=== PATIENT | female | born 1935 | race African-American/Black ===

== ENCOUNTER 2017-01-23 08:57 | Inpatient (IN) | payer MEDICARE, OTHER ==
[~2017-01-23] VITALS: Ht 157.5 cm; Wt 84.0 kg
[2017-01-23] VITALS (15 sets, daily range): BP systolic 131–228; BP diastolic 65–123; PULSE 74–105; RESP 15–24; TEMP 98.1–105.5; O2SAT 94–100
[~2017-01-23 08:57] MED LIST: ALPR0.5T99 PO; CITA20 PO; ENAL20TA PO; METO25 PO; OMEP20CA5 PO; PROP50TA2 PO; TYLETAB36 PO
[2017-01-23] MEDS ORDERED: SODIUM CHLOR 0.9% 1000 ML INJ 1,000 ML IV ONE (09:02)
--- NOTE | 2017-01-23 09:33 | RADRPT ---
EXAM DATE/TIME: 01/23/2017 09:03 [facility] COMPARISON: No previous studies available for comparison. INDICATIONS : Stroke alert. Altered mental status. RADIATION DOSE: 56.35 CTDIvol (mGy) This report was partially discussed with neurology at 0921 MEDICAL HISTORY : Non-responsive. SURGICAL HISTORY : Non-responsive. ENCOUNTER: Initial ACUITY: 1 day PAIN SCALE: Non-responsive LOCATION: cranial TECHNIQUE: Multiple contiguous axial images were obtained of the head. Using automated exposure control and adj ustment of the mA and/or kV according to patient size, radiation dose was kept as low as reasonably a chievable to obtain optimal diagnostic quality images. DICOM format image data is available electro nically for review and comparison. FINDINGS: CEREBRUM: Moderate diffuse cerebral volume loss. Subtle bilateral basal ganglia lacunar infarcts. There is appa rent dense left MCA. Small focal region of apparent jiang-white matter differentiation loss in the lef t posterior parietal-occipital mid convexities. This is potentially an artifact as it is only visuali zed on a single slice. The ventricles are normal for age. No evidence of midline shift, mass lesion, hemorrhage or acute infarction. No extra-axial fluid collections are seen. POSTERIOR FOSSA: The cerebellum and brainstem are intact. The 4th ventricle is midline. The cerebellopontine angle i s unremarkable. EXTRACRANIAL: The visualized portion of the orbits is intact. SKULL: The calvaria is intact. No evidence of skull fracture. Opacification of the left frontal sinuses. Re maining paranasal sinuses are CONCLUSION: 1. Questionable left dense MCA in this patient with acute CVA symptoms. 2. Focal jiang-white matter differentiation loss in the left posterior parietooccipital mid convexity seen on a single image only. Although this is likely artifactual, a developing watershed territory in farct should be considered. Carlos Ritchie MD on January 23, 2017 at 9:19 Board Certified Radiologist. This report was verified electronically.
[2017-01-23] MEDS ORDERED: SODIUM CHLOR 0.9% 1000 ML INJ 1,000 ML IV SCH (09:37)
[2017-01-23 09:38] LABS: I-STAT POTASSIUM 5.8 MMOL/L (3.5-4.9)
[2017-01-23] MEDS ORDERED: ASPIRIN 300 MG SUPP RECTAL SCH (09:45)
--- NOTE | 2017-01-23 10:05 | MB ---
cc: DEANDRA VERMA M.D. DATE OF CONSULTATION 01/23/2017 HISTORY OF PRESENT ILLNESS A 81-year-old right-handed woman with a history of hypertension, non-insulin diabetes, possible OR in the past, a stroke 20 years ago which may have affected her left arm. She lives with her nephew. She does not take any strong blood thinners, according to the nephew. He saw her at about 3:00 a.m.; she was sitting up watching the [employer], seemed to be fine. He talked her, said she should probably go to bed. He walked by her room at 06:00 a.m. this morning and she was asleep and he did not disturb her. Then he walked at about 08:45 this morning and noticed that she was laying sideways in bed and went in and she was unable to talk and came in and brought her to the hospital. A Stroke Alert was called. REVIEW OF SYSTEMS As far as he knows, no hypercholesterolemia. She does not take insulin. No A-fib. He does not know her full medical history but he did deny that she had any history of renal, hepatic, pulmonary disease, thyroid disease, lupus, ulcer, cancer. SOCIAL HISTORY Not a smoker or drinker. Lives with her nephew. FAMILY HISTORY Positive in her brother for cancer. Negative seizure or stroke. MEDICATIONS From a box of meds, she takes - 1. Vitamin 6. 2. She is on potassium. 3. She takes omeprazole. 4. Oxybutynin. 5. Citalopram 20 mg a day. 6. Temazepam 30 mg at night. 7. Xanax 0.5 t.i.d. 8. Lasix 20 mg twice a day. 9. Enalapril 10 mg daily pox her. 10. Tylenol with Codeine p.r.n. 11. Prednisone 5 mg a day for arthritis. 12. Propylthiouracil b.i.d. 13. Baclofen 10 mg twice a day for back pain. 14. Vitamin C. Metoprolol ER 25 mg q. day. I do not see any aspirin in the box or other blood thinners. PAST MEDICAL HISTORY 1. Some thyroid problems in the past as above. 2. History of depression, anxiety. 3. History of right arm pain. PHYSICAL EXAMINATION VITAL SIGNS: Blood pressure was 225/120; I did give her atenolol and labetalol at that time. NEUROLOGICAL EXAMINATION: Pupils are equal. 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 She did mumble something, but it was unintelligible to me and otherwise would not follow commands. She seems to move the left upper extremity and the left lower extremity better than the right side, although she hold the right arm up by the elbow, does not hold the right lower extremity up well. The toe was upgoing on the right, downgoing on the left. DTRs are absent throughout. She is nonverbal. She reacts to threat on the left, not very well on the right. LABS Pending, although she had anemia with hematocrit of 24.5 in 2012. Sed rate was 54 back in 2008. BORA was 180 at that time only. UA was negative back in 2008 with normal coags. Basic metabolic profile in 2013 was essentially normal. Her LDL was 141. Thyroid was normal as were LFTs at that time. IMAGING STUDIES CAT scan of brain here may show a hyperdense left MCA sign; it is hard to say. She had a negative CAT scan back in 2011. IMPRESSION Probably a left MCA infarct. However, it has been over 6 hours since she was last seen normal. I have suggested she is not a candidate for IV t-PA. Her NIH Stroke Scale is she has a 13. PLAN We will go ahead and do an MRI, MRA, see if there is anything more that we can do here, although she seems to be out of the window at this time. Seizure would be another possibility. MD JULIANNE Azul/NEFTALI /9:35 AM /9:54 AM
--- NOTE | 2017-01-23 10:28 | PD ---
HPI Chief Complaint: Neuro Symptoms/ Deficits Time Seen by Provider: 09:30 Travel History International Travel<30 days: No Contact w/Intl Traveler<30days: No Traveled to known affect area: No History of Present Illness HPI 81yo F with PMH of anxiety, HTN was brought in as stroke alert. As per EVAC, pt went to bed at 6am and was seen last normal then. She was then found to be completely aphasic with right gaze about 15 min prior to arrival. However, when the nephew arrived, we were able to clarify the story and pt had actually been last seen normal at 3am and that was the last time he interacted with her. She was sleeping at 6am and he did not talk to her then. Dr. Alfredo was informed and evaluated the patient in CT scan. PFSH Past Medical History Arthritis: Yes (KATHIE KNEES) Asthma: Yes Anxiety: Yes High Cholesterol: Yes Cerebrovascular Accident: Yes (1997) Diabetes: Yes (DOESN'T TAKE MEDS AT THIS TIME) Gastrointestinal Disorders: Yes (HX OF NAUSEA....) Genitourinary: No Hypertension: Yes Immune Disorder: No Musculoskeletal: Yes Neurologic: Yes Respiratory: Yes Tetanus Vaccination: Unknown ?: Not Menopausal: Yes Past Surgical History Cardiac Surgery: No Endocrine Surgery: No Eye Surgery: Yes (LT CATARACT REMOVED) Pacemaker: No Other Surgery: Yes Social History Tobacco Use: No Substance Use: No Allergies-Medications (Allergen,Severity, Reaction): Coded Allergies: No Known Allergies (Verified , 01/23/17) Reported Meds & Prescriptions Reported Meds & Active Scripts Active Review of Systems ROS Limitations: Clinical Condition Physical Exam Narrative GENERAL: 81yo F in moderate distress. SKIN: Focused skin assessment warm/dry. HEAD: Atraumatic. Normocephalic. EYES: Pupils equal and round at 4mm bilaterally. Right sided gaze. ENT: No nasal bleeding or discharge. Mucous membranes pink and moist. NECK: Trachea midline. No JVD. CARDIOVASCULAR: Regular rate and rhythm. No murmur appreciated. RESPIRATORY: No accessory muscle use. Clear to auscultation. Breath sounds equal bilaterally. GASTROINTESTINAL: Abdomen soft, non-tender, nondistended. MUSCULOSKELETAL: No obvious deformities. No clubbing. No cyanosis. No edema. NEUROLOGICAL: Awake with eyes open. 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 NIH 21. Data Data Last Documented VS Vital Signs Date Time Temp Pulse Resp B/P Pulse Ox O2 Delivery O2 Flow Rate FiO2 01/23/17 11:30 97 Nasal Cannula 2.00 01/23/17 11:00 88 18 190/75 01/23/17 10:15 100.5 Orders Diet Npo (01/23/17 Breakfast) Activity Bed Rest (01/23/17 ) Electrocardiogram (01/23/17 ) I-Stat Creatinine (01/23/17 09:02) I-Stat Profile (01/23/17 09:02) Prothrombin Time / Inr (Pt) (01/23/17 09:02) Act Partial Throm Time (Ptt) (01/23/17 09:02) Complete Blood Count With Diff (01/23/17 09:02) Fibrinogen (01/23/17 09:02) Drug Screen, Random Urine (01/23/17 09:02) Type And Screen (01/23/17 09:02) Ct Brain W/O Iv Contrast(Rout) (01/23/17 ) Chest, Single Ap (01/23/17 ) Consult Neurology (01/23/17 ) Blood Glucose (01/23/17 09:02) Ecg Monitoring (01/23/17 09:02) Neuro Checks Q2HX12,Q4H (01/23/17 09:02) Nursing Bedside Swallow Assess .ONCE (01/23/17 09:02) Iv Access Insert/Monitor (01/23/17 09:02) NPO (01/23/17 09:02) Oximetry (01/23/17 09:02) Oxygen Administration (01/23/17 09:02) Sodium Chlor 0.9% 1000 Ml Inj (Ns 1000 M (01/23/17 09:02) Resp Oxygen Rogelio C Titrat 1-4 L (01/23/17 09:02) Cath For Specimen (01/23/17 09:02) Creatine Kinase (Cpk) (01/23/17 09:28) Troponin I (01/23/17 09:28) (Hub Use Only)Inp Phy Cons/Ref (01/23/17 09:29) Mri Brain W/O Contrast (01/23/17 09:36) Mra Brain W/O Contrast (Cow) (01/23/17 09:36) Mra Carotids W Contrast (01/23/17 09:36) Westergren Sedimentation Rate (01/23/17 09:37) Thyroid Stimulating Hormone (01/23/17 09:37) Free Thyroxine (T4) (01/23/17 09:37) Vitamin B1 (Thiamine) (01/23/17 09:37) Vitamin B12 (01/23/17 09:37) Ast (Sgot) (01/23/17 09:37) Alt (Sgpt) (01/23/17 09:37) Eeg Study (01/23/17 09:37) Holter Monitor Recording (01/23/17 09:37) [place] / Telemetry YRN.Q8H (01/23/17 09:37) ^ Seizure Precautions (01/23/17 09:37) [place] (01/23/17 09:37) ^ Other Nursing Orders (01/23/17 09:37) Sodium Chlor 0.9% 1000 Ml Inj (Ns 1000 M (01/23/17 09:37) Lipid Profile (01/23/17 09:37) Folate, Serum (01/23/17 09:37) Consult Pt Eval & Treat (01/23/17 09:37) Scd&Teds Bilateral/Knee High YRN.QSHIFT (01/23/17 09:37) Aspirin Supp (Aspirin Supp) (01/23/17 09:45) Arterial Blood Gas (Abg) (01/23/17 09:40) Labetalol Inj (Trandate Inj) (01/23/17 10:30) Nicardipine Inj (Cardene Inj) (01/23/17 11:00) Gadodiamide Pf Inj (Omniscan Pf Inj) (01/23/17 11:01) Vascular Access Team Consult/P PRN (01/23/17 11:13) Vascular Poc Ultrasound (01/23/17 ) Ceftriaxone Inj (Rocephin Inj) (01/23/17 11:30) Acyclovir Inj (Zovirax Inj) (01/23/17 11:30) Acyclovir Inj (Zovirax Inj) (01/23/17 11:30) Admit Order (Ed Use Only) (01/23/17 11:33) Echo 2d Comp With Doppler (01/24/17 09:37) Labs Laboratory Tests Test 01/23/17 01/23/17 01/23/17 01/23/17 09:19 09:20 10:45 11:20 Bedside Hemoglobin 17.0 G/DL Bedside Hematocrit 50.0 % Bedside Sodium 133 MMOL/L Bedside Potassium 5.8 MMOL/L Bedside Chloride 97 MMOL/L Bedside Blood Urea Nitrogen 21 MG/DL Bedside Creatinine 1.2 MG/DL Bedside Glucose 190 MG/DL Sodium Level 127 MEQ/L Potassium Level 4.8 MEQ/L Chloride Level 94 MEQ/L Carbon Dioxide Level 24.7 MEQ/L Anion Gap 8 MEQ/L Blood Urea Nitrogen 21 MG/DL Creatinine 1.99 MG/DL Estimat Glomerular Filtration 29 ML/MIN Rate Random Glucose 234 MG/DL Calcium Level 7.4 MG/DL Protein Corrected Calcium MG/DL Phosphorus Level 2.6 MG/DL Magnesium Level 1.7 MG/DL Total Bilirubin 0.7 MG/DL Aspartate Amino Transf 64 U/L 68 U/L (AST/SGOT) Alanine Aminotransferase 37 U/L 36 U/L (ALT/SGPT) Alkaline Phosphatase 93 U/L Total Protein 8.4 GM/DL Albumin 2.8 GM/DL Blood Gas Puncture Site LT RADIAL Blood Gas Patient Temperature 98.6 Blood Gas HCO3 23 mmol/L Blood Gas Base Excess 0.1 mmol/L Blood Gas Oxygen Saturation 91 % Arterial Blood pH 7.48 Arterial Blood Partial 32 mmHg Pressure CO2 Arterial Blood Partial 61 mmHG Pressure O2 Arterial Blood Oxygen Content 19.7 Vol % Arterial Blood 1.0 % Carboxyhemoglobin Arterial Blood Methemoglobin 0.8 % Blood Gas Hemoglobin 15.5 G/DL Oxygen Delivery Device ROOM AIR Blood Gas Inspired Oxygen 21 % Erythrocyte Sedimentation Rate 6 mm/hr Total Creatine Kinase 116 U/L Troponin I 0.24 NG/ML Triglycerides Level 76 MG/DL Cholesterol Level 222 MG/DL LDL Cholesterol 129 MG/DL HDL Cholesterol 77.8 MG/DL Cholesterol/HDL Ratio 2.85 RATIO Vitamin B12 Level 565 PG/ML Folate GREATER THAN 20.0 NG/ML Free Thyroxine 0.76 NG/DL Thyroid Stimulating Hormone 0.885 uIU/ML 3rd Gen [facility] Medical Decision Making Medical Screen Exam Complete: Yes Emergency Medical Condition: Yes Interpretation(s) EKG: NSR 99bpm LAD. PVC. Q waves in II, III, aVF. Differential Diagnosis CVA vs. ICH vs. metabolic disturbance vs. meningitis Narrative Course 81yo F here as stroke alert. However, upon further questioning, pt was actually pass the window for TPA. CT brain showed questionable left dense MCA in this patient with acute CVA symptoms. Unable to obtain IV for CTA in CT scan so pt had MRI instead. MRI brain showed no restricted diffusion to indicate any recent ischemia. MRA brain showed no occlusion or high grade stenosis is identified. CXR negative. Dr. Alfredo gave the nurse verbal orders for 1gm IV solumedrol stat, 2gm ceftriaxone IV stat and 10mg per kg IV acyclovir stat and then Q 8 Hr. I entered these orders for her. Pt has one IV and is getting another one by vascular access. POC K is elevated at 5.8, will wait for BMP. Labs pending. BP was still 237/110 after labetalol 10mg IV x2. Will start nicardipine drip. Discussed with Dr. Lane and accepted to his service. Labs reviewed, leukocytosis at 17.2. Lactic acid elevated at 2.8. Troponin 0.24. EKG does show Q waves in inferior lead. Will trend troponin. UA showed negative leukocyte and occasional bacteria. Nurse just informed me that pt's temperature is 100.5F. Ordered blood cultures , acetaminophen rectal and lactic acid. Pt already covered with antibiotics for meningitis. Consent for lumbar puncture was obtained from nephew Mr. Eduar Phipps who is the next of kin. He also wanted to leave his number . LP was performed in the ED and CSF is clear. Sent to lab. Critical Care Narrative Aggregate critical care time was 90 minutes. Time to perform other separately billable procedures was not included in the critical care time. My time did not include minutes spent treating any other patients simultaneously or on activities that did not directly contribute to the patient's treatment. The services I provided to this patient were to treat and/or prevent clinically significant deterioration that could result in: cardiovascular collapse and . I provided critical care services requiring my management, as noted below: Chart data review, documentation time, medication orders and management, vital sign assessments/reviewing monitor data, ordering and reviewing lab tests, ordering and interpreting/reviewing x-rays and diagnostic studies, care of the patient and discussion of the patient with the admitting physicians. Procedures Procedure Narrative LUMBAR PUNCTURE: The patient was placed in the left lateral decubitus position. The lumbar area of the back was prepped with Betadine and sterilely draped. The L3 -- L4 interspace was infiltrated with 1% lidocaine plain. Number 20 gauge LP needle was placed in the interspace. Opening pressure deferred. Number 4 milliliters of clear CSF were obtained. Patient tolerated procedure well. Pt was also given 2mg of versed IV. Diagnosis Primary Impression: Altered mental status Qualified Code: R41.82 - Altered mental status, unspecified altered mental status type Additional Impression: Sepsis Qualified Code: A41.9 - Sepsis, due to unspecified organism Admitting Information Admitting Physician Requests: Sri Wooten DO Jan 23, 2017 10:28
[2017-01-23] MEDS ORDERED: LABETALOL HCL 100 MG/20 ML VIAL IV PUSH ONE (10:30)
--- NOTE | 2017-01-23 10:34 | RADRPT ---
EXAM DATE/TIME: 01/23/2017 09:41 [facility] COMPARISON: No previous studies available for comparison. INDICATIONS : Stroke alert. Right sided weakness. MEDICAL HISTORY : Hypertension. Diabetes mellitus type 2. SURGICAL HISTORY : shoulder surgery ENCOUNTER: Initial ACUITY: 1 day PAIN SCORE: 0/10 LOCATION: cranial Please note a normal MRA of the brain does not entirely exclude the possibility of a small aneurysm, nor the possibility of distal intracranial vessel disease. TECHNIQUE: 3D time of flight MRA was performed. Source images, multiplanar STS MIP, and 3D volume MIP reconstru ctions were reviewed. FINDINGS: Anterior circulation: The internal carotid arteries demonstrate luminal irregularity characteristic of atherosclerotic zarate ge. No high-grade stenosis is identified. Left internal carotid artery is narrowed slightly greater t kil[place]ore the right but still likely less than 50%. A1 segments and more distal anterior cerebral arteries are symmetric and within normal limits. The middle cerebral artery branches demonstrate symmetric fl ow related enhancement with areas of mild luminal irregularity and mild narrowing suggesting atherosc lerotic change. No aneurysm or high-grade stenosis is identified. Posterior circulation: There are patent posterior cerebral arteries bilaterally. Vertebral arteries are codominant. There is mild luminal irregularity of the vertebrobasilar system likely related to atherosclerotic change. Pa tent posterior cerebral arteries are present bilaterally with persistent circulation on the rig ht. No aneurysm is visualized. CONCLUSION: There are areas of luminal irregularity and mild to moderate narrowing within the internal carotid ar teries and middle cerebral arteries bilaterally as well as the vertebrobasilar system. The appearance is characteristic of atherosclerotic disease. No occlusion or high-grade stenosis is identified. Findings were telephoned to Dr. Alfredo. Fredis Gray MD on January 23, 2017 at 10:28 Board Certified Radiologist. This report was verified electronically.
--- NOTE | 2017-01-23 10:48 | RADRPT ---
EXAM DATE/TIME: 01/23/2017 10:16 [facility] COMPARISON: No previous studies available for comparison. INDICATIONS : Stroke alert. MEDICAL HISTORY : Hypertension. Diabetes mellitus type II. SURGICAL HISTORY : Shoulder repair. ENCOUNTER: Initial ACUITY: 1 day PAIN SCORE: Non-responsive. LOCATION: Bilateral chest FINDINGS: A single view of the chest demonstrates the lungs to be symmetrically aerated without evidence of mas s, infiltrate or effusion. The heart size is mildly prominent.. Osseous structures are intact. Ther e is evidence of previous internal fixation of the right humerus. CONCLUSION: No acute disease. Mild cardiomegaly. Andrea Palencia MD on January 23, 2017 at 10:45 Board Certified Radiologist. This report was verified electronically.
[2017-01-23 10:55] LABS: BLOOD GAS BASE EXCESS 0.1 mmol/L (-2-2); BLOOD GAS HCO3 23 mmol/L (22-26); BLOOD GAS METHEMOGLOBIN 0.8 % (0-2); BLOOD GAS O2 HGB SATURATION 91 % (90-100); BLOOD GAS OXYGEN CONTENT 19.7 Vol % (12.0-20.0); BLOOD GAS PCO2 32 mmHg (38-42); BLOOD GAS PO2 61 mmHG (61-120); BLOOD GAS TOTAL HGB 15.5 G/DL (12.0-16.0); CRITICAL VALUE NO; DRAW SITE LT RADIAL; FIO2 21 %; NUMBER OF ARTERIAL PUNCTURES 1; OXYGEN DEVICE ROOM AIR; STAT YES; TEMP CORR TO 98.6
--- NOTE | 2017-01-23 10:55 | RADRPT ---
EXAM DATE/TIME: 01/23/2017 09:41 [facility] COMPARISON: MRA BRAIN W/O CONTRAST, January 23, 2017, 9:41. CT BRAIN W/O CONTRAST, January 23, 2017, 9:03. INDICATIONS : CVA. Stroke alert and non responsive. MEDICAL HISTORY : Hypertension. Diabetes mellitus type 2. SURGICAL HISTORY : Shoulder replacement. ENCOUNTER: Initial ACUITY: 1 day PAIN SCORE: 0/10 LOCATION: head. TECHNIQUE: Multiplanar, multisequence MRI of the brain was performed without contrast. FINDINGS: CEREBRUM: There is mild cerebral atrophy. Ventricles are normal in size. There is moderate increased flair/T2 signal within the thalami bilaterally and extending into the midbrain and stephanie. No midline shift, mas s lesion, hemorrhage or acute infarction. No extraaxial fluid collections are seen. The pituitary g land and suprasellar cistern are normal in configuration. WHITE MATTER: There is mild periventricular white matter signal change. POSTERIOR FOSSA: The cerebellum demonstrates no acute finding. There is increased flair/T2 signal within the stephanie and midbrain. The 4th ventricle is midline. The cerebellopontine angle is unremarkable. The cerebellar tonsils are normal in position. DIFFUSION IMAGING: No focal areas of restricted diffusion are seen. No evidence of acute infarction. EXTRACRANIAL: The visualized portions of the orbits and paranasal sinuses are unremarkable. CONCLUSION: 1. There is no restricted diffusion to indicate any recent ischemia. 2. There is conspicuous increased flair/T2 signal without diffusion restriction in the thalami bilate rally and in the midbrain and stephanie. The appearance is nonspecific. This may be related to small vesse l disease. However, should correlate with the clinical history and laboratory data to determine if th ere are any findings to suggest a metabolic or infectious etiology. Findings were discussed with Dr. Alfredo the telephone. Fredis Gray MD on January 23, 2017 at 10:32 Board Certified Radiologist. This report was verified electronically.
[2017-01-23] MEDS ORDERED: niCARdipine INJ 25 MG in SODIUM CHLOR 0.9% 250 ML INJ 250 ML IV ONE (11:00)
[2017-01-23] MEDS ORDERED: GADODIAMIDE PF 287 MG/ML 20 ML VIAL (for RAD MRI) IV ONE (11:01)
[2017-01-23] MEDS ORDERED: cefTRIAXone INJ 2,000 MG in SODIUM CHLORIDE 0.9% INJ 100 ML IV ONE (11:30)
[2017-01-23] MEDS: SODIUM CHLORIDE 0.9% IV ONE ×2 (11:30→15:15)
[2017-01-23] MEDS ORDERED: methylPREDNISolone SOD SUCC 125 MG/2 ML VIAL IVP ONE (11:30)
[2017-01-23] MEDS ORDERED: SODIUM CHLORIDE 0.9% IV SCH (11:30)
[2017-01-23] MEDS: ACYCLOVIR IV ONE ×2 (11:30→15:15)
[2017-01-23] MEDS ORDERED: ACYCLOVIR IV SCH (11:30)
[2017-01-23] MEDS ORDERED: ACETAMINOPHEN 650 MG SUPP RECTAL ONE (11:45)
[2017-01-23] MEDS ORDERED: MAGNESIUM HYDROXIDE SUSP 30 ML CUP PO PRN (12:00)
[2017-01-23] MEDS: PANTOPRAZOLE SODIUM 40 MG VIAL IV SCH (12:00)
[2017-01-23] MEDS ORDERED: BISACODYL 10 MG SUPP RECTAL PRN (12:00)
[2017-01-23] MEDS ORDERED: LACTULOSE SYRUP 20 GM/30 ML CUP PO PRN (12:00)
[2017-01-23] MEDS ORDERED: SENNOSIDES 8.6 MG TAB PO PRN (12:00)
[2017-01-23] MEDS ORDERED: CHLORHEXIDINE GLUCONATE 2 % 1 PACK (2 CLOTHS) TOP PRN (12:00)
[2017-01-23] MEDS: INSULIN NovoLIN REGULAR SUPPLEMENTAL SCALE SQ SCH ×2 (12:00→18:00)
[2017-01-23] MEDS ORDERED: MISCELLANEOUS NURSING INFORMATION XX SCH (12:00)
[2017-01-23] MEDS ORDERED: DEXTROSE 50% IN WATER 50 ML VIAL(D50) IV PRN (12:00)
[2017-01-23] MEDS ORDERED: RESP: ALBUTEROL 2.5 MG/IPRATROPIUM 0.5 MG NEB (PRN) INH (12:00)
[2017-01-23] MEDS ORDERED: GLUCAGON 1 MG/ML VIAL OTHER PRN (12:00)
[2017-01-23 12:07] LABS: AUTOMATED NEUTROPHIL # 16.3 TH/MM3 (1.8-7.7); BASOPHIL # 0.1 TH/MM3 (0-0.2); BASOPHIL % 0.5 % (0.0-2.0); HEMATOCRIT 45.5 % (35.0-46.0); HEMO FLAGS DIFF FINAL; LYMPH % 3.2 % (9.0-44.0); LYMPHOCYTE # 0.6 TH/MM3 (1.0-4.8); MEAN CELL VOLUME 95.8 FL (80.0-100.0); MEAN CORPUSCULAR HEMOGLOBIN 31.7 PG (27.0-34.0); MEAN CORPUSCULAR HGB CONC 33.1 % (32.0-36.0); MONO % 2.3 % (0.0-8.0); PLATELET COUNT 189 TH/MM3 (150-450); RED BLOOD COUNT 4.76 MIL/MM3 (4.00-5.30); RED CELL DISTRIBUTION WIDTH 13.8 % (11.6-17.2); WHITE BLOOD COUNT 17.3 TH/MM3 (4.0-11.0)
[2017-01-23 12:30] LABS: BICARBONATE 24.7 MEQ/L (21.0-32.0); MAGNESIUM 1.7 MG/DL (1.5-2.5); POTASSIUM 4.8 MEQ/L (3.5-5.1)
[2017-01-23] MEDS ORDERED: MIDAZOLAM HCL 2 MG/2 ML VIAL IV PUSH ONE (12:30)
[2017-01-23 12:32] LABS: AST (GOT) 68 U/L (15-37)
[2017-01-23 12:33] LABS: TOTAL BILIRUBIN ADULT 0.7 MG/DL (0.2-1.0)
[2017-01-23] MEDS ORDERED: LIDOCAINE HCL 1% 50 ML VIAL ONE (12:35)
[2017-01-23 12:43] LABS: BACTERIA, URINE OCC /hpf; BLOOD, URINE SMALL (NEG); GLUCOSE,URINE NEG (NEG); KETONE, URINE NEG (NEG); MUCUS URINE FEW /lpf (OCC); NITRITE,URINE NEG (NEG); PH, URINE 6.5 (5.0-8.5); URINE COLOR YELLOW (YELLW/STRAW)
[2017-01-23 12:44] LABS: AMPHETAMINE, URINE NEG (NEG); BARBITURATES, URINE NEG (NEG); COCAINE, URINE NEG (NEG)
[2017-01-23] MEDS ORDERED: methylPREDNISolone SO SUCC INJ 1,000 MG in DEXTROSE 5% IN WATER 100ML INJ 100 ML IV ONE ×2 (12:45)
[2017-01-23] MEDS ORDERED: Vancomycin Consult Pharmacy 1 EA OTHER SCH (12:45)
[2017-01-23] MEDS ORDERED: LIDOCAINE HCL 1% 50 ML VIAL INFIL ONE (12:45)
[2017-01-23] MEDS ORDERED: VANCOMYCIN INJ 1,000 MG in SODIUM CHLOR 0.9% 250 ML INJ 250 ML IV ONE ×2 (12:45→17:00)
[2017-01-23 12:46] LABS: COMMENT (UR) CATH-CULTURE IND; CULTURE IF INDICATED CATH CULTURE IND
[2017-01-23 12:57] LABS: ALT (GPT) 36 U/L (10-53); CREATINE KINASE 116 U/L (26-192); FREE T4 0.76 NG/DL (0.76-1.46); HDL CHOLESTEROL 77.8 MG/DL (40.0-60.0); LDL CHOLESTEROL 129 MG/DL (0-99)
--- NOTE | 2017-01-23 13:21 | MH ---
cc: OMAR DUMONT DATE OF ADMISSION: 01/23/2017 1937 HISTORY OF PRESENT ILLNESS The patient is a 81-year-old female with past medical history of hypertension, ylr-rljfxtg-stkkltjup diabetes mellitus, hyperlipidemia, hyperthyroidism and remote history of stroke. She presented to [facility] ED as a stroke alert. The patient lives with her nephew and she was last seen normal at approximately 03:00 a.m. where she was watching the gospel channel. When he went back to check on her at 06:00 a.m. the patient was asleep. And then when he checked on her at 08:45 this morning he noticed the patient was lying sideways in bed and was unable to talk. On arrival to the ER she was hypertensive with blood pressure of 188/87, tachycardic with heart rate of 105. In the ER she was given labetalol 20 mg total and placed on a Cardene drip at currently 40 mg an hour, with a blood pressure of 172/74. CT scan of the brain showed questionable left dense MCA. She subsequently underwent MRI of the brain which showed no restricted diffusion to indicate any recent ischemia. However, there is an increased FLAIR in T2 signal without diffusion restriction in the thalami bilaterally. MRA of the head showed findings compatible with atherosclerotic disease. No occlusion or high-grade stenosis is identified. In the ER she was given 1 liter bolus of normal saline. In addition the patient was scheduled to receive 1 gram of Solu-Medrol, 2 grams of Rocephin and acyclovir. In addition, she is in the process of getting LP by the ED physician. The patient is on room air oxygen with saturation of 97%. Initially she was afebrile, however, she was found to have a temperature of 100.4 axillary and 105 rectally. Most of the history was obtained from reviewing the medical records as the patient is a poor historian. PAST MEDICAL HISTORY Significant for: 1. Dyslipidemia. 2. Diabetes mellitus. 3. Hypertension. 4. Remote history of stroke. 5. Hyperthyroidism. SOCIAL HISTORY Nonsmoker, nondrinker. Lives with her nephew. FAMILY HISTORY Cancer runs in the family. MEDICATIONS Reported medications include: 1. Vitamin B6. 2. Oxybutynin. 3. Celexa. 4. Xanax. 5. Lasix. 6. Enalapril. 7. Prednisone for arthritis. 8. PTU. 9. Vitamin C. 10. Metoprolol. PAST SURGICAL HISTORY Previous left cataract removal. REVIEW OF SYSTEMS As per HPI. The rest of the review of systems limited as the patient is a poor historian. PHYSICAL EXAMINATION GENERAL: A 81-year-old female lying in bed, in no acute respiratory distress. VITAL SIGNS: Temperature 105 rectally, pulse of 85, blood pressure 172/74, saturation of 97% on room air. HEENT: Atraumatic, normocephalic. Pupils equal, round, reactive to light and accommodation. Extraocular muscles are intact. Conjunctivae pink. Nonicteric sclerae. NECK: Supple. No JVD, adenopathy or thyromegaly. Trachea in the midline. CARDIOVASCULAR: Regular rate and rhythm. Normal S1-S2. No murmurs, rubs or gallops noted. PULMONARY: Bilateral equal air entry. No rales or wheezing. ABDOMEN: Soft, obese, nontender, nondistended. Positive bowel sounds. EXTREMITIES: No cyanosis, clubbing or edema. NEURO: The patient is able to move her left upper and left lower extremity, better than the right-side. Nonverbal and tardive dyskinesia type movements of the mouth with constant chewing. LABORATORY DATA WBC 17.3, hemoglobin 15.1, hematocrit 45, platelet count 189. Point of care sodium 133, potassium 5.8, chloride 97, BUN 21, creatinine 1.2, glucose 190. ABG showed a pH of 7.48, CO2 32, pAO2 61, bicarb 23, sats of 91% on room air. RADIOGRAPHIC STUDIES CT brain showed questionable left dense MCA. MRI of the brain showed no restricted diffusion to indicate any recent ischemia. However, increased FLAIR T2 signal in the thalami bilaterally. MRI of the head showed atherosclerotic disease without any occlusion or high-grade stenosis. Chest x-ray showed no acute disease. IMPRESSION 1. Respiratory insufficiency. 2. Possible left MCA infarct. 3. Altered mental status. 4. Hypertensive emergency. 5. Leukocytosis. 6. Diabetes mellitus. 7. Dyslipidemia. 8. Hyperthyroidism. 9. Remote history of CVA. RECOMMENDATIONS 1. Monitor neuro status closely and avoid any sedatives. A CT brain MRI, MRA of the brain reviewed. The patient is about to undergo LP. She is scheduled to receive 1 gram of Solu-Medrol, acyclovir and Rocephin. 2. In addition EEG has been ordered by neurology. 3. Continue with oxygen to maintain sats above 92%. 4. Bronchodilators on a p.r.n. basis. Aspiration precautions. 5. Monitor heart rate and blood pressure closely and maintain MAP greater than 65 mmHg. Wean off Cardene drip. Will obtain 2-D echo to evaluate LV function. 6. Monitor renal function, I&O's and electrolyte replacement as needed. Hanna was inserted in the ED. Place on IV fluids, NS at 84 mL an hour. 7. Keep n.p.o. for now and place on Protonix 40 mg IV daily. Of note, the patient is on Prilosec 20 mg daily at home. Will consult speech therapy service. 8. Will place on broad spectrum abx in form of Rocephin and vancomycin and continue with acyclovir. Follow up on blood cultures and check urinalysis with culture if indicated. In addition we will consult ID service. 9. Monitor CBC and for signs of infections which include fever and WBC. 10. Place on sliding scale insulin with Accu-Chek q. 6-hour for glycemic control. 11. GI prophylaxis with Protonix 40 mg daily and DVT prophylaxis with SCDs. Will hold off on DVT prophylaxis for now as the patient will undergo an LP. 12. Case discussed with the ED staff. 13. Further recommendations will be based on the hospital course. MD WHIT Justice/MATEO /12:28 PM /12:52 PM DANY
[2017-01-23 14:01] LABS: LACTIC ACID GHOST NOT REPORTABLE
--- NOTE | 2017-01-23 14:05 | RADRPT ---
EXAM DATE/TIME: 01/23/2017 09:41 [place] COMPARISON: No previous studies available for comparison. INDICATIONS : Stroke alert. CONTRAST: 20 cc Omniscan (gadodiamide) IV MEDICAL HISTORY : Diabetes mellitus type 2. Hypertension. SURGICAL HISTORY : Rotator cuff, right. ENCOUNTER: Initial ACUITY: 1 day PAIN SCORE: 0/10 LOCATION: cranial Percent stenosis is calculated using the diameter of the stenotic region over the diameter of the nor mal distal internal carotid artery. TECHNIQUE: Bolus infused MRA of the extracranial circulation was performed using a neurovascular coil. Post pro cessing was performed including rotating subvolume maximum intensity projections of each carotid gloria ry, rotating full volume maximum intensity projections of both carotid arteries, sagittal and coronal sliding thin slab reformations of each carotid artery, and left oblique sliding thin slab reformatio n through the aortic arch to include the origin of the arch branch vessels. FINDINGS: AORTIC ARCH: There is a three vessel origin of the great vessels from the aorta. No evidence of ostial narrowing. RIGHT CAROTID: The common carotid artery demonstrates no abnormality. The carotid bulb has a normal configuration w ithout ulceration or narrowing. The internal carotid artery lumen is smooth without stenosis. The e xternal carotid artery demonstrates no significant stenosis. LEFT CAROTID: The common carotid artery demonstrates no abnormality. The carotid bulb has a normal configuration w ithout ulceration or narrowing. The internal carotid artery lumen is smooth without stenosis. The e xternal carotid artery demonstrates no significant stenosis. VERTEBRALS: The vertebral arteries have a symmetric diameter. No stenotic lesions are seen. CONCLUSION: No acute neck arterial vascular abnormality is identified. No significant stenosis is present. Fredis Gray MD on January 23, 2017 at 13:58 Board Certified Radiologist. This report was verified electronically.
[2017-01-23 14:45] LABS: GROSS BLOOD TUBE #1 0 (0); SUPERNATE COLOR TUBE #1 CLEAR (CLEAR); SUPERNATE COLOR TUBE #2 CLEAR (CLEAR)
[2017-01-23] MEDS ORDERED: CALCIUM GLUCONATE INJ 1 GM in DEXTROSE 5% IN WATER 100ML INJ 100 ML IV ONE ×2 (14:45)
[2017-01-23 14:46] LABS: CSF LYMPHOCYTES 0 %; CSF NEUTROPHILS 0 %; GROSS BLOOD TUBE #2 0 (0); GROSS BLOOD TUBE #3 0 (0); GROSS BLOOD TUBE #4 0 (0); SUPERNATE COLOR TUBE #3 CLEAR (CLEAR); SUPERNATE COLOR TUBE #4 CLEAR (CLEAR); WBC TUBE #4 0 /MM3 (0-10)
[2017-01-23] MEDS: SODIUM CHLOR 0.9% 1000 ML INJ 1,000 ML IV SCH (16:14)
--- NOTE | 2017-01-23 16:59 | MG ---
cc: CLAIRE KAPLAN M.D. Lab No: [id number] Date: 01/23/17 Age: 81 Sex: F Race: REFERRING PHYSICIAN Dr. Calderon DATE OF 1935 Room C33 with photic stimulation. There is no history given. The overall background slowing is seen predominately of 4 to 4.5 Hz. A lot of chewing artifact, muscle artifact throughout the recording, noted at one point to start singing at EPOCH 16, ongoing muscle artifact, movement artifact. There is no epileptiform discharges noted but ongoing myogenic artifact throughout the recording. Poor study. Photic stimulation, possible driving response. IMPRESSION There was some overall background slowing but very poor study due to the patient's noncompliance. May have some encephalopathic process. Epilepsy is still considered. A repeat study when possible from light sedation. Claire Kaplan MD DF/EO /3:01 PM /4:54 PM
--- NOTE | 2017-01-23 17:45 | PD.ID.CON ---
History of Present Illness Service ID Consult Requested By Dr Hill Reason for Consult Evaluation and Mment of Possible meningoencephalitis. Primary Care Physician Unknown Diagnoses: History of Present Illness Ms. Mireles is a 81 y/o CF with past medical history of hypertension, non- insulin-dependent diabetes mellitus, hyperlipidemia, hyperthyroidism and remote history of stroke. She presented to [facility] ED as a stroke alert. The patient lives with her nephew and she was last seen normal at approximately 03:00 a.m. where she was watching the gospel channel. When he went back to check on her at 06:00 a.m. the patient was asleep. And then when he checked on her at 08:45 this morning he noticed the patient was lying sideways in bed and was unable to talk. On arrival to the ER she was hypertensive with blood pressure of 188/87, tachycardic with heart rate of 105. In the ER she was given labetalol 20 mg total and placed on a Cardene drip at currently 40 mg an hour, with a blood pressure of 172/74. CT scan of the brain showed questionable left dense MCA infarct. She subsequently underwent MRI of the brain which showed no restricted diffusion to indicate any recent ischemia. However, there is an increased FLAIR in T2 signal without diffusion restriction in the thalami bilaterally. MRA of the head showed findings compatible with atherosclerotic disease. No occlusion or high-grade stenosis is identified. In the ER she was given 1 liter bolus of normal saline. In addition the patient was scheduled to receive 1 gram of Solu-Medrol, 2 grams of Rocephin and acyclovir. Patient underwent an LP which shows no WBC normal glucose and some elevation in total protein. Initially she was afebrile, however , she was found to have a temperature of 100.4 axillary and 105 rectally. Most of the history was obtained from reviewing the medical records as the patient is acutely encephalopathic. ID was consulted for evaluation and mment of possible meningoencephalitis of infectious etiology. Review of Systems ROS Limitations: Altered Mental Status Past Family Social History Allergies: Coded Allergies: No Known Allergies (Verified , 01/23/17) Past Medical History 1. Dyslipidemia. 2. Diabetes mellitus. 3. Hypertension. 4. Remote history of stroke. 5. Hyperthyroidism. Past Surgical History Previous left cataract removal. Reported Medications Could not be obtained. Active Ordered Medications Current Medications Medications (Trade) Dose Ordered Sig/Nilson Route Start Time Stop Time Status Last Admin (Aspirin Supp) 300 mg DAILY RECTAL 01/23/17 09:45 01/23/17 11:47 (Protonix Inj) 40 mg DAILY IV 01/23/17 12:00 Miscellaneous Information 1 [id number] XX 01/23/17 12:00 (Chlorhexidine 2% Cloth) 3 pack Taper DAILY@04 TOP 01/24/17 04:00 01/20/18 03:59 (Chlorhexidine 2% Cloth) 3 pack UNSCH PRN TOP 01/23/17 12:00 (Sara-Colace) 1 tab BID PO 01/23/17 21:00 (Milk Of Magnesia Liq) 30 ml Q12H PRN PO 01/23/17 12:00 (Senokot) 17.2 mg Q12H PRN PO 01/23/17 12:00 (Dulcolax Supp) 10 mg DAILY PRN RECTAL 01/23/17 12:00 Lactulose 30 ml 30 ml DAILY PRN PO 01/23/17 12:00 (NS 1000 ml Inj) 1,000 ml @ 84 mls/hr [id number] IV 01/23/17 12:00 01/23/17 16:14 (D50w (Vial) Inj) 50 ml UNSCH PRN IV 01/23/17 12:00 (Glucagon Inj) 1 mg UNSCH PRN OTHER 01/23/17 12:00 (NovoLIN R SUPPLEMENTAL SCALE) 1 Q6H SQ 01/23/17 12:00 Hydralazine HCl 10 mg 10 mg Q6H PRN IV PUSH 01/23/17 12:15 Acyclovir Sodium 798 mg/Sodium Chloride 150 ml @ 150 mls/hr Q8H IV 01/23/17 18:30 Ceftriaxone Sodium 2000 mg/ Sodium Chloride 100 ml @ 200 mls/hr Q24H IV 01/24/17 12:00 Pharmacy Profile Note 0 ml @ 0 mls/hr UNSCH OTHER 01/23/17 12:45 (Vancomycin Inj/ NS 250 ml Inj) 250 ml @ 250 mls/hr ONCE ONCE IV 01/23/17 17:00 01/23/17 17:59 01/23/17 17:13 Family History Cancer runs in the family. Social History Nonsmoker, nondrinker. Lives with her nephew. Physical Exam Vital Signs Vital Signs Date Time Temp Pulse Resp B/P Pulse Ox O2 Delivery O2 Flow Rate FiO2 01/23/17 16:00 101.2 79 16 156/70 97 01/23/17 16:00 99 Room Air 21 01/23/17 14:15 99.8 82 18 147/65 95 Nasal Cannula 2 01/23/17 14:15 82 147/65 01/23/17 13:45 86 136/76 01/23/17 12:00 105.5 01/23/17 11:30 97 Nasal Cannula 2.00 01/23/17 11:00 88 18 190/75 01/23/17 10:15 100.5 228/115 01/23/17 09:55 105 18 188/87 94 01/23/17 09:48 94 Nasal Cannula 2 01/23/17 09:35 90 169/98 94 01/23/17 09:30 98.8 225/123 01/23/17 09:00 105 18 95 Nasal Cannula 2 01/23/17 09:00 105 18 188/87 95 Nasal Cannula 2 01/23/17 09:00 105 15 188/87 94 Room Air Physical Exam GENERAL: This is a well-nourished, well-developed patient, in no apparent distress. SKIN: No rashes, ecchymoses or lesions. Cool and dry. HEAD: Atraumatic. Normocephalic. No temporal or scalp tenderness. EYES: Pupils equal round and reactive. Extraocular motions intact. No scleral icterus. No injection or drainage. ENT: Nose without bleeding, purulent drainage or septal hematoma. Throat without erythema, tonsillar hypertrophy or exudate. Uvula midline. Airway patent. NECK: Trachea midline.Supple, nontender, no meningeal signs. CARDIOVASCULAR: Regular rate and rhythm RESPIRATORY: Clear to auscultation. Breath sounds equal bilaterally. No wheezes , rales, or rhonchi. GASTROINTESTINAL: Abdomen soft, non-tender, nondistended. Obese. MUSCULOSKELETAL: Extremities without clubbing, cyanosis, or edema. No joint tenderness, effusion, or edema noted. No calf tenderness. Negative Homans sign bilaterally. NEUROLOGICAL: Awake and alert. Psych: non cooperative, repeats to all health care workers "leave me alone, go away" IV line sites with no e.o infection. Laboratory Laboratory Tests Test 01/23/17 01/23/17 01/23/17 01/23/17 09:19 09:20 10:45 11:20 Bedside Hemoglobin 17.0 Bedside Hematocrit 50.0 Bedside Sodium 133 Bedside Potassium 5.8 Bedside Chloride 97 Bedside Blood Urea Nitrogen 21 Bedside Creatinine 1.2 Bedside Glucose 190 Sodium Level 127 Potassium Level 4.8 Chloride Level 94 Carbon Dioxide Level 24.7 Anion Gap 8 Blood Urea Nitrogen 21 Creatinine 1.99 Estimat Glomerular Filtration 29 Rate Random Glucose 234 Calcium Level 7.4 Protein Corrected Calcium Phosphorus Level 2.6 Magnesium Level 1.7 Total Bilirubin 0.7 Aspartate Amino Transf 64 68 (AST/SGOT) Alanine Aminotransferase 37 36 (ALT/SGPT) Alkaline Phosphatase 93 Total Protein 8.4 Albumin 2.8 Blood Gas Puncture Site LT RADIAL Blood Gas Patient Temperature 98.6 Blood Gas HCO3 23 Blood Gas Base Excess 0.1 Blood Gas Oxygen Saturation 91 Arterial Blood pH 7.48 Arterial Blood Partial 32 Pressure CO2 Arterial Blood Partial 61 Pressure O2 Arterial Blood Oxygen Content 19.7 Arterial Blood 1.0 Carboxyhemoglobin Arterial Blood Methemoglobin 0.8 Blood Gas Hemoglobin 15.5 Oxygen Delivery Device ROOM AIR Blood Gas Inspired Oxygen 21 Erythrocyte Sedimentation Rate 6 Total Creatine Kinase 116 Troponin I 0.24 Triglycerides Level 76 Cholesterol Level 222 LDL Cholesterol 129 HDL Cholesterol 77.8 Cholesterol/HDL Ratio 2.85 Vitamin B12 Level 565 Folate GREATER THAN 20.0 Free Thyroxine 0.76 Thyroid Stimulating Hormone 0.885 3rd Gen Test 01/23/17 01/23/17 01/23/17 01/23/17 11:44 11:50 12:00 13:00 Lactic Acid Level 2.8 White Blood Count 17.3 Red Blood Count 4.76 Hemoglobin 15.1 Hematocrit 45.5 Mean Corpuscular Volume 95.8 Mean Corpuscular Hemoglobin 31.7 Mean Corpuscular Hemoglobin 33.1 Concent Red Cell Distribution Width 13.8 Platelet Count 189 Mean Platelet Volume 8.8 Neutrophils (%) (Auto) 94.0 Lymphocytes (%) (Auto) 3.2 Monocytes (%) (Auto) 2.3 Eosinophils (%) (Auto) 0.0 Basophils (%) (Auto) 0.5 Neutrophils # (Auto) 16.3 Lymphocytes # (Auto) 0.6 Monocytes # (Auto) 0.4 Eosinophils # (Auto) 0.0 Basophils # (Auto) 0.1 CBC Comment DIFF FINAL Differential Comment Urine Color YELLOW Urine Turbidity CLEAR Urine pH 6.5 Urine Specific [place] 1.010 Urine Protein 100 Urine Glucose (UA) NEG Urine Ketones NEG Urine Occult Blood SMALL Urine Nitrite NEG Urine Bilirubin NEG Urine Urobilinogen LESS THAN 2.0 Urine Leukocyte Esterase NEG Urine RBC 10 Urine WBC 1 Urine Bacteria OCC Urine Mucus FEW Microscopic Urinalysis Comment CATH-CULTURE IND Urine Opiates Screen POS Urine Barbiturates Screen NEG Urine Amphetamines Screen NEG Urine Benzodiazepines Screen POS Urine Cocaine Screen NEG Urine Cannabinoids Screen NEG CSF Volume (Tube 1) 1.0 CSF Supernatant Color (tube 1) CLEAR CSF Gross Blood (Tube 1) 0 CSF Volume (Tube 2) 1.0 CSF Supernatant Color (tube 2) CLEAR CSF Gross Blood (Tube 2) 0 CSF Volume (Tube 3) 1.0 CSF Supernatant Color (tube 3) CLEAR CSF Gross Blood (Tube 3) 0 CSF Volume (Tube 4) 1.0 CSF Supernatant Color (tube 4) CLEAR CSF Gross Blood (Tube 4) 0 CSF WBC (Tube 4) 0 CSF RBC (Tube 4) 2 CSF Neutrophils 0 CSF Lymphocytes 0 CSF Glucose 100 CSF Total Protein 45.0 Date/Time Procedure Status Source Growth 01/23/17 13:00 Gram Stain - Final Resulted Cerebral Spinal Fluid Lumbar Puncture 01/23/17 13:00 CSF Culture Resulted Cerebral Spinal Fluid Lumbar Puncture Pending 01/23/17 13:00 Fungal Smear - Final Resulted Cerebral Spinal Fluid Lumbar Puncture NO FUNGAL ELEMENTS SEEN. 01/23/17 13:00 Fungal Culture Resulted Cerebral Spinal Fluid Lumbar Puncture Pending 01/23/17 12:00 Urine Culture Received Urine Catheterized Urine Pending 01/23/17 11:44 Aerobic Blood Culture Received Blood Peripheral Pending 01/23/17 11:44 Anaerobic Blood Culture Received Blood Peripheral Pending Result Diagram: 01/23/17 1150 01/23/17 0920 Imaging Last Impressions Neck Magnetic Resonance Angiography 01/23/17935 Signed Impressions: Service Date/Time: January 09:41 - CONCLUSION: No acute neck arterial vascular abnormality is identified. No significant stenosis is present. Fredis Gray MD Head Magnetic Resonance Angiography 01/23/17935 Signed Impressions: Service Date/Time: January 09:41 - CONCLUSION: There are areas of luminal irregularity and mild to moderate narrowing within the internal carotid arteries and middle cerebral arteries bilaterally as well as the vertebrobasilar system. The appearance is characteristic of atherosclerotic disease. No occlusion or high-grade stenosis is identified. Findings were telephoned to Dr. Alfredo. Fredis Gray MD Brain MRI 01/23/17 0936 Signed Impressions: Service Date/Time: , January 23, 2017 09:41 - CONCLUSION: 1. There is no restricted diffusion to indicate any recent ischemia. 2. There is conspicuous increased flair/T2 signal without diffusion restriction in the thalami bilaterally and in the midbrain and stephanie. The appearance is nonspecific. This may be related to small vessel disease. However, should correlate with the clinical history and laboratory data to determine if there are any findings to suggest a metabolic or infectious etiology. Findings were discussed with Dr. Alfredo the telephone. Fredis Gray MD Head CT 01/23/17 0000 Signed Impressions: Service Date/Time: , January 23, 2017 09:03 - CONCLUSION: 1. Questionable left dense MCA in this patient with acute CVA symptoms. 2. Focal jiang-white matter differentiation loss in the left posterior parietooccipital mid convexity seen on a single image only. Although this is likely artifactual, a developing watershed territory infarct should be considered. Carlos Ritchie MD Chest X-Ray 01/23/17 0000 Signed Impressions: Service Date/Time: , January 23, 2017 10:16 - CONCLUSION: No acute disease. Mild cardiomegaly. 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 SIRS (fever, WBC count elevation) rule out Sepsis (source likely encephalitis) High grade fever could also be due to Thalamic involvement or seizures. Acute metabolic encephalopathy: Meningoencephalitis, sepsis. Recs Continue Ceftriaxone IV Continue Vanco IV Continue Acyclovir Follow cultures Follow HSV PCR in CSF added by me. Dw and RN for patient. Sharmila Joaquin MD Jan 23, 2017 17:45
--- NOTE | 2017-01-23 18:08 | EKG ---
Date Performed: 01/23/2017 Time Performed: 10:20:09 PTAGE: 81 years EKG: Sinus rhythm WITH OCCASIONAL VENTRICULAR PREMATURE COMPLEXES INFERIOR MYOCARDIAL INFARCTION Compared to previous tracing, the inferior wall infarct is new, and there may be some minimal reciprocal change, so the in farct may in fact be acute. Clinical correlation will be extremely important ABNORMAL ECG PREVIOUS TRACING : 11/05/2011 13.57 DOCTOR: Jane Slaughter Interpretating Date/Time 01/23/2017 18:07:23
[2017-01-23] MEDS: hydrALAZINE HCL 20 MG/ML VIAL IV PUSH PRN (18:42)
[2017-01-23] MEDS: ACYCLOVIR IV SCH (19:34)
[2017-01-23] MEDS: SODIUM CHLORIDE 0.9% IV SCH (19:34)
[2017-01-23] MEDS: RESP: ALBUTEROL 2.5 MG/IPRATROPIUM 0.5 MG NEB (SCH) INH (19:56)
[2017-01-23] MEDS: DOCUSATE SODIUM 50 MG/SENNA 8.6 MG TAB PO SCH (21:00)
[2017-01-23] MEDS ORDERED: niCARdipine INJ 25 MG in SODIUM CHLOR 0.9% 250 ML INJ 250 ML IV SCH (21:45)
[2017-01-24] VITALS (14 sets, daily range): BP systolic 138–163; BP diastolic 62–70; PULSE 68–78; RESP 16–24; TEMP 97.9–98.6; O2SAT 98–100
[2017-01-24] MEDS: INSULIN NovoLIN REGULAR SUPPLEMENTAL SCALE SQ SCH ×4 (00:29→17:33)
[2017-01-24] MEDS: hydrALAZINE HCL 20 MG/ML VIAL IV PUSH PRN (00:30)
[2017-01-24] MEDS: SODIUM CHLOR 0.9% 1000 ML INJ 1,000 ML IV SCH ×3 (00:31→21:19)
[2017-01-24] MEDS: SODIUM CHLORIDE 0.9% IV SCH (03:52)
[2017-01-24] MEDS: ACYCLOVIR IV SCH (03:52)
[2017-01-24] MEDS: RESP: ALBUTEROL 2.5 MG/IPRATROPIUM 0.5 MG NEB (SCH) INH ×4 (03:54→21:28)
[2017-01-24] MEDS: CHLORHEXIDINE GLUCONATE 2 % 1 PACK (2 CLOTHS) TOP SCH (04:00)
[2017-01-24 07:05] LABS: BICARBONATE 22.5 MEQ/L (21.0-32.0); MAGNESIUM 1.5 MG/DL (1.5-2.5)
[2017-01-24 07:18] LABS: POTASSIUM 3.4 MEQ/L (3.5-5.1)
--- NOTE | 2017-01-24 08:42 | HHI.PR ---
Subjective Remarks sr Objective Vital Signs Date Time Temp Pulse Resp B/P Pulse Ox O2 Delivery O2 Flow Rate FiO2 01/24/17 08:10 98 21 01/24/17 06:00 75 01/24/17 04:00 74 01/24/17 04:00 98.3 74 21 163/70 100 01/24/17 02:00 72 01/24/17 00:00 98.0 68 24 154/70 98 01/23/17 22:00 74 01/23/17 20:00 82 01/23/17 20:00 98.1 82 24 131/78 100 01/23/17 19:58 100 21 01/23/17 19:00 97 Room Air 21 01/23/17 18:00 75 01/23/17 16:00 101.2 79 16 156/70 97 01/23/17 16:00 79 01/23/17 16:00 99 Room Air 21 01/23/17 14:15 99.8 82 18 147/65 95 Nasal Cannula 2 01/23/17 14:15 82 147/65 01/23/17 13:45 86 136/76 01/23/17 12:00 105.5 01/23/17 11:30 97 Nasal Cannula 2.00 01/23/17 11:00 88 18 190/75 01/23/17 10:15 100.5 228/115 01/23/17 09:55 105 18 188/87 94 01/23/17 09:48 94 Nasal Cannula 2 01/23/17 09:35 90 169/98 94 01/23/17 09:30 98.8 225/123 01/23/17 09:00 105 18 95 Nasal Cannula 2 01/23/17 09:00 105 18 188/87 95 Nasal Cannula 2 01/23/17 09:00 105 15 188/87 94 Room Air I/O 01/23/17 01/23/17 01/23/17 01/24/17 01/24/17 01/24/17 07:00 15:00 23:00 07:00 15:00 23:00 Intake Total 1070 ml 764 ml Output Total 1400 ml 850 ml Balance -330 ml -86 ml Intake IV Total 1070 ml 764 ml Output Urine Total 1400 ml 850 ml # Bowel Movements 0 1 Result Diagram: 01/23/17 1150 01/24/17 0540 Objective Remarks awake not yr or place knows nephew name follows all commands some weak rue from old fx vff Assessment and Plan Assessment and Plan imp na was low 127 now 133 mri probably ok will recheck mri with contrast LP neg so dc acyclovir and i defer to med team if want to dc abt ldl 129 needs statin asa with bilat mca stenosis eeg recheck fu echo holter esr nl i think she has some ad likely by talking with her and nephew she may have had sz unwitnessed with low na may have been on water pill at home tia probably not but rx statin and asa oob eat ok to rx bp to 140/70 much better Abdiaziz Alfredo MD Jan 24, 2017 08:42
[2017-01-24] MEDS: PANTOPRAZOLE SODIUM 40 MG VIAL IV SCH (09:00)
[2017-01-24] MEDS: DOCUSATE SODIUM 50 MG/SENNA 8.6 MG TAB PO SCH ×2 (09:00→20:55)
[2017-01-24 09:13] LABS: AUTOMATED NEUTROPHIL # 3.6 TH/MM3 (1.8-7.7); BASOPHIL % 0.5 % (0.0-2.0); HEMATOCRIT 41.1 % (35.0-46.0); HEMO FLAGS DIFF FINAL; LYMPH % 13.1 % (9.0-44.0); LYMPHOCYTE # 0.6 TH/MM3 (1.0-4.8); MEAN CELL VOLUME 96.2 FL (80.0-100.0); MEAN CORPUSCULAR HEMOGLOBIN 31.6 PG (27.0-34.0); MEAN CORPUSCULAR HGB CONC 32.8 % (32.0-36.0); MONO % 4.7 % (0.0-8.0); NEUT % 81.7 % (16.0-70.0); PLATELET COUNT 114 TH/MM3 (150-450); RED BLOOD COUNT 4.28 MIL/MM3 (4.00-5.30); RED CELL DISTRIBUTION WIDTH 13.9 % (11.6-17.2); WHITE BLOOD COUNT 4.4 TH/MM3 (4.0-11.0)
[2017-01-24 09:22] LABS: APTT (PATIENT) 28.5 SEC (24.3-30.1); INTERNATIONAL NORMALIZED RATIO 1.1 RATIO; PROTHROMBIN TIME - PATIENT 12.5 SEC (9.8-11.6)
[2017-01-24] MEDS ORDERED: GADODIAMIDE PF 287 MG/ML 20 ML VIAL (for RAD MRI) IV ONE ×2 (10:44→10:47)
[2017-01-24] MEDS ORDERED: ONDANSETRON HCL 4 MG/2 ML VIAL ONE (11:05)
--- NOTE | 2017-01-24 11:20 | RADRPT ---
EXAM DATE/TIME: 01/24/2017 10:21 [place] COMPARISON: MRI BRAIN W/O CONTRAST, January 23, 2017, 9:41. CT BRAIN W/O CONTRAST, January 23, 2017, 9:03. INDICATIONS : Abnormal prior MRI. Stroke alert yesterday. CONTRAST: 16 cc Omniscan (gadodiamide) IV MEDICAL HISTORY : Hypertension. Diabetes mellitus type 2. SURGICAL HISTORY : Shoulder surgery ENCOUNTER: Subsequent ACUITY: 2 day PAIN SCORE: 0/10 LOCATION: cranial TECHNIQUE: Multiplanar, multisequence MRI of the brain was performed both prior to and following the administrat ion of paramagnetic contrast. FINDINGS: CEREBRUM: The ventricles are normal for age. No evidence of midline shift, mass lesion, hemorrhage or acute in farction. No extraaxial fluid collections are seen. The pituitary gland and suprasellar cistern are normal in configuration. No new or significant change is WHITE MATTER: Stable chronic appearing white matter changes are again demonstrated especially adjacent to both vent ricles. There continues to be some increased signal in the thalamus areas bilaterally on the flair we ighted images. No new or significant changes POSTERIOR FOSSA: The cerebellum and brainstem are intact. There continues to be some increased signal in the midbrain on the flair weighted images. This is stable compared to the prior study. The 4th ventricle is midli ne. The cerebellopontine angle is unremarkable. The cerebellar tonsils are normal in position. DIFFUSION IMAGING: No focal areas of restricted diffusion are seen. No evidence of acute infarction. EXTRACRANIAL: The visualized portions of the orbits and paranasal sinuses are unremarkable. POST-CONTRAST: No abnormal areas of parenchymal or dural enhancement. No evidence of blood-brain barrier breakdown. No enhancing mass occupying lesions. CONCLUSION: Stable MRI of the brain compared to the prior examination of 01/23/2017. Andrea Palencia MD on January 24, 2017 at 11:12 Board Certified Radiologist. This report was verified electronically.
[2017-01-24] MEDS ORDERED: cefTRIAXone INJ 2,000 MG in SODIUM CHLORIDE 0.9% INJ 100 ML IV SCH (12:00)
--- NOTE | 2017-01-24 15:49 | HHI.IDPN ---
Subjective Subjective Remarks Ms. Mireles is a 81 y/o CF with past medical history of hypertension, non- insulin-dependent diabetes mellitus, hyperlipidemia, hyperthyroidism and remote history of stroke. She presented to [facility] ED as a stroke alert. The patient lives with her nephew and she was last seen normal at approximately 03:00 a.m. where she was watching the gospel channel. When he went back to check on her at 06:00 a.m. the patient was asleep. And then when he checked on her at 08:45 this morning he noticed the patient was lying sideways in bed and was unable to talk. On arrival to the ER she was hypertensive with blood pressure of 188/87, tachycardic with heart rate of 105. In the ER she was given labetalol 20 mg total and placed on a Cardene drip at currently 40 mg an hour, with a blood pressure of 172/74. CT scan of the brain showed questionable left dense MCA infarct. She subsequently underwent MRI of the brain which showed no restricted diffusion to indicate any recent ischemia. However, there is an increased FLAIR in T2 signal without diffusion restriction in the thalami bilaterally. MRA of the head showed findings compatible with atherosclerotic disease. No occlusion or high-grade stenosis is identified. In the ER she was given 1 liter bolus of normal saline. In addition the patient was scheduled to receive 1 gram of Solu-Medrol, 2 grams of Rocephin and acyclovir. Patient underwent an LP which shows no WBC normal glucose and some elevation in total protein. Initially she was afebrile, however , she was found to have a temperature of 100.4 axillary and 105 rectally. Most of the history was obtained from reviewing the medical records as the patient is acutely encephalopathic. ID was consulted for evaluation and mment of possible meningoencephalitis of infectious etiology. Overnight events reviewed. No fever No rash No diarrhea Antibiotics Ceftriaxone IV Vanco IV Lines Line sites with no e.o infection Past Medical History reviewed Allergies: Coded Allergies: No Known Allergies (Verified , 01/23/17) Objective . Vital Signs Date Time Temp Pulse Resp B/P Pulse Ox O2 Delivery O2 Flow Rate FiO2 01/24/17 12:00 77 01/24/17 12:00 98.0 74 16 138/62 100 01/24/17 10:00 76 01/24/17 08:10 98 21 01/24/17 08:00 98.2 75 20 157/69 100 01/24/17 08:00 75 01/24/17 07:00 97 Room Air 21 01/24/17 06:00 75 01/24/17 04:00 74 01/24/17 04:00 98.3 74 21 163/70 100 01/24/17 02:00 72 01/24/17 00:00 98.0 68 24 154/70 98 01/23/17 22:00 74 01/23/17 20:00 82 01/23/17 20:00 98.1 82 24 131/78 100 01/23/17 19:58 100 21 01/23/17 19:00 97 Room Air 21 01/23/17 18:00 75 01/23/17 16:00 101.2 79 16 156/70 97 01/23/17 16:00 79 01/23/17 16:00 99 Room Air 01/23/17 01/23/17 01/24/17 15:00 23:00 07:00 Intake Total 1070 ml 764 ml Output Total 1400 ml 850 ml Balance -330 ml -86 ml Intake IV Total 1070 ml 764 ml Output Urine Total 1400 ml 850 ml # Bowel Movements 0 1 . Laboratory Tests Test 01/23/17 01/23/17 01/23/17 01/24/17 09:19 11:20 11:50 05:40 Bedside Hemoglobin 17.0 G/DL Bedside Hematocrit 50.0 % Erythrocyte Sedimentation Rate 6 mm/hr White Blood Count 17.3 TH/MM3 4.4 TH/MM3 Red Blood Count 4.76 MIL/MM3 4.28 MIL/MM3 Hemoglobin 15.1 GM/DL 13.5 GM/DL Hematocrit 45.5 % 41.1 % Mean Corpuscular Volume 95.8 FL 96.2 FL Mean Corpuscular Hemoglobin 31.7 PG 31.6 PG Mean Corpuscular Hemoglobin 33.1 % 32.8 % Concent Red Cell Distribution Width 13.8 % 13.9 % Platelet Count 189 TH/MM3 114 TH/MM3 Mean Platelet Volume 8.8 FL 8.4 FL Neutrophils (%) (Auto) 94.0 % 81.7 % Lymphocytes (%) (Auto) 3.2 % 13.1 % Monocytes (%) (Auto) 2.3 % 4.7 % Eosinophils (%) (Auto) 0.0 % 0.0 % Basophils (%) (Auto) 0.5 % 0.5 % Neutrophils # (Auto) 16.3 TH/MM3 3.6 TH/MM3 Lymphocytes # (Auto) 0.6 TH/MM3 0.6 TH/MM3 Monocytes # (Auto) 0.4 TH/MM3 0.2 TH/MM3 Eosinophils # (Auto) 0.0 TH/MM3 0.0 TH/MM3 Basophils # (Auto) 0.1 TH/MM3 0.0 TH/MM3 CBC Comment DIFF FINAL DIFF FINAL Differential Comment Laboratory Tests Test 01/23/17 01/23/17 01/23/17 01/23/17 09:19 09:20 11:20 11:44 Bedside Sodium 133 MMOL/L Bedside Potassium 5.8 MMOL/L Bedside Chloride 97 MMOL/L Bedside Blood Urea Nitrogen 21 MG/DL Bedside Creatinine 1.2 MG/DL Bedside Glucose 190 MG/DL Sodium Level 127 MEQ/L Potassium Level 4.8 MEQ/L Chloride Level 94 MEQ/L Carbon Dioxide Level 24.7 MEQ/L Anion Gap 8 MEQ/L Blood Urea Nitrogen 21 MG/DL Creatinine 1.99 MG/DL Estimat Glomerular Filtration 29 ML/MIN Rate Random Glucose 234 MG/DL Calcium Level 7.4 MG/DL Protein Corrected Calcium MG/DL Phosphorus Level 2.6 MG/DL Magnesium Level 1.7 MG/DL Total Bilirubin 0.7 MG/DL Aspartate Amino Transf 64 U/L 68 U/L (AST/SGOT) Alanine Aminotransferase 37 U/L 36 U/L (ALT/SGPT) Alkaline Phosphatase 93 U/L Total Protein 8.4 GM/DL Albumin 2.8 GM/DL Total Creatine Kinase 116 U/L Troponin I 0.24 NG/ML Triglycerides Level 76 MG/DL Cholesterol Level 222 MG/DL LDL Cholesterol 129 MG/DL HDL Cholesterol 77.8 MG/DL Cholesterol/HDL Ratio 2.85 RATIO Vitamin B12 Level 565 PG/ML Folate GREATER THAN 20.0 NG/ML Free Thyroxine 0.76 NG/DL Thyroid Stimulating Hormone 0.885 uIU/ML 3rd Gen Lactic Acid Level 2.8 mmol/L Test 01/23/17 01/24/17 17:01 05:40 Lactic Acid Level 3.1 mmol/L Sodium Level 133 MEQ/L Potassium Level 3.4 MEQ/L Chloride Level 101 MEQ/L Carbon Dioxide Level 22.5 MEQ/L Anion Gap 10 MEQ/L Blood Urea Nitrogen 17 MG/DL Creatinine 1.37 MG/DL Estimat Glomerular Filtration 45 ML/MIN Rate Random Glucose 240 MG/DL Calcium Level 7.9 MG/DL Phosphorus Level 2.2 MG/DL Magnesium Level 1.5 MG/DL Microbiology Date/Time Procedure Status Source Growth 01/23/17 11:34 Aerobic Blood Culture - Preliminary Resulted Blood Peripheral NO GROWTH IN 1 DAY 01/23/17 11:34 Anaerobic Blood Culture - Preliminary Resulted Blood Peripheral NO GROWTH IN 1 DAY 01/23/17 11:44 Aerobic Blood Culture - Preliminary Resulted Blood Peripheral NO GROWTH IN 1 DAY 01/23/17 11:44 Anaerobic Blood Culture - Preliminary Resulted Blood Peripheral NO GROWTH IN 1 DAY 01/23/17 12:00 Urine Culture - Preliminary Resulted Urine Catheterized Urine NO GROWTH IN 24 HOURS. 01/23/17 13:00 Gram Stain - Final Resulted Cerebral Spinal Fluid Lumbar Puncture 01/23/17 13:00 CSF Culture - Preliminary Resulted Cerebral Spinal Fluid Lumbar Puncture NO GROWTH IN 24 HOURS. 01/23/17 13:00 Fungal Smear - Final Resulted Cerebral Spinal Fluid Lumbar Puncture NO FUNGAL ELEMENTS SEEN. 01/23/17 13:00 Fungal Culture Resulted Cerebral Spinal Fluid Lumbar Puncture Pending Imaging Last Impressions Brain MRI 01/24/17 0000 Signed Impressions: Service Date/Time: Tuesday, January 24, 2017 10:21 - CONCLUSION: Stable MRI of the brain compared to the prior examination of 01/23/2017. Andrea Palencia MD Neck Magnetic Resonance Angiography 01/23/1736 Signed Impressions: Service Date/Time: January 09:41 - CONCLUSION: No acute neck arterial vascular abnormality is identified. No significant stenosis is present. Fredis Gray MD Head Magnetic Resonance Angiography 01/23/1736 Signed Impressions: Service Date/Time: January 09:41 - CONCLUSION: There are areas of luminal irregularity and mild to moderate narrowing within the internal carotid arteries and middle cerebral arteries bilaterally as well as the vertebrobasilar system. The appearance is characteristic of atherosclerotic disease. No occlusion or high-grade stenosis is identified. Findings were telephoned to Dr. Alfredo. Fredis Gray MD Head CT 01/23/17 0000 Signed Impressions: Service Date/Time: January 09:03 - CONCLUSION: 1. Questionable left dense MCA in this patient with acute CVA symptoms. 2. Focal jiang-white matter differentiation loss in the left posterior parietooccipital mid convexity seen on a single image only. Although this is likely artifactual, a developing watershed territory infarct should be considered. Carlos Ritchie MD Chest X-Ray 01/23/17 0000 Signed Impressions: Service Date/Time: January 10:16 - CONCLUSION: No acute disease. Mild cardiomegaly. Andrea Palencia MD Physical Exam GENERAL: This is a well-nourished, well-developed patient, in no apparent distress. SKIN: No rashes, ecchymoses or lesions. Cool and dry. HEAD: Atraumatic. Normocephalic. No temporal or scalp tenderness. EYES: Pupils equal round and reactive. Extraocular motions intact. No scleral icterus. No injection or drainage. ENT: Nose without bleeding, purulent drainage or septal hematoma. Throat without erythema, tonsillar hypertrophy or exudate. Uvula midline. Airway patent. NECK: Trachea midline.Supple, nontender, no meningeal signs. CARDIOVASCULAR: Regular rate and rhythm RESPIRATORY: Clear to auscultation. Breath sounds equal bilaterally. No wheezes , rales, or rhonchi. GASTROINTESTINAL: Abdomen soft, non-tender, nondistended. Obese. MUSCULOSKELETAL: Extremities without clubbing, cyanosis, or edema. No joint tenderness, effusion, or edema noted. No calf tenderness. Negative Homans sign bilaterally. NEUROLOGICAL: Awake and alert. Psych: cooperative. IV line sites with no e.o infection. Assessment & Plan Remarks Sepsis ruled out so far. Fever and Leucocytosis with elevated lactic acid ? seizure related. Acute metabolic encephalopathy: remarkably improved overnight Recs DC Ceftriaxone IV DC Vanco IV Observe off antibiotics. [facility] to call ID instructional technology facilitator if any change in clinical condition. Will sign off please call back if any change in clinical condition or questions. Sharmila Joaquin MD Jan 24, 2017 15:49
[2017-01-24 16:02] LABS: HEMOGLOBIN A1a 0.9 %; HEMOGLOBIN A1b 2.1 %; HEMOGLOBIN Ao 82.9 %; HEMOGLOBIN LA1C 3.2 %
--- NOTE | 2017-01-24 16:03 | HHI.CCPN ---
Subjective Remarks/Hospital Course 01/23: The patient is a 81-year-old female with past medical history of hypertension, [id number] diabetes mellitus, hyperlipidemia, hyperthyroidism and remote history of stroke. She presented to [facility] ED as a stroke alert. The patient lives with her nephew and she was last seen normal at approximately 03:00 a.m. where she was watching the gospel channel. When he went back to check on her at 06:00 a.m. the patient was asleep. And then when he checked on her at 08:45 this morning he noticed the patient was lying sideways in bed and was unable to talk. On arrival to the ER she was hypertensive with blood pressure of 188/87, tachycardic with heart rate of 105. In the ER she was given labetalol 20 mg total and placed on a Cardene drip at currently 40 mg an hour, with a blood pressure of 172/74. CT scan of the brain showed questionable left dense MCA. She subsequently underwent MRI of the brain which showed no restricted diffusion to indicate any recent ischemia. However, there is an increased FLAIR in T2 signal without diffusion restriction in the thalami bilaterally. MRA of the head showed findings compatible with atherosclerotic disease. No occlusion or high-grade stenosis is identified. In the ER she was given 1 liter bolus of normal saline. In addition the patient was scheduled to receive 1 gram of Solu-Medrol, 2 grams of Rocephin and acyclovir. In addition, she is in the process of getting LP by the ED physician. The patient is on room air oxygen with saturation of 97%. Initially she was afebrile, however, she was found to have a temperature of 100.4 axillary and 105 rectally. Most of the history was obtained from reviewing the medical records as the patient is a poor historian. 01/24: Patient is drowsy though easily arousable, speech is slow. Knows she is in the hospital however could not name the place. Objective Vital Signs Date Time Temp Pulse Resp B/P Pulse Ox O2 Delivery O2 Flow Rate FiO2 01/24/17 12:00 77 01/24/17 12:00 98.0 16 138/62 100 01/24/17 08:10 21 01/24/17 07:00 Room Air 01/23/17 14:15 2 Intake and Output 701/23/17 01/24/17 08:00 16:00 00:00 Intake Total 1070 ml Output Total 1400 ml Balance -330 ml Result Diagram: 01/24/17 0540 01/24/17 0540 Other Results Laboratory Tests Test 01/23/17 01/24/17 01/24/17 01/24/17 17:01 05:40 05:49 08:53 Lactic Acid Level 3.1 mmol/L White Blood Count 4.4 TH/MM3 Red Blood Count 4.28 MIL/MM3 Hemoglobin 13.5 GM/DL Hematocrit 41.1 % Mean Corpuscular Volume 96.2 FL Mean Corpuscular Hemoglobin 31.6 PG Mean Corpuscular Hemoglobin 32.8 % Concent Red Cell Distribution Width 13.9 % Platelet Count 114 TH/MM3 Mean Platelet Volume 8.4 FL Neutrophils (%) (Auto) 81.7 % Lymphocytes (%) (Auto) 13.1 % Monocytes (%) (Auto) 4.7 % Eosinophils (%) (Auto) 0.0 % Basophils (%) (Auto) 0.5 % Neutrophils # (Auto) 3.6 TH/MM3 Lymphocytes # (Auto) 0.6 TH/MM3 Monocytes # (Auto) 0.2 TH/MM3 Eosinophils # (Auto) 0.0 TH/MM3 Basophils # (Auto) 0.0 TH/MM3 CBC Comment DIFF FINAL Differential Comment Sodium Level 133 MEQ/L Potassium Level 3.4 MEQ/L Chloride Level 101 MEQ/L Carbon Dioxide Level 22.5 MEQ/L Anion Gap 10 MEQ/L Blood Urea Nitrogen 17 MG/DL Creatinine 1.37 MG/DL Estimat Glomerular Filtration 45 ML/MIN Rate Random Glucose 240 MG/DL Calcium Level 7.9 MG/DL Phosphorus Level 2.2 MG/DL Magnesium Level 1.5 MG/DL Random Vancomycin Level 9.4 COMMENT Blood Type O POSITIVE Antibody Screen NEGATIVE Prothrombin Time 12.5 SEC Prothromb Time International 1.1 RATIO Ratio Activated Partial 28.5 SEC Thromboplast Time Fibrinogen 328 mg/dL Imaging Last Impressions Brain MRI 01/24/17 0000 Signed Impressions: Service Date/Time: Tuesday, January 24, 2017 10:21 - CONCLUSION: Stable MRI of the brain compared to the prior examination of 01/23/2017. Andrea Palencia MD Neck Magnetic Resonance Angiography 01/23/17 0936 Signed Impressions: Service Date/Time: January 09:41 - CONCLUSION: No acute neck arterial vascular abnormality is identified. No significant stenosis is present. Fredis Gray MD Head Magnetic Resonance Angiography 01/23/17 0936 Signed Impressions: Service Date/Time: , January 23, 2017 09:41 - CONCLUSION: There are areas of luminal irregularity and mild to moderate narrowing within the internal carotid arteries and middle cerebral arteries bilaterally as well as the vertebrobasilar system. The appearance is characteristic of atherosclerotic disease. No occlusion or high-grade stenosis is identified. Findings were telephoned to Dr. Alfredo. Fredis Gray MD Head CT 01/23/17 0000 Signed Impressions: Service Date/Time: January 09:03 - CONCLUSION: 1. Questionable left dense MCA in this patient with acute CVA symptoms. 2. Focal jiang-white matter differentiation loss in the left posterior parietooccipital mid convexity seen on a single image only. Although this is likely artifactual, a developing watershed territory infarct should be considered. Carlos Ritchie MD Chest X-Ray 01/23/17 0000 Signed Impressions: Service Date/Time: January 10:16 - CONCLUSION: No acute disease. Mild cardiomegaly. Andrea Palencia MD Objective Remarks HEENT: Atraumatic, normocephalic. Pupils equal, round, reactive to light and accommodation. Extraocular muscles are intact. Conjunctivae pink. Nonicteric sclerae. NECK: Supple. No JVD, adenopathy or thyromegaly. Trachea in the midline. CARDIOVASCULAR: Regular rate and rhythm. Normal S1-S2. No murmurs, rubs or gallops noted. PULMONARY: Bilateral equal air entry. No rales or wheezing. ABDOMEN: Soft, obese, nontender, nondistended. Positive bowel sounds. EXTREMITIES: No cyanosis, clubbing or edema. NEURO: The patient is able to move her left upper and left lower extremity, better than the right-side. Speech is slowed. Opens eyes on command and spontaneously. Can give me her name and knows she is at the hospital. She knows she lives in [place] however could not give her address. 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 A/P Assessment and Plan IMPRESSION 1. Respiratory insufficiency. 2. Encephalopathy. ? dementia 3. Suspected seizure 4. Hypertensive emergency. 5. Leukocytosis. 6. Diabetes mellitus. 7. Dyslipidemia. 8. Hyperthyroidism. 9. Remote history of CVA. RECOMMENDATIONS 1. Monitor neuro status closely and avoid any sedatives. MRI brain did not reveal any evidence of ischemia or other structural pathology. Dr. Alfredo from neurology suspects patient may have had a seizure. He is stopping acyclovir. ID is stopping all other antibiotics based on CSF results with 0 WBCs. HSV PCR pending 2. Follow-up EEG 3. Continue with oxygen to maintain sats above 92%. 4. Bronchodilators on a p.r.n. basis. Aspiration precautions. 5. Monitor heart rate and blood pressure closely and maintain MAP greater than 65 mmHg. Wean off Cardene drip. Follow-up 2-D echo to evaluate LV function. 6. Monitor renal function, I&O's and electrolyte replacement as needed. Hanna was inserted in the ED. Continue IV fluids, NS at 84 mL an hour. 7. Protonix 40 mg IV daily. Of note, the patient is on Prilosec 20 mg daily at home. Consult speech therapy to decide by mouth diet 8. ID consulted and following. 9. Monitor CBC and for signs of infections which include fever and WBC. 10. Sliding scale insulin with Accu-Chek q. 6-hour for glycemic control. 11. GI prophylaxis with Protonix 40 mg daily and DVT prophylaxis with SCDs. Start subcutaneous Lovenox tomorrow 48 hours after LP. Will consult and transfer to hospitalist service tomorrow for further medical management. Critical care will be signing off, please reconsult if needed. Jhonatan Joaquin MD Jan 24, 2017 16:03
--- NOTE | 2017-01-24 16:17 | MG ---
cc: CLAIRE KAPLAN M.D. Lab No: [id number] Date: 01/24/17 Age: 81 Sex: F Race: DATE OF 1935 REFERRING PHYSICIAN [place] ROOM 1330 With photic stimulation. Awake, drowsy study. EEG yesterday showed some slowing but the study was somewhat substandard. MRI stable. The patient came in as a stroke alert, aphasic, quite dazed. DESCRIPTION OF RECORD Overall, the patient has a background rhythm between 5-6 Hz, 20-60 microvolts. There is some questionable transverse phase reversibility at ___, C4, T4 starting from initial EPOC 9, not continuous with higher amplitude waves may be sharp, vertex sharps. Noted the patient is asleep in this portion. Some eye movement artifact but does not hinder but there are some what looks like some sharp waves centrally. Otherwise, there is just some mild slowing. Hyperventilation could not be done. Photic stimulation with mild driving response seen. Ongoing eye movement artifact, however, the EEG is better quality than yesterday's. The patient was asked her name she answered. Location she stated [place]. Knew the President. IMPRESSION Some mild background slowing with some occasional sharps at the centrally vertex possible without any ongoing epileptiform features with mild slowing ___ encephalopathy, sharp waves questionable of any significance, all depending on the patient's presentation examination, etc. Clinical correlation. Claire Kaplan MD DF/LAURYN /3:10 PM /4:10 PM
[2017-01-24] MEDS ORDERED: VANCOMYCIN 1,000 MG/NS 250 ML IV ONE ×2 (17:00)
[2017-01-24] MEDS: ASPIRIN EC 325 MG TABEC PO SCH (17:30)
--- NOTE | 2017-01-24 18:41 | ECHRPT ---
Indication: CVA/TIA CONCLUSIONS The left ventricular systolic function is normal with an estimated ejection fraction in the range of 55-60%. Mild mitral valve regurgitation. Mitral annular calcification is present. There is trace tricuspid valve regurgitation. BP: 188 / 87 HR: 105 Rhythm: Sinus MEASUREMENTS (Male / Female) Normal Values Technical Quality:Fair 2D ECHO LV Diastolic Diameter PLAX 4.0 cm 4.2 - 5.9 / 3.9 - 5.3 cm LV Systolic Diameter PLAX 3.0 cm IVS Diastolic Thickness 0.9 cm 0.6 - 1.0 / 0.6 - 0.9 cm LVPW Diastolic Thickness 0.7 cm 0.6 - 1.0 / 0.6 - 0.9 cm LV Relative Wall Thickness 0.4 RV Internal Dim ED PLAX 2.0 cm LA Systolic Diameter LX 3.1 cm 3.0 - 4.0 / 2.7 - 3.8 cm M-MODE Aortic Root Diameter MM 2.9 cm AV Cusp Separation MM 1.9 cm DOPPLER AV Peak Velocity 231.0 cm/s AV Peak Gradient 21.3 mmHg MV Peak Velocity 153.0 cm/s MV Peak Gradient 9.4 mmHg MV Mean Velocity 76.4 cm/s MV Mean Gradient 3.0 mmHg MV Area PHT 3.4 cm Mitral E Point Velocity 91.2 cm/s Mitral A Point Velocity 136.0 cm/s Mitral E to A Ratio 0.7 TR Peak Velocity 200.0 cm/s TR Peak Gradient 16.0 mmHg FINDINGS LEFT VENTRICLE Normal left ventricular size. Wall thickness is normal. The left ventricular systolic function is normal with an estimated ejection fraction in the range of 55-60%. RIGHT VENTRICLE Normal right ventricular size and systolic function. LEFT ATRIUM The left atrial size is normal. RIGHT ATRIUM The right atrial size is normal. ATRIAL SEPTUM The interatrial septum not well visualized. AORTA The aortic root and proximal ascending aorta are normal in size on limited imaging. MITRAL VALVE Structurally normal mitral valve. Mild mitral valve regurgitation. Mitral annular calcification is present. Mitral valve mean gradient is 3 mmHg. AORTIC VALVE Trileaflet aortic valve. No aortic valve stenosis or regurgitation. TRICUSPID VALVE The estimated pulmonary arterial pressure is 21 mmHg. Structurally normal tricuspid valve. There is trace tricuspid valve regurgitation. PULMONARY VALVE The pulmonary valve is not well visualized. VESSELS The inferior vena cava is normal in size. PERICARDIUM No pericardial effusion. Samuel Hercules DO (Electronically Signed) Final Date:24 January 2017 18:40
[2017-01-25] VITALS (13 sets, daily range): BP systolic 135–179; BP diastolic 62–73; PULSE 71–94; RESP 18–20; TEMP 97.3–99.3; O2SAT 95–100
[2017-01-25] MEDS: hydrALAZINE HCL 20 MG/ML VIAL IV PUSH PRN (01:50)
[2017-01-25] MEDS: CHLORHEXIDINE GLUCONATE 2 % 1 PACK (2 CLOTHS) TOP SCH (03:21)
[2017-01-25] MEDS: RESP: ALBUTEROL 2.5 MG/IPRATROPIUM 0.5 MG NEB (SCH) INH ×2 (03:23→10:21)
[2017-01-25] MEDS: INSULIN NovoLIN REGULAR SUPPLEMENTAL SCALE SQ SCH ×4 (05:15→17:11)
[2017-01-25] MEDS: SODIUM CHLOR 0.9% 1000 ML INJ 1,000 ML IV SCH ×2 (05:16→23:35)
[2017-01-25] MEDS: LISINOPRIL 10 MG TAB PO SCH ×2 (07:59→08:41)
[2017-01-25] MEDS: DOCUSATE SODIUM 50 MG/SENNA 8.6 MG TAB PO SCH ×2 (08:01→21:39)
[2017-01-25] MEDS: PANTOPRAZOLE SODIUM 40 MG VIAL IV SCH (08:01)
[2017-01-25 10:31] LABS: HSV 1,PCR Negative (Negative)
[2017-01-25 10:45] LABS: ALKALINE PHOSPHATASE 50 U/L (45-117); ALT (GPT) 33 U/L (10-53); ANION GAP 9 MEQ/L (5-15); AST (GOT) 64 U/L (15-37); BICARBONATE 22.9 MEQ/L (21.0-32.0); CHLORIDE 96 MEQ/L (98-107); GLOMERULAR FILTRATION RATE 64 ML/MIN (>89); POTASSIUM 4.6 MEQ/L (3.5-5.1); SODIUM (NA) 128 MEQ/L (136-145); TOTAL BILIRUBIN ADULT 0.5 MG/DL (0.2-1.0)
[2017-01-25 10:46] LABS: BLOOD UREA NITROGEN 13 MG/DL (7-18)
--- NOTE | 2017-01-25 11:35 | HHI.PR ---
Subjective Remarks Follow-up for suspected seizure activity, possible dementia, hyponatremia. Patient is hard of hearing but doing well. Sitting in her chair. No acute concerns. Objective Vitals Vital Signs Date Time Temp Pulse Resp B/P Pulse Ox O2 Delivery O2 Flow Rate FiO2 01/25/17 10:21 95 01/25/17 10:00 71 01/25/17 08:00 76 01/25/17 08:00 97.9 74 19 166/67 100 01/25/17 07:00 100 Nasal Cannula 2.00 01/25/17 06:00 74 01/25/17 04:00 82 01/25/17 04:00 98.7 82 20 152/64 100 01/25/17 02:00 94 01/25/17 00:00 76 01/25/17 00:00 99.3 76 20 154/70 100 01/24/17 22:00 74 01/24/17 21:32 100 Nasal Cannula 2.00 01/24/17 20:00 74 01/24/17 20:00 97.9 74 19 146/65 100 01/24/17 19:00 100 Nasal Cannula 2.00 01/24/17 18:00 72 01/24/17 16:00 98.6 72 20 143/64 100 01/24/17 16:00 72 01/24/17 14:00 78 01/24/17 12:00 77 01/24/17 12:00 98.0 74 16 138/62 100 I/O 01/24/17 01/24/17 01/24/17 01/25/17 01/25/17 01/25/17 07:00 15:00 23:00 07:00 15:00 23:00 Intake Total 764 ml 1119 ml 880 ml 1170 ml Output Total 850 ml 700 ml 450 ml 525 ml Balance -86 ml 419 ml 430 ml 645 ml Intake Oral 600 ml 300 ml 500 ml IV Total 764 ml 519 ml 580 ml 670 ml Output Urine Total 850 ml 700 ml 450 ml 525 ml # Bowel Movements 1 1 0 1 Result Diagram: 01/24/17 0540 01/25/17 0956 Imaging Last Impressions Brain MRI 01/24/17 0000 Signed Impressions: Service Date/Time: Tuesday, January 24, 2017 10:21 - CONCLUSION: Stable MRI of the brain compared to the prior examination of 01/23/2017. Andrea Palencia MD Neck Magnetic Resonance Angiography 01/23/1736 Signed Impressions: Service Date/Time: January 09:41 - CONCLUSION: No acute neck arterial vascular abnormality is identified. No significant stenosis is present. Fredis Gray MD Head Magnetic Resonance Angiography 01/23/17 0936 Signed Impressions: Service Date/Time: , January 23, 2017 09:41 - CONCLUSION: There are areas of luminal irregularity and mild to moderate narrowing within the internal carotid arteries and middle cerebral arteries bilaterally as well as the vertebrobasilar system. The appearance is characteristic of atherosclerotic disease. No occlusion or high-grade stenosis is identified. Findings were telephoned to Dr. Alfredo. Fredis Gray MD Head CT 01/23/17 0000 Signed Impressions: Service Date/Time: , January 23, 2017 09:03 - CONCLUSION: 1. Questionable left dense MCA in this patient with acute CVA symptoms. 2. Focal jiang-white matter differentiation loss in the left posterior parietooccipital mid convexity seen on a single image only. Although this is likely artifactual, a developing watershed territory infarct should be considered. Carlos Ritchie MD Chest X-Ray 01/23/17 0000 Signed Impressions: Service Date/Time: , January 23, 2017 10:16 - CONCLUSION: No acute disease. Mild cardiomegaly. Andrea Palencia MD Objective Remarks GENERAL: Alert, NAD. SKIN: Warm and dry. HEAD: Normocephalic. EYES: No scleral icterus. No injection or drainage. NECK: Supple, trachea midline. No JVD or lymphadenopathy. CARDIOVASCULAR: Regular rate and rhythm without murmurs, gallops, or rubs. RESPIRATORY: Breath sounds equal bilaterally. No accessory muscle use. GASTROINTESTINAL: Abdomen soft, non-tender, nondistended. MUSCULOSKELETAL: No cyanosis, or edema. BACK: Nontender without obvious deformity. No CVA tenderness. Procedures Echo 01/24/2017 The left ventricular systolic function is normal with an estimated ejection fraction in the range of 55-60%. Mild mitral valve regurgitation. Mitral annular calcification is present. There is trace tricuspid valve regurgitation. A/P Assessment and Plan Ms. Mireles is a 81-year-old female with a history of hypertension, diabetes mellitus, hyperlipidemia who presented to the emergency department on 01/23/2007 as a stroke alert. Patient's nephew reported that patient was seen normal at 3 AM when she was watching [employer]. At around 8:45 AM on 01/23/2017 patient was seen lying sideways in her bed and unable to talk. Subsequently patient was brought to the emergency department. CT scan showed questionable left dense MCA. However MRI studies did not show any evidence of stroke. 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 Infectious disease was consulted. Patient was given ceftriaxone, vancomycin, acyclovir. However after lumbar puncture was done, without evidence of any infection infectious disease discontinued all antibiotics. Acyclovir was also discontinued. Neurology recommended aspirin and statin. - Suspected seizure disorder - Probable dementia - No evidence of infectious encephalopathy. All anti-microbials discontinued. - Neurology following. - Continue Aspirin 325mg Qday. We can probably decrease aspirin to 81 mg daily. - Hyperlipidemia - we'll start Lipitor 20 mg daily at bedtime. - Hypertension - continue lisinopril 10 mg daily. - Transfer patient to the floor. We'll consult occupational therapy. Consult case management to refer patient to [facility]. Full code. Ambulation, SCDs. LP was done on 01/23/2017. Will start Lovenox 40mg Qday at 4PM today. Renetta Amezcua DO Jan 25, 2017 11:35 am
[2017-01-25 11:38] LABS: HEMATOCRIT 37.8 % (35.0-46.0); MEAN CELL VOLUME 95.9 FL (80.0-100.0); MEAN CORPUSCULAR HEMOGLOBIN 31.6 PG (27.0-34.0); MEAN CORPUSCULAR HGB CONC 32.9 % (32.0-36.0); PLATELET COUNT 109 TH/MM3 (150-450); RED BLOOD COUNT 3.94 MIL/MM3 (4.00-5.30); RED CELL DISTRIBUTION WIDTH 14.2 % (11.6-17.2); REVIEW FLAG FINAL; WHITE BLOOD COUNT 11.8 TH/MM3 (4.0-11.0)
[2017-01-25] MEDS: ENOXAPARIN SODIUM 40 MG/0.4 ML SYRINGE SQ SCH (17:07)
--- NOTE | 2017-01-25 17:09 | HHI.PR ---
Review/Management Diagnosis hyponatremia/ metabolic encephalopathy. 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 Diagnosis/Plan: Subjective Subjective Comments No acute events reported more alert today Active Medications Current Medications Medications (Trade) Dose Ordered Sig/Nilson Route Start Time Stop Time Status Last Admin (Protonix Inj) 40 mg DAILY IV 01/23/17 12:00 01/25/17 08:01 Miscellaneous Information 1 Q361D XX 01/23/17 12:00 (Chlorhexidine 2% Cloth) 3 pack Taper DAILY@04 TOP 01/24/17 04:00 01/20/18 03:59 01/25/17 03:21 (Chlorhexidine 2% Cloth) 3 pack UNSCH PRN TOP 01/23/17 12:00 (Sara-Colace) 1 tab BID PO 01/23/17 21:00 01/24/17 20:55 (Milk Of Magnesia Liq) 30 ml Q12H PRN PO 01/23/17 12:00 (Senokot) 17.2 mg Q12H PRN PO 01/23/17 12:00 (Dulcolax Supp) 10 mg DAILY PRN RECTAL 01/23/17 12:00 Lactulose 30 ml 30 ml DAILY PRN PO 01/23/17 12:00 (NS 1000 ml Inj) 1,000 ml @ 84 mls/hr [id number] IV 01/23/17 12:00 01/25/17 05:16 (D50w (Vial) Inj) 50 ml UNSCH PRN IV 01/23/17 12:00 (Glucagon Inj) 1 mg UNSCH PRN OTHER 01/23/17 12:00 (NovoLIN R SUPPLEMENTAL SCALE) 1 Q6H SQ 01/23/17 12:00 01/25/17 12:06 Hydralazine HCl 10 mg 10 mg Q6H PRN IV PUSH 01/23/17 12:15 01/25/17 01:50 (Cardene Inj/NS 250 ml Inj) 260 ml @ 0 mls/hr TITRATE IV 01/23/17 21:45 01/24/17 05:50 (Ecotrin Ec) 325 mg Q24H PO 01/24/17 18:30 01/24/17 17:30 (Prinivil) 10 mg DAILY PO 01/25/17 07:30 01/25/17 07:59 (Lipitor) 20 mg HS PO 01/25/17 21:00 (Lovenox Inj) 40 mg Q24H SQ 01/25/17 16:00 Allergies Allergies Coded Allergies No Known Allergies (Verified01/23/17) Exam I&O / VS 01/24/17 01/24/17 01/25/17 15:00 23:00 07:00 Intake Total 1119 ml 880 ml 1170 ml Output Total 700 ml 450 ml 525 ml Balance 419 ml 430 ml 645 ml Intake Oral 600 ml 300 ml 500 ml IV Total 519 ml 580 ml 670 ml Output Urine Total 700 ml 450 ml 525 ml # Bowel Movements 1 0 1 Vital Signs Date Time Temp Pulse Resp B/P Pulse Ox O2 Delivery O2 Flow Rate FiO2 01/25/17 14:15 98.0 76 18 152/65 98 01/25/17 12:00 85 01/25/17 12:00 98.6 80 20 135/62 95 01/25/17 10:21 95 01/25/17 10:00 71 01/25/17 08:00 76 01/25/17 08:00 97.9 74 19 166/67 100 01/25/17 07:00 100 Nasal Cannula 2.00 01/25/17 06:00 74 01/25/17 04:00 82 01/25/17 04:00 98.7 82 20 152/64 100 01/25/17 02:00 94 01/25/17 00:00 76 01/25/17 00:00 99.3 76 20 154/70 100 01/24/17 22:00 74 01/24/17 21:32 100 Nasal Cannula 2.00 01/24/17 20:00 74 01/24/17 20:00 97.9 74 19 146/65 100 01/24/17 19:00 100 Nasal Cannula 2.00 01/24/17 18:00 72 Exam Comments alert, disoriented to date, follows simple commands CN intact MOTOR--moves BUE equally with no focal deficits. Objective Radiology Results MRI brain--stable increase signal on T2 and FLAIR in thalami and stephanie. No change from prior MRI Micro and Labs Laboratory Tests Test 01/24/17 01/25/17 17:39 09:56 Lab Scanned Report Lab Reports - Other White Blood Count 11.8 Red Blood Count 3.94 Hemoglobin 12.4 Hematocrit 37.8 Mean Corpuscular Volume 95.9 Mean Corpuscular Hemoglobin 31.6 Mean Corpuscular Hemoglobin 32.9 Concent Red Cell Distribution Width 14.2 Platelet Count 109 Mean Platelet Volume 8.7 Sodium Level 128 Potassium Level 4.6 Chloride Level 96 Carbon Dioxide Level 22.9 Anion Gap 9 Blood Urea Nitrogen 13 Creatinine 1.01 Estimat Glomerular Filtration 64 Rate Random Glucose 139 Calcium Level 8.0 Total Bilirubin 0.5 Aspartate Amino Transf 64 (AST/SGOT) Alanine Aminotransferase 33 (ALT/SGPT) Alkaline Phosphatase 50 Total Protein 6.7 Albumin 2.5 Date/Time Procedure Status Source Growth 01/23/17 13:00 Gram Stain - Final Resulted Cerebral Spinal Fluid Lumbar Puncture 01/23/17 13:00 CSF Culture - Preliminary Resulted Cerebral Spinal Fluid Lumbar Puncture NO GROWTH IN 48 HOURS. 01/23/17 13:00 Fungal Smear - Final Resulted Cerebral Spinal Fluid Lumbar Puncture NO FUNGAL ELEMENTS SEEN. 01/23/17 13:00 Fungal Culture Resulted Cerebral Spinal Fluid Lumbar Puncture Pending 01/23/17 12:00 Urine Culture - Final Complete Urine Catheterized Urine NO GROWTH IN 48 HOURS. 01/23/17 11:44 Aerobic Blood Culture - Preliminary Resulted Blood Peripheral NO GROWTH IN 2 DAYS 01/23/17 11:44 Anaerobic Blood Culture - Preliminary Resulted Blood Peripheral NO GROWTH IN 2 DAYS Diagnostic Tests EEG---slowing, nonspecific sharps Ag Arguello PhD Jan 25, 2017 17:09
--- NOTE | 2017-01-25 17:19 | HM ---
Date Performed: 01/23/2017 Time Performed: 15:52:00 HOOKUP DATE: 01/23/17 03:52:00 PM Amanda ANALYSIS START TIME: 01/23/2017 3:57:00 PM ANALYSIS END TIME: 01/24/2017 10:28:51 AM PATIENT AGE: 81 PATIENT HEIGHT PATIENT WEIGHT DRUG LIST PATIENT DIAGNOSIS: Stroke/Afib TEST NARRATIVE: The patient's average heart rate was 76 BPM. No episodes of tachycardia wer e noted. No episodes of bradycardia were noted. No pauses exceeding 2.0 seconds were noted. 7 ventricular ectopics, which represented < 1% of the total beat count, were noted. The highest vent ricular ectopic frequency occurred from 05:00 AM to 06:00 AM Fri. During this time 2 VE(s) occurred. Ventricular ectopics were observed as 7 isolated beat(s) only. No couplets or runs were noted. 20 supraventricular ectopics, which represented < 1% of the total beat count, were noted. The highe st supraventricular ectopic frequency occurred from 05:00 PM to 06:00 PM Amanda. During this time 7 SVE (s) occurred. No episodes of ST depression (defined as -1.0 mm or more) were noted in channel 1. No episodes of ST depression (defined as -1.0 mm or more) were noted in channel 2. No episodes of S T depression (defined as -1.0 mm or more) were noted in channel 3. No diary events were reported by the patient. TEST INTERPRETATION: 1. Baseline Sinus rhythm 2. No episodes of bradycardia/tachycardia 3. No pauses noted 4. Rare PAC/PVC 5. No episodes of S T depression noted 6. No symptoms reported Signed by : Samuel Hercules
[2017-01-25] MEDS: ASPIRIN EC 325 MG TABEC PO SCH (17:35)
[2017-01-25] MEDS: ATORVASTATIN 20 MG TAB PO SCH (21:39)
[2017-01-26] VITALS (9 sets, daily range): BP systolic 142–191; BP diastolic 63–79; PULSE 62–75; RESP 18–19; TEMP 95.5–98.6; O2SAT 94–100
[2017-01-26] MEDS: RESP: ALBUTEROL 2.5 MG/IPRATROPIUM 0.5 MG NEB (SCH) INH ×4 (03:04→20:07)
[2017-01-26] MEDS: CHLORHEXIDINE GLUCONATE 2 % 1 PACK (2 CLOTHS) TOP SCH (04:00)
[2017-01-26] MEDS: cloNIDine HCL 0.1 MG TAB PO PRN (05:02)
[2017-01-26] MEDS: INSULIN NovoLIN REGULAR SUPPLEMENTAL SCALE SQ SCH ×4 (06:00→17:28)
[2017-01-26 07:37] LABS: BICARBONATE 27.1 MEQ/L (21.0-32.0)
[2017-01-26] MEDS: LISINOPRIL 10 MG TAB PO SCH (09:00)
[2017-01-26] MEDS: DOCUSATE SODIUM 50 MG/SENNA 8.6 MG TAB PO SCH ×2 (09:20→22:25)
[2017-01-26] MEDS: SODIUM CHLOR 0.9% 1000 ML INJ 1,000 ML IV SCH ×2 (11:30→23:25)
--- NOTE | 2017-01-26 13:03 | HHI.PR ---
Review/Management Diagnosis hyponatremia/ metabolic encephalopathy. 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 Diagnosis/Plan: Subjective Subjective Comments No acute events reported Active Medications Current Medications Medications (Trade) Dose Ordered Sig/Nilson Route Start Time Stop Time Status Last Admin (Protonix Inj) 40 mg DAILY IV 01/23/17 12:00 01/25/17 08:01 Miscellaneous Information 1 Q361D XX 01/23/17 12:00 (Chlorhexidine 2% Cloth) 3 pack Taper DAILY@04 TOP 01/24/17 04:00 01/20/18 03:59 01/25/17 03:21 (Chlorhexidine 2% Cloth) 3 pack UNSCH PRN TOP 01/23/17 12:00 (Sara-Colace) 1 tab BID PO 01/23/17 21:00 01/26/17 09:20 (Milk Of Magnesia Liq) 30 ml Q12H PRN PO 01/23/17 12:00 (Senokot) 17.2 mg Q12H PRN PO 01/23/17 12:00 (Dulcolax Supp) 10 mg DAILY PRN RECTAL 01/23/17 12:00 Lactulose 30 ml 30 ml DAILY PRN PO 01/23/17 12:00 (NS 1000 ml Inj) 1,000 ml @ 84 mls/hr [id number] IV 01/23/17 12:00 01/25/17 05:16 (D50w (Vial) Inj) 50 ml UNSCH PRN IV 01/23/17 12:00 (Glucagon Inj) 1 mg UNSCH PRN OTHER 01/23/17 12:00 (NovoLIN R SUPPLEMENTAL SCALE) 1 Q6H SQ 01/23/17 12:00 01/25/17 17:11 (Ecotrin Ec) 325 mg Q24H PO 01/24/17 18:30 01/25/17 17:35 (Prinivil) 10 mg DAILY PO 01/25/17 07:30 01/25/17 07:59 (Lipitor) 20 mg HS PO 01/25/17 21:00 01/25/17 21:39 (Lovenox Inj) 40 mg Q24H SQ 01/25/17 16:00 01/25/17 17:07 (Catapres) 0.1 mg Q6H PRN PO 01/25/17 21:15 01/26/17 05:02 Allergies Allergies Coded Allergies No Known Allergies (Verified01/23/17) Exam I&O / VS 01/25/17 01/25/17 01/26/17 15:00 23:00 07:00 Intake Total 1212 ml 120 ml Output Total 800 ml 600 ml 1000 ml Balance 412 ml -600 ml -880 ml Intake Oral 770 ml 120 ml IV Total 442 ml Output Urine Total 800 ml 600 ml 1000 ml # Voids 0 # Bowel Movements 0 Vital Signs Date Time Temp Pulse Resp B/P Pulse Ox O2 Delivery O2 Flow Rate FiO2 01/26/17 12:25 95.5 66 18 191/74 95 01/26/17 09:56 98 21 01/26/17 08:28 98.6 65 18 169/70 98 01/26/17 07:17 Room Air 01/26/17 04:00 97.5 75 18 188/79 94 01/26/17 03:04 96 01/26/17 00:00 97.6 71 18 184/73 95 01/25/17 23:50 Room Air 01/25/17 21:35 72 146/67 01/25/17 20:00 97.7 74 18 179/73 97 01/25/17 16:00 97.3 83 18 156/68 96 01/25/17 14:15 98.0 76 18 152/65 98 01/25/17 14:00 86 Exam Comments alert, disoriented to date, follows simple commands CN intact MOTOR--moves BUE equally with no focal deficits. Objective Micro and Labs Laboratory Tests Test 01/25/17 01/26/17 21:55 05:13 Urine Osmolality 322 Urine Random Sodium 85 Sodium Level 129 Potassium Level 3.0 Chloride Level 94 Carbon Dioxide Level 27.1 Anion Gap 8 Blood Urea Nitrogen 14 Creatinine 0.89 Estimat Glomerular Filtration 74 Rate Random Glucose 125 Serum Osmolality 273 Calcium Level 8.3 Date/Time Procedure Status Source Growth 01/23/17 13:00 Gram Stain - Final Complete Cerebral Spinal Fluid Lumbar Puncture 01/23/17 13:00 CSF Culture - Final Complete Cerebral Spinal Fluid Lumbar Puncture NO GROWTH IN 72 HOURS 01/23/17 13:00 Fungal Smear - Final Resulted Cerebral Spinal Fluid Lumbar Puncture NO FUNGAL ELEMENTS SEEN. 01/23/17 13:00 Fungal Culture Resulted Cerebral Spinal Fluid Lumbar Puncture Pending 01/23/17 12:00 Urine Culture - Final Complete Urine Catheterized Urine NO GROWTH IN 48 HOURS. 01/23/17 11:44 Aerobic Blood Culture - Preliminary Resulted Blood Peripheral NO GROWTH IN 3 DAYS 01/23/17 11:44 Anaerobic Blood Culture - Preliminary Resulted Blood Peripheral NO GROWTH IN 3 DAYS Ag Arguello PhD Jan 26, 2017 13:03
[2017-01-26 13:13] LABS: CSF CRYPTOCOCCUS AG CONF ND (NOT DETECTD)
[2017-01-26] MEDS: PANTOPRAZOLE SODIUM 40 MG VIAL IV SCH (17:26)
[2017-01-26] MEDS: ENOXAPARIN SODIUM 40 MG/0.4 ML SYRINGE SQ SCH (17:27)
[2017-01-26] MEDS: ASPIRIN EC 325 MG TABEC PO SCH (17:27)
[2017-01-26] MEDS: ATORVASTATIN 20 MG TAB PO SCH (22:25)
[2017-01-26] MEDS ORDERED: ACETAMINOPHEN 325 MG TAB PO PRN (22:45)
[2017-01-27] VITALS (7 sets, daily range): BP systolic 153–201; BP diastolic 69–85; PULSE 65–74; RESP 19–20; TEMP 95.5–97.9; O2SAT 96–99
[2017-01-27] MEDS: CHLORHEXIDINE GLUCONATE 2 % 1 PACK (2 CLOTHS) TOP SCH (04:00)
[2017-01-27] MEDS: RESP: ALBUTEROL 2.5 MG/IPRATROPIUM 0.5 MG NEB (SCH) INH ×2 (04:02→09:24)
[2017-01-27] MEDS: INSULIN NovoLIN REGULAR SUPPLEMENTAL SCALE SQ SCH ×4 (06:00→17:49)
[2017-01-27] MEDS: cloNIDine HCL 0.1 MG TAB PO PRN ×2 (06:44→15:14)
--- NOTE | 2017-01-27 07:47 | HHI.PR ---
Subjective Remarks sr Objective Vital Signs Date Time Temp Pulse Resp B/P Pulse Ox O2 Delivery O2 Flow Rate FiO2 01/27/17 05:51 97.4 74 20 181/77 98 01/27/17 04:04 98 21 01/27/17 01:46 Room Air 01/27/17 00:00 96.1 70 20 160/69 99 01/26/17 20:08 97 21 01/26/17 20:00 95.8 62 19 142/63 98 01/26/17 16:16 97.8 65 18 186/79 100 01/26/17 12:25 95.5 66 18 191/74 95 01/26/17 09:56 98 21 01/26/17 08:28 98.6 65 18 169/70 98 I/O 01/26/17 01/26/17 01/26/17 01/27/17 01/27/17 01/27/17 07:00 15:00 23:00 07:00 15:00 23:00 Intake Total 120 ml 240 ml 604 ml Output Total 1000 ml 650 ml 1000 ml Balance -880 ml -410 ml -396 ml Intake Oral 120 ml 240 ml IV Total 604 ml Output Urine Total 1000 ml 650 ml 1000 ml Result Diagram: 01/25/17 0956 01/26/17 0513 Objective Remarks awake alert [facility] [place] 2017 vff moves well Assessment and Plan Assessment and Plan imp na was low 127 now 133 mri probably ok will recheck mri with contrast LP neg so dc acyclovir and i defer to med team if want to dc abt ldl 129 needs statin asa with bilat mca stenosis eeg recheck fu echo holter esr nl i think she has some ad likely by talking with her and nephew she may have had sz unwitnessed with low na may have been on water pill at home tia probably not but rx statin and asa oob eat ok to rx bp to 140/70 much better 01/27/17 01/27/17 much better na low echo and holter neg eeg equivocal may have had a sz unclear at this point oob and ok to dc neurowise with office fu for ? dementia when na better labs neg i will sign off no aed for now as unclear if actually had sz i will review eeg and get back if i think warrants any aed Abdiaziz Alfredo MD Jan 27, 2017 07:47
[2017-01-27] MEDS: PANTOPRAZOLE SODIUM 40 MG VIAL IV SCH (09:36)
[2017-01-27] MEDS: LISINOPRIL 10 MG TAB PO SCH (09:36)
[2017-01-27] MEDS: DOCUSATE SODIUM 50 MG/SENNA 8.6 MG TAB PO SCH (09:36)
[2017-01-27] MEDS: SODIUM CHLOR 0.9% 1000 ML INJ 1,000 ML IV SCH (09:37)
[2017-01-27 10:01] LABS: RAPID PLASMA REAGIN SCREEN NON-REACTIVE (NON-REACTVE)
[2017-01-27] MEDS ORDERED: FURO20TA PO (10:27)
[2017-01-27] MEDS ORDERED: OMEP20TA PO (10:27)
[2017-01-27] MEDS ORDERED: CITA20TA4 PO (10:27)
[2017-01-27] MEDS ORDERED: OXYB5TAB10 PO (10:27)
[2017-01-27] MEDS ORDERED: ALPR0.5T3 PO (10:27)
[2017-01-27] MEDS ORDERED: ENAL10TA PO (10:27)
[2017-01-27] MEDS ORDERED: TEMA30CA PO (10:27)
[2017-01-27] MEDS ORDERED: PRED5TAB PO (10:27)
[2017-01-27] MEDS ORDERED: POTA10LI10 PO (10:27)
[2017-01-27] MEDS ORDERED: METO25TA3 PO (10:27)
[2017-01-27] MEDS ORDERED: BACL10TA PO (10:27)
[2017-01-27] MEDS ORDERED: PROP50TA2 PO (10:27)
[2017-01-27 11:44] LABS: ANA SCREEN POS (NEG)
[2017-01-27] MEDS ORDERED: AMLO5 PO (15:07)
[2017-01-27] MEDS ORDERED: ATOR20TA15 PO (15:07)
[2017-01-27] MEDS ORDERED: ASPI81TA11 PO (15:12)
[2017-01-27] MEDS: ENOXAPARIN SODIUM 40 MG/0.4 ML SYRINGE SQ SCH (15:14)
--- NOTE | 2017-01-27 15:14 | HHI.DS ---
Discharge Summary Admission Date Jan 23, 2017 at 11:35 Discharge Date: Jan 27, 2017 Admitting Diagnosis CVA, AMS Procedures Echo 01/24/2017 The left ventricular systolic function is normal with an estimated ejection fraction in the range of 55-60%. Mild mitral valve regurgitation. Mitral annular calcification is present. There is trace tricuspid valve regurgitation. CBC/BMP: 01/25/17 0956 01/26/17 0513 Significant Findings Laboratory Tests Test 01/25/17 01/26/17 09:56 05:13 White Blood Count 11.8 TH/MM3 (4.0-11.0) Red Blood Count 3.94 MIL/MM3 (4.00-5.30) Platelet Count 109 TH/MM3 (150-450) Sodium Level 128 MEQ/L 129 MEQ/L (136-145) (136-145) Chloride Level 96 MEQ/L 94 MEQ/L (98-107) (98-107) Creatinine 1.01 MG/DL (0.50-1.00) Estimat Glomerular Filtration 64 ML/MIN (>89) 74 ML/MIN (>89) Rate Random Glucose 139 MG/DL 125 MG/DL (74-106) (74-106) Calcium Level 8.0 MG/DL 8.3 MG/DL (8.5-10.1) (8.5-10.1) Aspartate Amino Transf 64 U/L (15-37) (AST/SGOT) Albumin 2.5 GM/DL (3.4-5.0) Potassium Level 3.0 MEQ/L (3.5-5.1) Serum Osmolality 273 MOSM/KG (275-295) Imaging Last Impressions Brain MRI 01/24/17 0000 Signed Impressions: Service Date/Time: Tuesday, January 24, 2017 10:21 - CONCLUSION: Stable MRI of the brain compared to the prior examination of 01/23/2017. Andrea Palencia MD Neck Magnetic Resonance Angiography 01/23/17 0936 Signed Impressions: Service Date/Time: January 09:41 - CONCLUSION: No acute neck arterial vascular abnormality is identified. No significant stenosis is present. Fredis Gray MD Head Magnetic Resonance Angiography 01/23/17 0936 Signed Impressions: Service Date/Time: January 09:41 - CONCLUSION: There are areas of luminal irregularity and mild to moderate narrowing within the internal carotid arteries and middle cerebral arteries bilaterally as well as the vertebrobasilar system. The appearance is characteristic of atherosclerotic disease. No occlusion or high-grade stenosis is identified. Findings were telephoned to Dr. Alfredo. Fredis Gray MD Head CT 01/23/17 0000 Signed Impressions: Service Date/Time: January 09:03 - CONCLUSION: 1. Questionable left dense MCA in this patient with acute CVA symptoms. 2. Focal jiang-white matter differentiation loss in the left posterior parietooccipital mid convexity seen on a single image only. Although this is likely artifactual, a developing watershed territory infarct should be considered. Carlos Ritchie MD Chest X-Ray 01/23/17 0000 Signed Impressions: Service Date/Time: January 10:16 - CONCLUSION: No acute disease. Mild cardiomegaly. Andrea Palencia MD PE at Discharge GENERAL: Alert, NAD. SKIN: Warm and dry. HEAD: Normocephalic. EYES: No scleral icterus. No injection or drainage. NECK: Supple, trachea midline. No JVD or lymphadenopathy. CARDIOVASCULAR: Regular rate and rhythm without murmurs, gallops, or rubs. RESPIRATORY: Breath sounds equal bilaterally. No accessory muscle use. GASTROINTESTINAL: Abdomen soft, non-tender, nondistended. MUSCULOSKELETAL: No cyanosis, or edema. BACK: Nontender without obvious deformity. No CVA tenderness. Pt update on day of discharge Patient is doing well. Complains of constipation. No fever, chills. Hospital Course Ms. Mireles is a 81-year-old female with a history of hypertension, diabetes mellitus, hyperlipidemia who presented to the emergency department on 01/23/2007 as a stroke alert. Patient's nephew reported that patient was seen normal at 3 AM when she was watching [employer]. At around 8:45 AM on 01/23/2017 patient was seen lying sideways in her bed and unable to talk. Subsequently patient was brought to the emergency department. CT scan showed questionable left dense MCA. However MRI studies did not show any evidence of stroke. 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 Infectious disease was consulted. Patient was given ceftriaxone, vancomycin, acyclovir. However after lumbar puncture was done, without evidence of any infection infectious disease discontinued all antibiotics. Acyclovir was also discontinued. Neurology recommended aspirin and statin. - Suspected seizure disorder - Probable dementia - No evidence of infectious encephalopathy. All anti-microbials discontinued. - Neurology following -- > Patient's symptoms are likely due to seizure. However, no evidence and thus anti-epileptic meds were not started by Neurology. - We switched Aspirin from 325mg Qday to 81mg Qday. - Follow up with Neurology (Dr. Alfredo). - Hyperlipidemia - Lipitor 20 mg daily at bedtime. - Hypertension - continue lisinopril 10 mg daily. Will add Amlodipine 5mg Qday. - May need to increase both CARLOS ALBERTO inhibitor and CCB. - Will try to lower blood pressure gradually. Full code. Lovenox 40mg Q24hrs. Pt Condition on Discharge: Good Discharge Disposition: Rehab Inpatient Discharge Time: > 30 minutes Discharge Instructions DIET: Follow Instructions for: Diabetic Diet Activities you can perform: Regular-No Restrictions New Medications: Aspirin DR (Aspirin EC) 81 Mg Tabdr 81 MG PO DAILY Blood Clot Prevention #30 Ref 0 TAB Amlodipine (Norvasc) 5 Mg Tab 5 MG PO DAILY Blood Pressure Management #30 TAB Atorvastatin (Atorvastatin) 20 Mg Tab 20 MG PO HS Cholesterol Management #30 TAB Continued Medications: Alprazolam (Alprazolam) 0.5 Mg Tab 0.5 MG PO Q8H PRN ANXIETY Ref 0 TAB Baclofen (Baclofen) 10 Mg Tab 10 MG PO TID PRN MUSCLE SPASM Ref 0 TAB Citalopram (Citalopram) 20 Mg Tab 20 MG PO DAILY Control Depression #30 Ref 0 TAB Enalapril (Enalapril) 10 Mg Tab 10 MG PO DAILY #30 Ref 0 TAB Furosemide (Furosemide) 20 Mg Tab 20 MG PO DAILY #30 Ref 0 TAB Omeprazole (Omeprazole) 20 Mg Tab 20 MG PO DAILY #30 Ref 0 TAB Oxybutynin (Ditropan) 5 Mg Tab 5 MG PO Q12HR Urinary Symptom Managemen #60 Ref 0 TAB Propylthiouracil (Propylthiouracil) 50 Mg Tab 50 MG PO DAILY Thyroid #30 Ref 0 TAB Temazepam (Temazepam) 30 Mg Cap 30 MG PO HS PRN INSOMNIA #30 Ref 0 CAP Discontinued Medications: Metoprolol Tartrate (Metoprolol Tartrate) 25 Mg Tab 25 MG PO DAILY #30 Ref 0 TAB Potassium Chloride Liq (Potassium Chloride Liq) 40 Meq/15 Ml Soln 100 MEQ PO DAILY Electrolyte Replacement Ref 0 ML Prednisone (Prednisone) 5 Mg Tab 5 MG PO DAILY Ref 0 TAB Renetta Amezcua DO Jan 27, 2017 15:14
[2017-01-27] MEDS ORDERED: amLODIPine BESYLATE 5 MG TAB PO ONE (15:15)
--- NOTE | 2017-01-27 15:31 | HHI.PR ---
Subjective Remarks Late entry for 01/26/2017 Follow-up for suspected seizure activity. Patient is doing well. No acute concerns. Objective Vitals Vital Signs Date Time Temp Pulse Resp B/P Pulse Ox O2 Delivery O2 Flow Rate FiO2 01/27/17 12:46 95.5 70 20 170/79 97 01/27/17 09:26 96 21 01/27/17 08:00 Room Air 01/27/17 08:00 97.9 73 19 186/73 96 01/27/17 05:51 97.4 74 20 181/77 98 01/27/17 04:04 98 21 01/27/17 01:46 Room Air 01/27/17 00:00 96.1 70 20 160/69 99 01/26/17 20:08 97 21 01/26/17 20:00 95.8 62 19 142/63 98 01/26/17 16:16 97.8 65 18 186/79 100 I/O 01/26/17 01/26/17 01/26/17 01/27/17 01/27/17 01/27/17 07:00 15:00 23:00 07:00 15:00 23:00 Intake Total 120 ml 240 ml 604 ml Output Total 1000 ml 650 ml 1000 ml Balance -880 ml -410 ml -396 ml Intake Oral 120 ml 240 ml IV Total 604 ml Output Urine Total 1000 ml 650 ml 1000 ml Result Diagram: 01/25/17 0956 01/26/17 0513 Objective Remarks GENERAL: Alert, NAD. SKIN: Warm and dry. HEAD: Normocephalic. EYES: No scleral icterus. No injection or drainage. NECK: Supple, trachea midline. No JVD or lymphadenopathy. CARDIOVASCULAR: Regular rate and rhythm without murmurs, gallops, or rubs. RESPIRATORY: Breath sounds equal bilaterally. No accessory muscle use. GASTROINTESTINAL: Abdomen soft, non-tender, nondistended. MUSCULOSKELETAL: No cyanosis, or edema. BACK: Nontender without obvious deformity. No CVA tenderness. Procedures Echo 01/24/2017 The left ventricular systolic function is normal with an estimated ejection fraction in the range of 55-60%. Mild mitral valve regurgitation. Mitral annular calcification is present. There is trace tricuspid valve regurgitation. A/P Assessment and Plan Ms. Mireles is a 81-year-old female with a history of hypertension, diabetes mellitus, hyperlipidemia who presented to the emergency department on 01/23/2007 as a stroke alert. Patient's nephew reported that patient was seen normal at 3 AM when she was watching [employer]. At around 8:45 AM on 01/23/2017 patient was seen lying sideways in her bed and unable to talk. Subsequently patient was brought to the emergency department. CT scan showed questionable left dense MCA. However MRI studies did not show any evidence of stroke. 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 Infectious disease was consulted. Patient was given ceftriaxone, vancomycin, acyclovir. However after lumbar puncture was done, without evidence of any infection infectious disease discontinued all antibiotics. Acyclovir was also discontinued. Neurology recommended aspirin and statin. - Suspected seizure disorder - Probable dementia - No evidence of infectious encephalopathy. All anti-microbials discontinued. - Neurology following. - Continue Aspirin 325mg Qday. We can probably decrease aspirin to 81 mg daily. - Hyperlipidemia - we'll start Lipitor 20 mg daily at bedtime. - Hypertension - continue lisinopril 10 mg daily. Full code. Lovenox 40mg Q24hrs. Renetta Amezcua DO Jan 27, 2017 15:31
[2017-01-27 16:06] LABS: BICARBONATE 26.3 MEQ/L (21.0-32.0); POTASSIUM 3.7 MEQ/L (3.5-5.1)
[2017-01-27] MEDS ORDERED: ASPIRIN EC 81 MG TABEC PO SCH (18:00)
[2017-01-28] MEDS ORDERED: amLODIPine BESYLATE 5 MG TAB PO SCH (09:00)
[2017-01-28] MEDS ORDERED: FUROSEMIDE 20 MG TAB PO SCH (09:00)
== END 2017-01-27 18:26 | DRG 100 ==
LOC: NEPC 08:57 → NEDA 11:35 → N03B 14:24 → N05A 01-25 13:48
PROVIDERS: ADMIT Hospitalist; ATTEND Hospitalist
PROC: 009U3ZX Drainage of Spinal Canal, Percutaneous Approach, Diagnostic (ICD-10-PCS; principal; 2017-01-23)
PROC: 0T9B70Z Drainage of Bladder with Drainage Device, Via Natural or Artificial Opening (ICD-10-PCS; 2017-01-23)
DX: R56.9 Unspecified convulsions (principal); G93.41 Metabolic encephalopathy; R06.89 Other abnormalities of breathing; E87.1 Hypo-osmolality and hyponatremia; R47.01 Aphasia; I16.1 Hypertensive emergency; E05.90 Thyrotoxicosis, unspecified without thyrotoxic crisis or storm; E11.9 Type 2 diabetes mellitus without complications; I67.2 Cerebral atherosclerosis; I10 Essential (primary) hypertension; F32.9 Major depressive disorder, single episode, unspecified; F41.9 Anxiety disorder, unspecified; M19.90 Unspecified osteoarthritis, unspecified site; Z86.73 Personal history of transient ischemic attack (TIA), and cerebral infarction without residual deficits; J45.909 Unspecified asthma, uncomplicated; E78.00 Pure hypercholesterolemia, unspecified; E78.5 Hyperlipidemia, unspecified; Z80.9 Family history of malignant neoplasm, unspecified; I25.2 Old myocardial infarction; H91.90 Unspecified hearing loss, unspecified ear; F03.90 Unspecified dementia, unspecified severity, without behavioral disturbance, psychotic disturbance, mood disturbance, and anxiety; I08.1 Rheumatic disorders of both mitral and tricuspid valves
CPT/HCPCS: 36600; 51702; 62270; 70450; 70544; 70548; 70551; 70553; 71010; 76937; 80048; 80053; 80061; 80202; 80307; 81001; 82435; 82550; 82565; 82607; 82746; 82805; 82945; 82947; 82948; 83036; 83605; 83735; 83930; 83935; 84100; 84132; 84157; 84295; 84300; 84425; 84439; 84443; 84450; 84460; 84484; 84520; 85025; 85027; 85384; 85610; 85652; 85730; 86038; 86039; 86403; 86592; 86850; 86900; 86901; 87040; 87070; 87086; 87102; 87205; 87206; 87529; 87641; 89051; 93005; 93225; 93226; 93306; 94640; 94664; 95819; A9579; C9113; J0133; J0360; J0610; J0696; J1650; J2405; J2930; J3370; J7030; J7050

== ENCOUNTER → 2017-02-10 | Outpatient (CLI) | payer MEDICARE, OTHER ==
[~2017-02-10] MED LIST changes: +ALPR0.5T3 PO; -ALPR0.5T99 PO; +AMLO10 PO; +AMLO5 PO; +ASPI81TA11 PO; +ATOR20TA15 PO; +BACL10TA PO; +BETH25 PO; -CITA20 PO; +CITA20TA4 PO; +ENAL10TA PO; -ENAL20TA PO; +FURO20TA PO; +GETGO ROLLING W1 MI1; +HOSP BED1; +HYDR-3799 PO; +LISI-515 PO; -METO25 PO; +METO25TA3 PO; -OMEP20CA5 PO; +OMEP20TA PO; +OXYB5TAB10 PO; +PANT40TA3 PO; +PROPOFOL 200 MG/20 ML AMP IV ONE; +REST15CA PO; +TEMA30CA PO; -TYLETAB36 PO; +glucometer
--- NOTE | 2017-02-10 15:08 | PD.PROCEDR ---
GI Procedure PROCEDURE PERFORMED EGD with biopsy and esophageal dilation INDICATION FOR PROCEDURE Epigastric pain and dysphagia PROCEDURE: The procedure, risks and benefits were discussed with Ms. Mireles and informed consent was obtained. Anesthesia sedated her with Diprivan. She was placed in the left lateral decubitus position. EGD: The Pentax videoscope was introduced through the oropharynx and advanced to the second portion of the duodenum under direct visualization. Retroflexion was performed in the stomach. FINDINGS: The esophagus this appeared to be unremarkable except for a mild distal esophageal denying stricture this was dilated with a savory dilator over a guidewire savory dilator was 15 mm postdilatation view was satisfactory with no rent The stomach there was some patchy erythema in the antrum but no ulcerations or erosions the rest of the gastric mucosa was unremarkable the antrum was biopsied The duodenum this was unremarkable and within normal limits ESTIMATED BLOOD LOSS: None SPECIMENS REMOVED: Gastric antrum COMPLICATIONS: None IMPRESSION: Esophageal stricture benign status post dilation Antral gastritis PLAN: Await biopsy Recommend PPI Recommend to chew food well Follow-up with GI post discharge Arun Zaragoza MD Feb 10, 2017 15:08
[2017-02-10 15:12] VITALS: TEMP 98.2
[2017-02-10 15:32] VITALS: BP 153/64; PULSE 56; RESP 17; O2SAT 100
== END ==
LOC: HEND 15:42
PROVIDERS: ATTEND Internal Medicine Gastroenterology
DX: R10.13 Epigastric pain (principal); R13.10 Dysphagia, unspecified; K22.2 Esophageal obstruction; K29.60 Other gastritis without bleeding
CPT/HCPCS: 88305; 88312; C1769

== ENCOUNTER 2018-02-17 12:18 | Observation (INO) ==
[2018-02-17 12:56] LABS: Baso % (Auto) 0.9 % (0.0-2.0); Eos % (Auto) 0.9 % (0.0-4.0); Hematocrit 41.2 % (35.0-46.0); Hemoglobin 13.6 gm/dL (11.6-15.3); Lymph # (Auto) 0.7 th/mm3 (1.0-4.8); Lymph % (Auto) 16.3 % (9.0-44.0); Mean Corpuscular HGB Conc 33.1 % (32.0-36.0); Mean Corpuscular Hemoglobin 31.7 pg (27.0-34.0); Mean Corpuscular Volume 95.9 fL (80.0-100.0); Mean Platelet Volume 7.7 fL (7.0-11.0); Mono # (Auto) 0.5 th/mm3 (0.0-0.9); Mono % (Auto) 11.8 % (0.0-8.0); Neut # (Auto) 2.9 th/mm3 (1.8-7.7); Neut % (Auto) 70.1 % (16.0-70.0); Platelet Count 167 th/mm3 (150-450); Red Cell Distribution Width 13.7 % (11.6-17.2); White Blood Count 4.1 th/mm3 (4.0-11.0)
[2018-02-17 13:12] LABS: Activated Partial Thrombo Time 25.2 sec (24.3-30.1); Prothrombin Time 10.5 sec (9.8-11.6)
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
[2018-02-17 13:16] LABS: Alanine Aminotransferase 18 U/L (10-53); Albumin 3.3 g/dL (3.4-5.0); Anion Gap 8 meq/L (5-15); Aspartate Aminotransferase 20 U/L (15-37); Blood Urea Nitrogen 8 mg/dL (7-18); Calcium 8.8 mg/dL (8.5-10.1); Carbon Dioxide 24.6 meq/L (21.0-32.0); Chloride 99 meq/L (98-107); Glomerular Filtration Rate 44 mL/min (>89); Glucose,Random 124 mg/dL (74-106); Magnesium 2.1 mg/dL (1.5-2.5); Potassium 3.9 meq/L (3.5-5.1); Sodium 132 meq/L (136-145)
[2018-02-17 13:17] LABS: Lipase 60 U/L (73-393)
[2018-02-17 13:19] LABS: Alkaline Phosphatase 83 U/L (45-117); Creatine Kinase 107 U/L (26-192); Total Protein 7.8 g/dL (6.4-8.2)
--- NOTE | 2018-02-17 13:21 | XR ---
EXAM DATE: 02/17/2018 1:11 PM EDT AGE/SEX: 82 years / Female INDICATIONS: Shortness of breath. CLINICAL DATA: This is the patient's initial encounter. Patient reports that signs and symptoms have been present for 1 day and indicates a pain score of 0/10. MEDICAL/SURGICAL HISTORY: . Cardiovascular disease, hypertension, seizures None. COMPARISON: [facility] – [place], CHEST SINGLE AP, 02/08/2017. . FINDINGS: Shallow lung volumes. Cardiomegaly. Minimal linear atelectasis at the right base. Aortic calcificatio n. Osseous structures are intact. CONCLUSION: Diminished lung volumes with right basilar atelectasis. Electronically signed by: Guzman Blake MD 02/17/2018 1:20 PM EDT
[2018-02-17 13:34] LABS: Creatine Kinase MB 0.9 ng/mL (0.5-3.6)
--- NOTE | 2018-02-17 14:00 | CT ---
EXAM DATE: 02/17/2018 1:51 PM EDT AGE/SEX: 82 years / Female INDICATIONS: Fell backwards in rolling walker and hit head. CLINICAL DATA: This is the patient's initial encounter. Patient reports that signs and symptoms have been present for 1 day and indicates a pain score of 4/10. MEDICAL/SURGICAL HISTORY: Chronic obstructive pulmonary disease. Hypertension. Congestive heart f ailure. Appendectomy. rotator cuff RADIATION DOSE: 56.35 CTDI (mGy) [place] [facility] [place]24/[place]. . TECHNIQUE: CT of the head without contrast. Using automated exposure control and adjustment of the mA and/or kV according to patient size, radiation dose was kept as low as reasonably achievable to ob tain optimal diagnostic quality images. DICOM format image data is available electronically for revi ew and comparison. FINDINGS: There is mild diffuse prominence of the CSF spaces ventricles and cisterns. No signs of acute intracr anial hemorrhage, mass or infarct. There are no fractures. CONCLUSION: 1. Atrophy. . Electronically signed by: Guzman Blake MD 02/17/2018 1:59 PM EDT
--- NOTE | 2018-02-17 14:49 | CT ---
EXAM DATE: 02/17/2018 2:10 PM EDT AGE/SEX: 82 years / Female INDICATIONS: Fell backwards and hit head. Head and abdominal pain. CLINICAL DATA: This is the patient's initial encounter. Patient reports that signs and symptoms have been present for 1 day and indicates a pain score of 5/10. MEDICAL/SURGICAL HISTORY: Chronic obstructive pulmonary disease. Hypertension. Congestive hea rt failure. Appendectomy. rotator cuff RADIATION DOSE: 9.96 CTDI (mGy) COMPAR[place]: [facility] [place] PELVIS W/O CONTRAST, 02/08/2017. . TECHNIQUE: Multiple contiguous axial images were obtained through the abdomen. Images were obtained using multiple row detector helical technique. Using automated exposure control and adjustment of the mA and/or kV according to patient size, radiation dose was kept as low as reasonably achievable to o btain optimal diagnostic quality images. DICOM format image data is available electronically for rev iew and comparison. FINDINGS: The limited portion of lung base visualized is clear. The appearance of the liver, spleen, pancreas, adrenal glands and kidneys is within normal limits. The abdominal aorta is normal in caliber. There is diffuse atherosclerotic plaquing of the abdominal aorta. There is no retroperitoneal adenopathy. No free air free fluid is seen within the abdomen. There is no free fluid within the pelvis. No iliac or inguinal adenopathy is seen. The reproductive o rgans are intact. There is a calcified, degenerated fibroid within the uterus. Bone windowed imaging is provided. There are old, healed fractures involving the anterior aspect of t he right iliac wing and the pubic symphysis. There are degenerative changes within the lumbar spine. CONCLUSION: 1. No findings to indicate acute intra-abdominal trauma identified. 2. Note is made of old, healed pelvic fractures. 3. Degenerative changes within the lumbar spine. Electronically signed by: Willie Pressley MD 02/17/2018 2:47 PM EDT
[2018-02-17] MEDS ORDERED: Acetaminophen 325 MG Tablet PO ONE (14:57)
[2018-02-17] MEDS ORDERED: Iohexol 350 MG/ML 100 ML Vial (for Cath Lab) IVCONTRAST ONE (16:37)
[2018-02-17] MEDS ORDERED: hydrALAZINE HCl Inj 20 MG/ML Vial IV.PUSH ONE (17:17)
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
[2018-02-17] MEDS ORDERED: Bisacodyl 10 MG Supp RECTAL PRN (18:02)
[2018-02-17] MEDS ORDERED: Acetaminophen 325 MG Tablet PO PRN (18:02)
[2018-02-17] MEDS ORDERED: Naloxone Inj 0.4 MG/ML Vial IV.PUSH PRN (18:07)
[2018-02-17] MEDS: Heparin - SQ 10,000 UNITS/ML Vial SQ SCH (19:55)
[2018-02-17] MEDS: ALPRAZolam 0.5 MG Tablet PO SCH (19:56)
[2018-02-17] MEDS: Senna/Docusate Sodium 8.6/50 MG Tablet PO SCH ×2 (19:56→20:59)
[2018-02-17] MEDS: oxyCODONE/Acetaminophen 10/325 Tablet PO PRN (19:57)
--- NOTE | 2018-02-17 20:30 | CT ---
EXAM DATE: 02/17/2018 8:08 PM EDT AGE/SEX: 82 years / Female INDICATIONS: Neck pain post fall. CLINICAL DATA: This is the patient's initial encounter. Patient reports that signs and symptoms have been present for 1 day and indicates a pain score of 7/10. MEDICAL/SURGICAL HISTORY: Chronic obstructive pulmonary disease. Hypertension. CHF. . Right s houlder replacement. RADIATION DOSE: 19.85 CTDI (mGy) COMPARISON: No prior exams available for comparison. TECHNIQUE: Contiguous axial images were obtained using helical multirow detector technique. The vol umetric data was post-processed with multiplanar reconstruction in oblique axial, sagittal, and coron al planes. Using automated exposure control and adjustment of the mA and/or kV according to patient s ize, radiation dose was kept as low as reasonably achievable to obtain optimal diagnostic quality liz ges. DICOM format image data is available electronically for review and comparison. FINDINGS: There is moderate to severe degenerative disc disease in the cervical spine with slight reversal of t he normal there is mild AP canal stenosis between C3 and C7 also with mild lateral recess encroachmen t. There is a large multinodular goiter noted incidentally. No acute fracture or spondylolisthesis. No prevertebral soft tissue swelling. CONCLUSION: 1. No acute bony abnormalities. 2. Severe degenerative disc disease with mild canal stenosis from C3 through C7. 3. Large goiter. Electronically signed by: Dallas Bowens MD 02/17/2018 8:29 PM EDT
[2018-02-17 20:40] LABS: Thyroid Stimulating Hormone 1.14 uIU/mL (0.358-3.740); Triiodothyronine (T3) Free 2.77 pg/mL (2.18-3.98)
[2018-02-17] MEDS ORDERED: Temazepam 15 MG Capsule PO PRN (21:00)
[2018-02-18] MEDS: oxyCODONE/Acetaminophen 10/325 Tablet PO PRN (05:58)
[2018-02-18] MEDS: Heparin - SQ 10,000 UNITS/ML Vial SQ SCH ×2 (05:59→18:41)
[2018-02-18] MEDS ORDERED: ACETAMINOPHEN PO SCH (09:00)
[2018-02-18] MEDS ORDERED: CODEINE PO SCH (09:00)
[2018-02-18] MEDS: traZODone 50 MG Tablet PO SCH (09:00)
--- NOTE | 2018-02-18 10:22 | ECG ---
Date Performed: 02/17/2018 Time Performed: 12:28:23 PTAGE: 82 years EKG: Sinus rhythm WITH FIRST DEGREE AV BLOCK POSSIBLE ANTERIOR MYOCARDIAL INFARCTION INFERIOR MYOCARDIAL INFARCTION AB NORMAL ECG Since the PREVIOUS TRACING , no significant change noted PREVIOUS TRACIN01/23/2017 10.20 DOCTOR: Elodia Lai Interpretating Date/Time 02/18/2018 10:19:49
--- NOTE | 2018-02-18 13:26 | P.PN ---
Subjective Interval history: Follow-up visit chest pain, status post fall. Patient complains of midepigastric pain radiating towards the right upper quadrant area. States she feels bloated and gaseous. States she has not had a bowel movement in about several days, last bowel movement was Friday. States that she had to get an enema to have a bowel movement last Friday. Otherwise,denies SOB/ dyspnea. Denies palpitations, headaches, dizziness. Denies fevers, chills, n/v/d. Denies dysuria. Physical Exam Vital signs: Vital Signs 02/17/18 16:23 02/17/18 19:21 02/17/18 20:00 Temperature 98.3 F Pulse Rate 66 81 63 Respiratory Rate 18 16 17 Blood Pressure 218/91 H 248/143 H 143/79 H Pulse Oximetry 97 96 100 02/17/18 20:23 02/17/18 21:00 02/18/18 00:00 Temperature 98.2 F Pulse Rate 59 L 61 Respiratory Rate 18 17 Blood Pressure 151/66 H 175/72 H Pulse Oximetry 99 99 99 02/18/18 04:00 02/18/18 08:00 02/18/18 12:00 Temperature 97.4 F L 98.4 F Pulse Rate 55 L 52 L 53 L Respiratory Rate 17 14 16 Blood Pressure 150/66 H 136/60 186/76 H Pulse Oximetry 99 98 99 Intake & Output 02/17/18 02/18/18 02/18/18 18:59 06:59 18:59 Weight 90.718 kg Narrative: GENERAL: This is an obese patient, in no apparent distress. SKIN: Warm and dry. Dry skin. HEENT: Normocephalic. Pupils equal round and reactive. Nose without bleeding. Airway patent. NECK: Trachea midline. No JVD. Supple. CARDIOVASCULAR: Regular rate and rhythm without murmurs, gallops, or rubs. RESPIRATORY: Clear to auscultation. Breath sounds equal bilaterally. No wheezes , rales, or rhonchi. GASTROINTESTINAL: Abdomen soft, nondistended. Hypoactive bowels. Midepigastric region tenderness towards the right upper quadrant to palpation. MUSCULOSKELETAL: Extremities without clubbing, cyanosis, or edema. NEUROLOGICAL: Awake and alert. Oriented to place, person. Moves all extremities. Slow-normal speech. Results - Labs CBC & Chem 7: 02/17/18 12:46 02/18/18 12:17 Laboratory Results - last 24 hr 02/17/18 02/17/18 02/17/18 12:46 12:46 12:46 CK-MB (CK-2) 0.9 Troponin I TSH 1.140 Free T4 0.96 Free T3 2.77 02/18/18 00:21 CK-MB (CK-2) Troponin I Less than 0.02 L TSH Free T4 Free T3 - Imaging Impressions Cervical Spine CT 02/17/18 00:00 CONCLUSION: 1. No acute bony abnormalities. 2. Severe degenerative disc disease with mild canal stenosis from C3 through C7. 3. Large goiter. Head CT 02/17/18 12:31 CONCLUSION: 1. Atrophy. . Abdomen/Pelvis CT 02/17/18 13:24 CONCLUSION: 1. No findings to indicate acute intra-abdominal trauma identified. 2. Note is made of old, healed pelvic fractures. 3. Degenerative changes within the lumbar spine. Assessment and Plan - Assessment (1) Chest pain Code(s): R07.9 - Chest pain, unspecified Status: Acute (2) Fall Code(s): W19.XXXA - Unspecified fall, initial encounter Status: Acute - Plan This is an 82-year-old female with history of CVA, CHF, COPD, goiter, hypertension presenting with a fall and chest pain Fall-mechanical -consult physical therapy -CT scan of the cervical spine no acute bony abnormalities. Severe degenerative disc disease with mild canal stenosis from C3 through C7, large goiter. -Pain control with bowel regimen Chest pain-rule out indigestion, -Patient had positive stress test about 1-2 weeks ago. -Consult Dr. Hercules, patient's POA agreed to cardiac catheterization -EKG no ischemic changes, sinus rhythm with first-degree AV block. -Troponin negative 3. Serial EKG. -Plan for cardiac cath Chronic kidney disease, stage IIIa -baseline creatinine around 1.2-1.4 -Continue Lasix -Avoid nephrotoxins. Monitor renal indicis intermittently Hypertension, uncontrolled History of congestive heart failure,not in exacerbation -chest x-ray is unremarkable other than atelectasis -resume Lasix. -Continue home medication Enalapril, hydralazine as needed, Vasotec as needed. -Monitor BP trend Goiter -TSH, free T3, free T4 all within normal -follow-up with an cardiopulmonary supervisor as outpatient. -Speech to evaluate swallowing. Previously had severe goiter that affects swallowing but no dysphasia was found on modified barium swallow done in 2017. All other chronic medical issues are stable, continue medications per home dose as indicated. DVT prophylaxis Heparin Code Status: Full code Discussed Condition With: Patient, nurse Discharge Planning: Plan to DC home when clinically improved (1) Chest pain Qualifiers: Chest pain type: unspecified Qualified Code(s): R07.9 - Chest pain, unspecified (2) Fall Qualifiers: Encounter type: initial encounter Qualified Code(s): W19.XXXA - Unspecified fall, initial encounter
[2018-02-18 13:27] LABS: Alanine Aminotransferase 16 U/L (10-53)
[2018-02-18] MEDS ORDERED: Aluminum/Magnesium/Simethacone Susp 30 ML UDC PO ONE (13:27)
[2018-02-18 13:29] LABS: Albumin 2.9 g/dL (3.4-5.0); Anion Gap 9 meq/L (5-15); Aspartate Aminotransferase 21 U/L (15-37); Blood Urea Nitrogen 8 mg/dL (7-18); Calcium 8.7 mg/dL (8.5-10.1); Carbon Dioxide 27.2 meq/L (21.0-32.0); Chloride 98 meq/L (98-107); Glomerular Filtration Rate 51 mL/min (>89); Glucose,Random 81 mg/dL (74-106); Potassium 3.6 meq/L (3.5-5.1); Sodium 134 meq/L (136-145)
[2018-02-18 13:31] LABS: Alkaline Phosphatase 76 U/L (45-117); Total Protein 7.1 g/dL (6.4-8.2)
[2018-02-18] MEDS: ALPRAZolam 0.5 MG Tablet PO SCH ×4 (13:52→18:40)
[2018-02-18] MEDS: Furosemide 20 MG Tablet PO SCH (14:33)
[2018-02-18] MEDS: Senna/Docusate Sodium 8.6/50 MG Tablet PO SCH ×2 (14:34→21:19)
[2018-02-18] MEDS: Pregabalin 25 MG Capsule PO SCH (14:34)
[2018-02-18] MEDS: predniSONE 5 MG Tablet PO SCH (14:34)
[2018-02-18] MEDS: Citalopram 20 MG Tablet PO SCH (14:34)
[2018-02-18] MEDS: Potassium Chloride 10 MEQ ER Capsule PO SCH (14:55)
[2018-02-18] MEDS ORDERED: Heparin/NS PF Inj 1,000 ML ONE (16:49)
[2018-02-18] MEDS ORDERED: Heparin 10,000 UNITS/10 ML Vial (for IV use) ONE (16:49)
[2018-02-18] MEDS ORDERED: fentaNYL Citrate Inj 100 MCG/2 ML Ampul ONE (17:07)
[2018-02-18] MEDS ORDERED: Aspirin 325 MG Tablet ONE (17:59)
[2018-02-18] MEDS ORDERED: CODEINE SULFATE PO SCH (18:00)
[2018-02-18] MEDS ORDERED: Acetaminophen 325 MG Tablet PO PRN (18:06)
[2018-02-18] MEDS ORDERED: Misc Info for Pharmacy OTHER STA (18:06)
--- NOTE | 2018-02-18 18:08 | CATHPROC ---
[facility] HIS Report Study Information Study Number Admission Scheduled Start Study Start [id number] Feb 17 2018 4:36PM 02/18/2018 Feb 18 2018 4:35PM [place] [facility] Cardiac Catheterization Admit Source Facility Department Emergency department [facility] Poker Room Manager Physician and Clinical Staff Initial Samuel Welch Clinical Business Analyst Moni Solis,VI Clinical Business Analyst Aubrey Luna RN Recorder Rupa Cast,RT(R) Scrub Christiano Cardozo,RT(R) Procedures Performed Procedure Location (Site) Vessel Name Coronary Angiograms LCA Left Coronary Coronary Angiograms RCA Right Coronary Drug Eluting Inflatio RCA Dist Right Coronary L Heart Cath PTCA RCA Dist Right Coronary Wire insertion Radial (right) Radial Art. Equipment Time Bundle Collector Description Size Mfg Part Number Used/Scraped WIRE, BALANCE MIDDLEWEIGHT [id number] 17:26 [employer] 190CM Used 190CM *[id number] TRANSDUCER, TRUWAVE [id number] 17:00 KHOURY SCHMIDT * Used W/STOCKCOCK *[id number] 17:47 [employer] BALLOON, 2.0 8MM EMERGE MR 2.0 8MM Used *[id number] *[id number] 17:00 Gini BLANKET,WARM AIR CCL * Used *[id number] 17:00 [employer]ini PACK, CCL CUSTOM * Used *[id number] 17:00 Gini SUPPORT, ARTERIAL ADULT [id number] *[id number] Used [id number] 17:31 [employer] BALLOON, 2.0 X 10MM EUPHORA 10MM Used *[id number] 17:22 [employer] JL 3.5 DXTERITY CATHETER FR 5 Used *[id number] 17:16 [employer] JR 4.0 DXTERITY CATHETER FR 5 Used *[id number] 17:38 [employer] STENT, 2.0 12MM JAMEL 2.0 X 12MM Used *[id number] 17:37 [employer] 30 GUME INDEFLATOR Used *[id number] BAND, RADIAL COMPRESSION TR [id number] 17:53 [employer] MEDICAL 24CM Used SHORT 24 *[id number] 17:00 [employer] WIRE, EXCHANGE 260CM 3MMJ 260CM Used *[id number] 17:00 [facility] MANIFOLD, 4 PORT * Used *[id number] 17:00 [employer] OMNIPAQUE, 350 MG, 150ML 150ML [id number] Used 17:32 [employer] OMNIPAQUE, 350 MG, 150ML 150ML [id number] Used SHEATH, FR6 TRANSRADIAL [id number] 17:00 [employer] MEDICAL FR 6 Used SLENDER 10CM *[id number] Equipment Model, Serial, Lot Number and Expiration Data Description Model Number Serial Number Lot Number Expiration Date BALLOON, 2.0 8MM EMERGE MR [id number] 01-04-2020 STENT, 2.0 12MM JAMEL [id number] 07-29-2019 History: Current Medications Medication Dosage/Unit Route Frequency Last Date/Time Taken VASOTEC History: Allergies Allergy Reaction No Known Allergies History: Risk Factors Family History of Hypertension Dyslipidemia Previous VT Previous Heart Failure Premature CAD Yes No No No Yes Prior Valve Prior PCI Prior CABG Surgery No No No Cerebrovascular Peripheral Artery Chronic Lung On Dialysis Diabetes Disease Disease Disease No Yes No Yes No History: Symptoms/Diagnosis Selection Items Chest pain History: Stress Tests Stress or Imaging Studies Performed Yes Stress Test SPECT Stress Test SPECT Result Stress Test SPECT Ischemia Risk/Extent Yes Positive Intermediate History: Other Disease Selection Items CHF COPD Depression HTN Labs Hgb (g/dl) Hct (%) WBC (l/cumm) Platelets (thousands) 11.60-17.00 35.00-51.00 4.00-11.00 150.00-450.00 13.6 41.2 4.1 167 Glucose (mg/dl) BUN (mg/dl) Creatinine (mg/dl) BUN:Creatinine (1:x) 74.00-106.00 7.00-18.00 0.50-1.30 10.00-20.00 81 8 1.2 6.7 Na (meq/l) K (meq/l) 136.00-145.00 3.50-5.10 134 3.6 INR (PTT:PT) 0.90-1.10 1 Troponin I (ng/ml) CPK (u/l) CPK-MB (ng/ML) 0.02-0.05 26.00-308.00 0.50-3.60 0.02 107 0.9 Medication Medication Total Dose (Bolus/Oral) Medication Total Dosage/Unit 1% XYLOCAINE 5 mL ASPIRIN 325 mg FENTANYL 25 mcg HEPARIN 8100 units NTG (IC) 400 mcg OXYGEN 2 l/min PLAVIX 600 mg RADIAL COCKTAIL 5 mL (Bolus) VERSED 0.5 mg Medications (Bolus/Oral) Medication Time Given Dosage/Unit Administered By Reason OXYGEN 02/18/2018 5:11:24 PM 2 l/min Moni Solis 2 l/min OXYGEN given in lab by Moni Solis RN via Nasal. 1% XYLOCAINE 02/18/2018 5:13:38 PM 5 mL Samuel Hercules 5 mL 1% XYLOCAINE given in lab by Samuel Hercules in Right Radial via Subcutaneous. FENTANYL 02/18/2018 5:13:53 PM 25 mcg Moni Solis 25 mcg FENTANYL given in lab by Moni Solis RN in Left Hand via Peripheral IV. Ordered by Samuel Skaggs VERSED 02/18/2018 5:14:19 PM 0.5 mg Moni Solis 0.5 mg VERSED given in lab by Moni Solis RN in Left Hand via Peripheral IV. Ordered by Samuel Hercules RADIAL COCKTAIL 02/18/2018 5:16:17 PM 5 mL (Bolus) Samuel Hercules 5 mL (Bolus) RADIAL COCKTAIL given in lab by Moni Solis RN in Right Radial via Radial. Using [S olution Name]. Reason: Ntg 200mcg Verapamil 2.5mg HEPARIN 02/18/2018 5:19:19 PM 3600 units Moni Solis 3600 units HEPARIN given in lab by Moni Solis RN in Left Hand via Peripheral IV. Ordered by Samuel Alatorre HEPARIN 02/18/2018 5:29:13 PM 4500 units Moni Solis 4500 units HEPARIN given in lab by Moni Solis RN in Left Hand via Peripheral IV. Ordered by Samuel Alatorre NTG (IC) 02/18/2018 5:44:26 PM 200 mcg Samuel Hercules 200 mcg NTG (IC) given in lab by Samuel Hercules in Right Radial via Intra-coronary. NTG (IC) 02/18/2018 5:50:18 PM 200 mcg Samuel Hercules 200 mcg NTG (IC) given in lab by Samuel Hercules in Right Radial via Intra-coronary. ASPIRIN 02/18/2018 6:00:02 PM 325 mg Moni Solis 325 mg ASPIRIN given in lab by Moni Solis RN via Oral. Ordered by Samuel Hercules PLAVIX 02/18/2018 6:00:22 PM 600 mg Moni Solis 600 mg PLAVIX given in lab by Moni Solis RN via Oral. Ordered by Samuel Hercules Medication (Drip) Medication Time Given Dosage/Unit Concentration/Unit Diluent (ml) Solution IV Solutions 02/18/2018 4:55:37 PM 50 mL (IV) NaCl .9 IV Solutions given in lab by Aubrey Luna RN in Left Hand via Peripheral IV. Pump/Drip Flow using Na Cl .9. Initial Case Assessment Circulatory - Right Pulses Dorsalis Pedis Femoral Radial 2 2 2 Scale (0,1,2,3,4,d) Circulatory - Left Pulses Dorsalis Pedis Femoral Radial 2 2 Scale (0,1,2,3,4,d) Neurological State Oriented to time-place- Alert Moves all extremities person Chronological Log Time Study Chronological Log 16:48:50 Patient arrived via Bed. 16:54:07 Patient Name, D.O.B, / Armband Verified By R.N. 16:54:13 Consent signed by the physician and the patient and verified by the Poker Room Manager staff. 16:54:15 Pre-op and post- op instructions given; patient acknowledges understanding of instruction s. 16:54:17 Verbal Stimulation=2 Physical Stimulation=2 Airway=2 Respiration=2 TOTAL=8. (0=absent, 1= limited, 2=present) 16:54:29 Presedation assessment performed by Poker Room Manager RN. 16:55:29 Allens test performed on the right radial and ulnar artery. 16:55:32 Patient has been NPO for Less than 6Hrs. 16:55:33 Skin Breakdown- none per pt 16:55:34 Patient Warmer Placed on the Table. 16:55:35 Tootie Prominences Protected 16:55:36 A # 20 IV was noted in the Hand (left). Grade = 0 16:55:37 IV Solutions given in lab by Aubrey Luna RN in Left Hand via Peripheral IV. Pump/Drip F low using NaCl .9. 16:55:38 History and physical on the chart or being dictated. Assessment: Initial Case Right Pulses: Tashi Ped=2, Femoral=2, Radial=2 16:55:42 Left Pulses: Tashi Ped=2, Femoral=2 Neurological: State=Alert, Ox3, CORTES Vitals capture started with the following parameters, Patient=Adult, Interval=5 min, Initial Zbnfofml=683 mmHg, 16:58:03 Deflation Rate=5 mmHg, Cuff placed on Left Arm 16:58:47 Right Radial and groin(s) prepped with 2% chlorhexidine, and draped after a 3 min. waitin g time. 16:59:29 HR=58 bpm, SDDY=816/87 mmhg, SpO2=95.0 %, Resp=18 B/min 16:59:54 Reference ECG taken 17:03:25 MD paged 17:04:43 HR=59 bpm, TYYQ=780/66 mmhg, SpO2=96.0 %, Resp=17 B/min 17:05:30 MD arrived. 17:06:59 Pressure channel 1 zeroed. 17:08:55 HR=57 bpm, LINQ=328/54 mmhg, SpO2=93.0 %, Resp=16 B/min 17:11:24 2 l/min OXYGEN given in lab by Moni Solis, RN via Nasal. Time Out. Correct patient, correct procedure, correct physician, labs, allergies, and equipment verified with labor arbitrator hearing office 17:12:26 team present. Fire risk assesment completed (see hard stop sheet for coding). Time Out Conc urred by MD and individual staff in procedure. 17:13:34 Case Start 17:13:38 5 mL 1% XYLOCAINE given in lab by Samuel Hercules in Right Radial via Subcutaneous. 17:13:53 25 mcg FENTANYL given in lab by Moni Solis, RN in Left Hand via Peripheral IV. Ordered by Samuel Hercules. 17:14:19 0.5 mg VERSED given in lab by Moni Solis, RN in Left Hand via Peripheral IV. Ordered b Samuel Hernandez. 17:14:33 HR=57 bpm, MZHE=417/66 mmhg, WiT9=659.0 %, Resp=20 B/min 17:15:59 Access site was Right Radial Artery . A SHEATH, FR6 TRANSRADIAL SLENDER 10CM FR 6 was advanced into the Radial (right) using the Perc utaneous 17:16:07 technique. 5 mL (Bolus) RADIAL COCKTAIL given in lab by Moni Solis RN in Right Radial via Radial. Us ing [Solution Name]. 17:16:17 Reason: Ntg 200mcg Verapamil 2.5mg A JR 4.0 DXTERITY CATHETER FR 5 was advanced over a wire. OMNIPAQUE, 350 MG, 150ML 150ML was us ed for 17:17:44 injections. 17:18:49 HR=71 bpm, EAYW=103/58 mmhg, KeK7=064.0 %, Resp=14 B/min Recorded Pressure: LV, HR=49, Condition=Condition 1 17:19:17 (Left Ventricle) LV 159/-1/10 17:19:19 3600 units HEPARIN given in lab by Moni Solis RN in Left Hand via Peripheral IV. Orde red by Samuel Hercules Recorded Pressure: LV, Ao, HR=71, Condition=Condition 1 17:19:36 (Left Ventricle) LV 153/-5/2, (Aorta) Ao 173/61/106 Recorded Pressure: Ao, HR=58, Condition=Condition 1 17:20:03 (Aorta) Ao 172/72/111 17:20:27 The RCA was injected and visualized at various angles. OMNIPAQUE, 350 MG, 150ML 150ML used . After removing the current catheter a JL 3.5 DXTERITY CATHETER FR 5 was advanced over a WIRE, E XCHANGE 260CM 17:22:15 3MMJ 260CM. 17:23:48 HR=57 bpm, KRJA=771/68 mmhg, BbM4=613.0 %, Resp=14 B/min 17:24:19 The LCA was injected and visualized at various angles. OMNIPAQUE, 350 MG, 150ML 150ML used . After removing the current catheter a JR 4.0 GUIDE CATHETER FR 6 was advanced over a WIRE, EXCH JOSE 260CM 17:27:25 3MMJ 260CM. 17:28:53 HR=63 bpm, TAJG=096/67 mmhg, ZuJ9=534.0 %, Resp=15 B/min 17:29:13 4500 units HEPARIN given in lab by Moni Solis RN in Left Hand via Peripheral IV. Orde red by Samuel Hercules. 17:31:10 A WIRE, BALANCE MIDDLEWEIGHT 190CM 190CM was inserted via Radial (right). 17:33:52 Interventional wire has crossed the lesion in the distal RCA 17:33:54 HR=60 bpm, KKAX=916/71 mmhg, XaH5=064.0 %, Resp=10 B/min 17:35:11 Activated Clotting Time Drawn A BALLOON, 2.0 X 10MM EUPHORA 10MM was inserted over WIRE, BALANCE MIDDLEWEIGHT 190CM 190CM via the 17:35:46 Radial (right). A BALLOON, 2.0 X 10MM EUPHORA 10MM over a WIRE, BALANCE MIDDLEWEIGHT 190CM 190CM in the RCA Dis t was 17:36:36 inflated using a 30 GUME INDEFLATOR at 8 gume for 15 sec. 17:38:55 HR=66 bpm, KQMG=404/65 mmhg, MiB2=858.0 %, Resp=15 B/min 17:38:59 Balloon Removed. 17:40:59 ACT (Normal Range 90-180) = 322 A STENT, 2.0 12MM JAMEL 2.0 X 12MM was advanced through a JR 4.0 GUIDE CATHETER FR 6 over a WIRE , BALANCE 17:41:16 MIDDLEWEIGHT 190CM 190CM. A STENT, 2.0 12MM JAMEL 2.0 X 12MM was deployed using a 30 GUME INDEFLATOR at 12 atmospheres for 30 seconds 17:42:11 in the RCA Dist. 17:43:56 HR=64 bpm, NGBX=095/65 mmhg, MhB9=862.0 %, Resp=15 B/min 17:44:00 Delivery device removed 17:44:26 200 mcg NTG (IC) given in lab by Samuel Hercules in Right Radial via Intra-coronary. A BALLOON, 2.0 8MM EMERGE MR 2.0 8MM was inserted over WIRE, BALANCE MIDDLEWEIGHT 190CM 190CM v ia the 17:46:43 Radial (right). A BALLOON, 2.0 8MM EMERGE MR 2.0 8MM over a WIRE, BALANCE MIDDLEWEIGHT 190CM 190CM in the RCA D ist was 17:47:59 inflated using a 30 GUME INDEFLATOR at 12 gume for 18 sec. A BALLOON, 2.0 8MM EMERGE MR 2.0 8MM over a WIRE, BALANCE MIDDLEWEIGHT 190CM 190CM in the RCA D ist was 17:48:48 inflated using a 30 GUME INDEFLATOR at 18 gume for 10 sec. 17:48:57 HR=63 bpm, GLXC=108/72 mmhg, KzR3=224.0 %, Resp=13 B/min A BALLOON, 2.0 8MM EMERGE MR 2.0 8MM over a WIRE, BALANCE MIDDLEWEIGHT 190CM 190CM in the RCA D ist was 17:49:09 inflated using a 30 GUME INDEFLATOR at 18 gume for 10 sec. 17:49:58 Balloon Removed. 17:50:18 200 mcg NTG (IC) given in lab by Samuel Hercules in Right Radial via Intra-coronary. 17:52:00 Wire removed 17:53:27 Catheter was removed 17:53:32 Case End (Physician broke scrub) 17:53:56 HR=63 bpm, HJDZ=225/66 mmhg, YfQ9=735.0 %, Resp=27 B/min Radial Compression Device Used. 15 mLs of air placed in BAND, RADIAL COMPRESSION TR SHORT 24 24 CM. Affected 17:54:37 hand 100 % O2 saturation. 17:54:44 No case complications noted. 17:54:45 Cine recording checked. 17:54:46 Bedside Report will be given. 17:54:47 Implantable Device card placed in patient's chart. 17:54:51 A Left Heart Cath was performed. 17:58:53 HR=62 bpm, RYOY=713/76 mmhg, PxX4=411.0 %, Resp=16 B/min 18:00:02 325 mg ASPIRIN given in lab by Moni Solis, VI via Oral. Ordered by Samuel Hercules 18:00:22 600 mg PLAVIX given in lab by Moni Solis, VI via Oral. Ordered by Samuel Hercules 18:03:00 [facility] 18[facility]15 Vitals capture stopped. End Study - Contrast Media Used In Study Contrast Total Opened (mL) Total Used (mL) Total Wasted (mL) Omnipaque 300 185 115 End Study - Maximum Contrast Load Max Contrast Load (mL) 411.2 End Study - Radiation Exposure Fluoro Time (minutes) 7.9 End Study - Patient Disposition Complications Transferred To Interventional Outcome No Telemetry Bed successful
[2018-02-18] MEDS ORDERED: diphenhydrAMINE HCl 12.5 MG/5 ML Elixir UDC PO PRN (18:09)
[2018-02-18] MEDS: Metoprolol Tartrate 25 MG Tablet PO SCH (21:18)
--- NOTE | 2018-02-19 00:22 | MA ---
cc: Samuel Hercules DO DATE: 02/18/2018 DATE OF PROCEDURE: 02/18/2018. PROCEDURE: Left heart catheterization, coronary angiogram, moderate sedation 40 minutes, Alex drug-eluting stent (2 x 12) to posterolateral branch. PREPROCEDURE DIAGNOSIS: Unstable angina (Angolan anginal class III), on antianginal; abnormal stress test (intermediate risk). POSTPROCEDURE DIAGNOSES: Coronary artery disease/unstable angina, status post [place] drug-eluting stent (2 x 12) to posterolateral branch. MEDICATIONS: Versed 0.5 mg, fentanyl 25 mcg, verapamil 2.5 mg, nitro 600 mcg, heparin 8100 units, aspirin 325 mg, Plavix 600 mg. CONTRAST USED: 185 mL. FLUOROSCOPY: 7.9 minutes. MODERATE SEDATION: 40 minutes. FRAILTY SCORE: 7. ESTIMATED BLOOD LOSS: 10 mL. PROCEDURAL SUMMARY: Nava Mireles is a pleasant 82-year-old female whom I see in the office who presented to [facility] due to chest pain. She previously had a stress test which was intermediate risk, showing inferolateral ischemia, and we attempted to treat this medically. She had been started on beta vicky therapy, but continued to have chest pain on and off for the past 1-2 weeks consistent with unstable angina. She was recommended cardiac catheterization. The risks, benefits and alternatives were explained to her and her nephew, who is her power of quality control analyst, and he consented to such. DESCRIPTION OF PROCEDURE: She was brought to the lab and prepped in the usual sterile fashion. The right radial artery was accessed using a modified Seldinger technique and placement of a 5/6 [place] slender sheath. This was easily aspirated and flushed. A JR4 was advanced over a J-wire to the ascending aorta and across the aortic valve for measurement of left ventricular pressure. This was pulled back across the aortic valve, showing no significant gradient of aortic stenosis. The JR4 was used for selective angiography of the right coronary artery system. This is exchanged out for a JL3.5, which was used for selective angiography of the left coronary artery system. The JL3.5 was removed over a J-wire. Please see notes below for intervention. FINDINGS: LEFT MAIN: Normal-sized vessel with adequate reflux. It bifurcates into an LAD and circumflex. LEFT ANTERIOR DESCENDING: Normal-sized vessel with mild luminal irregularities throughout the proximal and mid portion. It gives off 1 major diagonal, which has 30% disease at the ostium and is overall a small vessel. LEFT CIRCUMFLEX: Moderate-sized vessel with 30% disease in the first obtuse marginal at the proximal portion. Obtuse marginal then branches off into 3 separate segments with the first segment having 30% disease, second segment having 30% disease, and the third segment being overall small with no significant disease. RIGHT CORONARY ARTERY: Normal-sized vessel with 30% focal stenosis of the proximal portion. There is a high bifurcation which gives off a PDA, which overall has no significant disease, and a posterolateral branch, which has a 95% stenosis in the mid portion. LVEDP 10. INTERVENTION: Due to the patient's consistent chest pain on antianginals as well as CAT 2 flow through the posterolateral branch, I felt that intervention was necessary at this time. A JR4 guide was advanced and engaged into the right coronary artery. Heparin was given as an anticoagulant. A BMW wire was advanced into the distal portion of the posterolateral branch. A compliant balloon (2 x 10) was then inflated over the lesion. An Alex drug-eluting stent (2 x 12) was placed over the lesion and inflated. This was postdilated with a noncompliant balloon (2 x 8) to a final size of 2.25 mm. Final angiogram shows a well-opposed stent with no perforations or dissections. The wire and guide were removed. A radial band was placed over the arteriotomy site for hemostasis. The patient was given aspirin and Plavix. She was cardiovascularly stable upon leaving the hatchery laborer. INTERVENTIONAL DATA: Vessel: Mid posterolateral branch, lesion length 8, pre-CAT 2, post-CAT 3, post-stenosis 0. IMPRESSIONS: 1. Unstable angina (Angolan anginal class III). 2. Abnormal stress test (intermediate risk). 3. Coronary artery disease, status post Alex drug-eluting stent (2 x 12) to the mid posterolateral branch. RECOMMENDATIONS: 1. Ms. Mireles underwent PCI as above, and she will be recommended aspirin and Plavix therapy. Aspirin should be indefinite, and Plavix for at least 12 months. 2. She will be continued on CARLOS ALBERTO inhibitor and beta vicky therapy. 3. We will plan on adding statin therapy to her medical management. 4. Recent echo in the office showed a normal ejection fraction. 5. She will be watched overnight, and if stable in the morning, discharged home. Thank you for allowing me to see Nava Mireles. If there are any questions, please do not hesitate to call. DO PETERSON Rust/KENNEDY , 11:47 PM , 12:00 AM
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
[2018-02-19] MEDS: Potassium Chloride 10 MEQ ER Capsule PO SCH (08:34)
[2018-02-19] MEDS: Lactic Acid (Ammonium Lactate) 12% Lotion 225 GM Bottle TOPICAL SCH ×2 (08:34→12:06)
[2018-02-19] MEDS: Citalopram 20 MG Tablet PO SCH (08:35)
[2018-02-19] MEDS: traZODone 50 MG Tablet PO SCH (08:35)
[2018-02-19] MEDS: Furosemide 20 MG Tablet PO SCH (08:35)
[2018-02-19] MEDS: predniSONE 5 MG Tablet PO SCH (08:35)
[2018-02-19] MEDS: Metoprolol Tartrate 25 MG Tablet PO SCH (08:35)
[2018-02-19] MEDS: ALPRAZolam 0.5 MG Tablet PO SCH ×3 (08:43→17:44)
[2018-02-19] MEDS: Senna/Docusate Sodium 8.6/50 MG Tablet PO SCH (08:43)
[2018-02-19] MEDS: Pregabalin 25 MG Capsule PO SCH (08:43)
[2018-02-19 10:44] VITALS: RESP 18; O2SAT 94
--- NOTE | 2018-02-19 11:29 | P.PNCA ---
Subjective Interval history: No events overnight No complaints Telemetry showing sinus bradycardia Physical Exam Vital signs: Vital Signs 02/18/18 12:00 02/18/18 12:30 02/18/18 16:00 Temperature 98.4 F 97.5 F L Pulse Rate 53 L 56 L Respiratory Rate 16 14 Blood Pressure 186/76 H 166/70 H 156/82 H Pulse Oximetry 99 98 02/18/18 18:34 02/18/18 19:00 02/18/18 20:00 Temperature 98.4 F 97.4 F L Pulse Rate 59 L 57 L 58 L Respiratory Rate 20 Blood Pressure 145/85 H 128/68 Pulse Oximetry 97 99 02/18/18 21:00 02/18/18 22:00 02/18/18 23:00 Temperature 97.5 F L Pulse Rate 56 L 52 L 50 L Respiratory Rate 18 Blood Pressure 95/56 L Pulse Oximetry 96 02/19/18 00:00 02/19/18 01:00 02/19/18 02:00 Temperature Pulse Rate 46 L 48 L 49 L Respiratory Rate Blood Pressure Pulse Oximetry 02/19/18 03:00 02/19/18 04:00 02/19/18 05:00 Temperature 98.1 F Pulse Rate 50 L 46 L 45 L Respiratory Rate 18 Blood Pressure 116/50 L Pulse Oximetry 98 02/19/18 06:00 02/19/18 07:00 02/19/18 08:00 Temperature 98.2 F Pulse Rate 43 L 49 L 54 L Respiratory Rate 17 Blood Pressure 136/64 Pulse Oximetry 94 L 95 02/19/18 09:00 02/19/18 10:00 02/19/18 10:39 Temperature 98.4 F Pulse Rate 58 L 54 L 48 L Respiratory Rate 18 Blood Pressure 129/44 L Pulse Oximetry 94 L Intake & Output 02/18/18 02/19/18 02/19/18 18:59 06:59 18:59 Intake Total 100 / 100 480 / 480 Output Total 400 / 400 350 / 350 Balance -300 / -300 130 / 130 Intake: IV 100 / 100 Heparin/NS PF Inj 1,000 ML @ 0 100 / 100 mls/hr .ROUTE .[facility] Rx#: [id number] Oral 480 / 480 Output: Urine 400 / 400 350 / 350 Other: Date of Last Bowel Movement 02/18/18 02/08/1802/08/18 Narrative: GENERAL: This is an obese patient, in no apparent distress. SKIN: Warm and dry. Dry skin. HEENT: Normocephalic. Pupils equal round and reactive. Nose without bleeding. Airway patent. NECK: Trachea midline. No JVD. Supple. CARDIOVASCULAR: Regular rate and rhythm without murmurs, gallops, or rubs. RESPIRATORY: Clear to auscultation. Breath sounds equal bilaterally. No wheezes , rales, or rhonchi. GASTROINTESTINAL: Abdomen soft, nondistended. Hypoactive bowels. Midepigastric region tenderness towards the right upper quadrant to palpation. MUSCULOSKELETAL: Extremities without clubbing, cyanosis, or edema. Right radial no hematoma, neurovascularly intact NEUROLOGICAL: Awake and alert. Oriented to place, person. Moves all extremities. Slow-normal speech. Assessment and Plan - Assessment (1) CAD (coronary artery disease) Code(s): I25.10 - Atherosclerotic heart disease of [place] coronary artery without angina pectoris Status: Acute (2) Abnormal stress test Code(s): R94.39 - Abnormal result of other cardiovascular function study Status: Acute (3) Chest pain Code(s): R07.9 - Chest pain, unspecified Status: Acute (4) Fall Code(s): W19.XXXA - Unspecified fall, initial encounter Status: Acute - Plan 1) CAD/Unstable angina with abnormal stress test PCI of PLB Started ASA/Plavix Con't on Enalapril Added statin Will plan on stopping Beta Cordell therapy due to bradycardia with heart rates in the 40-60s 2) Fall Mechanical in nature 3) Await morning labs, if stable then can be discharged home (3) Chest pain Qualifiers: Chest pain type: unspecified Qualified Code(s): R07.9 - Chest pain, unspecified (4) Fall Qualifiers: Encounter type: initial encounter Qualified Code(s): W19.XXXA - Unspecified fall, initial encounter
[2018-02-19 11:49] LABS: Baso % (Auto) 0.4 % (0.0-2.0); Eos # (Auto) 0.1 th/mm3 (0.0-0.4); Eos % (Auto) 2.1 % (0.0-4.0); Hematocrit 41.7 % (35.0-46.0); Hemoglobin 13.6 gm/dL (11.6-15.3); Lymph # (Auto) 0.9 th/mm3 (1.0-4.8); Lymph % (Auto) 26.1 % (9.0-44.0); Mean Corpuscular HGB Conc 32.7 % (32.0-36.0); Mean Corpuscular Hemoglobin 31.6 pg (27.0-34.0); Mean Corpuscular Volume 96.6 fL (80.0-100.0); Mean Platelet Volume 8.4 fL (7.0-11.0); Mono # (Auto) 0.4 th/mm3 (0.0-0.9); Mono % (Auto) 13.4 % (0.0-8.0); Neut # (Auto) 1.9 th/mm3 (1.8-7.7); Platelet Count 139 th/mm3 (150-450); Red Blood Count 4.32 mil/mm3 (4.00-5.30); Red Cell Distribution Width 13.5 % (11.6-17.2); White Blood Count 3.3 th/mm3 (4.0-11.0)
[2018-02-19 12:09] LABS: Alanine Aminotransferase 17 U/L (10-53); Anion Gap 10 meq/L (5-15); Aspartate Aminotransferase 20 U/L (15-37); Blood Urea Nitrogen 9 mg/dL (7-18); Calcium 8.4 mg/dL (8.5-10.1); Carbon Dioxide 26.2 meq/L (21.0-32.0); Chloride 99 meq/L (98-107); Glomerular Filtration Rate 43 mL/min (>89); Glucose,Random 88 mg/dL (74-106); Sodium 135 meq/L (136-145)
[2018-02-19 12:11] LABS: Alkaline Phosphatase 80 U/L (45-117); Total Protein 7.1 g/dL (6.4-8.2)
[2018-02-19 12:17] LABS: Potassium 3.6 meq/L (3.5-5.1)
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
--- NOTE | 2018-02-19 12:42 | P.DCO ---
- Diagnosis (3) Chest pain (4) Fall - Physical Therapy Order: Evaluate and treat, Improve ambulation, Strength and gait training - Occupational Therapy Order: Evaluate and treat, Improve ADL, Gross motor coordination, Fine motor coordination - Home Health Nursing Order: Medical education, Signs/symptoms of disease process, Medication education-adverse effect, Nursing assessment with vital signs - Home Health Aide Order: To assist in: Bathing and personal care, supervisor communications and signals and meal prep - Certification I have seen patient Nava Mireles on 02/19/18. My clinical findings support the need for the requested home health care services because: Limited mobility due to disease progression, Deconditioned with increased weakness, Limited ability to care for self, Need for psychosocial assistance, Impaired cognition/judgement, High risk of falls I certify that my clinical findings support that this patient is homebound because: Hx COPD - exertion dyspnea/weakness, Unsteady gait/balance (3) Chest pain Qualifiers: Chest pain type: unspecified Qualified Code(s): R07.9 - Chest pain, unspecified (4) Fall Qualifiers: Encounter type: initial encounter Qualified Code(s): W19.XXXA - Unspecified fall, initial encounter
--- NOTE | 2018-02-19 12:51 | P.DS ---
Date of admission: 02/17/18 16:36 Primary care physician: Bryan Christie DO Attending physician on discharge: Bryan Ramesh Anticipated date of discharge: 02/19/18 Brief History from admission: This is an 82-year-old female with history of CHF, COPD, depression, hypertension, previous CVA, anxiety presenting with a fall and chest pain. Patient is a very poor historian, most of the patient's history is from the patient's power of assistant county attorney who also happened to be her nephew. Allegedly, patient was on her scooter this morning when she fell and hit the posterior part of his head without any loss of consciousness, focal weakness, tingling, or slurring of speech after. She however complains of mild pain in her occipital area and neck area. No focal weakness. Of note, she has also been complaining of chest pain described as indigestion for about 1-2 weeks now. She allegedly saw Dr. Cao as outpatient, stress test was done and was allegedly positive. POA said he wants everything done including cardiac catheterization if needed. Family history: Noncontributory. DS: Diagnosis - Discharge Diagnosis (1) Abnormal stress test Status: Acute (2) CAD (coronary artery disease) Status: Acute (3) Chest pain Status: Acute (4) Fall Status: Acute DS: Medications - Discharge Medications Prescriptions: aspirin 81 mg PO DAILY #30 tab atorvastatin [Lipitor] 40 mg PO HS #120 tab enalapril maleate [Vasotec] 10 mg PO DAILY #30 tab furosemide [Lasix] 20 mg PO DAILY #30 tab omeprazole 40 mg PO DAILY #30 cap potassium chloride 10 meq PO DAILY #30 tab prednisone 5 mg PO DAILY #30 tab DS: Summary Hospital Course: This is an 82-year-old female with history of CHF, COPD, depression, hypertension, previous CVA, anxiety presenting with a fall and chest pain. Patient is a very poor historian, most of the patient's history is from the patient's power of assistant county attorney who also happened to be her nephew. Allegedly, patient was on her scooter this morning when she fell and hit the posterior part of his head without any loss of consciousness, focal weakness, tingling, or slurring of speech after. She however complains of mild pain in her occipital area and neck area. No focal weakness. Of note, she has also been complaining of chest pain described as indigestion for about 1-2 weeks now. She allegedly saw Dr. Cao as outpatient, stress test was done and was allegedly positive. POA said he wants everything done including cardiac catheterization if needed. [id number] visit chest pain, status post fall. Patient complains of midepigastric pain radiating towards the right upper quadrant area. States she feels bloated and gaseous. States she has not had a bowel movement in about several days, last bowel movement was Friday. States that she had to get an enema to have a bowel movement last Friday. Otherwise,denies SOB/ dyspnea. Denies palpitations, headaches, dizziness. Denies fevers, chills, n/v/d. Denies dysuria. 8-2 FOLLOW UP CAD HAD STENTING BY DR CAO SEE REPORT DC TO HOME ON ASA, PLAVIX AND [facility] SEE FACE TO FACE MECHANICAL SOFT DIET CHOPPED MEAT WITH EXTRA GRAVY AND THIN LIQUIDS - Time Spent with Patient Total time spent providing and/or coordinating discharge services: Greater than 30 minutes - Quality: VTE Deep Vein Thrombosis/Pulmonary Embolism Present on Admission: No Exam Vital signs: Vital Signs 02/18/18 16:00 02/18/18 18:34 02/18/18 19:00 Temperature 97.5 F L 98.4 F Pulse Rate 56 L 59 L 57 L Respiratory Rate 14 Blood Pressure 156/82 H 145/85 H Pulse Oximetry 98 97 02/18/18 20:00 02/18/18 21:00 02/18/18 22:00 Temperature 97.4 F L Pulse Rate 58 L 56 L 52 L Respiratory Rate 20 Blood Pressure 128/68 Pulse Oximetry 99 02/18/18 23:00 02/19/18 00:00 02/19/18 01:00 Temperature 97.5 F L Pulse Rate 50 L 46 L 48 L Respiratory Rate 18 Blood Pressure 95/56 L Pulse Oximetry 96 02/19/18 02:00 02/19/18 03:00 02/19/18 04:00 Temperature 98.1 F Pulse Rate 49 L 50 L 46 L Respiratory Rate 18 Blood Pressure 116/50 L Pulse Oximetry 98 02/19/18 05:00 02/19/18 06:00 02/19/18 07:00 Temperature 98.2 F Pulse Rate 45 L 43 L 49 L Respiratory Rate 17 Blood Pressure 136/64 Pulse Oximetry 94 L 02/19/18 08:00 02/19/18 09:00 02/19/18 10:00 Temperature Pulse Rate 54 L 58 L 54 L Respiratory Rate Blood Pressure Pulse Oximetry 95 02/19/18 10:39 02/19/18 12:00 Temperature 98.4 F Pulse Rate 48 L 48 L Respiratory Rate 18 Blood Pressure 129/44 L Pulse Oximetry 94 L Intake & Output 02/18/18 02/19/18 02/19/18 18:59 06:59 18:59 Intake Total 100 / 100 480 / 480 Output Total 400 / 400 350 / 350 Balance -300 / -300 130 / 130 Intake: IV 100 / 100 Heparin/NS PF Inj 1,000 ML @ 0 100 / 100 mls/hr .ROUTE .[employer] ONE Rx#: [id number] Oral 480 / 480 Output: Urine 400 / 400 350 / 350 Other: Date of Last Bowel Movement 02/18/18 02/08/18 02/08/18 Narrative: GENERAL: This is an obese patient, in no apparent distress. SKIN: Warm and dry. Dry skin. HEENT: Normocephalic. Pupils equal round and reactive. Nose without bleeding. Airway patent. NECK: Trachea midline. No JVD. Supple. CARDIOVASCULAR: Regular rate and rhythm without murmurs, gallops, or rubs. RESPIRATORY: Clear to auscultation. Breath sounds equal bilaterally. No wheezes , rales, or rhonchi. GASTROINTESTINAL: Abdomen soft, nondistended. Hypoactive bowels. Midepigastric region tenderness towards the right upper quadrant to palpation. MUSCULOSKELETAL: Extremities without clubbing, cyanosis, or edema. NEUROLOGICAL: Awake and alert. Oriented to place, person. Moves all extremities. Slow-normal speech. Results Procedures completed during hospitalization: 02/18/2018. PROCEDURE: Left heart catheterization, coronary angiogram, moderate sedation 40 minutes, Alex drug-eluting stent (2 x 12) to posterolateral branch. PREPROCEDURE DIAGNOSIS: Unstable angina ([place] anginal class III), on antianginal; abnormal stress test (intermediate risk). POSTPROCEDURE DIAGNOSES: Coronary artery disease/unstable angina, status post Alex drug-eluting stent (2 x 12) to posterolateral branch. MEDICATIONS: Versed 0.5 mg, fentanyl 25 mcg, verapamil 2.5 mg, nitro 600 mcg, heparin 8100 units, aspirin 325 mg, Plavix 600 mg. CONTRAST USED: 185 mL. FLUOROSCOPY: 7.9 minutes. MODERATE SEDATION: 40 minutes. FRAILTY SCORE: 7. ESTIMATED BLOOD LOSS: 10 mL. PROCEDURAL SUMMARY: Nava Mireles is a pleasant 82-year-old female whom I see in the office who presented to [facility] due to chest pain. She previously had a stress test which was intermediate risk, showing inferolateral ischemia, and we attempted to treat this medically. She had been started on beta vicky therapy, but continued to have chest pain on and off for the past 1-2 weeks consistent with unstable angina. She was recommended cardiac catheterization. The risks, benefits and alternatives were explained to her and her nephew, who is her power of assistant county attorney, and he consented to such. DESCRIPTION OF PROCEDURE: She was brought to the lab and prepped in the usual sterile fashion. The right radial artery was accessed using a modified Seldinger technique and placement of a 5/6 [place] slender sheath. This was easily aspirated and flushed. A JR4 was advanced over a J-wire to the ascending aorta and across the aortic valve for measurement of left ventricular pressure. This was pulled back across the aortic valve, showing no significant gradient of aortic stenosis. The JR4 was used for selective angiography of the right coronary artery system. This is exchanged out for a JL3.5, which was used for selective angiography of the left coronary artery system. The JL3.5 was removed over a J-wire. Please see notes below for intervention. FINDINGS: LEFT MAIN: Normal-sized vessel with adequate reflux. It bifurcates into an LAD and circumflex. LEFT ANTERIOR DESCENDING: Normal-sized vessel with mild luminal irregularities throughout the proximal and mid portion. It gives off 1 major diagonal, which has 30% disease at the ostium and is overall a small vessel. LEFT CIRCUMFLEX: Moderate-sized vessel with 30% disease in the first obtuse marginal at the proximal portion. Obtuse marginal then branches off into 3 separate segments with the first segment having 30% disease, second segment having 30% disease, and the third segment being overall small with no significant disease. RIGHT CORONARY ARTERY: Normal-sized vessel with 30% focal stenosis of the proximal portion. There is a high bifurcation which gives off a PDA, which overall has no significant disease, and a posterolateral branch, which has a 95% stenosis in the mid portion. LVEDP 10. INTERVENTION: Due to the patient's consistent chest pain on antianginals as well as CAT 2 flow through the posterolateral branch, I felt that intervention was necessary at this time. A JR4 guide was advanced and engaged into the right coronary artery. Heparin was given as an anticoagulant. A BMW wire was advanced into the distal portion of the posterolateral branch. A compliant balloon (2 x 10) was then inflated over the lesion. An [place] drug-eluting stent (2 x 12) was placed over the lesion and inflated. This was postdilated with a noncompliant balloon (2 x 8) to a final size of 2.25 mm. Final angiogram shows a well-opposed stent with no perforations or dissections. The wire and guide were removed. A radial band was placed over the arteriotomy site for hemostasis. The patient was given aspirin and Plavix. 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 INTERVENTIONAL DATA: Vessel: Mid posterolateral branch, lesion length 8, pre-CAT 2, post-CAT 3, post-stenosis 0. IMPRESSIONS: 1. Unstable angina ([place] anginal class III). 2. Abnormal stress test (intermediate risk). 3. Coronary artery disease, status post [place] drug-eluting stent (2 x 12) to the mid posterolateral branch. RECOMMENDATIONS: 1. Ms. Mireles underwent PCI as above, and she will be recommended aspirin and Plavix therapy. Aspirin should be indefinite, and Plavix for at least 12 months. 2. She will be continued on CARLOS ALBERTO inhibitor and beta vicky therapy. 3. We will plan on adding statin therapy to her medical management. 4. Recent echo in the office showed a normal ejection fraction. 5. She will be watched overnight, and if stable in the morning, discharged home. Thank you for allowing me to see Nava Mireles. If there are any questions, please do not hesitate to call. Samuel Cao, DO Completed studies during hospitalization: Laboratory Results WBC 3.3 th/mm3 (4.0-11.0) L 02/19/18 10:38 RBC 4.32 mil/mm3 (4.00-5.30) 02/19/18 10:38 Hgb 13.6 gm/dL (11.6-15.3) 02/19/18 10:38 Hct 41.7 % (35.0-46.0) 02/19/18 10:38 MCV 96.6 fL (80.0-100.0) 02/19/18 10:38 MCH 31.6 pg (27.0-34.0) 02/19/18 10:38 MCHC 32.7 % (32.0-36.0) 02/19/18 10:38 RDW 13.5 % (11.6-17.2) 02/19/18 10:38 Plt Count 139 th/mm3 (150-450) L 02/19/18 10:38 MPV 8.4 fL (7.0-11.0) 02/19/18 10:38 Neut % (Auto) 58.0 % (16.0-70.0) 02/19/18 10:38 Lymph % (Auto) 26.1 % (9.0-44.0) 02/19/18 10:38 Tyler % (Auto) 13.4 % (0.0-8.0) H 02/19/18 10:38 Eos % (Auto) 2.1 % (0.0-4.0) 02/19/18 10:38 Baso % (Auto) 0.4 % (0.0-2.0) 02/19/18 10:38 Neut # (Auto) 1.9 th/mm3 (1.8-7.7) 02/19/18 10:38 Lymph # (Auto) 0.9 th/mm3 (1.0-4.8) L 02/19/18 10:38 Tyler # (Auto) 0.4 th/mm3 (0.0-0.9) 02/19/18 10:38 Eos # (Auto) 0.1 th/mm3 (0.0-0.4) 02/19/18 10:38 Baso # (Auto) 0.0 th/mm3 (0.0-0.2) 02/19/18 10:38 WBC Differential . 02/19/18 10:38 Differential Comment Auto diff final 02/19/18 10:38 PT 10.5 sec (9.8-11.6) 02/17/18 12:46 INR 1.0 Ratio 02/17/18 12:46 APTT 25.2 sec (24.3-30.1) 02/17/18 12:46 Sodium 135 meq/L (136-145) L 02/19/18 10:38 Potassium 3.6 meq/L (3.5-5.1) 02/19/18 10:38 Chloride 99 meq/L (98-107) 02/19/18 10:38 Carbon Dioxide 26.2 meq/L (21.0-32.0) 02/19/18 10:38 Anion Gap 10 meq/L (5-15) 02/19/18 10:38 BUN 9 mg/dL (7-18) 02/19/18 10:38 Creatinine 1.41 mg/dL (0.50-1.00) H 02/19/18 10:38 Estimated GFR 43 mL/min (>89) L 02/19/18 10:38 Random Glucose 88 mg/dL (74-106) 02/19/18 10:38 Calcium 8.4 mg/dL (8.5-10.1) L 02/19/18 10:38 Magnesium 2.1 mg/dL (1.5-2.5) 02/17/18 12:46 Total Bilirubin 0.3 mg/dL (0.2-1.0) 02/19/18 10:38 AST 20 U/L (15-37) 02/19/18 10:38 ALT 17 U/L (10-53) 02/19/18 10:38 Alkaline Phosphatase 80 U/L (45-117) 02/19/18 10:38 Total Creatine Kinase 107 U/L (26-192) 02/17/18 12:46 CK-MB (CK-2) 0.9 ng/mL (0.5-3.6) 02/17/18 12:46 Troponin I Less than 0.02 ng/mL (0.02-0.05) L 02/18/18 12:17 Total Protein 7.1 g/dL (6.4-8.2) 02/19/18 10:38 Albumin 3.0 g/dL (3.4-5.0) L 02/19/18 10:38 Lipase 60 U/L (73-393) L 02/17/18 12:46 TSH 1.140 uIU/mL (0.358-3.740) 02/17/18 12:46 Free T4 0.96 ng/dL (0.76-1.46) 02/17/18 12:46 Free T3 2.77 pg/mL (2.18-3.98) 02/17/18 12:[address] 02/17/18 00:00 CONCLUSION: 1. No acute bony abnormalities. 2. Severe degenerative disc disease with mild canal stenosis from C3 through C7. 3. Large goiter. Chest X-Ray 02/17/18 12:31 CONCLUSION: Diminished lung volumes with right basilar atelectasis. Head CT 02/17/18 12:31 CONCLUSION: 1. Atrophy. . Abdomen/Pelvis CT 02/17/18 13:24 CONCLUSION: 1. No findings to indicate acute intra-abdominal trauma identified. 2. Note is made of old, healed pelvic fractures. 3. Degenerative changes within the lumbar spine. Labs on day of discharge: Labs from last 24 hours 02/19/18 02/19/18 02/18/18 10:38 10:38 12:17 WBC 3.3 L RBC 4.32 Hgb 13.6 Hct 41.7 MCV 96.6 MCH 31.6 MCHC 32.7 RDW 13.5 Plt Count 139 L MPV 8.4 Neut % (Auto) 58.0 Lymph % (Auto) 26.1 Tyler % (Auto) 13.4 H Eos % (Auto) 2.1 Baso % (Auto) 0.4 Neut # (Auto) 1.9 Lymph # (Auto) 0.9 L Tyler # (Auto) 0.4 Eos # (Auto) 0.1 Baso # (Auto) 0.0 WBC Differential . Differential Comment Auto diff final Sodium 135 L 134 L Potassium 3.6 3.6 Chloride 99 98 Carbon Dioxide 26.2 27.2 Anion Gap 10 9 BUN 9 8 Creatinine 1.41 H 1.22 H Estimated GFR 43 L 51 L Random Glucose 88 81 Calcium 8.4 L 8.7 Total Bilirubin 0.3 0.3 AST 20 21 ALT 17 16 Alkaline Phosphatase 80 76 Troponin I Less than 0.02 L Total Protein 7.1 7.1 D Albumin 3.0 L 2.9 L - Impressions ITS Impressions Cervical Spine CT 02/17/18 00:00 CONCLUSION: 1. No acute bony abnormalities. 2. Severe degenerative disc disease with mild canal stenosis from C3 through C7. 3. Large goiter. Chest X-Ray 02/17/18 12:31 CONCLUSION: Diminished lung volumes with right basilar atelectasis. Head CT 02/17/18 12:31 CONCLUSION: 1. Atrophy. . Abdomen/Pelvis CT 02/17/18 13:24 CONCLUSION: 1. No findings to indicate acute intra-abdominal trauma identified. 2. Note is made of old, healed pelvic fractures. 3. Degenerative changes within the lumbar spine. Discharge Plan - Discharge Disposition Patient Disposition: /Home Health Service - Discharge Condition Condition: Good - Discharge Order Discharge Orders: Discharge Order (Routine); Ordered 02/19/18 Ordered By: Bryan Ramesh - Discharge Details Anticipated Discharge Date: 02/19/18 Discharge Comment: DC TO HOME WITH [facility] - Physicians Team Primary Care Provider: Bryan Christie Attending Provider: Bryan Ramesh Other Providers: Samuel Cao DO
[2018-02-19 15:17] VITALS: BP 121/54; TEMP 98.1
[2018-02-19] MEDS ORDERED: Acetaminophen 160 MG/5 ML Liq 5 ML UDC PO SCH (18:00)
[2018-02-19 18:17] VITALS: PULSE 56
== END 2018-02-19 18:15 | disposition home health service (06) ==
LOC: NEPE 12:18 → NEDA 12:18 → HCIS 12:18 → NEPHCDU 21:27 → HCIS 02-18 17:09
PROVIDERS: ADMIT Hospitalist; ATTEND Hospitalist

== ENCOUNTER 2018-03-12 16:50 | Inpatient (IN) ==
[2018-03-12] MEDS ORDERED: Acetaminophen 500 MG Tablet PO ONE (18:06)
[2018-03-12] MEDS ORDERED: Sod Chloride 0.9% Inj 1,000 ML IV.SIG ONE (18:06)
[2018-03-12 18:48] LABS: Baso % (Auto) 0.8 % (0.0-2.0); Eos # (Auto) 0.5 th/mm3 (0.0-0.4); Eos % (Auto) 10.5 % (0.0-4.0); Hematocrit 37.4 % (35.0-46.0); Hemoglobin 12.3 gm/dL (11.6-15.3); Lymph # (Auto) 0.9 th/mm3 (1.0-4.8); Mean Corpuscular HGB Conc 32.8 % (32.0-36.0); Mean Corpuscular Hemoglobin 32.5 pg (27.0-34.0); Mean Platelet Volume 8.4 fL (7.0-11.0); Mono # (Auto) 0.6 th/mm3 (0.0-0.9); Mono % (Auto) 13.6 % (0.0-8.0); Neut # (Auto) 2.3 th/mm3 (1.8-7.7); Neut % (Auto) 53.1 % (16.0-70.0); Platelet Count 151 th/mm3 (150-450); Red Blood Count 3.77 mil/mm3 (4.00-5.30); Red Cell Distribution Width 13.9 % (11.6-17.2); White Blood Count 4.3 th/mm3 (4.0-11.0)
[2018-03-12 19:11] LABS: Calcium 8.6 mg/dL (8.5-10.1); Carbon Dioxide 26.5 meq/L (21.0-32.0); Potassium 3.9 meq/L (3.5-5.1)
--- NOTE | 2018-03-12 19:16 | XR ---
EXAM DATE: 03/12/2018 6:54 PM EDT AGE/SEX: 82 years / Female INDICATIONS: Right elbow pain, no known injury. CLINICAL DATA: This is the patient's initial encounter. Patient reports that signs and symptoms have been present for 1 day and indicates a pain score of 9/10. MEDICAL/SURGICAL HISTORY: None. . Right elbow ORIF. Right humerus ORIF. COMPARISON: No prior exams available for comparison. 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 There is some heter otopic ossification about the distal lateral humerus and adjacent to the [place] radial head. There is lucency seen along the bone metal interface of the distal shaft of the humeral component measuring u p to 2 mm in thickness. No fracture seen. CONCLUSION: Extensive hardware in the distal humerus and proximal ulna. No fracture either bone or metal seen. Th ere is 2 mm lucency along the bone/metal interface of the distal humerus; no prior films to assess wh ether this finding is new or old.. Electronically signed by: Camron Ng MD 03/12/2018 7:15 PM EDT
[2018-03-12] MEDS ORDERED: Vancomycin Inj 1 GM/200 ML PIGGYBACK IV.SIG ONE (19:36)
[2018-03-12] MEDS ORDERED: Piperacil/Tazo 4.5 GM Premix 4.5 GM/100 ML BAG IV.SIG ONE (19:36)
--- NOTE | 2018-03-12 20:01 | ED ---
HPI General Chief complaint: Skin/Abscess/Foreign Body Stated complaint: skin Time Seen by Provider: 03/12/18 17:24 Source: patient Mode of arrival: ambulatory Limitations: no limitations History of Present Illness HPI narrative: 82-year-old female with PMH of CHF, COPD, HTN, CVA, CAD with recent admission for stenting presents to the ED for evaluation of 7 day history of blistering, painful, erythematous rash. Patient states that it started on the right cheek, now encompasses the left cheek, the left hairline, the right elbow, right chest and the abdomen. She states "I feel terrible, honey." She rates the pain in the face and elbow 8/10, throbbing, aching, worsened by touch. No alleviating factors reported. She endorses "feeling hot and cold" but has not measured a fever at home. She denies nausea, vomiting, difficulties with breathing, shortness of breath, close throat sensation. She denies history of MRSA. She denies any changes to her medications. Her power of criminal attorney/nephew is at bedside and states that he has been treating with various creams and peroxide with no improvement of symptoms. Related Data Home Medications Medication Instructions Recorded Confirmed acetaminophen-codeine 1 tab PO TID 02/17/18 03/12/18 [Tylenol-Codeine #4] albuterol sulfate [Ventolin HFA] 2 puff INHALATION QID 02/17/18 03/12/18 alprazolam [Xanax] 0.5 mg PO TID 02/17/18 03/12/18 citalopram [Celexa] 20 mg PO DAILY 02/17/18 03/12/18 fluticasone-vilanterol [Breo 1 inh INHALATION DAILY 02/17/18 03/12/18 Ellipta] oxybutynin chloride 5 mg PO QID 02/17/18 03/12/18 pregabalin [Lyrica] 50 mg PO DAILY 02/17/18 03/12/18 trazodone 50 mg PO DAILY 02/17/18 03/12/18 Previous Rx's Medication Instructions Recorded aspirin 81 mg PO DAILY #30 tab 02/19/18 atorvastatin [Lipitor] 40 mg PO HS #120 tab 02/19/18 clopidogrel [Plavix] 75 mg PO DAILY tab 02/19/18 enalapril maleate [Vasotec] 10 mg PO DAILY #30 tab 02/19/18 furosemide [Lasix] 20 mg PO DAILY #30 tab 02/19/18 omeprazole 40 mg PO DAILY #30 cap 02/19/18 potassium chloride 10 meq PO DAILY #30 tab 02/19/18 prednisone 5 mg PO DAILY #30 tab 02/19/18 Allergies Allergy/AdvReac Type Severity Reaction Status Date / Time No Known Allergies Allergy Verified 02/17/18 12:34 Review of Systems ROS: all other systems reviewed are negative PMFSH Social History Social History Substance History: No History of Abuse Second Hand Smoke Exposure: No Smoking Status: Former smoker Tobacco Type: Cigarettes How Often Do You Have a Drink Containing Alcohol: Never Recent Travel in [facility] within the Last 8 Weeks: No Recent Out of Country Travel within the Last 8 Weeks: No Immunization History Tetanus Immunization: Unsure Exam Narrative Exam Narrative: GENERAL: Well-developed, well-nourished -[place] female in no acute distress. SKIN: Focused skin assessment warm/dry. There is an erythematous, vessicular, pustular and maculopapular rash distributed over the right jaw line right cheek left cheek left hairline. This is tender and slightly warm. Several of the vessicles are oozing clear fluid. There are scant honey-colored crusts. There is a 4 cm tender, mildly erythematous vesicle on the posterior aspect of the right elbow. No warmth. No crepitus. No cellulitic streaking. HEAD: Atraumatic. Normocephalic. EYES: Pupils equal and round. No scleral icterus. No injection or drainage. ENT: No nasal bleeding or discharge. Mucous membranes pink and moist. NECK: Trachea midline. No JVD. CARDIOVASCULAR: Regular rate and rhythm. No murmur appreciated. RESPIRATORY: No accessory muscle use. Clear to auscultation. Breath sounds equal bilaterally. GASTROINTESTINAL: Abdomen soft, non-tender, nondistended. Hepatic and splenic margins not palpable. MUSCULOSKELETAL: No obvious deformities. No clubbing. No cyanosis. No edema. FOCUSED RIGHT UPPER EXTREMITY EXAM: 2+ radial pulse. Patient retains full, active, painless ROM of the extremity. Neurovascularly intact distally. NEUROLOGICAL: Awake and alert. No obvious cranial nerve deficits. Motor grossly within normal limits. Normal speech. PSYCHIATRIC: Appropriate mood and affect; insight and judgment normal. Course Initial Documented Vital Signs Temperature 99.0 F 03/12/18 16:59 Pulse Rate 89 03/12/18 16:59 Respiratory Rate 18 03/12/18 16:59 Blood Pressure 145/63 H 03/12/18 16:59 Pulse Oximetry 100 03/12/18 16:59 Last Documented Vital Signs Temperature 99.0 F 03/12/18 16:59 Pulse Rate 77 03/12/18 19:14 Respiratory Rate 16 03/12/18 19:14 Blood Pressure 149/64 H 03/12/18 19:14 Pulse Oximetry 96 03/12/18 19:14 Medical Decision Making TREY Attestation TREY supervised visit: Yes Attestation: I, Dr. Hercules, have reviewed the advance practice practitioner's documentation and am in agreement, met with the patient face to face, made the diagnosis, and the medical decision making was done by me. *My assessment and Findings: PT with facial cellulitis, multiple medical problems, and a cellulitis with vesicle overlying olecranon. d/w Dr New of ortho who advised IV abx. Zosyn Vanco started. [facility] admission. No evidence necrotizing fasciitis. MDM Narrative Medical decision making narrative: 82-year-old female with PMH of CHF, COPD, HTN , CVA, CAD with recent admission for stenting presents to the ED for evaluation of 7 day history of blistering, painful, erythematous rash. Patient states that it started on the right cheek, now encompasses the left cheek, the left hairline, the right elbow, right chest and the abdomen. Patient's afebrile on presentation. Physical exam reveals a vesicular, maculopapular, erythematous rash with cellulitic changes of the face. Additionally there is a large vesicle with tenderness of the posterior aspect of the right elbow. No limitations to range of motion noted. IV was established. Blood cultures were obtained. Wound culture was obtained. X-ray reveals no intra-articular involvement of the skin condition. I spoke with Dr. New. She does not see any surgical indications but recommends antibiotics. I discussed the plan for IV antibiotics and admission with the patient who is in agreement. She states "I feel too bad to go home." Mitomycin and Zosyn were initiated. I spoke with Dr. Ruiz who agrees to accept the patient to the medicine service. Please see medicine notes for disposition. Medical Screen Exam Complete: Yes Emergency Medical Condition: Yes Differential Diagnosis Differential Diagnosis: Dermatitis versus cellulitis versus SJS versus OA versus bursitis versus septic arthritis versus other Lab Data Result diagrams: 03/12/18 18:30 03/12/18 18:30 Lab Results 03/12/18 03/12/18 03/12/18 Range/Units 18:30 18:30 18:30 WBC 4.3 (4.0-11.0) th/mm3 RBC 3.77 L (4.00-5.30) mil/mm3 Hgb 12.3 (11.6-15.3) gm/dL Hct 37.4 (35.0-46.0) % MCV 99.0 (80.0-100.0) fL MCH 32.5 (27.0-34.0) pg MCHC 32.8 (32.0-36.0) % RDW 13.9 (11.6-17.2) % Plt Count 151 (150-450) th/mm3 MPV 8.4 (7.0-11.0) fL Neut % (Auto) 53.1 (16.0-70.0) % Lymph % (Auto) 22.0 (9.0-44.0) % Beckham % (Auto) 13.6 H (0.0-8.0) % Eos % (Auto) 10.5 H (0.0-4.0) % Baso % (Auto) 0.8 (0.0-2.0) % Neut # (Auto) 2.3 (1.8-7.7) th/mm3 Lymph # (Auto) 0.9 L (1.0-4.8) th/mm3 Beckham # (Auto) 0.6 (0.0-0.9) th/mm3 Eos # (Auto) 0.5 H (0.0-0.4) th/mm3 Baso # (Auto) 0.0 (0.0-0.2) th/mm3 WBC Differential . Differential Comment Auto diff final Sodium 135 L (136-145) meq/L Potassium 3.9 (3.5-5.1) meq/L Chloride 101 (98-107) meq/L Carbon Dioxide 26.5 (21.0-32.0) meq/L Anion Gap 8 (5-15) meq/L BUN 10 (7-18) mg/dL Creatinine 1.37 H (0.50-1.00) mg/dL Estimated GFR 45 L (>89) mL/min Random Glucose 106 (74-106) mg/dL Lactic Acid 1.1 (0.4-2.0) mmol/L Calcium 8.6 (8.5-10.1) mg/dL Imaging Data Radiologist's impression: Elbow X-Ray 03/12/18 18:07 CONCLUSION: Extensive hardware in the distal humerus and proximal ulna. No fracture either bone or metal seen. There is 2 mm lucency along the bone/metal interface of the distal humerus; no prior films to assess whether this finding is new or old.. Discharge Plan Discharge Disposition Patient Disposition: 30 Still Patient Discharge Details Diagnosis: Cellulitis Physicians Team ED Provider: Willie Hercules ED Midlevel Provider: Alanis Brooks Primary Care Provider: Bryan Christie Rxs /Orders / Referrals /Forms Prescriptions: No Action trazodone 50 mg Tablet 50 mg PO DAILY RF: 0 alprazolam [Xanax] 0.5 mg Tablet 0.5 mg PO TID RF: 0 citalopram [Celexa] 20 mg Tablet 20 mg PO DAILY RF: 0 acetaminophen-codeine [Tylenol-Codeine #4] 300-60 mg Tablet 1 tab PO TID RF: 0 albuterol sulfate [Ventolin HFA] 90 mcg/actuation Hfa Aerosol Inhaler 2 puff INHALATION QID RF: 0 oxybutynin chloride 5 mg Tablet 5 mg PO QID RF: 0 pregabalin [Lyrica] 50 mg Capsule 50 mg PO DAILY RF: 0 fluticasone-vilanterol [Breo Ellipta] 100-25 mcg/dose Blister With Device 1 inh INHALATION DAILY RF: 0 atorvastatin [Lipitor] 10 mg Tablet 40 mg PO HS Qty: 120 RF: 0 clopidogrel [Plavix] 75 mg Tablet 75 mg PO DAILY RF: 0 aspirin 81 mg Tablet,Chewable 81 mg PO DAILY Qty: 30 RF: 0 potassium chloride 10 mEq Capsule, Extended Release 10 meq PO DAILY Qty: 30 RF: 0 enalapril maleate [Vasotec] 10 mg Tablet 10 mg PO DAILY Qty: 30 RF: 0 prednisone 5 mg Tablet 5 mg PO DAILY Qty: 30 RF: 0 omeprazole 40 mg Capsule,Delayed Release(Dr/Ec) 40 mg PO DAILY Qty: 30 RF: 0 furosemide [Lasix] 20 mg Tablet 20 mg PO DAILY Qty: 30 RF: 0 Status ED Status: With Doctor
[2018-03-12] MEDS ORDERED: Vancomycin Inj 1,000 MG in Sodium Chlor 0.9% Inj 250 ML IV.SIG ONE (20:15)
[2018-03-12] MEDS ORDERED: Vancomycin Consult Pharmacy OTHER PRN (22:09)
[2018-03-12] MEDS ORDERED: Bisacodyl 10 MG Supp RECTAL PRN (22:09)
--- NOTE | 2018-03-12 22:23 | P.HP ---
History of Present Illness Service: [facility] Primary Care Physician: Bryan Christie DO History of Present Illness: 82-year-old female with a past medical history significant for CHF, COPD, depression, hypothyroidism, hypertension, hyperlipidemia and coronary artery disease presents to the emergency department for evaluation of a erythematous, blistering rash. The patient reports that it started on her right cheek and now encompasses her face, hairline, right elbow, right chest and abdomen. She reports that the rash is painful however denies any fever/chills. She reports that she saw her PCP who gave her a pill but she cannot tell me what it was. No chest pain or shortness of breath. No abdominal pain. No nausea/vomiting/ diarrhea. No lateralizing signs/symptoms. The patient does have hardware in her right elbow from a broken arm approximately 20 years ago. X-ray of the elbow shows a 2 mm lucency along the bone/metal interface of the distal humerus. Orthopedic surgery recommends close monitoring, no need for operative intervention at this time. Review of Systems All other systems reviewed negative except as stated in HPI [facility] - History History 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 - Medical History Medical History: Medical History (Last Reviewed 02/19/18 @ 08:08 by Evelina Patel, [place]) Anxiety CHF (congestive heart failure) COPD (chronic obstructive pulmonary disease) Chronic pain Depression Goiter Hypertension Urinary retention - Surgical History Surgical History: Surgical History (Last Reviewed 02/19/18 @ 07:57 by Arabella Jean) H/O repair of rotator cuff History of appendectomy - Family History Family History: Family History (Last Updated 03/12/18 @ 22:16 by Val Ruiz MD) Other Family history normal - Tobacco History Second Hand Smoke Exposure: No Tobacco Use In Past 30 Days: No Smoking Status: Former smoker Tobacco Type: Cigarettes - Alcohol History How Often Do You Have a Drink Containing Alcohol: Never - Substance Use History Substance History: No History of Abuse - Travel History Recent Travel in the [place] Within the Last 8 Weeks: No Recent Travel Out of the Country Within the Last 8 Weeks: No - Immunization History Tetanus Immunization: Unsure Medications and Allergies Active Medications: Active Medications Acetaminophen (Tylenol) 650 mg PO Q4H PRN PRN Reason: Temp > 100.4 Aspirin (Aspirin Chew) 81 mg PO DAILY GER Atorvastatin Calcium (Lipitor) 40 mg PO HS GER Bisacodyl (Dulcolax Supp) 10 mg RECTAL DAILY PRN PRN Reason: SEVERE CONSITIPATION Citalopram Hydrobromide (Celexa) 20 mg PO DAILY [facility] Clopidogrel Bisulfate (Plavix) 75 mg PO DAILY GER Enalapril Maleate (Vasotec) 10 mg PO DAILY GER Furosemide (Lasix) 20 mg PO DAILY GER Allergies Allergy/AdvReac Type Severity Reaction Status Date / Time No Known Allergies Allergy Verified 02/17/18 12:34 Home Medications Medication Instructions Recorded Confirmed Type acetaminophen-codeine 1 tab PO TID 02/17/18 03/12/18 History [Tylenol-Codeine #4] albuterol sulfate [Ventolin HFA] 2 puff INHALATION QID 02/17/18 03/12/18 History alprazolam [Xanax] 0.5 mg PO TID 02/17/18 03/12/18 History citalopram [Celexa] 20 mg PO DAILY 02/17/18 03/12/18 History fluticasone-vilanterol [Breo 1 inh INHALATION DAILY 02/17/18 03/12/18 History Ellipta] oxybutynin chloride 5 mg PO QID 02/17/18 03/12/18 History pregabalin [Lyrica] 50 mg PO DAILY 02/17/18 03/12/18 History trazodone 50 mg PO DAILY 02/17/18 03/12/18 History Exam Vital signs: Vital Signs 03/12/18 16:59 03/12/18 19:14 03/12/18 21:36 Temperature 99.0 F Pulse Rate 89 77 82 Respiratory Rate 18 16 16 Blood Pressure 145/63 H 149/64 H 146/62 H Pulse Oximetry 100 96 99 Intake & Output 03/12/18 03/12/18 03/13/18 06:59 18:59 06:59 Intake Total 1350 / 1350 Balance 1350 / 1350 Weight 84.368 kg Intake: IV 1350 / 1350 Zosyn 4.5 GM Premix 4.5 gm In 100 / 100 100 ml @ 200 mls/hr IV.SIG ONCE ONE Rx#:[id number] NS Inj 1,000 ML @ Wide Open IV. 1000 / 1000 SIG BOLUS ONE Rx#:[id number] Vancomycin Inj 1,000 MG In NS 250 / 250 Inj 250 ML @ 250 mls/hr IV.SIG ONCE ONE Rx#:[id number] Narrative: Gen.: No acute distress Head: Normocephalic. Atraumatic. EENT: Pupils equal round and reactive to light. Nose without drainage. Airway intact. Throat without injection. Cardiovascular: Regular rate and rhythm. No murmurs, rubs or gallops. Respiratory: Lungs clear to auscultation bilaterally. No wheezes or rhonchi. Abdomen: Soft, nontender, nondistended. No peritoneal signs. Musculoskeletal: No gross deformities. No edema. Skin: Erythematous/honey encrusted rash on the face and hairline that is warm to the touch. 4 cm erythematous lesion on the right elbow draining purulent material. No surrounding induration. Neuro: Sensory and motor grossly intact. Cranial nerves II through XII grossly intact. Results - Labs CBC & Chem 7: 03/12/18 18:30 03/12/18 18:30 Labs: Laboratory Results - last 24 hr 03/12/18 03/12/18 03/12/18 18:30 18:30 18:30 WBC 4.3 RBC 3.77 L Hgb 12.3 Hct 37.4 MCV 99.0 MCH 32.5 MCHC 32.8 RDW 13.9 Plt Count 151 MPV 8.4 Neut % (Auto) 53.1 Lymph % (Auto) 22.0 Caroline % (Auto) 13.6 H Eos % (Auto) 10.5 H Baso % (Auto) 0.8 Neut # (Auto) 2.3 Lymph # (Auto) 0.9 L Caroline # (Auto) 0.6 Eos # (Auto) 0.5 H Baso # (Auto) 0.0 WBC Differential . Differential Comment Auto diff final Sodium 135 L Potassium 3.9 Chloride 101 Carbon Dioxide 26.5 Anion Gap 8 BUN 10 Creatinine 1.37 H Estimated GFR 45 L Random Glucose 106 Lactic Acid 1.1 Calcium 8.6 - Imaging Impressions Elbow X-Ray 03/12/18 18:07 CONCLUSION: Extensive hardware in the distal humerus and proximal ulna. No fracture either bone or metal seen. There is 2 mm lucency along the bone/metal interface of the distal humerus; no prior films to assess whether this finding is new or old.. Caprini VTE Risk Assessment Caprini VTE Risk Assessment: Moderate/High Risk (score >= 2) Caprini Risk Assessment Model: Point Value = 1 Point Value = 2 Point Value = 3 Point Value = 5 Age 41-60 Minor surgery BMI > 25 kg/m2 Swollen legs Varicose veins or History of unexplained or recurrent spontaneous Oral contraceptives or hormone replacement Sepsis (< 1 month) Serious lung disease, including pneumonia (< 1 month) Abnormal pulmonary function Acute myocardial infarction Congestive heart failure (< 1 month) History of inflammatory bowel disease Medical patient at bed rest Age 61-74 Arthroscopic surgery Major open surgery (> 45 min) Laparoscopic surgery (> 45 min) Malignancy Confined to bed (> 72 hours) Immobilizing plaster cast Central venous access Age >= 75 History of VTE Family history of VTE Factor V Leiden Prothrombin [id number] Lupus anticoagulant Anticardiolipin antibodies Elevated serum homocysteine Heparin-induced thrombocytopenia Other congenital or acquired thrombophilia Stroke (< 1 month) Elective arthroplasty Hip, pelvis, or leg fracture Acute spinal cord injury (< 1 month) Prophylaxis Regimen: Total Risk Factor Score Risk Level Prophylaxis Regimen 0-1 Low Early ambulation 2 Moderate Order ONE of the following: *Sequential Compression Device (SCD) *Heparin 5000 units SQ BID 3-4 Higher Order ONE of the following medications: *Heparin 5000 units SQ TID *Enoxaparin/Lovenox 40 mg SQ daily (WT < 150 kg, CrCl > 30 mL/min) *Enoxaparin/Lovenox 30 mg SQ daily (WT < 150 kg, CrCl > 10-29 mL/min) *Enoxaparin/Lovenox 30 mg SQ BID (WT < 150 kg, CrCl > 30 mL/min) AND/OR *Sequential Compression Device (SCD) 5 or more Highest Order ONE of the following medications: *Heparin 5000 units SQ TID (Preferred with Epidurals) *Enoxaparin/Lovenox 40 mg SQ daily (WT < 150 kg, CrCl > 30 mL/min) *Enoxaparin/Lovenox 30 mg SQ daily (WT < 150 kg, CrCl > 10-29 mL/min) *Enoxaparin/Lovenox 30 mg SQ BID (WT < 150 kg, CrCl > 30 mL/min) AND *Sequential Compression Device (SCD) Assessment and Plan - Plan Assessment/plan: 1. Facial cellulitis Wound culture pending Vancomycin/Zosyn 2. Elbow cellulitis Wound culture pending Antibiotics as above Case discussed with Dr. New, recommends close monitoring at this time Consult orthopedic surgery if infection worsens or does not resolve 3. Coronary artery disease/CHF Continue home aspirin, Plavix and Lasix 4. Hypertension/hyperlipidemia/depression/hypothyroidism Continue home medications FEN Heart healthy diet Electrolytes: Monitor and replete as needed Heparin
[2018-03-12] MEDS: Acetaminophen 325 MG Tablet PO PRN (23:03)
[2018-03-12] MEDS: Heparin - SQ 10,000 UNITS/ML Vial SQ SCH (23:04)
[2018-03-13] MEDS: Acetaminophen 325 MG Tablet PO PRN (03:19)
[2018-03-13] MEDS: Piperacil/Tazo 3.375 GM Premix 50 ML IV.SIG SCH ×4 (03:20→21:47)
--- NOTE | 2018-03-13 08:01 | P.CONOP ---
[facility] Orthopedics Consult Note - [facility] Consult date: 03/13/18 Consult reason: other Chief complaint: Facial Cellulitis, Right Elbow Cellulitis Narrative: 82-year-old female with a past medical history significant for CHF, COPD, depression, hypothyroidism, hypertension, hyperlipidemia and coronary artery disease presents to the emergency department for evaluation of a erythematous, blistering rash. The patient reports that it started on her right cheek and now encompasses her face, hairline, right elbow, right chest and abdomen. She reports that the rash is painful however denies any fever/chills. She reports that she saw her PCP who gave her a pill but she cannot tell me what it was. No chest pain or shortness of breath. No abdominal pain. No nausea/vomiting/ diarrhea. No lateralizing signs/symptoms. The patient does have hardware in her right elbow from a broken arm approximately 20 years ago. Orthopedics's consult to evaluate right elbow with concern for possible abscess and/or cellulitis. Patient states she has mild tenderness over the posterior aspect of her elbow with palpation otherwise she allows full range of motion without significant discomfort. No significant rash or erythema about the elbow. She denies any significant swelling about the elbow. Review of Systems Denies fevers, chills, nausea, vomiting, chest or abdominal pain, throat pain, cough, blurry vision, difficulty with urination, weakness, numbness or tingling , anxiety, joint pain. Reports facial rash. Small area of tenderness over posterior elbow. PMFSH - History History 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 - Medical History Medical History: Medical History (Last Reviewed 03/13/18 @ 07:50 by Tae Munoz) Anxiety CHF (congestive heart failure) COPD (chronic obstructive pulmonary disease) Chronic pain Depression Goiter Hypertension Urinary retention - Surgical History Surgical History: Surgical History (Last Reviewed 03/13/18 @ 07:50 by Tae Munoz) H/O repair of rotator cuff History of appendectomy - Family History Family History: Family History (Last Updated 03/12/18 @ 22:16 by Val Ruiz MD) Other Family history normal - Tobacco History Second Hand Smoke Exposure: No Tobacco Use In Past 30 Days: No Smoking Status: Former smoker Tobacco Type: Cigarettes - Alcohol History How Often Do You Have a Drink Containing Alcohol: Never - Substance Use History Substance History: No History of Abuse - Travel History Recent Travel in the [facility] Within the Last 8 Weeks: No Recent Travel Out of the Country Within the Last 8 Weeks: No - Immunization History Tetanus Immunization: Unsure Medications and Allergies Active Medications: Active Medications Acetaminophen (Tylenol) 650 mg PO Q4H PRN PRN Reason: Temp > 100.4 Last Admin: 03/13/18 03:19 Dose: 650 mg Al Hydroxide/Mg Hydroxide (Milk Of Magnesia Liq) 30 ml PO Q12H PRN PRN Reason: Mild Constipation Aspirin (Aspirin Chew) 81 mg PO DAILY [facility] Atorvastatin Calcium (Lipitor) 40 mg PO HS [facility] Bisacodyl (Dulcolax Supp) 10 mg RECTAL DAILY PRN PRN Reason: SEVERE CONSITIPATION Citalopram Hydrobromide (Celexa) 20 mg PO DAILY [facility] Clopidogrel Bisulfate (Plavix) 75 mg PO DAILY [facility] Enalapril Maleate (Vasotec) 10 mg PO DAILY [facility] Furosemide (Lasix) 20 mg PO DAILY [facility] Heparin Sodium (Porcine) (Heparin Inj) 5,000 units SQ Q12H [facility] Last Admin: 03/12/18 23:04 Dose: 5,000 units Piperacillin/Tazobactam/Dextrose (Zosyn 3.375 Gm Premix) 50 mls @ 100 mls/hr IV.SIG Q6H [facility] Last Infusion: 03/13/18 03:50 Dose: Infused Lactulose (Lactulose Liq) 30 ml PO DAILY PRN PRN Reason: SEVERE CONSITIPATION Ondansetron HCl (Zofran Inj) 4 mg IV.PUSH Q6H PRN PRN Reason: NAUSEA OR VOMITING Oxybutynin Chloride (Ditropan) 5 mg PO QID [facility] Pantoprazole Sodium (Protonix) 40 mg PO DAILY [facility] Pharmacy Profile Note (Vancomycin Consult Pharmacy) 1 each OTHER UNSCH PRN PRN Reason: Pharmacy to dose Pregabalin (Lyrica) 50 mg PO DAILY [facility] Senna/Docusate Sodium (Sara-Colace) 1 tab PO BID [facility] Sennosides (Senokot) 17.2 mg PO Q12H PRN PRN Reason: Moderate Constipation Trazodone HCl (Desyrel) 50 mg PO DAILY [facility] Allergies Allergy/AdvReac Type Severity Reaction Status Date / Time No Known Allergies Allergy Verified 02/17/18 12:34 Home Medications Medication Instructions Recorded Confirmed Type acetaminophen-codeine 1 tab PO TID 02/17/18 03/12/18 History [Tylenol-Codeine #4] albuterol sulfate [Ventolin HFA] 2 puff INHALATION QID 02/17/18 03/12/18 History alprazolam [Xanax] 0.5 mg PO TID 02/17/18 03/12/18 History citalopram [Celexa] 20 mg PO DAILY 02/17/18 03/12/18 History fluticasone-vilanterol [Breo 1 inh INHALATION DAILY 02/17/18 03/12/18 History Ellipta] oxybutynin chloride 5 mg PO QID 02/17/18 03/12/18 History pregabalin [Lyrica] 50 mg PO DAILY 02/17/18 03/12/18 History trazodone 50 mg PO DAILY 02/17/18 03/12/18 History Exam Vital signs: Vital Signs 03/12/18 16:59 03/12/18 19:14 03/12/18 21:36 Temperature 99.0 F Pulse Rate 89 77 82 Respiratory Rate 18 16 16 Blood Pressure 145/63 H 149/64 H 146/62 H Pulse Oximetry 100 96 99 03/12/18 23:56 03/13/18 03:22 Temperature 98.3 F 98.5 F Pulse Rate 70 76 Respiratory Rate 18 20 Blood Pressure 138/63 148/67 H Pulse Oximetry 96 97 Intake & Output 03/12/18 03/13/18 03/13/18 18:59 06:59 18:59 Intake Total 1400 / 1400 Balance 1400 / 1400 Weight 84.368 kg Intake: IV 1400 / 1400 Zosyn 3.375 GM Premix 50 ML @ 50 / 50 100 mls/hr IV.SIG Q6H [facility] Rx#: [id number] Zosyn 4.5 GM Premix 4.5 gm In 100 / 100 100 ml @ 200 mls/hr IV.SIG ONCE ONE Rx#:[id number] NS Inj 1,000 ML @ Wide Open IV. 1000 / 1000 SIG BOLUS ONE Rx#:[id number] Vancomycin Inj 1,000 MG In NS 250 / 250 Inj 250 ML @ 250 mls/hr IV.SIG ONCE ONE Rx#:[id number] Other: # Voids 3 Narrative: Awake, alert, no acute distress Normocephalic. There is small facial rash over her bilateral cheeks and nose Pupils appear equal Moist mucous membranes No JVD Nonlabored respirations Regular rate Soft nontender abdomen Right upper extremity: All incisions appear very well-healed over the arm and elbow. There is small area of what may be a superficial abscess although this has very minimal erythema. It appears more as a contusion. There is no expressible drainage or palpable fluctuance. There is no erythema over the elbow or edema. Patient allows full range of motion without significant discomfort. Patient is neurovascularly intact distally. Brisk cap refill. Left upper extremity and bilateral lower extremities: No tenderness to palpation of visible deformities. No gross signs of infection. Full active range of motion and strength throughout. Sensation intact. Brisk cap refill. Facial rash otherwise no appreciable rash Normal affect Results - Labs Result Diagrams: 03/12/18 18:30 03/12/18 18:30 Labs: Laboratory Results - last 24 hr 03/12/18 03/12/18 03/12/18 18:30 18:30 18:30 WBC 4.3 RBC 3.77 L Hgb 12.3 Hct 37.4 MCV 99.0 MCH 32.5 MCHC 32.8 RDW 13.9 Plt Count 151 MPV 8.4 Neut % (Auto) 53.1 Lymph % (Auto) 22.0 [place] % (Auto) 13.6 H Eos % (Auto) 10.5 H Baso % (Auto) 0.8 Neut # (Auto) 2.3 Lymph # (Auto) 0.9 L [place] # (Auto) 0.6 Eos # (Auto) 0.5 H Baso # (Auto) 0.0 WBC Differential . Differential Comment Auto diff final Sodium 135 L Potassium 3.9 Chloride 101 Carbon Dioxide 26.5 Anion Gap 8 BUN 10 Creatinine 1.37 H Estimated GFR 45 L Random Glucose 106 Lactic Acid 1.1 Calcium 8.6 - Diagnostic results Imaging: Impressions Elbow X-Ray 03/12/18 18:07 CONCLUSION: Extensive hardware in the distal humerus and proximal ulna. No fracture either bone or metal seen. There is 2 mm lucency along the bone/metal interface of the distal humerus; no prior films to assess whether this finding is new or old.. Assessment and Plan - Assessment and Plan 82-year-old female with history of right total elbow arthroplasty along with proximal humerus ORIF many years ago. Patient presents with facial rash and concern for small abscess around superficial elbow. Clinically, patient has no significant signs of deep infection. There is a small area over the posterior aspect of the olecranon which may be superficial abscess versus contusion. At this time I would recommend conservative treatment. I do not appreciate any clear signs of a deep infection certainly no signs to warrant urgent operative intervention. I discussed with the patient that should her elbow become infected, she could require surgical intervention which may require complete resection of her total elbow arthroplasty which would be very debilitating and leave her without function of her elbow. Patient states she is not interested in surgical intervention. She does not believe she has a deep infection in her elbow and would like to continue with conservative care. I will defer to medicine as to whether she requires antibiotic management. Patient may follow up on an outpatient basis as needed.
[2018-03-13] MEDS: Furosemide 20 MG Tablet PO SCH (08:44)
[2018-03-13] MEDS: Citalopram 20 MG Tablet PO SCH (08:44)
[2018-03-13] MEDS: traZODone 50 MG Tablet PO SCH (08:44)
[2018-03-13] MEDS: Senna/Docusate Sodium 8.6/50 MG Tablet PO SCH ×2 (08:45→21:45)
[2018-03-13] MEDS: Pregabalin 25 MG Capsule PO SCH (08:45)
[2018-03-13] MEDS ORDERED: PREGABALIN 50 MG PO SCH (09:00)
--- NOTE | 2018-03-13 10:15 | P.PN ---
Subjective Interval history: Follow-up for diffuse facial cellulitis, right elbow cellulitis. The patient is seen with her nephew at bedside. Patient reports diffuse facial pain and swelling. She states her face roberto and itches intermittently. Denies fevers but does report some chills. She reports right-sided facial swelling and periorbital swelling which makes it difficult to open her right eye, although denies any visual changes or blurred vision. She denies any close contact with children however has relatives that has had contact with both her and other children. The nephew reports that 1 of the kids did have a rash on the face and hands recently but is unsure of the diagnosis. Patient also complains of dry mouth, uses medication at home for this. The nephew is requesting her inhalers be restarted. No other medical complaints reported at this time. Physical Exam Vital signs: Vital Signs 03/12/18 16:59 03/12/18 19:14 03/12/18 21:36 Temperature 99.0 F Pulse Rate 89 77 82 Respiratory Rate 18 16 16 Blood Pressure 145/63 H 149/64 H 146/62 H Pulse Oximetry 100 96 99 03/12/18 23:56 03/13/18 03:22 03/13/18 08:00 Temperature 98.3 F 98.5 F 97.7 F Pulse Rate 70 76 68 Respiratory Rate 18 20 14 Blood Pressure 138/63 148/67 H 181/79 H Pulse Oximetry 96 97 97 Intake & Output 03/12/18 03/13/18 03/13/18 18:59 06:59 18:59 Intake Total 1400 / 1400 50 / 50 Balance 1400 / 1400 50 / 50 Weight 84.368 kg Intake: IV 1400 / 1400 50 / 50 Zosyn 3.375 GM Premix 50 ML @ 50 / 50 50 / 50 100 mls/hr IV.SIG Q6H [facility] Rx#: [id number] Zosyn 4.5 GM Premix 4.5 gm In 100 / 100 100 ml @ 200 mls/hr IV.SIG ONCE ONE Rx#:[id number] NS Inj 1,000 ML @ Wide Open IV. 1000 / 1000 SIG BOLUS ONE Rx#:[id number] Vancomycin Inj 1,000 MG In NS 250 / 250 Inj 250 ML @ 250 mls/hr IV.SIG ONCE ONE Rx#:[id number] Other: # Voids 3 Narrative: GENERAL: Well-nourished, well-developed pleasant elderly female patient in [facility]. SKIN: Warm and dry. Diffuse erythematous and weeping facial rash with overlying honey crusted plaques, worse at the right cheek/jaw/neck and left frontotemporal forehead. HEENT: Normocephalic. Atraumatic. Right periorbital erythema/edema. EOMI. Mucous membranes pink and moist. CARDIOVASCULAR: Regular rate and rhythm. No murmur appreciated. RESPIRATORY: No accessory muscle use. Clear to auscultation. Breath sounds equal bilaterally. GASTROINTESTINAL: Abdomen soft, non-tender, nondistended. Normoactive bowel sounds x4. MUSCULOSKELETAL: No obvious deformities. Extremities without clubbing, cyanosis , or edema. NEUROLOGICAL: Awake and alert. No obvious cranial nerve deficits. Motor grossly within normal limits. Moving all extremities spontaneously. Normal speech. Results - Labs CBC & Chem 7: 03/12/18 18:30 03/12/18 18:30 Laboratory Results - last 24 hr 03/12/18 03/12/18 03/12/18 18:30 18:30 18:30 WBC 4.3 RBC 3.77 L Hgb 12.3 Hct 37.4 MCV 99.0 MCH 32.5 MCHC 32.8 RDW 13.9 Plt Count 151 MPV 8.4 Neut % (Auto) 53.1 Lymph % (Auto) 22.0 [place] % (Auto) 13.6 H Eos % (Auto) 10.5 H Baso % (Auto) 0.8 Neut # (Auto) 2.3 Lymph # (Auto) 0.9 L [place] # (Auto) 0.6 Eos # (Auto) 0.5 H Baso # (Auto) 0.0 WBC Differential . Differential Comment Auto diff final Sodium 135 L Potassium 3.9 Chloride 101 Carbon Dioxide 26.5 Anion Gap 8 BUN 10 Creatinine 1.37 H Estimated GFR 45 L Random Glucose 106 Lactic Acid 1.1 Calcium 8.6 - Imaging Impressions Elbow X-Ray 03/12/18 18:07 CONCLUSION: Extensive hardware in the distal humerus and proximal ulna. No fracture either bone or metal seen. There is 2 mm lucency along the bone/metal interface of the distal humerus; no prior films to assess whether this finding is new or old.. Assessment and Plan - Plan 82-year-old female with a past medical history significant for CHF, COPD, depression, hypothyroidism, hypertension, hyperlipidemia and coronary artery disease presents to the emergency department for evaluation of a erythematous, blistering rash. Acute facial cellulitis: Diffuse throughout right side of the face and left frontotemporal area. Has overlying honey crusted plaques, consider impetigo? Afebrile, no leukocytosis, lactic acid 1.1. -Wound culture collected and pending -Continue antibiotics with IV vancomycin and IV Zosyn -Monitor cultures -Consult infectious disease Right elbow cellulitis: Acute -Wound/blood culture pending -Continue antibiotics as above -Consulted orthopedics, seen by Dr. New, recommended antibiotics and observation, no surgical intervention at the moment CAD/CHF/HTN/HLD: chronic, stable -Continue patient's aspirin, plavix, statin, vasotec, lasix -Monitor BP, adjust antihypertensives as needed COPD: chronic, does not appear to be in exacerbation -continue patient's Breo, albuterol, prednisone Depression: chronic -Continue patient's celexa, trazodone, lyrica Hypothyroidism: chronic -Continue home meds GERD: chronic -continue patient's PPI DVT Prophylaxis: Heparin
[2018-03-13] MEDS: Heparin - SQ 10,000 UNITS/ML Vial SQ SCH ×2 (11:09→22:18)
[2018-03-13] MEDS: predniSONE 5 MG Tablet PO SCH (13:22)
[2018-03-13] MEDS: Nystatin/Diphenhydramine/Lidocaine Mouthwash (Adult) 120 ML Botttle SWISH-SWAL SCH ×3 (13:22→21:46)
[2018-03-13 13:40] LABS: Baso % (Auto) 0.5 % (0.0-2.0); Eos # (Auto) 0.3 th/mm3 (0.0-0.4); Eos % (Auto) 16.2 % (0.0-4.0); Hematocrit 36.1 % (35.0-46.0); Lymph # (Auto) 0.6 th/mm3 (1.0-4.8); Lymph % (Auto) 31.8 % (9.0-44.0); Mean Corpuscular HGB Conc 33.2 % (32.0-36.0); Mean Corpuscular Hemoglobin 32.5 pg (27.0-34.0); Mean Corpuscular Volume 97.9 fL (80.0-100.0); Mono # (Auto) 0.3 th/mm3 (0.0-0.9); Mono % (Auto) 15.5 % (0.0-8.0); Neut # (Auto) 0.7 th/mm3 (1.8-7.7); Platelet Count 150 th/mm3 (150-450); Red Blood Count 3.69 mil/mm3 (4.00-5.30); Red Cell Distribution Width 13.5 % (11.6-17.2)
[2018-03-13 13:45] LABS: Calcium 8.2 mg/dL (8.5-10.1); Carbon Dioxide 26.7 meq/L (21.0-32.0); Potassium 3.9 meq/L (3.5-5.1)
[2018-03-13 14:55] LABS: Eosinophils 12 % (0-4); Lymphocytes 38 % (9-44); Monocytes 14 % (0-8); Ovalocytes 1+; Platelet Estimate Normal (Normal); Platelet Morphology Normal (Normal)
[2018-03-13] MEDS ORDERED: Vancomycin Inj 1,000 MG in Sodium Chlor 0.9% Inj 250 ML IV.SIG ONE (15:00)
--- NOTE | 2018-03-13 17:17 | MB ---
cc: Charli Abrams MD DATE: 03/13/2018 REQUESTING PHYSICIAN: Joycelyn Ayala MD REASON FOR REQUEST: Diffuse facial and elbow cellulitis. HISTORY OF PRESENT ILLNESS: This is an 82-year-old black female who presented to the emergency department on 03/12/2018 with skin changes including rash on the face and swelling of the face and also pain and swelling of the right elbow. The patient states that began about 7-10 days ago when she developed a small area of itching at the anterior forehead and it then showed up on the right side of the face on the right cheek and she was scratching it, and then moved to the left side of the face at the left cheek, and also chest, her elbow also began to be painful and swollen. She had surgery in the right elbow and has hardware in place. She also notes that she had decreased appetite. The patient recently underwent cardiac catheterization here at [place]. She lives with her nephew. The nephew notes that she had altered mental status when she was discharged, in that she was "loopy." He states that a few days after discharge she improved. The patient had been seen by her primary physician at the beginning of February and was put on Carafate because she was complaining of some anterior mid epigastric pain and felt that she probably was having problems with ulcer. The area on the face was itching and she was scratching the skin and eventually had some weeping. She says that she gets occasional headache, but has no current headache. The face is swollen and eye right eyelid has swelling, but she has no trouble opening her eyes and the globe of the eyes appear intact. She denies chills or fever. The patient is a poor historian. Further review of the recent medications with the outpatient pharmacy indicated that Carafate was the latest medicine that she has been prescribed. She has been on prednisone 5 mg a day, which is chronic. The patient was recently evaluated in 01/2018 for a possible meningoencephalitis when she presented as a stroke alert. She was found to be lying sideways in bed and unable to walk, which happened suddenly, and she was found to have elevated blood pressure and elevated heart rate. She was put on ceftriaxone and IV vancomycin. HSV 1 and 2 DNA PCR were negative. This test was ordered on 01/23/2017. CSF at that time showed 0 white cells. The patient's white blood cell count decreased. Today's white blood cell count is 2.0. Yesterday it was 4.3. She also has increased eosinophil count of 16.2%. She has been started on IV antibiotics. This consultation was requested because of diffuse facial erythema and elbow cellulitis. PAST MEDICAL HISTORY: 1. Congestive heart failure, chronic obstructive pulmonary disease. 2. Hypertension. 3. Depression. 4. Chronic pain. 5. Goiter. 6. Urinary retention. 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 ALLERGIES: NO KNOWN DRUG ALLERGIES. MEDICATIONS: 1. Ditropan. 2. Protonix. 3. Vancomycin. 4. Piperacillin/Tazobactam. 5. Potassium. 6. Prednisone 5 mg p.o. daily. 7. Lyrica. 8. Sara-Colace. 9. Desyrel. SOCIAL HISTORY: No tobacco, no alcohol, no illicit drugs. FAMILY HISTORY: Noncontributory. REVIEW OF SYSTEMS: Pertinent mentioned in history of present illness. A 10-point review of systems is otherwise negative. PHYSICAL EXAMINATION: GENERAL: This is a moderately obese female who is in no acute distress. She is awake and alert and oriented. VITAL SIGNS: Temperature 97.8, BP 170/72, respirations 16, heart rate 61. HEENT: Head is atraumatic. Extraocular movements are grossly intact. Pupils reactive to light. No icterus. Heart rate 61. HEENT: The face is swollen, more so the right cheek with swelling of the right lower eyelid and superficial dried, crusted areas of the right and left cheek with mild erythema. No visible drainage. Pupils reactive to light. No icterus. No conjunctival erythema. Oropharynx: Moist mucosa. The patient is edentulous. No lesions. NECK: Swelling at both left and right side of the neck anteriorly. Supple. LUNGS: Clear to auscultation with decreased breath sounds. HEART: Regular S1, S2, without murmurs, rubs or gallops. ABDOMEN: Bowel sounds present. Soft, mild tenderness on palpation of the mid epigastric area. RECTAL: Not performed. EXTREMITIES: No clubbing or cyanosis. The left elbow has a superficial ulceration at the volar aspect and a very tiny amount of swelling and mild tenderness on palpation, but no significant erythema is visible. The remaining extremities have no clubbing, cyanosis or edema. SKIN: Mild erythematous skin rash at the anterior chest, and also erythema of the face and the cheeks. NEUROLOGIC: No gross focal findings. PSYCHIATRIC: The patient is calm and cooperative. LABORATORY DATA: WBC 2.0, platelet count 150, hemoglobin 12.0. 31% lymphocytes, 36%, neutrophils, 15% monocytes, 16% eosinophils, creatinine 1.29, BUN 10, estimated GFR 48. Sodium 139. IMPRESSION: Facial cellulitis with swelling in patient who presents also with abnormal blood count, differential showing increased eosinophils and also leukopenia. She has no fever and no chills. The patient also has left elbow swelling and history of left elbow prosthesis, and elbow x-ray shows a 2 mm lucency along the bone metal interface of the distal humerus. She is also complaining of midepigastric discomfort. Blood cultures from yesterday have no growth. Skin culture from the face had moderate normal skin gisell. Elbow culture shows few gram positive cocci in pairs and clusters on Gram stain, and the culture shows limited growth of gram-positive gisell. I suspect that the patient may have some allergic reaction to medications. It is not obvious which medication could be causing it, but given the degree of eosinophilia and now leukopenia, I am concerned about one of prior medicines. The latest medicine prescribed was Carafate which can be implicated with a rash and potentially could be the cause. However, it is not certain at this time. The elbow appears somewhat swollen, but not obviously cellulitic. She also has rash in the chest, which probably is related to medication-induced allergic reaction. RECOMMENDATIONS: 1. Continue to monitor white count. 2. Discontinue vancomycin. 3. Monitor the face for resolution. 4. Monitor blood cultures. 5. If she does not improve, consider stopping the piperacillin/Tazobactam as well, and consider increasing the steroid dose. Also, consider possibly stopping the prednisone. Follow the cultures for adjustment of antibiotics if indicated by culture results. I will be off for the next 2 days. The weekend ID physician will be covering. MD JAYASHREE Stone/radha , 03:59 PM , 04:24 PM
[2018-03-14] MEDS: Piperacil/Tazo 3.375 GM Premix 50 ML IV.SIG SCH ×2 (02:53→11:06)
[2018-03-14] MEDS: Acetaminophen 325 MG Tablet PO PRN ×2 (03:41→20:09)
--- NOTE | 2018-03-14 08:44 | P.PN ---
Subjective Interval history: This is a pleasant 82 y/o Female with CHF, COPD, depression, hypothyroidism, hypertension, hyperlipidemia and coronary artery disease presents to the emergency department for evaluation of a erythematous, blistering rash. The patient does have hardware in her right elbow from a broken arm approximately 20 years ago. X-ray of the elbow shows a 2 mm lucency along the bone/metal interface of the distal humerus. Seen in her bedroom and has facial Rash, Cellulitis, now crusted, seen by ID specialist recommended for IV Unasyn, and stopped Zosyn, CT neck to evaluate the tender nodules on right of the neck, follow CBC, Check LFTs, no nausea, vomit or diarrhea. Physical Exam Vital signs: Vital Signs 03/13/18 12:00 03/13/18 16:00 03/13/18 20:00 Temperature 97.8 F 97.4 F L 97.5 F L Pulse Rate 61 61 69 Respiratory Rate 16 20 20 Blood Pressure 170/72 H 150/73 H 189/76 H Pulse Oximetry 97 97 99 03/14/18 00:00 03/14/18 04:00 03/14/18 08:00 Temperature 97.7 F 98.3 F 97.2 F L Pulse Rate 68 65 65 Respiratory Rate 20 20 18 Blood Pressure 122/69 135/59 L 193/77 H Pulse Oximetry 98 98 100 Intake & Output 03/13/18 03/14/18 03/14/18 18:59 06:59 18:59 Intake Total 350 / 350 580 / 580 Balance 350 / 350 580 / 580 Intake: IV 350 / 350 100 / 100 Zosyn 3.375 GM Premix 50 ML @ 100 / 100 100 / 100 100 mls/hr IV.SIG Q6H [facility] Rx#: [id number] Vancomycin Inj 1,000 MG In NS 250 / 250 Inj 250 ML @ 250 mls/hr IV.SIG ONCE ONE Rx#:[id number] Oral 480 / 480 Other: # Voids 1 3 Date of Last Bowel Movement 03/13/18 # Bowel Movements 1 3 Narrative: GENERAL: Well-developed, Obesity. SKIN: Warm and dry. Diffuse erythematous and weeping facial rash with overlying honey crusted plaques, worse at the right cheek/jaw/neck and left frontotemporal forehead. HEENT: Normocephalic. Atraumatic. Right periorbital erythema/edema. EOMI. Mucous membranes pink and moist. CARDIOVASCULAR: Regular rate and rhythm. No murmur appreciated. RESPIRATORY: No accessory muscle use. Clear to auscultation. Breath sounds equal bilaterally. GASTROINTESTINAL: Abdomen soft, non-tender, nondistended. Normoactive bowel sounds x4. MUSCULOSKELETAL: No obvious deformities. Extremities without clubbing, cyanosis , or edema. NEUROLOGICAL: Awake and alert. No obvious cranial nerve deficits. Motor grossly within normal limits. Moving all extremities spontaneously. Normal speech. Results - Labs CBC & Chem 7: 03/13/18 13:21 03/13/18 13:21 Laboratory Results - last 24 hr 03/13/18 03/13/18 03/13/18 13:21 13:21 13:21 WBC 2.0 L D RBC 3.69 L Hgb 12.0 Hct 36.1 MCV 97.9 MCH 32.5 MCHC 33.2 RDW 13.5 Plt Count 150 MPV 8.0 Prelim Diff (Auto) Slide review pending Neut % (Auto) 36.0 Lymph % (Auto) 31.8 [place] % (Auto) 15.5 H Eos % (Auto) 16.2 H Baso % (Auto) 0.5 Neut # (Auto) 0.7 L Lymph # (Auto) 0.6 L [place] # (Auto) 0.3 Eos # (Auto) 0.3 Baso # (Auto) 0.0 WBC Differential Manual diff final Seg Neuts % (Manual) 36 Lymphocytes % (Manual) 38 Monocytes % (Manual) 14 H Eosinophils % (Manual) 12 H Abs Neuts (Manual) 0.7 L Differential Comment . Platelet Estimate Normal Platelet Morphology Normal Ovalocytes 1+ H Keratocytes Occ H Sodium 139 Potassium 3.9 Chloride 104 Carbon Dioxide 26.7 Anion Gap 8 BUN 10 Creatinine 1.29 H Estimated GFR 48 L Random Glucose 113 H Calcium 8.2 L Random Vancomycin 8.4 Microbiology 03/12/18 22:15 Wound - Elbow Gram Stain - Final 03/12/18 22:15 Wound - Elbow Wound Culture - Preliminary 03/12/18 19:54 Wound - Face Gram Stain - Final 03/12/18 19:54 Wound - Face Wound Culture - Preliminary Moderate growth normal skin gisell at 24 hours. 03/12/18 18:30 Blood - Line Aerobic Blood Culture - Preliminary No growth in 1 day 03/12/18 18:30 Blood - Line Anaerobic Blood Culture - Preliminary No growth in 1 day 03/12/18 18:36 Blood - Line Aerobic Blood Culture - Preliminary No growth in 1 day 03/12/18 18:36 Blood - Line Anaerobic Blood Culture - Preliminary No growth in 1 day - Imaging Elbow X-Ray 03/12/18 18:07 CONCLUSION: Extensive hardware in the distal humerus and proximal ulna. No fracture either bone or metal seen. There is 2 mm lucency along the bone/metal interface of the distal humerus; no prior films to assess whether this finding is new or old.. Assessment and Plan - Plan 82-year-old female with a past medical history significant for CHF, COPD, depression, hypothyroidism, hypertension, hyperlipidemia and coronary artery disease presents to the emergency department for evaluation of a erythematous, blistering rash. Acute facial cellulitis: Diffuse throughout right side of the face and left frontotemporal area. Has overlying honey crusted plaques, consider impetigo? Afebrile, no leukocytosis, lactic acid 1.1. -Wound culture collected growing Staph Aureus. -Seen by ID specialist, recommended to stop Zosyn and started on Unasyn. CBC , check LFTs. Right elbow cellulitis: Acute -Wound/blood culture pending -Continue antibiotics as above -Consulted orthopedics, seen by Dr. New, recommended antibiotics and observation, no surgical intervention at the moment CAD/CHF/HTN/HLD: chronic, stable -Continue patient's aspirin, plavix, statin, vasotec, lasix -Monitor BP, adjust antihypertensives as needed COPD: chronic, does not appear to be in exacerbation -continue patient's Breo, albuterol, prednisone Depression: chronic -Continue patient's celexa, trazodone, lyrica Hypothyroidism: chronic -Continue home meds GERD: chronic -continue patient's PPI Obesity strongly recommended diet and exercise as outpatient. DVT Prophylaxis: Heparin Code Status: Full Code. Discussed Condition With: patient and Nurse Miss Larry Discharge Planning: Once cleared by ID specialist.
[2018-03-14] MEDS: Furosemide 20 MG Tablet PO SCH (09:31)
[2018-03-14] MEDS: Nystatin/Diphenhydramine/Lidocaine Mouthwash (Adult) 120 ML Botttle SWISH-SWAL SCH ×4 (09:31→20:10)
[2018-03-14] MEDS: traZODone 50 MG Tablet PO SCH (09:31)
[2018-03-14] MEDS: Potassium Chloride 10 MEQ ER Capsule PO SCH (09:31)
[2018-03-14] MEDS: Senna/Docusate Sodium 8.6/50 MG Tablet PO SCH ×2 (09:32→20:09)
[2018-03-14] MEDS: Citalopram 20 MG Tablet PO SCH (09:55)
[2018-03-14] MEDS: Pregabalin 25 MG Capsule PO SCH (09:55)
--- NOTE | 2018-03-14 10:56 | P.PNID ---
Subjective Remarks: ID Coverage 82 year old female admitted with rash on face, swelling of face and neck. Also had some complaints on her R elebow, previous elbow replacement. Has had some low WBC and increased eos. Creatinine mildly up. Notes reviewed Temps ok C/O pain and rash on face. Also notes swelling on her neck Elbow ok Labs today pending Antibiotics: Zosyn Lines: PIV ok Past Medical History: 1. Congestive heart failure, chronic obstructive pulmonary disease. 2. Hypertension. 3. Depression. 4. Chronic pain. 5. Goiter. 6. Urinary retention. 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 Allergies/Adverse Reactions: Allergies No Known Allergies Allergy (Verified 02/17/18 12:34) Objective Vital Signs 03/13/18 12:00 03/13/18 16:00 03/13/18 20:00 Temperature 97.8 F 97.4 F L 97.5 F L Pulse Rate 61 61 69 Respiratory Rate 16 20 20 Blood Pressure 170/72 H 150/73 H 189/76 H Pulse Oximetry 97 97 99 03/14/18 00:00 03/14/18 04:00 03/14/18 08:00 Temperature 97.7 F 98.3 F 97.2 F L Pulse Rate 68 65 65 Respiratory Rate 20 20 18 Blood Pressure 122/69 135/59 L 193/77 H Pulse Oximetry 98 98 100 Intake & Output 03/13/18 03/14/18 03/14/18 18:59 06:59 18:59 Intake Total 350 / 350 580 / 580 Balance 350 / 350 580 / 580 Intake: IV 350 / 350 100 / 100 Zosyn 3.375 GM Premix 50 ML @ 100 / 100 100 / 100 100 mls/hr IV.SIG Q6H [facility] Rx#: [id number] Vancomycin Inj 1,000 MG In NS 250 / 250 Inj 250 ML @ 250 mls/hr IV.SIG ONCE ONE Rx#:[id number] Oral 480 / 480 Other: # Voids 1 3 Date of Last Bowel Movement 03/13/18 # Bowel Movements 1 3 03/12/18 22:15 Wound - Elbow Gram Stain - Final 03/12/18 22:15 Wound - Elbow Wound Culture - Preliminary 03/12/18 19:54 Wound - Face Gram Stain - Final 03/12/18 19:54 Wound - Face Wound Culture - Preliminary Moderate growth normal skin gisell at 24 hours. 03/12/18 18:30 Blood - Line Aerobic Blood Culture - Preliminary No growth in 1 day 03/12/18 18:30 Blood - Line Anaerobic Blood Culture - Preliminary No growth in 1 day 03/12/18 18:36 Blood - Line Aerobic Blood Culture - Preliminary No growth in 1 day 03/12/18 18:36 Blood - Line Anaerobic Blood Culture - Preliminary No growth in 1 day Lab - Hematology Results 03/12/18 03/13/18 18:30 13:21 WBC 4.3 2.0 L D RBC 3.77 L 3.69 L Hgb 12.3 12.0 Hct 37.4 36.1 MCV 99.0 97.9 MCH 32.5 32.5 MCHC 32.8 33.2 RDW 13.9 13.5 Plt Count 151 150 MPV 8.4 8.0 Prelim Diff (Auto) Slide review pending Neut % (Auto) 53.1 36.0 Lymph % (Auto) 22.0 31.8 [place] % (Auto) 13.6 H 15.5 H Eos % (Auto) 10.5 H 16.2 H Baso % (Auto) 0.8 0.5 Neut # (Auto) 2.3 0.7 L Lymph # (Auto) 0.9 L 0.6 L [place] # (Auto) 0.6 0.3 Eos # (Auto) 0.5 H 0.3 Baso # (Auto) 0.0 0.0 WBC Differential . Manual diff final Seg Neuts % (Manual) 36 Lymphocytes % (Manual) 38 Monocytes % (Manual) 14 H Eosinophils % (Manual) 12 H Abs Neuts (Manual) 0.7 L Differential Comment Auto diff final . Platelet Estimate Normal Platelet Morphology Normal Ovalocytes 1+ H Keratocytes Occ H Lab - Chemistry Results 03/12/18 03/12/18 03/13/18 18:30 18:30 13:21 Sodium 135 L 139 Potassium 3.9 3.9 Chloride 101 104 Carbon Dioxide 26.5 26.7 Anion Gap 8 8 BUN 10 10 Creatinine 1.37 H 1.29 H Estimated GFR 45 L 48 L Random Glucose 106 113 H Lactic Acid 1.1 Calcium 8.6 8.2 L Imaging: ITS Impressions Elbow X-Ray 08/23/18 18:07 CONCLUSION: Extensive hardware in the distal humerus and proximal ulna. No fracture either bone or metal seen. There is 2 mm lucency along the bone/metal interface of the distal humerus; no prior films to assess whether this finding is new or old.. Physical Exam: GENERAL: Awake and alert, up in a chair. NAD. SKIN: Has crusted lesions on her face - on her cheek R, Lside of face and forehead HEAD: Head is atraumatic. HEENT: The face is less swollen, with crusted lesions as described above. Pupils reactive to light. No icterus. No conjunctival erythema. Oropharynx: Moist mucosa. The patient is edentulous. No lesions. NECK: She has tender large nodular areas prominent on R side of neck and anteriorly, and less swelling on the left side, ?LN LUNGS: Clear to auscultation with decreased breath sounds. HEART: Regular S1, S2, without murmurs, rubs or gallops. ABDOMEN: Bowel sounds present. Soft, mild tenderness on palpation of the mid epigastric area. RECTAL: Not performed. EXTREMITIES: No clubbing or cyanosis. The left elbow has a dry area, has good ROM,. no cellulitis note. The remaining extremities have no clubbing, cyanosis or edema. SKIN: Rash on face, and has some rash on upper chest NEUROLOGIC: No gross focal findings. PSYCHIATRIC: The patient is calm and cooperative. Assessment and Plan - Plan Impression Facial rash, cellulitis, now crusted ?LN on R side of neck Neutropenia Eosinophilia Renal insufficiency Recommendation IV Unasyn Stop Zosyn CT neck to evaluate the tender nodules on R side of neck Follow CBC Check LFT Monitor progress D/W VI
[2018-03-14] MEDS: predniSONE 5 MG Tablet PO SCH (11:32)
[2018-03-14] MEDS: Heparin - SQ 10,000 UNITS/ML Vial SQ SCH (11:36)
[2018-03-14] MEDS: Ampicillin/Sulbactam Inj 1,500 MG in Sodium Chloride 0.9% Inj 100 ML IV.SIG SCH ×2 (11:45→18:04)
--- NOTE | 2018-03-14 15:54 | P.PNOP ---
Subjective Interval history: Patient c/o facial pain and dry mouth. Denies elbow pain. [employer] present. OOB sitting in recliner. Physical Exam Vital signs: Vital Signs 03/13/18 16:00 03/13/18 20:00 03/14/18 00:00 Temperature 97.4 F L 97.5 F L 97.7 F Pulse Rate 61 69 68 Respiratory Rate 20 20 20 Blood Pressure 150/73 H 189/76 H 122/69 Pulse Oximetry 97 99 98 03/14/18 04:00 03/14/18 08:00 03/14/18 12:00 Temperature 98.3 F 97.2 F L 98.3 F Pulse Rate 65 65 70 Respiratory Rate 20 18 18 Blood Pressure 135/59 L 193/77 H 124/89 Pulse Oximetry 98 100 100 Intake & Output 03/13/18 03/14/18 03/14/18 18:59 06:59 18:59 Intake Total 350 / 350 580 / 580 100 / 100 Balance 350 / 350 580 / 580 100 / 100 Intake: IV 350 / 350 100 / 100 100 / 100 Unasyn Inj 1,500 MG In NS Inj 100 / 100 100 ML @ 200 mls/hr IV.SIG Q6H [facility] Rx#:[id number] Zosyn 3.375 GM Premix 50 ML @ 100 / 100 100 / 100 100 mls/hr IV.SIG Q6H [facility] Rx#: [id number] Vancomycin Inj 1,000 MG In NS 250 / 250 Inj 250 ML @ 250 mls/hr IV.SIG ONCE ONE Rx#:[id number] Oral 480 / 480 Other: # Voids 1 3 Date of Last Bowel Movement 03/13/18 03/13/18 # Bowel Movements 1 3 Narrative: Right Elbow small scan note to the olecranon region no signs of erythema or effusion acceptable ROM 2+ radial pulses distally motor intact numbness to bilateral hands Results - Labs CBC & Chem 7: 03/13/18 13:21 03/13/18 13:21 Microbiology 03/12/18 22:15 Wound - Elbow Gram Stain - Final 03/12/18 22:15 Wound - Elbow Wound Culture - Final Staphylococcus aureus 03/12/18 19:54 Wound - Face Gram Stain - Final 03/12/18 19:54 Wound - Face Wound Culture - Final Heavy growth normal skin gisell No anaerobes isolated 03/12/18 18:30 Blood - Line Aerobic Blood Culture - Preliminary No growth in 2 days 03/12/18 18:30 Blood - Line Anaerobic Blood Culture - Preliminary No growth in 2 days 03/12/18 18:36 Blood - Line Aerobic Blood Culture - Preliminary No growth in 2 days 03/12/18 18:36 Blood - Line Anaerobic Blood Culture - Preliminary No growth in 2 days Assessment and Plan - Assessment and Plan Assessment: Possible right elbow cellulitis PLAN: continue with conservative management ID management if abx is indicated WBAT. AROM. Monitor for signs of infection
--- NOTE | 2018-03-14 16:17 | CT ---
EXAM DATE: 03/14/2018 4:00 PM EDT AGE/SEX: 82 years / Female INDICATIONS: Lump on right side on neck CLINICAL DATA: This is the patient's initial encounter. Patient reports that signs and symptoms have been present for 1 day and indicates a pain score of Nonresponsive. MEDICAL/SURGICAL HISTORY: Congestive heart failure. Chronic obstructive pulmonary disease. Hypert ension. Goiter None. RADIATION DOSE: 18.57 CTDI (mGy) [place] [facility] [place] [facility] [place]/O [place], 02[place]02/2017. [facility] [place]. . TECHNIQUE: Helical acquisition was performed using a multirow detector CT scanner without contrast. Using automated exposure control and adjustment of the mA and/or kV according to patient size, radiat ion dose was kept as low as reasonably achievable to obtain optimal diagnostic quality images. DICOM format image data is available electronically for review and comparison. FINDINGS: Nasopharynx: The nasopharyngeal airway has a normal configuration. No mucosal thickening or mass is seen. Oropharynx: The intrinsic muscles of the tongue are symmetric. The tonsillar pillars demonstrate no abnormality. The prevertebral soft tissues are not thickened. Larynx: The supraglottic, glottic, and infraglottic structures demonstrate no abnormality. Salivary Glands: The parotid and submandibular glands demonstrate fatty atrophy without a mass. Lymph Nodes: No lymphadenopathy. Thyroid: Thyroid gland is significantly enlarged bilaterally including the isthmus. It contains mult ifocal areas of coarse calcification. It has mass effect on the surrounding adjacent fractures. Bones: No acute osseous abnormality is identified. There is multilevel degenerative disc disease thr oughout the cervical spine. Other: The visualized intracranial structures and upper lung zones demonstrate no acute abnormality. There is atherosclerotic disease of the aorta and carotid arteries. CONCLUSION: 1. Diffusely and significantly enlarged thyroid gland bilaterally. This may correspond with the palp able lump. It contains innumerable nodules and calcifications. The appearance is of very similar to t he prior MRI from one year ago. The enlarged thyroid gland has mass effect on the surrounding adjacen t structures. 2. No other acute finding is identified. Electronically signed by: Fredis Gray MD 03/14/2018 4:16 PM EDT
[2018-03-14 20:49] LABS: Albumin 2.7 g/dL (3.4-5.0)
[2018-03-14 20:52] LABS: Total Protein 6.8 g/dL (6.4-8.2)
[2018-03-14 21:11] LABS: Eos # (Auto) 0.1 th/mm3 (0.0-0.4); Eos % (Auto) 2.9 % (0.0-4.0); Hematocrit 37.2 % (35.0-46.0); Hemoglobin 12.6 gm/dL (11.6-15.3); Lymph # (Auto) 0.6 th/mm3 (1.0-4.8); Lymph % (Auto) 13.4 % (9.0-44.0); Mean Corpuscular HGB Conc 33.8 % (32.0-36.0); Mean Corpuscular Hemoglobin 32.8 pg (27.0-34.0); Mean Platelet Volume 8.9 fL (7.0-11.0); Mono # (Auto) 0.3 th/mm3 (0.0-0.9); Mono % (Auto) 5.3 % (0.0-8.0); Neut # (Auto) 3.6 th/mm3 (1.8-7.7); Neut % (Auto) 77.4 % (16.0-70.0); Platelet Count 134 th/mm3 (150-450); Red Blood Count 3.84 mil/mm3 (4.00-5.30); Red Cell Distribution Width 13.3 % (11.6-17.2); White Blood Count 4.7 th/mm3 (4.0-11.0)
[2018-03-14 21:49] LABS: Ovalocytes 1+; Platelet Morphology Normal (Normal)
[2018-03-15] MEDS: Heparin - SQ 10,000 UNITS/ML Vial SQ SCH ×3 (00:54→23:14)
[2018-03-15] MEDS: Ampicillin/Sulbactam Inj 1,500 MG in Sodium Chloride 0.9% Inj 100 ML IV.SIG SCH ×5 (00:54→21:04)
[2018-03-15] MEDS: Nystatin/Diphenhydramine/Lidocaine Mouthwash (Adult) 120 ML Botttle SWISH-SWAL SCH ×4 (08:27→20:52)
[2018-03-15] MEDS: traZODone 50 MG Tablet PO SCH (08:27)
[2018-03-15] MEDS: Citalopram 20 MG Tablet PO SCH (08:27)
[2018-03-15] MEDS: Furosemide 20 MG Tablet PO SCH (08:27)
[2018-03-15] MEDS: Pregabalin 25 MG Capsule PO SCH (08:27)
[2018-03-15] MEDS: Potassium Chloride 10 MEQ ER Capsule PO SCH (08:27)
[2018-03-15] MEDS: Senna/Docusate Sodium 8.6/50 MG Tablet PO SCH ×2 (08:28→20:51)
[2018-03-15] MEDS: amLODIPine 5 MG Tablet PO SCH (12:48)
[2018-03-15] MEDS: predniSONE 5 MG Tablet PO SCH (12:48)
--- NOTE | 2018-03-15 13:03 | P.PN ---
Subjective Interval history: This is a pleasant 82 y/o Female with CHF, COPD, depression, hypothyroidism, hypertension, hyperlipidemia and coronary artery disease presents to the emergency department for evaluation of a erythematous, blistering rash. The patient does have hardware in her right elbow from a broken arm approximately 20 years ago. X-ray of the elbow shows a 2 mm lucency along the bone/metal interface of the distal humerus. Seen in her bedroom and has facial Rash, Cellulitis, now crusted, seen by ID specialist recommended for IV Unasyn, and stopped Zosyn, CT neck to evaluate the tender nodules on right of the neck, follow CBC, Check LFTs. 03/15: Stable in her bedroom but states she is not feeling well, developed some epigastric pain and dyspepsia some nausea, but no vomit or diarrhea, suspected Acute Gastritis will give PPIs. continue antibiotics as per ID specialist. Physical Exam Vital signs: Vital Signs 03/14/18 15:57 03/14/18 20:00 03/15/18 00:00 Temperature 98.8 F 98.3 F 98.2 F Pulse Rate 67 80 76 Respiratory Rate 18 18 18 Blood Pressure 156/63 H 185/74 H 168/72 H Pulse Oximetry 98 95 93 L 03/15/18 08:00 Temperature 98.0 F Pulse Rate 63 Respiratory Rate 18 Blood Pressure 188/79 H Pulse Oximetry 96 Intake & Output 03/14/18 03/15/18 03/15/18 18:59 06:59 18:59 Intake Total 1160 / 1160 200 / 200 Balance 1160 / 1160 200 / 200 Weight 83.7 kg Intake: IV 200 / 200 200 / 200 Unasyn Inj 1,500 MG In NS Inj 200 / 200 200 / 200 100 ML @ 200 mls/hr IV.SIG Q6H [facility] Rx#:[id number] Oral 960 / 960 Other: # Voids 4 Date of Last Bowel Movement 03/13/18 03/13/18 # Bowel Movements 3 Narrative: GENERAL: Well-developed, Obesity. SKIN: Warm and dry. Facial crusted plaques, worse at the right cheek/jaw/neck and left frontotemporal forehead. HEENT: Normocephalic. Atraumatic. Right periorbital erythema/edema. CARDIOVASCULAR: Regular rate and rhythm. No murmur appreciated. RESPIRATORY: No accessory muscle use. Clear to auscultation. Breath sounds equal bilaterally. GASTROINTESTINAL: Abdomen soft, epigastric pain on palpation. MUSCULOSKELETAL: Extremities without clubbing, cyanosis, or edema. NEUROLOGICAL: Awake and alert. no focal deficits. Results - Labs CBC & Chem 7: 03/14/18 19:31 03/14/18 19:31 Laboratory Results - last 24 hr 03/14/18 03/14/18 19:31 19:31 WBC 4.7 RBC 3.84 L Hgb 12.6 Hct 37.2 MCV 97.0 MCH 32.8 MCHC 33.8 RDW 13.3 Plt Count 134 L MPV 8.9 Prelim Diff (Auto) Slide review pending Neut % (Auto) 77.4 H Lymph % (Auto) 13.4 [place] % (Auto) 5.3 Eos % (Auto) 2.9 Baso % (Auto) 1.0 Neut # (Auto) 3.6 Lymph # (Auto) 0.6 L [place] # (Auto) 0.3 Eos # (Auto) 0.1 Baso # (Auto) 0.0 WBC Differential . Diff Scan Auto diff confirmed Differential Comment . Platelet Estimate Low L Platelet Morphology Normal Ovalocytes 1+ H Creatinine 1.40 H Estimated GFR 44 L Total Bilirubin 0.3 Direct Bilirubin 0.1 Indirect Bilirubin 0.2 AST 24 ALT 15 Alkaline Phosphatase 92 Total Protein 6.8 Albumin 2.7 L Microbiology 03/12/18 18:30 Blood - Line Aerobic Blood Culture - Preliminary No growth in 3 days 03/12/18 18:30 Blood - Line Anaerobic Blood Culture - Preliminary No growth in 3 days 03/12/18 18:36 Blood - Line Aerobic Blood Culture - Preliminary No growth in 3 days 03/12/18 18:36 Blood - Line Anaerobic Blood Culture - Preliminary No growth in 3 days 03/12/18 22:15 Wound - Elbow Gram Stain - Final 03/12/18 22:15 Wound - Elbow Wound Culture - Final Staphylococcus aureus 03/12/18 19:54 Wound - Face Gram Stain - Final 03/12/18 19:54 Wound - Face Wound Culture - Final Heavy growth normal skin gisell No anaerobes isolated - Imaging Impressions Soft Tissue Neck CT 03/14/18 00:00 CONCLUSION: 1. Diffusely and significantly enlarged thyroid gland bilaterally. This may correspond with the palpable lump. It contains innumerable nodules and calcifications. The appearance is of very similar to the prior MRI from one year ago. The enlarged thyroid gland has mass effect on the surrounding adjacent structures. 2. No other acute finding is identified. Assessment and Plan - Plan 82-year-old female with a past medical history significant for CHF, COPD, depression, hypothyroidism, hypertension, hyperlipidemia and coronary artery disease presents to the emergency department for evaluation of a erythematous, blistering rash. Acute facial cellulitis: Diffuse throughout right side of the face and left frontotemporal area. Has overlying honey crusted plaques, consider impetigo? Afebrile, no leukocytosis, lactic acid 1.1. -Wound culture collected growing Staph Aureus. -Seen by ID specialist, recommended to stop Zosyn and started on Unasyn. CT neck has diffusely and significant enlargement of thyroid gland bilaterally. innumerable nodules and calcifications mass effect on the surrounding adjacent structures. -Consulted orthopedics, seen by Dr. New, recommended antibiotics and observation, no surgical intervention at the moment CAD/CHF/HTN/HLD: chronic, stable -Continue patient's aspirin, plavix, statin, vasotec, lasix -Monitor BP, adjust antihypertensives as needed, Uncontrolled added Clonidine COPD: chronic, Non exacerbated. -continue patient's Breo, albuterol, prednisone Depression: chronic -Continue patient's celexa, trazodone, lyrica Hypothyroidism: chronic -Continue home meds GERD: chronic -continue patient's PPI Obesity strongly recommended diet and exercise as outpatient. Consult PT and admissions manager. DVT Prophylaxis: Heparin Code Status: full Code. Discussed Condition With: Patient and nurse Miss Larry Discharge Planning: Once cleared by ID specialist.
--- NOTE | 2018-03-15 13:54 | P.PNID ---
Subjective Remarks: ID Coverage 82 year old female admitted with rash on face, swelling of face and neck. Also had some complaints on her R elebow, previous elbow replacement. Has had some low WBC and increased eos. Creatinine mildly up. Notes reviewed Temps ok Nephew in the room - patient has had goiter diagnosed - he showed me pics of her on admission and swelling on face much improved Pain is better. Elbow ok Antibiotics: Unasyn Lines: PIV ok Past Medical History: 1. Congestive heart failure, chronic obstructive pulmonary disease. 2. Hypertension. 3. Depression. 4. Chronic pain. 5. Goiter. 6. Urinary retention. 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 Allergies/Adverse Reactions: Allergies No Known Allergies Allergy (Verified 02/17/18 12:34) Objective Vital Signs 03/14/18 15:57 03/14/18 20:00 03/15/18 00:00 Temperature 98.8 F 98.3 F 98.2 F Pulse Rate 67 80 76 Respiratory Rate 18 18 18 Blood Pressure 156/63 H 185/74 H 168/72 H Pulse Oximetry 98 95 93 L 03/15/18 08:00 03/15/18 12:00 Temperature 98.0 F 98.0 F Pulse Rate 63 65 Respiratory Rate 18 18 Blood Pressure 188/79 H 140/58 L Pulse Oximetry 96 95 Intake & Output 03/14/18 03/15/18 03/15/18 18:59 06:59 18:59 Intake Total 1160 / 1160 200 / 200 Balance 1160 / 1160 200 / 200 Weight 83.7 kg Intake: IV 200 / 200 200 / 200 Unasyn Inj 1,500 MG In NS Inj 200 / 200 200 / 200 100 ML @ 200 mls/hr IV.SIG Q6H GER Rx#:[id number] Oral 960 / 960 Other: # Voids 4 Date of Last Bowel Movement 03/13/18 03/13/18 # Bowel Movements 3 03/12/18 18:30 Blood - Line Aerobic Blood Culture - Preliminary No growth in 3 days 03/12/18 18:30 Blood - Line Anaerobic Blood Culture - Preliminary No growth in 3 days 03/12/18 18:36 Blood - Line Aerobic Blood Culture - Preliminary No growth in 3 days 03/12/18 18:36 Blood - Line Anaerobic Blood Culture - Preliminary No growth in 3 days 03/12/18 22:15 Wound - Elbow Gram Stain - Final 03/12/18 22:15 Wound - Elbow Wound Culture - Final Staphylococcus aureus 03/12/18 19:54 Wound - Face Gram Stain - Final 03/12/18 19:54 Wound - Face Wound Culture - Final Heavy growth normal skin gisell No anaerobes isolated Lab - Hematology Results 03/13/18 03/14/18 13:21 19:31 WBC 2.0 L D 4.7 RBC 3.69 L 3.84 L Hgb 12.0 12.6 Hct 36.1 37.2 MCV 97.9 97.0 MCH 32.5 32.8 MCHC 33.2 33.8 RDW 13.5 13.3 Plt Count 150 134 L MPV 8.0 8.9 Prelim Diff (Auto) Slide review pending Slide review pending Neut % (Auto) 36.0 77.4 H Lymph % (Auto) 31.8 13.4 [place] % (Auto) 15.5 H 5.3 Eos % (Auto) 16.2 H 2.9 Baso % (Auto) 0.5 1.0 Neut # (Auto) 0.7 L 3.6 Lymph # (Auto) 0.6 L 0.6 L [place] # (Auto) 0.3 0.3 Eos # (Auto) 0.3 0.1 Baso # (Auto) 0.0 0.0 WBC Differential Manual diff final . Diff Scan Auto diff confirmed Seg Neuts % (Manual) 36 Lymphocytes % (Manual) 38 Monocytes % (Manual) 14 H Eosinophils % (Manual) 12 H Abs Neuts (Manual) 0.7 L Differential Comment . . Platelet Estimate Normal Low L Platelet Morphology Normal Normal Ovalocytes 1+ H 1+ H Keratocytes Occ H Lab - Chemistry Results 03/14/18 19:31 Creatinine 1.40 H Estimated GFR 44 L Total Bilirubin 0.3 Direct Bilirubin 0.1 Indirect Bilirubin 0.2 AST 24 ALT 15 Alkaline Phosphatase 92 Total Protein 6.8 Albumin 2.7 L Imaging: ITS Impressions Elbow X-Ray 03/12/18 18:07 CONCLUSION: Extensive hardware in the distal humerus and proximal ulna. No fracture either bone or metal seen. There is 2 mm lucency along the bone/metal interface of the distal humerus; no prior films to assess whether this finding is new or old.. Soft Tissue Neck CT 03/14/18 00:00 CONCLUSION: 1. Diffusely and significantly enlarged thyroid gland bilaterally. This may correspond with the palpable lump. It contains innumerable nodules and calcifications. The appearance is of very similar to the prior MRI from one year ago. The enlarged thyroid gland has mass effect on the surrounding adjacent structures. 2. No other acute finding is identified. Physical Exam: GENERAL: Awake and alert, up in a chair. NAD. SKIN: Has crusted lesions on her face - on her cheek R, L side of face and forehead, drying up, swelling face much improved HEAD: Head is atraumatic. HEENT: The face is less swollen, with crusted lesions as described above. Pupils reactive to light. No icterus. No conjunctival erythema. Oropharynx: Moist mucosa. The patient is edentulous. No lesions. NECK: She has tender large nodular areas prominent on R side of neck and anteriorly. LUNGS: Clear to auscultation with decreased breath sounds. HEART: Regular S1, S2, without murmurs, rubs or gallops. ABDOMEN: Bowel sounds present. Soft, mild tenderness on palpation of the mid epigastric area. RECTAL: Not performed. EXTREMITIES: No clubbing or cyanosis. The left elbow has a dry area, has good ROM, no cellulitis noted. The remaining extremities have no clubbing, cyanosis or edema. SKIN: Rash on face, and has some rash on upper chest NEUROLOGIC: No gross focal findings. PSYCHIATRIC: The patient is calm and cooperative. Assessment and Plan - Plan Impression Facial rash, cellulitis, now crusted - improving Goiter Neutropenia, better Eosinophilia, better Renal insufficiency Elbow looks good, no cellulitis seen, and has good ROM Recommendation Continue IV Unasyn Follow CBC Monitor progress Spoke with nephew
[2018-03-15] MEDS: Sucralfate 1 GM Tablet PO SCH ×2 (18:28→20:52)
[2018-03-16] MEDS: Ampicillin/Sulbactam Inj 1,500 MG in Sodium Chloride 0.9% Inj 100 ML IV.SIG SCH ×4 (04:02→23:11)
[2018-03-16] MEDS: Acetaminophen 325 MG Tablet PO PRN (08:46)
[2018-03-16] MEDS: traZODone 50 MG Tablet PO SCH (08:47)
[2018-03-16] MEDS: Pregabalin 25 MG Capsule PO SCH (08:47)
[2018-03-16] MEDS: Citalopram 20 MG Tablet PO SCH (08:48)
[2018-03-16] MEDS: Senna/Docusate Sodium 8.6/50 MG Tablet PO SCH ×2 (08:49→20:47)
[2018-03-16] MEDS: Sucralfate 1 GM Tablet PO SCH ×4 (08:49→20:47)
[2018-03-16] MEDS: Nystatin/Diphenhydramine/Lidocaine Mouthwash (Adult) 120 ML Botttle SWISH-SWAL SCH ×4 (08:50→20:47)
[2018-03-16] MEDS: Furosemide 20 MG Tablet PO SCH (08:53)
[2018-03-16] MEDS: amLODIPine 5 MG Tablet PO SCH (08:53)
[2018-03-16] MEDS: Potassium Chloride 10 MEQ ER Capsule PO SCH (08:53)
--- NOTE | 2018-03-16 10:51 | P.PN ---
Subjective Interval history: This is a pleasant 82 y/o Female with CHF, COPD, depression, hypothyroidism, hypertension, hyperlipidemia and coronary artery disease presents to the emergency department for evaluation of a erythematous, blistering rash. The patient does have hardware in her right elbow from a broken arm approximately 20 years ago. X-ray of the elbow shows a 2 mm lucency along the bone/metal interface of the distal humerus. Seen in her bedroom and has facial Rash, Cellulitis, now crusted, seen by ID specialist recommended for IV Unasyn, and stopped Zosyn, CT neck to evaluate the tender nodules on right of the neck, follow CBC, Check LFTs. 03/15: Stable in her bedroom but states she is not feeling well, developed some epigastric pain and dyspepsia suspected Acute Gastritis will give PPIs. continue antibiotics as per ID specialist. 03/16: Seen in her bedroom discussed with nurse and patient, showed me her Panus area no lesions seen has wet area and may need Nystatin powder, as per patient she is limited for activity already at home, no sings of CHF exacerbation, or COPD exacerbation, but states she has some dysphagia has goiter discussed with ID specialist Doctor Aliza and he consulted customer advisor specialist. no nausea, vomit or diarrhea. Physical Exam Vital signs: Vital Signs 03/15/18 12:00 03/15/18 15:05 03/15/18 20:00 Temperature 98.0 F 98.5 F 98.3 F Pulse Rate 65 58 L 62 Respiratory Rate 18 18 18 Blood Pressure 140/58 L 146/62 H 175/74 H Pulse Oximetry 95 98 97 03/16/18 00:00 Temperature 97.7 F Pulse Rate 53 L Respiratory Rate 18 Blood Pressure 100/57 L Pulse Oximetry 96 Intake & Output 03/15/18 03/16/18 03/16/18 18:59 06:59 18:59 Intake Total 820 / 820 200 / 200 Balance 820 / 820 200 / 200 Weight 81.9 kg Intake: IV 100 / 100 200 / 200 Unasyn Inj 1,500 MG In NS Inj 100 / 100 200 / 200 100 ML @ 200 mls/hr IV.SIG Q6H GER Rx#:[id number] Oral 720 / 720 Other: # Voids 5 3 Date of Last Bowel Movement 03/13/18 Narrative: GENERAL: Well-developed, Obesity. SKIN: Warm and dry. Facial crusted plaques, worse at the right cheek/jaw/neck and left frontotemporal forehead. HEENT: Normocephalic. Atraumatic. Right periorbital erythema/edema. palpable thyroid gland CARDIOVASCULAR: Regular rate and rhythm. No murmur appreciated. RESPIRATORY: No accessory muscle use. Clear to auscultation. Breath sounds equal bilaterally. GASTROINTESTINAL: Abdomen soft, epigastric pain on palpation. wet area on folding areas but no active lesions. MUSCULOSKELETAL: Extremities without clubbing, cyanosis, or edema. NEUROLOGICAL: Awake and alert. no focal deficits. Results - Labs CBC & Chem 7: 03/14/18 19:31 03/14/18 19:31 Microbiology 03/12/18 18:30 Blood - Line Aerobic Blood Culture - Preliminary No growth in 3 days 03/12/18 18:30 Blood - Line Anaerobic Blood Culture - Preliminary No growth in 3 days 03/12/18 18:36 Blood - Line Aerobic Blood Culture - Preliminary No growth in 3 days 03/12/18 18:36 Blood - Line Anaerobic Blood Culture - Preliminary No growth in 3 days Assessment and Plan - Plan 82-year-old female with a past medical history significant for CHF, COPD, depression, hypothyroidism, hypertension, hyperlipidemia and coronary artery disease presents to the emergency department for evaluation of a erythematous, blistering rash. Acute facial cellulitis: Diffuse throughout right side of the face and left frontotemporal area. Has overlying honey crusted plaques, consider impetigo? Afebrile, no leukocytosis, lactic acid 1.1. -Wound culture collected growing Staph Aureus. -Seen by ID specialist, recommended to stop Zosyn and started on Unasyn. CT neck has diffusely and significant enlargement of thyroid gland bilaterally. innumerable nodules and calcifications mass effect on the surrounding adjacent structures. -Consulted orthopedics, seen by Dr. New, recommended antibiotics and observation, no surgical intervention at the moment CAD/CHF/HTN/HLD: chronic, stable -Continue patient's aspirin, plavix, statin, vasotec, lasix -Better control toay. COPD: chronic, Non exacerbated. -continue patient's Breo, albuterol, prednisone Depression: chronic -Continue patient's celexa, trazodone, lyrica Hypothyroidism: chronic -Continue home meds, has Dysphagia probable secondary to Goiter asked for customer advisor specialist by ID specialist I will consult ENT to evaluate for probable surgical procedure if needed. GERD: chronic -continue patient's PPI Obesity strongly recommended diet and exercise as outpatient. Consult PT and bank sales and service manager. DVT Prophylaxis: Heparin Code Status: Full code Discussed Condition With: Patient, Nurse Miss Villarreal and ID specialist Doctor Charli Abrams. Discharge Planning: Once cleared by ID specialist.
--- NOTE | 2018-03-16 11:39 | P.PNID ---
Subjective Remarks: Patient is complaining of pain in her throat. Noted to have skin lesion at the groin on both sides. The lesions of the face some dried up. No fever or chills. White blood cell count is normal. Eosinophil count is down to normal. Very little right elbow pain. The swelling of the right elbow has improved. This is an 82-year-old black female who presented to the emergency department on 03/12/2018 with skin changes including rash on the face and swelling of the face and also pain and swelling of the right elbow. The patient states that began about 7-10 days ago when she developed a small area of itching at the anterior forehead and it then showed up on the right side of the face on the right cheek and she was scratching it, and then moved to the left side of the face at the left cheek, and also chest, her elbow also began to be painful and swollen. Patient's nephew notes that this rash began about 3 days after she was discharged from [facility]. Antibiotics: Unasyn Lines: PIV ok Past Medical History: 1. Congestive heart failure, chronic obstructive pulmonary disease. 2. Hypertension. 3. Depression. 4. Chronic pain. 5. Goiter. 6. Urinary retention. 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 Allergies/Adverse Reactions: Allergies No Known Allergies Allergy (Verified 02/17/18 12:34) Objective Vital Signs 03/15/18 12:00 03/15/18 15:05 03/15/18 20:00 Temperature 98.0 F 98.5 F 98.3 F Pulse Rate 65 58 L 62 Respiratory Rate 18 18 18 Blood Pressure 140/58 L 146/62 H 175/74 H Pulse Oximetry 95 98 97 03/16/18 00:00 03/16/18 11:20 Temperature 97.7 F Pulse Rate 53 L Respiratory Rate 18 3 L Blood Pressure 100/57 L Pulse Oximetry 96 Intake & Output 03/15/18 03/16/18 03/16/18 18:59 06:59 18:59 Intake Total 820 / 820 200 / 200 Balance 820 / 820 200 / 200 Weight 81.9 kg Intake: IV 100 / 100 200 / 200 Unasyn Inj 1,500 MG In NS Inj 100 / 100 200 / 200 100 ML @ 200 mls/hr IV.SIG Q6H GER Rx#:[id number] Oral 720 / 720 Other: # Voids 5 3 Date of Last Bowel Movement 03/13/18 03/12/18 18:30 Blood - Line Aerobic Blood Culture - Preliminary No growth in 4 days 03/12/18 18:30 Blood - Line Anaerobic Blood Culture - Preliminary No growth in 4 days 03/12/18 18:36 Blood - Line Aerobic Blood Culture - Preliminary No growth in 4 days 03/12/18 18:36 Blood - Line Anaerobic Blood Culture - Preliminary No growth in 4 days 03/12/18 22:15 Wound - Elbow Gram Stain - Final 03/12/18 22:15 Wound - Elbow Wound Culture - Final Staphylococcus aureus 03/12/18 19:54 Wound - Face Gram Stain - Final 03/12/18 19:54 Wound - Face Wound Culture - Final Heavy growth normal skin gisell No anaerobes isolated Lab - Hematology Results 03/14/18 19:31 WBC 4.7 RBC 3.84 L Hgb 12.6 Hct 37.2 MCV 97.0 MCH 32.8 MCHC 33.8 RDW 13.3 Plt Count 134 L MPV 8.9 Prelim Diff (Auto) Slide review pending Neut % (Auto) 77.4 H Lymph % (Auto) 13.4 [place] % (Auto) 5.3 Eos % (Auto) 2.9 Baso % (Auto) 1.0 Neut # (Auto) 3.6 Lymph # (Auto) 0.6 L [place] # (Auto) 0.3 Eos # (Auto) 0.1 Baso # (Auto) 0.0 WBC Differential . Diff Scan Auto diff confirmed Differential Comment . Platelet Estimate Low L Platelet Morphology Normal Ovalocytes 1+ H Lab - Chemistry Results 03/14/18 19:31 Creatinine 1.40 H Estimated GFR 44 L Total Bilirubin 0.3 Direct Bilirubin 0.1 Indirect Bilirubin 0.2 AST 24 ALT 15 Alkaline Phosphatase 92 Total Protein 6.8 Albumin 2.7 L Imaging: ITS Impressions Elbow X-Ray 03/12/18 18:07 CONCLUSION: Extensive hardware in the distal humerus and proximal ulna. No fracture either bone or metal seen. There is 2 mm lucency along the bone/metal interface of the distal humerus; no prior films to assess whether this finding is new or old.. Soft Tissue Neck CT 03/14/18 00:00 CONCLUSION: 1. Diffusely and significantly enlarged thyroid gland bilaterally. This may correspond with the palpable lump. It contains innumerable nodules and calcifications. The appearance is of very similar to the prior MRI from one year ago. The enlarged thyroid gland has mass effect on the surrounding adjacent structures. 2. No other acute finding is identified. Physical Exam: HEENT: Head is atraumatic. Extraocular movements are grossly intact. Pupils reactive to light. No icterus. HEENT: The face is less swollen, swelling of the right lower eyelid Is improved. Pupils reactive to light. No icterus. No conjunctival erythema. Oropharynx: Moist mucosa. The patient is edentulous. No lesions. NECK: Swelling at both left and right side of the neck anteriorly. Supple. LUNGS: Clear to auscultation with decreased breath sounds. HEART: Regular S1, S2, without murmurs, rubs or gallops. ABDOMEN: Bowel sounds present. Soft. EXTREMITIES: No clubbing or cyanosis. The left elbow has a superficial ulceration at the volar aspect is no dry and scabbed over. Swelling is markedly improved. The remaining extremities have no clubbing, cyanosis or edema. SKIN: Dry lesions at the cheeks bilateral. Nonerythematous maculopapular rash at the groove of the groin. Few scattered coin skin lesions at the back. NEUROLOGIC: No gross focal findings. PSYCHIATRIC: Calm and cooperative. Assessment and Plan - Plan Impression Facial rash, cellulitis, now crusted - improving Goiter Neutropenia, better Eosinophilia, better Renal insufficiency Elbow looks good, no cellulitis seen, and has good ROM Recommendation Continue IV Unasyn Consult endocrinology to evaluate the goiter further. Diflucan for possible candidal skin rash. Follow CBC Monitor progress Discussed with RN. Discussed with hola
[2018-03-16] MEDS: Fluconazole 100 MG Tablet PO SCH (13:14)
[2018-03-16] MEDS: Heparin - SQ 10,000 UNITS/ML Vial SQ SCH ×2 (13:14→23:11)
[2018-03-16] MEDS: predniSONE 5 MG Tablet PO SCH (15:01)
[2018-03-16] MEDS: Nystatin 100,000 UNITS/GM Powder 15 GM Bottle TOPICAL SCH ×3 (17:51→20:48)
[2018-03-17] MEDS: Ampicillin/Sulbactam Inj 1,500 MG in Sodium Chloride 0.9% Inj 100 ML IV.SIG SCH ×2 (04:41→09:52)
[2018-03-17] MEDS: traZODone 50 MG Tablet PO SCH (09:34)
[2018-03-17] MEDS: Sucralfate 1 GM Tablet PO SCH ×2 (09:34→21:53)
[2018-03-17] MEDS: Senna/Docusate Sodium 8.6/50 MG Tablet PO SCH ×2 (09:34→21:29)
[2018-03-17] MEDS: Pregabalin 25 MG Capsule PO SCH (09:34)
[2018-03-17] MEDS: Potassium Chloride 10 MEQ ER Capsule PO SCH (09:34)
[2018-03-17] MEDS: amLODIPine 5 MG Tablet PO SCH (09:35)
[2018-03-17] MEDS: Citalopram 20 MG Tablet PO SCH (09:35)
[2018-03-17] MEDS: Nystatin 100,000 UNITS/GM Powder 15 GM Bottle TOPICAL SCH ×2 (09:35→21:53)
[2018-03-17] MEDS: Fluconazole 100 MG Tablet PO SCH (09:41)
[2018-03-17] MEDS: Nystatin/Diphenhydramine/Lidocaine Mouthwash (Adult) 120 ML Botttle SWISH-SWAL SCH ×4 (09:46→21:28)
[2018-03-17] MEDS: Furosemide 20 MG Tablet PO SCH (09:46)
--- NOTE | 2018-03-17 11:30 | P.PN ---
Subjective Interval history: This is a pleasant 82 y/o Female with CHF, COPD, depression, hypothyroidism, hypertension, hyperlipidemia and coronary artery disease presents to the emergency department for evaluation of a erythematous, blistering rash. The patient does have hardware in her right elbow from a broken arm approximately 20 years ago. X-ray of the elbow shows a 2 mm lucency along the bone/metal interface of the distal humerus. Seen in her bedroom and has facial Rash, Cellulitis, now crusted, seen by ID specialist recommended for IV Unasyn, and stopped Zosyn, CT neck to evaluate the tender nodules on right of the neck, follow CBC, Check LFTs. 03/15: Stable in her bedroom but states she is not feeling well, developed some epigastric pain and dyspepsia suspected Acute Gastritis will give PPIs. continue antibiotics as per ID specialist. 03/16: Seen in her bedroom discussed with nurse and patient, showed me her Panus area no lesions seen has wet area and may need Nystatin powder, as per patient she is limited for activity already at home, no sings of CHF exacerbation, or COPD exacerbation, but states she has some dysphagia has goiter discussed with ID specialist Doctor Aliza and he consulted living specialist. 03/17: There's no Endocrinology coverage for this facility awaiting for ENT evaluation. seen by ID specialist recommended to change Unasyn to Ceftriaxone, Diflucan for possible candidal skin rash, titrated Prednisone and following BORA. no nausea, vomit or diarrhea. Physical Exam Vital signs: Vital Signs 03/16/18 12:00 03/16/18 16:00 03/16/18 20:00 Temperature 97.7 F 97.6 F 97.2 F L Pulse Rate 56 L 47 L 55 L Respiratory Rate 17 17 20 Blood Pressure 129/58 L 99/54 L 123/53 L Pulse Oximetry 97 97 99 03/17/18 00:00 03/17/18 04:00 03/17/18 05:23 Temperature 97.2 F L 97.2 F L Pulse Rate 50 L 49 L 51 L Respiratory Rate 20 18 Blood Pressure 146/65 H 159/66 H Pulse Oximetry 98 99 97 03/17/18 07:53 Temperature 97.9 F Pulse Rate 50 L Respiratory Rate 17 Blood Pressure 134/65 Pulse Oximetry 98 Intake & Output 03/16/18 03/17/18 03/17/18 18:59 06:59 18:59 Intake Total 1080 / 1080 320 / 320 Output Total 700 / 700 Balance 1080 / 1080 -380 / -380 Weight 82.7 kg Intake: IV 200 / 200 200 / 200 Unasyn Inj 1,500 MG In NS Inj 200 / 200 200 / 200 100 ML @ 200 mls/hr IV.SIG Q6H GER Rx#:[id number] Oral 880 / 880 120 / 120 Output: Urine 700 / 700 Other: # Voids 3 3 Narrative: GENERAL: Well-developed, Obesity. SKIN: Warm and dry. Facial crusted plaques, worse at the right cheek/jaw/neck and left frontotemporal forehead. HEENT: Normocephalic. Atraumatic. Right periorbital erythema/edema. palpable thyroid gland CARDIOVASCULAR: Regular rate and rhythm. No murmur appreciated. RESPIRATORY: No accessory muscle use. Clear to auscultation. Breath sounds equal bilaterally. GASTROINTESTINAL: Abdomen soft, epigastric pain on palpation. wet area on folding areas but no active lesions. MUSCULOSKELETAL: Extremities without clubbing, cyanosis, or edema. NEUROLOGICAL: Awake and alert. no focal deficits. Results - Labs CBC & Chem 7: 03/14/18 19:31 03/14/18 19:31 Microbiology 03/12/18 18:30 Blood - Line Aerobic Blood Culture - Final No growth in 5 days 03/12/18 18:30 Blood - Line Anaerobic Blood Culture - Final No growth in 5 days 03/12/18 18:36 Blood - Line Aerobic Blood Culture - Final No growth in 5 days 03/12/18 18:36 Blood - Line Anaerobic Blood Culture - Final No growth in 5 days Assessment and Plan - Plan 82-year-old female with a past medical history significant for CHF, COPD, depression, hypothyroidism, hypertension, hyperlipidemia and coronary artery disease presents to the emergency department for evaluation of a erythematous, blistering rash. Acute facial cellulitis: Diffuse throughout right side of the face and left frontotemporal area. Has overlying honey crusted plaques, consider impetigo? Afebrile, no leukocytosis, lactic acid 1.1. -Wound culture collected growing Staph Aureus. -Seen by ID specialist, recommended to stop Zosyn and started on Unasyn. CT neck has diffusely and significant enlargement of thyroid gland bilaterally. innumerable nodules and calcifications mass effect on the surrounding adjacent structures. -Consulted orthopedics, seen by Dr. New, recommended antibiotics and observation, no surgical intervention at the moment - today discontinued Unasyn and started on Ceftriaxone. Diflucan for Candidal skin rash. CAD/CHF/HTN/HLD: chronic, stable -Continue patient's aspirin, plavix, statin, vasotec, lasix -Better control toay. COPD: chronic, Non exacerbated. -continue patient's Breo, albuterol, prednisone to 10 mg BID. Depression: chronic -Continue patient's celexa, trazodone, lyrica Hypothyroidism: chronic -Continue home meds, has Dysphagia probable secondary to Goiter no living specialist in this facility. consulted ENT to evaluate for probable surgical procedure if needed. GERD: chronic -continue patient's PPI Obesity strongly recommended diet and exercise as outpatient. PT and OT recommended OT and PT at rehab. DVT Prophylaxis: Heparin Code Status: Full code. Discussed Condition With: Patient and nurse. Discharge Planning: Once cleared by ID specialist.
--- NOTE | 2018-03-17 13:31 | P.PNID ---
Subjective Remarks: Patient continues to complain of pain in her throat and neck. Noted to have skin lesion at the groin on both sides. Notes itching. The lesions of the face has dried up. No fever or chills. Eosinophil count normalized. Very little right elbow pain. The swelling of the right elbow has improved. This is an 82-year-old black female who presented to the emergency department on 03/12/2018 with skin changes including rash on the face and swelling of the face and also pain and swelling of the right elbow. The patient states that began about 7-10 days ago when she developed a small area of itching at the anterior forehead and it then showed up on the right side of the face on the right cheek and she was scratching it, and then moved to the left side of the face at the left cheek, and also chest, her elbow also began to be painful and swollen. Patient's nephew notes that this rash began about 3 days after she was discharged from [facility]. Antibiotics: Unasyn Lines: PIV ok Past Medical History: 1. Congestive heart failure, chronic obstructive pulmonary disease. 2. Hypertension. 3. Depression. 4. Chronic pain. 5. Goiter. 6. Urinary retention. 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 Allergies/Adverse Reactions: Allergies No Known Allergies Allergy (Verified 02/17/18 12:34) Objective Vital Signs 03/16/18 16:00 03/16/18 20:00 03/17/18 00:00 Temperature 97.6 F 97.2 F L 97.2 F L Pulse Rate 47 L 55 L 50 L Respiratory Rate 17 20 20 Blood Pressure 99/54 L 123/53 L 146/65 H Pulse Oximetry 97 99 98 03/17/18 04:00 03/17/18 05:23 03/17/18 07:53 Temperature 97.2 F L 97.9 F Pulse Rate 49 L 51 L 50 L Respiratory Rate 18 17 Blood Pressure 159/66 H 134/65 Pulse Oximetry 99 97 98 Intake & Output 03/16/18 03/17/18 03/17/18 18:59 06:59 18:59 Intake Total 1080 / 1079 320 / 320 Output Total 700 / 700 Balance 1080 / 1080 -380 / -380 Weight 82.7 kg Intake: IV 200 / 200 200 / 200 Unasyn Inj 1,500 MG In NS Inj 200 / 200 200 / 200 100 ML @ 200 mls/hr IV.SIG Q6H GER Rx#:[id number] Oral 880 / 880 120 / 120 Output: Urine 700 / 700 Other: # Voids 3 3 03/12/18 18:30 Blood - Line Aerobic Blood Culture - Final No growth in 5 days 03/12/18 18:30 Blood - Line Anaerobic Blood Culture - Final No growth in 5 days 03/12/18 18:36 Blood - Line Aerobic Blood Culture - Final No growth in 5 days 03/12/18 18:36 Blood - Line Anaerobic Blood Culture - Final No growth in 5 days 03/12/18 22:15 Wound - Elbow Gram Stain - Final 03/12/18 22:15 Wound - Elbow Wound Culture - Final Staphylococcus aureus 03/12/18 19:54 Wound - Face Gram Stain - Final 03/12/18 19:54 Wound - Face Wound Culture - Final Heavy growth normal skin gisell No anaerobes isolated Imaging: ITS Impressions Elbow X-Ray 03/12/18 18:07 CONCLUSION: Extensive hardware in the distal humerus and proximal ulna. No fracture either bone or metal seen. There is 2 mm lucency along the bone/metal interface of the distal humerus; no prior films to assess whether this finding is new or old.. Soft Tissue Neck CT 03/14/18 00:00 CONCLUSION: 1. Diffusely and significantly enlarged thyroid gland bilaterally. This may correspond with the palpable lump. It contains innumerable nodules and calcifications. The appearance is of very similar to the prior MRI from one year ago. The enlarged thyroid gland has mass effect on the surrounding adjacent structures. 2. No other acute finding is identified. Physical Exam: HEENT: Head is atraumatic. Extraocular movements are grossly intact. Pupils reactive to light. No icterus. HEENT: The face is less swollen, swelling of the right lower eyelid Is improved. Pupils reactive to light. No icterus. No conjunctival erythema. Oropharynx: Moist mucosa. The patient is edentulous. No lesions. NECK: Swelling at both left and right side of the neck anteriorly. Supple. LUNGS: Clear to auscultation with decreased breath sounds. HEART: Regular S1, S2, without murmurs, rubs or gallops. ABDOMEN: Bowel sounds present. Soft. EXTREMITIES: No clubbing or cyanosis. The left elbow has a superficial ulceration at the volar aspect is no dry and scabbed over. Swelling resolved. The remaining extremities have no clubbing, cyanosis or edema. SKIN: Dry lesions at the cheeks bilateral. hyperpigmented maculopapular rash at the groove of the groin. Few scattered coin skin lesions at the back. NEUROLOGIC: No gross focal findings. PSYCHIATRIC: Calm and cooperative. Assessment and Plan - Plan Impression Facial rash, cellulitis, now crusted - improving Dermatitis. involving skin folds and face. Goiter Neutropenia, better Eosinophilia, better Renal insufficiency Elbow looks good, no cellulitis seen, and has good ROM Recommendation Change Unasyn to Ceftriaxone. ENT to evaluate the goiter. Diflucan for possible candidal skin rash. Add Lotrisone cream to skin. Increase the prednisone to 10mg BID Follow BORA. Stop Carafate - latest medication. ? drug rash.
[2018-03-17] MEDS: Heparin - SQ 10,000 UNITS/ML Vial SQ SCH (15:39)
[2018-03-17] MEDS: Acetaminophen 325 MG Tablet PO PRN (18:29)
[2018-03-17] MEDS: predniSONE 10 MG Tablet PO SCH (21:28)
[2018-03-17] MEDS: predniSONE 5 MG Tablet PO SCH (21:53)
[2018-03-18] MEDS: Heparin - SQ 10,000 UNITS/ML Vial SQ SCH ×2 (00:33→13:11)
[2018-03-18] MEDS: Potassium Chloride 10 MEQ ER Capsule PO SCH (08:30)
[2018-03-18] MEDS: Pregabalin 25 MG Capsule PO SCH (08:30)
[2018-03-18] MEDS: traZODone 50 MG Tablet PO SCH (08:31)
[2018-03-18] MEDS: predniSONE 10 MG Tablet PO SCH ×2 (08:31→20:31)
[2018-03-18] MEDS: amLODIPine 5 MG Tablet PO SCH (08:31)
[2018-03-18] MEDS: Citalopram 20 MG Tablet PO SCH (08:31)
[2018-03-18] MEDS: Acetaminophen 325 MG Tablet PO PRN (08:40)
[2018-03-18] MEDS: Senna/Docusate Sodium 8.6/50 MG Tablet PO SCH ×2 (09:30→20:31)
[2018-03-18] MEDS: Fluconazole 100 MG Tablet PO SCH (09:30)
[2018-03-18] MEDS: Furosemide 20 MG Tablet PO SCH (09:30)
--- NOTE | 2018-03-18 12:47 | P.PNID ---
Subjective Remarks: Patient complaining of pain in the midepigastric area. Says it feels like a knot and feels tight at the mid chest. Makes it difficult to breathe. Also makes it difficult to swallow. The lesions of the face has dried up. Reports numbness and tingling of the hands and feet. Also notes dry mouth. No fever or chills. Eosinophil count normalized. Very little right elbow pain. The swelling of the right elbow has improved. This is an 82-year-old black female who presented to the emergency department on 03/12/2018 with skin changes including rash on the face and swelling of the face and also pain and swelling of the right elbow. The patient states that began about 7-10 days ago when she developed a small area of itching at the anterior forehead and it then showed up on the right side of the face on the right cheek and she was scratching it, and then moved to the left side of the face at the left cheek, and also chest, her elbow also began to be painful and swollen. Patient's nephew notes that this rash began about 3 days after she was discharged from [facility]. Antibiotics: Ceftriaxone Lines: PIV ok Past Medical History: 1. Congestive heart failure, chronic obstructive pulmonary disease. 2. Hypertension. 3. Depression. 4. Chronic pain. 5. Goiter. 6. Urinary retention. 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 Allergies/Adverse Reactions: Allergies No Known Allergies Allergy (Verified 02/17/18 12:34) Objective Vital Signs 03/17/18 16:00 03/17/18 20:00 03/18/18 00:00 Temperature 97.7 F 97.5 F L 97.2 F L Pulse Rate 53 L 46 L 48 L Respiratory Rate 17 18 18 Blood Pressure 98/56 L 107/55 L 126/59 L Pulse Oximetry 94 L 100 96 03/18/18 04:00 03/18/18 08:00 03/18/18 12:00 Temperature 98.1 F 97.9 F 97.7 F Pulse Rate 48 L 51 L 50 L Respiratory Rate 18 18 18 Blood Pressure 130/59 L 133/60 129/57 L Pulse Oximetry 97 98 97 Intake & Output 03/17/18 03/18/18 03/18/18 18:59 06:59 18:59 Intake Total 1000 / 1000 200 / 200 Output Total 1000 / 1000 1000 / 1000 Balance 0 / 0 -800 / -800 Weight 83.6 kg Intake: IV 200 / 200 Unasyn Inj 1,500 MG In NS Inj 100 / 100 100 ML @ 200 mls/hr IV.SIG Q6H GER Rx#:[id number] Rocephin Inj 2,000 MG In NS Inj 100 / 100 100 ML @ 200 mls/hr IV.SIG Q24H GER Rx#:[id number] Oral 1000 / 1000 Output: Urine 1000 / 1000 1000 / 1000 Other: Date of Last Bowel Movement 03/17/18 # Bowel Movements 2 03/12/18 18:30 Blood - Line Aerobic Blood Culture - Final No growth in 5 days 03/12/18 18:30 Blood - Line Anaerobic Blood Culture - Final No growth in 5 days 03/12/18 18:36 Blood - Line Aerobic Blood Culture - Final No growth in 5 days 03/12/18 18:36 Blood - Line Anaerobic Blood Culture - Final No growth in 5 days Imaging: ITS Impressions Elbow X-Ray 03/12/18 18:07 CONCLUSION: Extensive hardware in the distal humerus and proximal ulna. No fracture either bone or metal seen. There is 2 mm lucency along the bone/metal interface of the distal humerus; no prior films to assess whether this finding is new or old.. Soft Tissue Neck CT 03/14/18 00:00 CONCLUSION: 1. Diffusely and significantly enlarged thyroid gland bilaterally. This may correspond with the palpable lump. It contains innumerable nodules and calcifications. The appearance is of very similar to the prior MRI from one year ago. The enlarged thyroid gland has mass effect on the surrounding adjacent structures. 2. No other acute finding is identified. Physical Exam: HEENT: Head is atraumatic. Extraocular movements are grossly intact. Pupils reactive to light. No icterus. HEENT: The face is less swollen. Pupils reactive to light. No icterus. No conjunctival erythema. Oropharynx: Moist mucosa. The patient is edentulous. No lesions. NECK: Swelling at both left and right side of the neck anteriorly. Supple. LUNGS: Clear to auscultation. Decreased breath sounds. HEART: Regular S1, S2, without murmurs, rubs or gallops. CHEST: Tenderness at the mid epigastrium. ABDOMEN: Bowel sounds present. Soft. EXTREMITIES: No clubbing or cyanosis. The left elbow has a superficial ulceration at the volar aspect is no dry and scabbed over. Swelling resolved. The remaining extremities have no clubbing, cyanosis or edema. SKIN: Dry lesions at the cheeks bilateral. hyperpigmented maculopapular rash at the groove of the groin. Few scattered coin skin lesions at the back. NEUROLOGIC: No gross focal findings. PSYCHIATRIC: Calm and cooperative. Assessment and Plan - Plan Impression Facial rash, cellulitis, now crusted - improving Dermatitis. involving skin folds and face. ? unclassified connective tissue disease. Goiter Neutropenia, better Eosinophilia, better Renal insufficiency Elbow looks good, no cellulitis seen, and has good ROM Recommendation Continue Ceftriaxone. Barium swallow eval. ordered. evaluate GI cause of pain/knot at midepigastrium. ENT to evaluate the goiter. Diflucan for possible candidal skin rash. Continue Lotrisone cream to skin. Continue Prednisone to 10mg BID Follow BORA. Stop Carafate - latest medication. ? drug rash.
--- NOTE | 2018-03-18 14:39 | P.PN ---
Subjective Interval history: This is a pleasant 82 y/o Female with CHF, COPD, depression, hypothyroidism, hypertension, hyperlipidemia and coronary artery disease presents to the emergency department for evaluation of a erythematous, blistering rash. The patient does have hardware in her right elbow from a broken arm approximately 20 years ago. X-ray of the elbow shows a 2 mm lucency along the bone/metal interface of the distal humerus. Seen in her bedroom and has facial Rash, Cellulitis, now crusted, seen by ID specialist recommended for IV Unasyn, and stopped Zosyn, CT neck to evaluate the tender nodules on right of the neck, follow CBC, Check LFTs. 03/15: Stable in her bedroom but states she is not feeling well, developed some epigastric pain and dyspepsia suspected Acute Gastritis will give PPIs. continue antibiotics as per ID specialist. 03/16: Seen in her bedroom discussed with nurse and patient, showed me her Panus area no lesions seen has wet area and may need Nystatin powder, as per patient she is limited for activity already at home, no sings of CHF exacerbation, or COPD exacerbation, but states she has some dysphagia has goiter discussed with ID specialist Doctor Abrams and he consulted unattended ground sensor specialist. 03/17: There's no Endocrinology coverage for this facility awaiting for ENT evaluation. seen by ID specialist recommended to change Unasyn to Ceftriaxone, Diflucan for possible candidal skin rash, titrated Prednisone and following BORA. 03/18: Stable now with her Facial rash and Cellulitis now crusted and improving, discussed with ID specialist recommended to get a Barium Swallow, Discussed with ENT Doctor Josef who states he evaluated his CT and looks stable from the last two years, not for his Specialty at this time , asked to get unattended ground sensor specialist, this facility hasn't got Endocrinology, Doctor Abrams asked me to get Doctor Alexx General hazardous material specialist he perform this kind of Surgery and will give as light about this case. for now continue Ceftriaxone. complaint in am of epigastric discomfort. no changes on ECG, and Cardiac enzymes within normal limits. Physical Exam Vital signs: Vital Signs 03/17/18 16:00 03/17/18 20:00 03/18/18 00:00 Temperature 97.7 F 97.5 F L 97.2 F L Pulse Rate 53 L 46 L 48 L Respiratory Rate 17 18 18 Blood Pressure 98/56 L 107/55 L 126/59 L Pulse Oximetry 94 L 100 96 03/18/18 04:00 03/18/18 08:00 03/18/18 12:00 Temperature 98.1 F 97.9 F 97.7 F Pulse Rate 48 L 51 L 50 L Respiratory Rate 18 18 18 Blood Pressure 130/59 L 133/60 129/57 L Pulse Oximetry 97 98 97 Intake & Output 03/17/18 03/18/18 03/18/18 18:59 06:59 18:59 Intake Total 1000 / 1000 200 / 200 Output Total 1000 / 1000 1000 / 1000 Balance 0 / 0 -800 / -800 Weight 83.6 kg Intake: IV 200 / 200 Unasyn Inj 1,500 MG In NS Inj 100 / 100 100 ML @ 200 mls/hr IV.SIG Q6H GER Rx#:[id number] Rocephin Inj 2,000 MG In NS Inj 100 / 100 100 ML @ 200 mls/hr IV.SIG Q24H GER Rx#:[id number] Oral 1000 / 1000 Output: Urine 1000 / 1000 1000 / 1000 Other: Date of Last Bowel Movement 03/17/18 # Bowel Movements 2 Narrative: GENERAL: Well-developed, Obesity. SKIN: Warm and dry. Facial crusted plaques, worse at the right cheek/jaw/neck and left frontotemporal forehead. HEENT: Normocephalic. Atraumatic. Right periorbital erythema/edema. palpable thyroid gland CARDIOVASCULAR: Regular rate and rhythm. No murmur appreciated. RESPIRATORY: No accessory muscle use. Clear to auscultation. Breath sounds equal bilaterally. GASTROINTESTINAL: Abdomen soft, epigastric pain on palpation. wet area on folding areas but no active lesions. MUSCULOSKELETAL: Extremities without clubbing, cyanosis, or edema. NEUROLOGICAL: Awake and alert. no focal deficits. Results - Labs CBC & Chem 7: 03/14/18 19:31 03/14/18 19:31 Laboratory Results - last 24 hr 03/18/18 03/18/18 12:51 12:51 Total Creatine Kinase 43 Troponin I Less than 0.02 L Microbiology 03/12/18 18:30 Blood - Line Aerobic Blood Culture - Final No growth in 5 days 03/12/18 18:30 Blood - Line Anaerobic Blood Culture - Final No growth in 5 days 03/12/18 18:36 Blood - Line Aerobic Blood Culture - Final No growth in 5 days 03/12/18 18:36 Blood - Line Anaerobic Blood Culture - Final No growth in 5 days Assessment and Plan - Plan 82-year-old female with a past medical history significant for CHF, COPD, depression, hypothyroidism, hypertension, hyperlipidemia and coronary artery disease presents to the emergency department for evaluation of a erythematous, blistering rash. Acute facial cellulitis: Diffuse throughout right side of the face and left frontotemporal area. Has overlying honey crusted plaques, consider impetigo? Afebrile, no leukocytosis, lactic acid 1.1. -Wound culture collected growing Staph Aureus. -Seen by ID specialist, recommended to stop Zosyn and started on Unasyn. CT neck has diffusely and significant enlargement of thyroid gland bilaterally. innumerable nodules and calcifications mass effect on the surrounding adjacent structures. -Consulted orthopedics, seen by Dr. New, recommended antibiotics and observation, no surgical intervention at the moment - today discontinued Unasyn and started on Ceftriaxone. Diflucan for Candidal skin rash. Facial rash and Cellulitis now crusted and improving, discussed with ID specialist recommended to get a Barium Swallow, Discussed with ENT Doctor Josef who states he evaluated his CT and looks stable from the last two years, not for his Specialty at this time, asked to get unattended ground sensor specialist, this facility hasn't got Endocrinology, Doctor Abrams asked me to get Doctor Alexx General hazardous material specialist he perform this kind of Surgery and will give as light about this case. for now continue Ceftriaxone. CAD/CHF/HTN/HLD: chronic, stable -Continue patient's aspirin, plavix, statin, vasotec, lasix -compliant of Epigastric pain and was recommended for Barium swallow, to rule out Cardiac pathology was performed Cardiac enzymes negative and ECG no changes. COPD: chronic, Non exacerbated. -continue patient's Breo, albuterol, prednisone to 10 mg BID. Depression: chronic -Continue patient's celexa, trazodone, lyrica Hypothyroidism: chronic -Continue home meds, Dysphagia probable secondary to Goiter, discussed with Doctor Bahena ENT he states do not plan to perform surgery to ask for Endocrinology -No Endocrinology in this facility -Discussed with Doctor Charli Abrams and asked for General Surgery Doctor Alexx to evaluate the patient. GERD: chronic -continue patient's PPI Obesity strongly recommended diet and exercise as outpatient. PT and OT recommended OT and PT at rehab. DVT Prophylaxis: Heparin Code Status: Full Code. Discussed Condition With: Patient and Nurse, FAUSTINO. Discharge Planning: Once cleared by ID specialist.
--- NOTE | 2018-03-18 14:50 | FL ---
EXAM DATE: 03/18/2018 2:40 PM EDT AGE/SEX: 82 years / Female INDICATIONS: Evaluate for hiatal hernia. CLINICAL DATA: This is the patient's subsequent encounter. Patient reports that signs and symptoms h ave been present for 3 days and indicates a pain score of 0/10. MEDICAL/SURGICAL HISTORY: . Congestive heart failure. Chronic obstructive pulmonary disease. Hy pertension. Goiter None. COMPARISON: No prior exams available for comparison. FLUORO TIME: 1.2 IMAGE COUNT: 22 FINDINGS: Air-contrast views of the hypopharynx demonstrate a normal mucosal surface without filling defect. R apid sequence images of the hypopharynx and cervical esophagus during the passage of barium demonstra te a normal swallowing function. No evidence of aspiration. Multiphasic examination of the esophagu s demonstrates no esophageal fold thickening, ulceration, or filling defect. There are tertiary cont ractions noted throughout the examination. The gastroesophageal junction is normal in configuration w ithout evidence of hiatal hernia. CONCLUSION: Scattered tertiary contractions. No obvious hiatal hernia or fixed luminal narrowing. Electronically signed by: Guzman Blake MD 03/18/2018 2:49 PM EDT
[2018-03-18 15:09] LABS: Anti-Nuclear Antibody Screen Pos (Neg)
[2018-03-18] MEDS: Nystatin/Diphenhydramine/Lidocaine Mouthwash (Adult) 120 ML Botttle SWISH-SWAL SCH ×2 (17:55→20:32)
--- NOTE | 2018-03-18 21:01 | ECG ---
Date Performed: 03/18/2018 Time Performed: 11:57:03 PTAGE: 82 years EKG: SINUS BRADYCARDIA POSSIBLE ANTERIOR MYOCARDIAL INFARCTION , OF INDETERMINATE AGE INFERIOR M YOCARDIAL INFARCTION , PROBABLY OLD ABNORMAL ECG PREVIOUS TRACING : 02/17/2018 12.28 Since the previous tracing, no significant change noted DOCTOR: Murphy Washington Interpretating Date/Time 03/18/2018 20:59:48
[2018-03-19] MEDS: Heparin - SQ 10,000 UNITS/ML Vial SQ SCH ×3 (00:38→22:08)
[2018-03-19] MEDS: Acetaminophen 325 MG Tablet PO PRN ×2 (02:00→17:37)
[2018-03-19] MEDS: Pregabalin 25 MG Capsule PO SCH (08:40)
[2018-03-19] MEDS: Potassium Chloride 10 MEQ ER Capsule PO SCH (08:41)
[2018-03-19] MEDS: Citalopram 20 MG Tablet PO SCH (08:41)
[2018-03-19] MEDS: predniSONE 10 MG Tablet PO SCH ×2 (08:41→20:32)
[2018-03-19] MEDS: traZODone 50 MG Tablet PO SCH (08:41)
[2018-03-19] MEDS: Fluconazole 100 MG Tablet PO SCH (08:41)
[2018-03-19] MEDS: Furosemide 20 MG Tablet PO SCH (08:41)
[2018-03-19] MEDS: amLODIPine 5 MG Tablet PO SCH (08:41)
[2018-03-19] MEDS: Senna/Docusate Sodium 8.6/50 MG Tablet PO SCH ×2 (08:42→20:32)
[2018-03-19] MEDS: Nystatin/Diphenhydramine/Lidocaine Mouthwash (Adult) 120 ML Botttle SWISH-SWAL SCH ×4 (08:42→20:35)
--- NOTE | 2018-03-19 12:12 | MB ---
cc: Hardik Bahena MD DATE: 03/19/2018 CHIEF COMPLAINT: Multinodular goiter. HISTORY OF PRESENT ILLNESS: The patient is a pleasant 82-year-old female with many medical problems to include chronic heart failure, COPD, depression, hypothyroidism, hypertension, hyperlipidemia, and coronary artery disease. She was admitted for a blistering rash including facial rash and cellulitis, and the patient notes it has spread to her body. This has been addressed by infectious disease. CAT scan of the neck showed a huge multinodular goiter, right much larger than left. The airway appeared to be open on the CAT scan and the CAT scan report noted that the thyroid appeared relatively unchanged from an MRI a year ago. The patient does note that she does have some dysphagia and she is not sure if her breathing concerns are with her COPD or her large multinodular goiter. PHYSICAL EXAMINATION: On examination, the patient has an obviously very large multinodular goiter, right side, extremely elevated especially even from lateral view. Under flexible fiberoptic laryngoscopy, the vocal cords do appear to be mobile and the airway is patent. DIAGNOSTIC DATA: However, a CT assessment with large multinodular goiter with active body of diffuse skin infection. ASSESSMENT AND PLAN: The patient is currently stable from a multinodular goiter; however, this needs to be addressed as per the size of it. This will likely need a combination of therapy and possibly endocrinology to help maximize her thyroid function and hopefully slightly decrease the nodule, and also it will likely need to be removed at some point in the near future. This will be after the infection will be completely resolved, as it currently has. Because of the size of the thyroid, I recommended it being removed at an academic institute. However, I just heard that general surgery was consulted to evaluate the thyroid as well. The General Surgeon they consulted certainly has the expertise, if anyone does, in the local [facility] region to address this. Either way, her overall infections are likely be cleared prior to any possible surgical management. Hardik Bahena MD PCC/pw/ll , 07:07 AM , 07:15 AM [facility]
--- NOTE | 2018-03-19 12:13 | P.PN ---
Subjective Interval history: This is a pleasant 82 y/o Female with CHF, COPD, depression, hypothyroidism, hypertension, hyperlipidemia and coronary artery disease presents to the emergency department for evaluation of a erythematous, blistering rash. The patient does have hardware in her right elbow from a broken arm approximately 20 years ago. X-ray of the elbow shows a 2 mm lucency along the bone/metal interface of the distal humerus. Seen in her bedroom and has facial Rash, Cellulitis, now crusted, seen by ID specialist recommended for IV Unasyn, and stopped Zosyn, CT neck to evaluate the tender nodules on right of the neck, follow CBC, Check LFTs. 03/15: Stable in her bedroom but states she is not feeling well, developed some epigastric pain and dyspepsia suspected Acute Gastritis will give PPIs. continue antibiotics as per ID specialist. 03/16: Seen in her bedroom discussed with nurse and patient, showed me her Panus area no lesions seen has wet area and may need Nystatin powder, as per patient she is limited for activity already at home, no sings of CHF exacerbation, or COPD exacerbation, but states she has some dysphagia has goiter discussed with ID specialist Doctor Abrams and he consulted research quality assurance specialist. 03/17: There's no Endocrinology coverage for this facility awaiting for ENT evaluation. seen by ID specialist recommended to change Unasyn to Ceftriaxone, Diflucan for possible candidal skin rash, titrated Prednisone and following BORA. 03/18: Stable now with her Facial rash and Cellulitis now crusted and improving, discussed with ID specialist recommended to get a Barium Swallow, Discussed with ENT Doctor Josef who states he evaluated his CT and looks stable from the last two years, not for his Specialty at this time , asked to get research quality assurance specialist, this facility hasn't got Endocrinology, Doctor Abrams asked me to get Doctor Alexx General child development specialist he perform this kind of Surgery and will give as light about this case. for now continue Ceftriaxone. complaint in am of epigastric discomfort. no changes on ECG, and Cardiac enzymes within normal limits. 03/19: Patient stable seen in her bedroom, cleared her facial cellulitis and crusted areas, seen by ENT recommended for Endocrinology as outpatient, will follow recommendation by General surgery as recommended by Doctor Abrams if no procedure to be performed patient will be discharge once cleared by ID specialist. no nausea, vomit or diarrhea. Physical Exam Vital signs: Vital Signs 03/18/18 12:00 03/18/18 16:00 03/18/18 20:00 Temperature 97.7 F 97.8 F 97.3 F L Pulse Rate 50 L 58 L 58 L Respiratory Rate 18 18 16 Blood Pressure 129/57 L 138/64 117/70 Pulse Oximetry 97 93 L 97 03/19/18 00:00 03/19/18 04:00 Temperature 97.7 F 97.6 F Pulse Rate 55 L 55 L Respiratory Rate 16 16 Blood Pressure 169/75 H 132/55 L Pulse Oximetry 96 98 Intake & Output 03/18/18 03/19/18 03/19/18 18:59 06:59 18:59 Intake Total 1000 / 1000 100 / 100 Output Total 1000 / 1000 1999 Balance 0 / 0 -1900 / -1900 Weight 83.8 kg Intake: IV 100 / 100 Rocephin Inj 2,000 MG In NS Inj 100 / 100 100 ML @ 200 mls/hr IV.SIG Q24H [facility] Rx#:[id number] Oral 1000 / 1000 Output: Urine 1000 / 1000 1999 Narrative: GENERAL: Well-developed, Obesity. SKIN: Warm and dry. Facial crusted plaques, worse at the right cheek/jaw/neck and left frontotemporal forehead. HEENT: Normocephalic. Atraumatic. thyroid gland palpable with nodular areas on bilateral lobes. CARDIOVASCULAR: Regular rate and rhythm. No murmur appreciated. RESPIRATORY: No accessory muscle use. Clear to auscultation. Breath sounds equal bilaterally. GASTROINTESTINAL: Abdomen soft, non tender. MUSCULOSKELETAL: Extremities without clubbing, cyanosis, or edema. NEUROLOGICAL: Awake and alert. no focal deficits. Results - Labs CBC & Chem 7: 03/14/18 19:31 03/14/18 19:31 Laboratory Results - last 24 hr 03/16/18 03/18/18 03/18/18 12:30 12:51 12:51 Total Creatine Kinase 43 Troponin I Less than 0.02 L BORA Screen Pos H - Imaging Impressions Barium Swallow X-Ray 03/18/18 00:00 CONCLUSION: Scattered tertiary contractions. No obvious hiatal hernia or fixed luminal narrowing. Assessment and Plan - Plan 82-year-old female with a past medical history significant for CHF, COPD, depression, hypothyroidism, hypertension, hyperlipidemia and coronary artery disease presents to the emergency department for evaluation of a erythematous, blistering rash. Acute facial cellulitis: Diffuse throughout right side of the face and left frontotemporal area. Has overlying honey crusted plaques, consider impetigo? Afebrile, no leukocytosis, lactic acid 1.1. -Wound culture collected growing Staph Aureus. -Seen by ID specialist, stopped Zosyn and continued Unasyn, CT neck with diffusely and significant enlargement of thyroid gland bilaterally. innumerable nodules and calcification, mass effect on the surrounding adjacent structures. -Consulted orthopedics, seen by Dr. New, recommended antibiotics and observation, no surgical intervention at the moment -now on Ceftriaxone, Diflucan for Candidal skin rash, Barium Swallow performed by ID specialist due to Goiter and probable Mechanical obstruction, result Scattered tertiary contractions, no obvious hiatal hernia or fixed luminal narrowing. ENT recommended for Endocrinology as outpatient, awaiting for General Surgery as recommended by Doctor Abrams. BORA test Positive. CAD/CHF/HTN/HLD: chronic, stable -Continue patient's aspirin, plavix, statin, vasotec, lasix -compliant of Epigastric pain and was recommended for Barium swallow, to rule out Cardiac pathology was performed Cardiac enzymes negative and ECG no changes. COPD: chronic, Non exacerbated. -continue patient's Breo, albuterol, prednisone to 10 mg BID. Depression: chronic -Continue patient's celexa, trazodone, lyrica Hypothyroidism: chronic -Continue home meds, Dysphagia probable secondary to Goiter, discussed with Doctor Josef MONGE he states do not plan to perform surgery to ask for Endocrinology -No Endocrinology in this facility -Discussed with Doctor Charli Abrams and asked for General Surgery Doctor Alexx to evaluate the patient. GERD: chronic -continue patient's PPI Obesity strongly recommended diet and exercise as outpatient. PT and OT recommended OT and PT at rehab. Discussed with nurse and with Substance Abuse Prevention Coordinator clear to discharge from Medicine will follow recommendations by General Surgery and ID specialist DVT Prophylaxis: Heparin Code Status: Full code. Discussed Condition With: Patient and nurse Miss Wang Discharge Planning: Once cleared by ID specialist.
--- NOTE | 2018-03-19 13:01 | P.PNID ---
Subjective Remarks: Patient complaining tightness in the throat. Says i is making it difficult to swallow. The lesions of the face has dried up. Reports numbness and tingling of the hands and feet. Also notes dry mouth. No fever. Eosinophil count normalized. Very little right elbow pain. The swelling of the right elbow has improved. This is an 82-year-old black female who presented to the emergency department on 03/12/2018 with skin changes including rash on the face and swelling of the face and also pain and swelling of the right elbow. The patient states that began about 7-10 days ago when she developed a small area of itching at the anterior forehead and it then showed up on the right side of the face on the right cheek and she was scratching it, and then moved to the left side of the face at the left cheek, and also chest, her elbow also began to be painful and swollen. Patient's nephew notes that this rash began about 3 days after she was discharged from [facility]. Antibiotics: Ceftriaxone Diflucan Lines: PIV ok Past Medical History: 1. Congestive heart failure, chronic obstructive pulmonary disease. 2. Hypertension. 3. Depression. 4. Chronic pain. 5. Goiter. 6. Urinary retention. 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 Allergies/Adverse Reactions: Allergies No Known Allergies Allergy (Verified 02/17/18 12:34) Objective Vital Signs 03/18/18 16:00 03/18/18 20:00 03/19/18 00:00 Temperature 97.8 F 97.3 F L 97.7 F Pulse Rate 58 L 58 L 55 L Respiratory Rate 18 16 16 Blood Pressure 138/64 117/70 169/75 H Pulse Oximetry 93 L 97 96 03/19/18 04:00 03/19/18 08:00 03/19/18 12:00 Temperature 97.6 F 97.7 F 97.9 F Pulse Rate 55 L 52 L 48 L Respiratory Rate 16 18 18 Blood Pressure 132/55 L 180/70 H 144/66 H Pulse Oximetry 98 97 99 Intake & Output 03/18/18 03/19/18 03/19/18 18:59 06:59 18:59 Intake Total 1000 / 1000 100 / 100 Output Total 1000 / 1000 1999 / 1999 Balance 0 / 0 -1900 / -1900 Weight 83.8 kg Intake: IV 100 / 100 Rocephin Inj 2,000 MG In NS Inj 100 / 100 100 ML @ 200 mls/hr IV.SIG Q24H [facility] Rx#:[id number] Oral 1000 / 1000 Output: Urine 1000 / 1000 199903/12/18 18:30 Blood - Line Aerobic Blood Culture - Final No growth in 5 days 03/12/18 18:30 Blood - Line Anaerobic Blood Culture - Final No growth in 5 days 03/12/18 18:36 Blood - Line Aerobic Blood Culture - Final No growth in 5 days 03/12/18 18:36 Blood - Line Anaerobic Blood Culture - Final No growth in 5 days Lab - Chemistry Results 03/18/18 03/18/18 12:51 12:51 Total Creatine Kinase 43 Troponin I Less than 0.02 L Imaging: ITS Impressions Elbow X-Ray 03/12/18 18:07 CONCLUSION: Extensive hardware in the distal humerus and proximal ulna. No fracture either bone or metal seen. There is 2 mm lucency along the bone/metal interface of the distal humerus; no prior films to assess whether this finding is new or old.. Soft Tissue Neck CT 03/14/18 00:00 CONCLUSION: 1. Diffusely and significantly enlarged thyroid gland bilaterally. This may correspond with the palpable lump. It contains innumerable nodules and calcifications. The appearance is of very similar to the prior MRI from one year ago. The enlarged thyroid gland has mass effect on the surrounding adjacent structures. 2. No other acute finding is identified. Barium Swallow X-Ray 03/18/18 00:00 CONCLUSION: Scattered tertiary contractions. No obvious hiatal hernia or fixed luminal narrowing. Physical Exam: HEENT: Head is atraumatic. Extraocular movements are grossly intact. Pupils reactive to light. No icterus. HEENT: The face is less swollen. Pupils reactive to light. No icterus. No conjunctival erythema. Oropharynx: Moist mucosa. The patient is edentulous. No lesions. NECK: Swelling at both left and right side of the neck anteriorly. LUNGS: Clear to auscultation. Decreased breath sounds. HEART: Regular S1, S2, without murmurs, rubs or gallops. CHEST: Tenderness at the mid epigastrium. ABDOMEN: Bowel sounds present. Soft. EXTREMITIES: No clubbing or cyanosis. The left elbow has a superficial ulceration at the volar aspect is no dry and scabbed over. Swelling resolved. The remaining extremities have no clubbing, cyanosis or edema. SKIN: Face with less flakiness. Dry lesions at the cheeks bilateral. hyperpigmented maculopapular rash at the groove of the groin and breast folds. Few scattered coin skin lesions at the back and trunk. NEUROLOGIC: No gross focal findings. PSYCHIATRIC: Calm and cooperative. Assessment and Plan - Plan Impression Facial rash, cellulitis, now crusted - improving Dermatitis. involving skin folds and face. ? unclassified connective tissue disease. BORA pending. Goiter. Neutropenia, better Eosinophilia, better Renal insufficiency Elbow infection improved. Recommendation Continue Ceftriaxone. Diflucan for possible candidal skin rash. General surgery to evaluate the goiter per ENT recommendation. Also needs endocrinology evaluation. Hydrocortisone cream to skin. Continue Prednisone to 10mg BID Follow BORA. Stop Carafate - latest medication. ? drug rash.
--- NOTE | 2018-03-19 16:52 | P.CONGS ---
[facility] Consult Note Consult date: 03/19/18 Reason for consult: other (Goiter) Narrative: CONSULTATION NOTE FOR SURGICAL ATTENDING, DR. DALLAS COFFEY Patient was recently admitted to the hospital for a cellulitis of her face. She is presently on antibiotic therapy She has long-standing goiter that was apparently imaged about a year ago with an MRI recently scanned with a CT scan here in the hospital does not show any significant change of the large goiter. Surgery was consulted to consider surgical treatment. This is been long-standing I am not sure how long but at least over a year probably longer In inquiring with the patient about surgical options she feels she is too old to have any surgery Her present symptoms include difficulty swallowing that got progressively worse with this cellulitis of her face Review of Systems other (Patient is a poor historian) Constitutional: Reports lack of energy Eyes: Reports change in vision Ears, Nose, Mouth, and Throat: Reports abnormal hearing, Reports facial pain, Reports lip swelling, Reports sore throat, Reports other (Difficulty swallowing long-standing thyroid goiter greater than a year) Comments: Patient's had long-standing goiter Her swallowing difficulties got worse when she had this facial infection of some type This is getting a little better during her hospitalization She cannot tell me if she ever had a GI evaluation looking at her esophagus on an outpatient basis Cardiovascular: Reports shortness of breath Comments: Only can walk short distances before getting getting short of breath Psychiatric: Reports abnormal sleep pattern [facility] - History History 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 - Medical History Medical History: Medical History (Last Reviewed 03/19/18 @ 16:44 by Dallas Coffey MD) Anxiety CHF (congestive heart failure) COPD (chronic obstructive pulmonary disease) Chronic pain Depression Goiter Hypertension Urinary retention - Surgical History Surgical History: Surgical History (Last Reviewed 03/19/18 @ 16:44 by Dallas Coffey MD) H/O repair of rotator cuff History of appendectomy - Family History Family History: Family History (Last Reviewed 03/19/18 @ 16:44 by Dallas Coffey MD) Other Family history normal - Tobacco History Second Hand Smoke Exposure: No Tobacco Use In Past 30 Days: No Smoking Status: Former smoker Tobacco Type: Cigarettes - Alcohol History How Often Do You Have a Drink Containing Alcohol: Never - Substance Use History Substance History: No History of Abuse - Travel History Recent Travel in the [place] Within the Last 8 Weeks: No Recent Travel Out of the Country Within the Last 8 Weeks: No - Immunization History Tetanus Immunization: Unsure Medications and Allergies Active Medications: Active Medications Acetaminophen (Tylenol) 650 mg PO Q4H PRN PRN Reason: Temp > 100.4 Last Admin: 03/19/18 02:00 Dose: 650 mg Al Hydroxide/Mg Hydroxide (Milk Of [place] Liq) 30 ml PO Q12H PRN PRN Reason: Mild Constipation Albuterol (Ventolin Hfa Inh) 2 puff INH QID [facility] Last Admin: 03/19/18 10:00 Dose: 2 puff Amlodipine Besylate (Norvasc) 5 mg PO DAILY [facility] Last Admin: 03/19/18 08:41 Dose: 5 mg Aspirin (Aspirin Chew) 81 mg PO DAILY [facility] Last Admin: 03/19/18 08:41 Dose: 81 mg Atorvastatin Calcium (Lipitor) 40 mg PO HS [facility] Last Admin: 03/18/18 20:31 Dose: 40 mg Bisacodyl (Dulcolax Supp) 10 mg RECTAL DAILY PRN PRN Reason: SEVERE CONSITIPATION Citalopram Hydrobromide (Celexa) 20 mg PO DAILY [facility] Last Admin: 03/19/18 08:41 Dose: 20 mg Clonidine HCl (Catapres) 0.1 mg PO Q8HR [facility] Last Admin: 03/19/18 04:59 Dose: 0.1 mg Clopidogrel Bisulfate (Plavix) 75 mg PO DAILY [facility] Last Admin: 03/19/18 08:42 Dose: 75 mg Diphenhydramine HCl (Benadryl) 25 mg PO Q6H PRN PRN Reason: ITCHING AND/OR RASH Enalapril Maleate (Vasotec) 10 mg PO DAILY [facility] Last Admin: 03/19/18 08:41 Dose: 10 mg Fluconazole (Diflucan) 100 mg PO DAILY [facility] Last Admin: 03/19/18 08:41 Dose: 100 mg Fluticasone/Vilanterol (Breo Ellipta 100/25 Mcg Inh) 1 puff INH Q24H [facility] Last Admin: 03/18/18 13:30 Dose: Not Given Furosemide (Lasix) 20 mg PO DAILY [facility] Last Admin: 03/19/18 08:41 Dose: 20 mg Heparin Sodium (Porcine) (Heparin Inj) 5,000 units SQ Q12H [facility] Last Admin: 03/19/18 00:38 Dose: 5,000 units Hydrocortisone Acetate (Hydrocortisone 1% Cream) 1 applicatio TOPICAL Q12H [facility] Ceftriaxone Sodium 2,000 mg/ (Sodium Chloride) 100 mls @ 200 mls/hr IV.SIG Q24H [facility] Last Infusion: 03/18/18 19:00 Dose: Infused Lactulose (Lactulose Liq) 30 ml PO DAILY PRN PRN Reason: SEVERE CONSITIPATION Multi-Ingredient Mouthwash/Gargle (Magic Mouthwash Adult Liq) 5 ml SWISH-SWAL QID [facility] Last Admin: 03/19/18 08:42 Dose: Not Given Ondansetron HCl (Zofran Inj) 4 mg IV.PUSH Q6H PRN PRN Reason: NAUSEA OR VOMITING Last Admin: 03/18/18 08:32 Dose: 4 mg Oxybutynin Chloride (Ditropan) 5 mg PO QID [facility] Last Admin: 03/19/18 08:41 Dose: 5 mg Pantoprazole Sodium (Protonix) 40 mg PO DAILY [facility] Last Admin: 03/19/18 08:41 Dose: 40 mg Potassium Chloride (Kcl) 10 meq PO DAILY [facility] Last Admin: 03/19/18 08:41 Dose: 10 meq Prednisone (Deltasone) 10 mg PO BID [facility] Last Admin: 03/19/18 08:41 Dose: 10 mg Pregabalin (Lyrica) 50 mg PO DAILY [facility] Last Admin: 03/19/18 08:40 Dose: 50 mg Senna/Docusate Sodium (Sara-Colace) 1 tab PO BID [facility] Last Admin: 03/19/18 08:42 Dose: Not Given Sennosides (Senokot) 17.2 mg PO Q12H PRN PRN Reason: Moderate Constipation Last Admin: 03/16/18 23:11 Dose: 17.2 mg Trazodone HCl (Desyrel) 50 mg PO DAILY [facility] Last Admin: 03/19/18 08:41 Dose: 50 mg Allergies Allergy/AdvReac Type Severity Reaction Status Date / Time No Known Allergies Allergy Verified 02/17/18 12:34 Home Medications Medication Instructions Recorded Confirmed Type acetaminophen-codeine 1 tab PO TID 02/17/18 03/12/18 History [Tylenol-Codeine #4] albuterol sulfate [Ventolin HFA] 2 puff INHALATION QID 02/17/18 03/12/18 History alprazolam [Xanax] 0.5 mg PO TID 02/17/18 03/12/18 History citalopram [Celexa] 20 mg PO DAILY 02/17/18 03/12/18 History fluticasone-vilanterol [Breo 1 inh INHALATION DAILY 02/17/18 03/12/18 History Ellipta] oxybutynin chloride 5 mg PO QID 02/17/18 03/12/18 History pregabalin [Lyrica] 50 mg PO DAILY 02/17/18 03/12/18 History trazodone 50 mg PO DAILY 02/17/18 03/12/18 History Exam Vital signs: Vital Signs 03/18/18 20:00 03/19/18 00:00 03/19/18 04:00 Temperature 97.3 F L 97.7 F 97.6 F Pulse Rate 58 L 55 L 55 L Respiratory Rate 16 16 16 Blood Pressure 117/70 169/75 H 132/55 L Pulse Oximetry 97 96 98 03/19/18 08:00 03/19/18 12:00 Temperature 97.7 F 97.9 F Pulse Rate 52 L 48 L Respiratory Rate 18 18 Blood Pressure 180/70 H 144/66 H Pulse Oximetry 97 99 Intake & Output 03/18/18 03/19/18 03/19/18 18:59 06:59 18:59 Intake Total 1000 / 1000 100 / 100 Output Total 1000 / 1000 1999 Balance 0 / 0 -1900 / -1900 Weight 83.8 kg Intake: IV 100 / 100 Rocephin Inj 2,000 MG In NS Inj 100 / 100 100 ML @ 200 mls/hr IV.SIG Q24H [facility] Rx#:[id number] Oral 1000 / 1000 Output: Urine 1000 / 1000 1999 - Constitutional no acute distress - Routine HEENT Exam Head: Present: normocephalic ENT: Present: mucous membranes dry, oropharynx clear - Routine Neck Exam Present: supple, thyromegaly (Significant sized thyroid goiter appears to be bigger on the right than the left but the left is big as well) - Routine Respiratory Exam Present: CTA bilaterally - Routine Cardiovascular Exam Present: RRR - Routine Abdominal Exam Present: soft - Routine Extremities Exam Present: edema, full ROM - Routine Skin Exam Present: intact - Routine Neurological Exam Present: alert - Detailed Neurological Exam: Coma Scale Verbal Response: Oriented Motor Response: Obey commands - Additional findings Additional findings: ITS Impressions Elbow X-Ray 03/12/18 18:07 CONCLUSION: Extensive hardware in the distal humerus and proximal ulna. No fracture either bone or metal seen. There is 2 mm lucency along the bone/metal interface of the distal humerus; no prior films to assess whether this finding is new or old.. Soft Tissue Neck CT 03/14/18 00:00 CONCLUSION: 1. Diffusely and significantly enlarged thyroid gland bilaterally. This may correspond with the palpable lump. It contains innumerable nodules and calcifications. The appearance is of very similar to the prior MRI from one year ago. The enlarged thyroid gland has mass effect on the surrounding adjacent structures. 2. No other acute finding is identified. Barium Swallow X-Ray 03/18/18 00:00 CONCLUSION: Scattered tertiary contractions. No obvious hiatal hernia or fixed luminal narrowing. Results - Labs 03/24/18 04:06 03/24/18 04:06 All other labs normal. Laboratory Last Values WBC 4.7 th/mm3 (4.0-11.0) 03/14/18: RBC 3.84 mil/mm3 (4.00-5.30) L 03/14/18: Hgb 12.6 gm/dL (11.6-15.3) 03/14/18: Hct 37.2 % (35.0-46.0) 03/14/18: MCV 97.0 fL (80.0-100.0) 03/14/18: MCH 32.8 pg (27.0-34.0) 03/14/18 MCHC 33.8 % (32.0-36.0) 03/14/18 RDW 13.3 % (11.6-17.2) 03/14/18 Plt Count 134 th/mm3 (150-450) L 03/14/18 MPV 8.9 fL (7.0-11.0) 03/14/18: Prelim Diff (Auto) Slide review pending 03/14/18 Neut % (Auto) 77.4 % (16.0-70.0) H 03/14/18: Lymph % (Auto) 13.4 % (9.0-44.0) 03/14/18 [place] % (Auto) 5.3 % (0.0-8.0) 03/14/18 Eos % (Auto) 2.9 % (0.0-4.0) 03/14/18 Baso % (Auto) 1.0 % (0.0-2.0) 03/14/18 Neut # (Auto) 3.6 th/mm3 (1.8-7.7) 03/14/18: Lymph # (Auto) 0.6 th/mm3 (1.0-4.8) L 03/14/18 [place] # (Auto) 0.3 th/mm3 (0.0-0.9) 03/14/18: Eos # (Auto) 0.1 th/mm3 (0.0-0.4) 03/14/18: Baso # (Auto) 0.0 th/mm3 (0.0-0.2) 03/14/18 19:31 WBC Differential . 03/14/18 19:31 Diff Scan Auto diff confirmed 03/14/18 19:31 Seg Neuts % (Manual) 36 % (16-70) 03/13/18 13:21 Lymphocytes % (Manual) 38 % (9-44) 03/13/18 13:21 Monocytes % (Manual) 14 % (0-8) H 03/13/18 13:21 Eosinophils % (Manual) 12 % (0-4) H 03/13/18 13:21 Abs Neuts (Manual) 0.7 th/mm3 (1.8-7.7) L 03/13/18 13:21 Differential Comment . 03/14/18 19:31 Platelet Estimate Low (Normal) L 03/14/18 19:31 Platelet Morphology Normal (Normal) 03/14/18 19:31 Ovalocytes 1+ (None) H 03/14/18 19:31 Keratocytes Occ (None) H 03/13/18 13:21 Sodium 139 meq/L (136-145) 03/13/18 13:21 Potassium 3.9 meq/L (3.5-5.1) 03/13/18 13:21 Chloride 104 meq/L (98-107) 03/13/18 13:21 Carbon Dioxide 26.7 meq/L (21.0-32.0) 03/13/18 13:21 Anion Gap 8 meq/L (5-15) 03/13/18 13:21 BUN 10 mg/dL (7-18) 03/13/18 13:21 Creatinine 1.40 mg/dL (0.50-1.00) H 03/14/18 19:31 Estimated GFR 44 mL/min (>89) L 03/14/18 19:31 Random Glucose 113 mg/dL (74-106) H 03/13/18 13:21 Lactic Acid 1.1 mmol/L (0.4-2.0) 03/12/18 18:30 Calcium 8.2 mg/dL (8.5-10.1) L 03/13/18 13:21 Total Bilirubin 0.3 mg/dL (0.2-1.0) 03/14/18 19:31 Direct Bilirubin 0.1 mg/dL (0.0-0.2) 03/14/18 19:31 Indirect Bilirubin 0.2 mg/dL (0.0-0.8) 03/14/18 19:31 AST 24 U/L (15-37) 03/14/18 19:31 ALT 15 U/L (10-53) 03/14/18 19:31 Alkaline Phosphatase 92 U/L (45-117) 03/14/18 19:31 Total Creatine Kinase 43 U/L (26-192) 03/18/18 12:51 Troponin I Less than 0.02 ng/mL (0.02-0.05) L 03/18/18 12:51 Total Protein 6.8 g/dL (6.4-8.2) 03/14/18 19:31 Albumin 2.7 g/dL (3.4-5.0) L 03/14/18 19:31 Random Vancomycin 8.4 Comment 03/13/18 13:21 BORA Screen Pos (Neg) H 03/16/18 12:30 Microbiology 03/12/18 18:30 Aerobic Blood Culture - Final Blood - Line No growth in 5 days Anaerobic Blood Culture - Final No growth in 5 days 03/12/18 18:36 Aerobic Blood Culture - Final Blood - Line No growth in 5 days Anaerobic Blood Culture - Final No growth in 5 days - Imaging Additional studies: Reviewed CT scan of the neck Reviewed esophagram Laboratory Last Values WBC 4.7 th/mm3 (4.0-11.0) 03/14/18 19:31 RBC 3.84 mil/mm3 (4.00-5.30) L 03/14/18 19:31 Hgb 12.6 gm/dL (11.6-15.3) 03/14/18 19:31 Hct 37.2 % (35.0-46.0) 03/14/18 19:31 MCV 97.0 fL (80.0-100.0) 03/14/18 19:31 MCH 32.8 pg (27.0-34.0) 03/14/18 19: MCHC 33.8 % (32.0-36.0) 03/14/18 19:31 RDW 13.3 % (11.6-17.2) 03/14/18 19:31 Plt Count 134 th/mm3 (150-450) L 03/14/18 19:31 MPV 8.9 fL (7.0-11.0) 03/14/18 19:31 Prelim Diff (Auto) Slide review pending 03/14/18 19: Neut % (Auto) 77.4 % (16.0-70.0) H 03/14/18 19:31 Lymph % (Auto) 13.4 % (9.0-44.0) 03/14/18 19: [place] % (Auto) 5.3 % (0.0-8.0) 03/14/18 19: Eos % (Auto) 2.9 % (0.0-4.0) 03/14/18 19: Baso % (Auto) 1.0 % (0.0-2.0) 03/14/18 19: Neut # (Auto) 3.6 th/mm3 (1.8-7.7) 03/14/18 19: Lymph # (Auto) 0.6 th/mm3 (1.0-4.8) L 03/14/18 19: [place] # (Auto) 0.3 th/mm3 (0.0-0.9) 03/14/18 19: Eos # (Auto) 0.1 th/mm3 (0.0-0.4) 03/14/18 19: Baso # (Auto) 0.0 th/mm3 (0.0-0.2) 03/14/18 19: WBC Differential . 03/14/18 19: Diff Scan Auto diff confirmed 03/14/18 19: Seg Neuts % (Manual) 36 % (16-70) 03/13/18 13:21 Lymphocytes % (Manual) 38 % (9-44) 03/13/18 13:21 Monocytes % (Manual) 14 % (0-8) H 03/13/18 13:21 Eosinophils % (Manual) 12 % (0-4) H 03/13/18 13:21 Abs Neuts (Manual) 0.7 th/mm3 (1.8-7.7) L 03/13/18 13:21 Differential Comment . 03/14/18 19:31 Platelet Estimate Low (Normal) L 03/14/18 19: Platelet Morphology Normal (Normal) 03/14/18 19: Ovalocytes 1+ (None) H 03/14/18 19:31 Keratocytes Occ (None) H 03/13/18 13:21 Sodium 139 meq/L (136-145) 03/13/18 13:21 Potassium 3.9 meq/L (3.5-5.1) 03/13/18 13:21 Chloride 104 meq/L (98-107) 03/13/18 13:21 Carbon Dioxide 26.7 meq/L (21.0-32.0) 03/13/18 13:21 Anion Gap 8 meq/L (5-15) 03/13/18 13:21 BUN 10 mg/dL (7-18) 03/13/18 13:21 Creatinine 1.40 mg/dL (0.50-1.00) H 03/14/18 19:31 Estimated GFR 44 mL/min (>89) L 03/14/18 19:31 Random Glucose 113 mg/dL (74-106) H 03/13/18 13:21 Lactic Acid 1.1 mmol/L (0.4-2.0) 03/12/18 18:30 Calcium 8.2 mg/dL (8.5-10.1) L 03/13/18 13:21 Total Bilirubin 0.3 mg/dL (0.2-1.0) 03/14/18 19:31 Direct Bilirubin 0.1 mg/dL (0.0-0.2) 03/14/18 19:31 Indirect Bilirubin 0.2 mg/dL (0.0-0.8) 03/14/18 19:31 AST 24 U/L (15-37) 03/14/18 19:31 ALT 15 U/L (10-53) 03/14/18 19:31 Alkaline Phosphatase 92 U/L (45-117) 03/14/18 19:31 Total Creatine Kinase 43 U/L (26-192) 03/18/18 12:51 Troponin I Less than 0.02 ng/mL (0.02-0.05) L 03/18/18 12:51 Total Protein 6.8 g/dL (6.4-8.2) 03/14/18 19:31 Albumin 2.7 g/dL (3.4-5.0) L 03/14/18 19:31 Random Vancomycin 8.4 Comment 03/13/18 13:21 BORA Screen Pos (Neg) H 03/16/18 12:30 Assessment and Plan - Assessment (1) Goiter diffuse Code(s): E04.9 - Nontoxic goiter, unspecified Status: Chronic (2) CAD (coronary artery disease) Code(s): I25.10 - Atherosclerotic heart disease of [place] coronary artery without angina pectoris Status: Chronic (3) Cellulitis, face Code(s): L03.211 - Cellulitis of face Status: Acute - Plan 82-year-old female with long-standing goiter recently admitted to the hospital with severe cellulitis to her face unknown etiology being treated with success. She had a CT scan of her neck showing a large goiter of significant size that is similar to the MR that was done a year ago on outpatient basis. Recently examined by ENT showing no cord involvement She had a upper GI showing no stricture in the esophagus however she does complain of swallowing I do not know if this is related to the thyroid because it so long-standing and has not changed significantly in a year or if this is some other etiology possibly related to reflux or esophagitis. She is not too excited about undergoing surgical procedures like a thyroidectomy. I would favor treating her cellulitis until it completely resolves. I took the liberty of asking GI to see the patient for considering an EGD to make sure there is no pathology in her esophagus causing her swallowing difficulties. Will need cardiac clearance she could not tell me much about her heart status and or the name of her floorwalker We will follow along during this admission - Attending Attestation CONSULTATION NOTE FOR SURGICAL ATTENDING, DR. DALLAS COFFEY I attest that I had a [id number] encounter with the patient on the same day, and personally performed and documented my assessment and findings in the medical record. The following services were provided during this hospital visit: Chart data review, vital sign assessments/reviewing monitor data Review of consultations notes if present. Medication orders/review and/or management Ordering and/or reviewing lab tests Ordering and/or interpreting/reviewing x-rays and/or diagnostic studies Care of the patient and discussion of the patient with the care team Documentation time To help prompt me to consider important information that might be impacting today's encounter and assessment, Information from prior notes written by myself or my colleagues may have been "brought forward/copy and pasted" into today's note.
--- NOTE | 2018-03-19 17:07 | P.PNGI ---
Subjective Interval history: This is a 82 yo F who was admitted to the hospital for facial swelling and cellulitis, ID is following and she is on antibiotics. During her admission pt had a CT scan of her neck which revealed a large goiter, surgery was consulted for evaluation and possible surgical intervention. Our service has been consulted to evaluate pt for reports of dysphagia, to rule out etiology other than goiter. Pt reports dysphagia has been going on for a few weeks but progressively getting worse. States it feels like her food gets stuck and sometimes she has to regurgitate it back up. Also has to drink fluids after meals to help the food go down. Reports of odynophagia. Pt is unsure if she has had EGD in the past. Reports past history of smoking but has not smoked since she was younger. <Raquel Amanda - Last Filed: 03/19/18 16:53> Physical Exam Vital signs: Vital Signs 03/18/18 20:00 03/19/18 00:00 03/19/18 04:00 Temperature 97.3 F L 97.7 F 97.6 F Pulse Rate 58 L 55 L 55 L Respiratory Rate 16 16 16 Blood Pressure 117/70 169/75 H 132/55 L Pulse Oximetry 97 96 98 03/19/18 08:00 03/19/18 12:00 Temperature 97.7 F 97.9 F Pulse Rate 52 L 48 L Respiratory Rate 18 18 Blood Pressure 180/70 H 144/66 H Pulse Oximetry 97 99 Intake & Output 03/18/18 03/19/18 03/19/18 18:59 06:59 18:59 Intake Total 1000 / 1000 100 / 100 Output Total 1000 / 1000 1999 Balance 0 / 0 -1900 / -1900 Weight 83.8 kg Intake: IV 100 / 100 Rocephin Inj 2,000 MG In NS Inj 100 / 100 100 ML @ 200 mls/hr IV.SIG Q24H GER Rx#:[id number] Oral 1000 / 1000 Output: Urine 1000 / 1000 1999 - Constitutional no acute distress - Routine HEENT Exam Head: Present: normocephalic, atraumatic Comments: goiter - Routine Respiratory Exam Absent: accessory muscle use - Routine Abdominal Exam Present: soft, normoactive bowel sounds. Absent: tenderness, distended - Routine Skin Exam Present: dry, warm - Routine Neurological Exam Present: alert, oriented X3 <Raquel Amanda - Last Filed: 03/19/18 16:53> Vital signs: Vital Signs 03/19/18 16:00 03/19/18 20:00 03/20/18 00:00 Temperature 98.4 F 97.7 F 97.5 F L Pulse Rate 53 L 58 L 54 L Respiratory Rate 18 16 16 Blood Pressure 144/73 H 109/49 L 126/76 Pulse Oximetry 99 99 97 03/20/18 04:00 03/20/18 12:00 03/20/18 12:15 Temperature 97.7 F 97.3 F L Pulse Rate 51 L 50 L 49 L Respiratory Rate 16 18 12 Blood Pressure 114/53 L 130/60 150/65 H Pulse Oximetry 100 99 100 03/20/18 12:36 Temperature 97.5 F L Pulse Rate 52 L Respiratory Rate 12 Blood Pressure 152/65 H Pulse Oximetry 100 Intake & Output 03/19/18 03/20/18 03/20/18 18:59 06:59 18:59 Intake Total 720 / 720 Output Total 1999 Balance 720 / 720 -1999 Weight 81.9 kg Intake: IV 100 / 100 Rocephin Inj 2,000 MG In NS Inj 100 / 100 100 ML @ 200 mls/hr IV.SIG Q24H GER Rx#:[id number] Oral 620 / 620 Output: Urine 1999 Other: # Voids 5 Date of Last Bowel Movement 03/18/18 # Bowel Movements 0 <Johnson Arcos - Last Filed: 03/20/18 15:23> Results - Labs CBC & Chem 7: 03/14/18 19:31 03/14/18 19:31 <Raquel Amanda - Last Filed: 03/19/18 16:53> - Labs CBC & Chem 7: 03/14/18 19:31 03/20/18 03:33 Laboratory Results - last 24 hr 03/20/18 03/20/18 03:33 03:33 APTT 30.8 H Sodium 135 L Potassium 5.7 H Chloride 98 Carbon Dioxide 28.3 Anion Gap 9 BUN 16 Creatinine 1.45 H Estimated GFR 42 L Random Glucose 149 H Calcium 9.0 <Johnson Arcos - Last Filed: 03/20/18 15:23> Assessment and Plan - Plan Assessment: - Dysphagia- reports of dysphagia for multiple weeks, mostly with solids, has to occasionally regurgitate her food back up, drinks liquids after meals to help. Also reports odynophagia. Unsure if she has had EGD in the past. Barium swallow noted (03/18) Scattered tertiary contractions. No obvious hiatal hernia or fixed luminal narrowing. Pt with large goiter, GS following, requesting EGD to rule out other etiology for dysphagia Plan: EGD tomorrow Obtain consent NPO after MN Plavix noted, OK to continue Further recommendations to follow Pt has been seen and examined by myself and Dr. Arcos and this note is written on his behalf <Raquel Amanda - Last Filed: 03/19/18 16:53> - Plan Seen and examined with SENIOR MOBILE DEVELOPER, egd/dilation planned. Thankyou The exam, history, and the medical decision-making described in the above note were completed with the assistance of the mid-level provider. I reviewed and agree with the findings presented. I attest that I had a [id number] encounter with the patient on the same day, and personally performed and documented my assessment and findings in the medical record. <Johnson Arcos - Last Filed: 03/20/18 15:23>
[2018-03-20] MEDS ORDERED: Chlorhexidine Gluconate 2% 1 Pack (2 Cloths) TOPICAL ONE (01:25)
[2018-03-20] MEDS ORDERED: Metoprolol Tartrate 25 MG Tablet PO ONE (01:25)
[2018-03-20] MEDS ORDERED: Sodium Chlor 0.9% Inj 500 ML IV.SIG SCH (02:00)
[2018-03-20 06:12] LABS: Carbon Dioxide 28.3 meq/L (21.0-32.0); Potassium 5.7 meq/L (3.5-5.1)
[2018-03-20] MEDS: amLODIPine 5 MG Tablet PO SCH (08:35)
[2018-03-20] MEDS: traZODone 50 MG Tablet PO SCH (08:58)
[2018-03-20] MEDS: predniSONE 10 MG Tablet PO SCH ×2 (08:58→21:00)
[2018-03-20] MEDS: Citalopram 20 MG Tablet PO SCH (08:58)
[2018-03-20] MEDS: Potassium Chloride 10 MEQ ER Capsule PO SCH (08:58)
[2018-03-20] MEDS: Fluconazole 100 MG Tablet PO SCH (08:58)
[2018-03-20] MEDS: Senna/Docusate Sodium 8.6/50 MG Tablet PO SCH ×2 (08:59→21:00)
[2018-03-20] MEDS: Nystatin/Diphenhydramine/Lidocaine Mouthwash (Adult) 120 ML Botttle SWISH-SWAL SCH ×4 (08:59→21:01)
[2018-03-20] MEDS: Pregabalin 25 MG Capsule PO SCH (08:59)
[2018-03-20] MEDS: Furosemide 20 MG Tablet PO SCH (08:59)
[2018-03-20] MEDS: Heparin - SQ 10,000 UNITS/ML Vial SQ SCH ×2 (10:58→23:59)
--- NOTE | 2018-03-20 11:51 | GIPROC ---
[facility] [address] [facility]. [facility], [address] EGD PROCEDURE REPORT EXAM DATE: 03/20/2018 PATIENT NAME: Nava Mireles MR #: [id number] BIRTHDATE: 1935 ATTENDING: Johnson Arcos MD ORDER #: [id number] SUPERVISOR SPECIAL SERVICES: Leticia Vazquez and Jacque Castro STATUS: inpatient INDICATIONS: The patient is a 82 yr old female here for an EGD due to dyspepsia and dysphagia PROCEDURE PERFORMED: EGD, diagnostic MEDICATIONS: Per Anesthesia and None. TOPICAL ANESTHETIC: CONSENT: The patient understands the risks and benefits of the procedure and understands that these risks include, but are not limited to: sedation, allergic reaction, infection, perforation and/or bleeding. Alternative means of evaluation and treatment include, among others: physical exam, x-rays, and/or surgical intervention. The patient elects to proceed with this endoscopic procedure. medical equipment was checked for proper function. Hand hygiene and appropriate measures for infection prevention was taken. After the risks, benefits and alternatives of the procedure were thoroughly explained, Informed consent was verified, confirmed and timeout was successfully executed by the treatment team. The patient was anesthetized with topical anesthesia and the Pentax [id number] endoscope was introduced through the mouth and advanced to the second portion of the duodenum. Retroflexed views revealed no abnormalities The gastroscope was then slowly withdrawn and removed. ESOPHAGUS: The mucosa of the esophagus appeared normal. STOMACH: There was erythematous moderate gastritis in the gastric antrum. Food retained in the stomach. DUODENUM: The duodenal mucosa appeared normal in the bulb and second portion of the duodenum. ADVERSE EVENTS: There were no complications. IMPRESSIONS: 1. The esophagus appeared normal 2. There was erythematous gastritis in the gastric antrum; Food retained in the stomach 3. Normal duodenal mucosa in the bulb and second portion of the duodenum 4. Retroflexed views revealed no abnormalities RECOMMENDATIONS: 1. Anti-reflux regimen 2. Continue PPI 3. Xray: Gastric Emptying Scan PATIENT CONDITION: stable DISPOSITION: Inpatient REPEAT EXAM: Return as needed for EGD Johnson Arcos MD eSigned: Johnson Arcos MD 03/20/2018 11:51 AM cc: PATIENT NAME: Nava Mireles MR#: [id number]
[2018-03-20] MEDS ORDERED: Glycopyrrolate Inj 1 MG/5 ML Syringe IV.PUSH ONE (12:00)
[2018-03-20] MEDS ORDERED: Lidocaine PF 1% Inj 5 ML Syringe INFILTRATN ONE (12:00)
--- NOTE | 2018-03-20 13:46 | P.PN ---
Subjective Interval history: This is a pleasant 82 y/o Female with CHF, COPD, depression, hypothyroidism, hypertension, hyperlipidemia and coronary artery disease presents to the emergency department for evaluation of a erythematous, blistering rash. The patient does have hardware in her right elbow from a broken arm approximately 20 years ago. X-ray of the elbow shows a 2 mm lucency along the bone/metal interface of the distal humerus. Seen in her bedroom and has facial Rash, Cellulitis, now crusted, seen by ID specialist recommended for IV Unasyn, and stopped Zosyn, CT neck to evaluate the tender nodules on right of the neck, follow CBC, Check LFTs. 03/15: Stable in her bedroom but states she is not feeling well, developed some epigastric pain and dyspepsia suspected Acute Gastritis will give PPIs. continue antibiotics as per ID specialist. 03/16: Seen in her bedroom discussed with nurse and patient, showed me her Panus area no lesions seen has wet area and may need Nystatin powder, as per patient she is limited for activity already at home, no sings of CHF exacerbation, or COPD exacerbation, but states she has some dysphagia has goiter discussed with ID specialist Doctor Abrams and he consulted academic program specialist. 03/17: There's no Endocrinology coverage for this facility awaiting for ENT evaluation. seen by ID specialist recommended to change Unasyn to Ceftriaxone, Diflucan for possible candidal skin rash, titrated Prednisone and following BORA. 03/18: Stable now with her Facial rash and Cellulitis now crusted and improving, discussed with ID specialist recommended to get a Barium Swallow, Discussed with ENT Doctor Josef who states he evaluated his CT and looks stable from the last two years, not for his Specialty at this time , asked to get academic program specialist, this facility hasn't got Endocrinology, Doctor Abrams asked me to get Doctor Alexx General validation specialist he perform this kind of Surgery and will give as light about this case. for now continue Ceftriaxone. complaint in am of epigastric discomfort. no changes on ECG, and Cardiac enzymes within normal limits. 03/19: Patient stable seen in her bedroom, cleared her facial cellulitis and crusted areas, seen by ENT recommended for Endocrinology as outpatient, will follow recommendation by General surgery as recommended by Doctor Abrams if no procedure to be performed patient will be discharge once cleared by ID specialist. no nausea, vomit or diarrhea. 03/20: In nad. Patient says she has constipation. No n/v/ able to eat . no fever ro chills. No chest pain or sob. Physical Exam Vital signs: Vital Signs 03/19/18 16:00 03/19/18 20:00 03/20/18 00:00 Temperature 98.4 F 97.7 F 97.5 F L Pulse Rate 53 L 58 L 54 L Respiratory Rate 18 16 16 Blood Pressure 144/73 H 109/49 L 126/76 Pulse Oximetry 99 99 97 03/20/18 04:00 03/20/18 12:00 03/20/18 12:15 Temperature 97.7 F 97.3 F L Pulse Rate 51 L 50 L 49 L Respiratory Rate 16 18 12 Blood Pressure 114/53 L 130/60 150/65 H Pulse Oximetry 100 99 100 03/20/18 12:36 Temperature 97.5 F L Pulse Rate 52 L Respiratory Rate 12 Blood Pressure 152/65 H Pulse Oximetry 100 Intake & Output 03/19/18 03/20/18 03/20/18 18:59 06:59 18:59 Intake Total 720 / 720 Output Total 1999 Balance 720 / 720 -1999 Weight 81.9 kg Intake: IV 100 / 100 Rocephin Inj 2,000 MG In NS Inj 100 / 100 100 ML @ 200 mls/hr IV.SIG Q24H GER Rx#:[id number] Oral 620 / 620 Output: Urine 1999 Other: # Voids 5 Date of Last Bowel Movement 03/18/18 # Bowel Movements 0 Narrative: GENERAL: Well-developed, Obesity. SKIN: Warm and dry. Facial crusted plaques, worse at the right cheek/jaw/neck and left frontotemporal forehead. HEENT: Normocephalic. Atraumatic. thyroid gland palpable with nodular areas on bilateral lobes. CARDIOVASCULAR: Regular rate and rhythm. No murmur appreciated. RESPIRATORY: No accessory muscle use. Clear to auscultation. Breath sounds equal bilaterally. GASTROINTESTINAL: Abdomen soft, non tender. MUSCULOSKELETAL: Extremities without clubbing, cyanosis, or edema. NEUROLOGICAL: Awake and alert. no focal deficits. Results - Labs CBC & Chem 7: 03/14/18 19:31 03/20/18 03:33 Laboratory Results - last 24 hr 03/20/18 03/20/18 03:33 03:33 APTT 30.8 H Sodium 135 L Potassium 5.7 H Chloride 98 Carbon Dioxide 28.3 Anion Gap 9 BUN 16 Creatinine 1.45 H Estimated GFR 42 L Random Glucose 149 H Calcium 9.0 Assessment and Plan - Plan 82-year-old female with a past medical history significant for CHF, COPD, depression, hypothyroidism, hypertension, hyperlipidemia and coronary artery disease presents to the emergency department for evaluation of a erythematous, blistering rash. Acute facial cellulitis: Diffuse throughout right side of the face and left frontotemporal area. Has overlying honey crusted plaques, consider impetigo? Afebrile, no leukocytosis, lactic acid 1.1. -Wound culture collected growing Staph Aureus. -Seen by ID specialist, stopped Zosyn and continued Unasyn, CT neck with diffusely and significant enlargement of thyroid gland bilaterally. innumerable nodules and calcification, mass effect on the surrounding adjacent structures. -Consulted orthopedics, seen by Dr. New, recommended antibiotics and observation, no surgical intervention at the moment -now on Ceftriaxone, Diflucan for Candidal skin rash, Barium Swallow performed by ID specialist due to Goiter and probable Mechanical obstruction, result Scattered tertiary contractions, no obvious hiatal hernia or fixed luminal narrowing. ENT recommended for Endocrinology as outpatient, awaiting for General Surgery as recommended by Doctor Abrams. BORA test Positive. CAD/CHF/HTN/HLD: chronic, stable -Continue patient's aspirin, plavix, statin, vasotec, lasix -compliant of Epigastric pain and was recommended for Barium swallow, to rule out Cardiac pathology was performed Cardiac enzymes negative and ECG no changes. COPD: chronic, Non exacerbated. -continue patient's Breo, albuterol, prednisone to 10 mg BID. Depression: chronic -Continue patient's celexa, trazodone, lyrica Hypothyroidism: chronic -Continue home meds, Dysphagia probable secondary to Goiter, discussed with Doctor Josef ENT he states do not plan to perform surgery to ask for Endocrinology -No Endocrinology in this facility -Discussed with Doctor Charli Abrams and asked for General Surgery Doctor Alexx to evaluate the patient. GERD: chronic -continue patient's PPI Obesity strongly recommended diet and exercise as outpatient. PT and OT recommended OT and PT at rehab. Constipation: bowel regimen Discussed with nurse and with [employer] clear to discharge from Medicine will follow recommendations by General Surgery and ID specialist DVT Prophylaxis: Heparin Code Status: Full code. Discussed Condition With: Patient and nurse Miss Wang Discharge Planning: Once cleared by ID specialist.
[2018-03-20 15:36] LABS: Anti-Nuclear Antibody Pattern Speckled
[2018-03-21] MEDS: Furosemide 20 MG Tablet PO SCH (10:23)
[2018-03-21] MEDS: traZODone 50 MG Tablet PO SCH (10:23)
[2018-03-21] MEDS: Pregabalin 25 MG Capsule PO SCH (10:23)
[2018-03-21] MEDS: predniSONE 10 MG Tablet PO SCH ×2 (10:24→22:31)
[2018-03-21] MEDS: Senna/Docusate Sodium 8.6/50 MG Tablet PO SCH ×2 (10:24→22:32)
[2018-03-21] MEDS: Citalopram 20 MG Tablet PO SCH (10:24)
[2018-03-21] MEDS: Potassium Chloride 10 MEQ ER Capsule PO SCH (10:24)
[2018-03-21] MEDS: Fluconazole 100 MG Tablet PO SCH (10:24)
[2018-03-21] MEDS: amLODIPine 5 MG Tablet PO SCH (10:25)
[2018-03-21] MEDS: Nystatin/Diphenhydramine/Lidocaine Mouthwash (Adult) 120 ML Botttle SWISH-SWAL SCH ×4 (10:27→22:32)
--- NOTE | 2018-03-21 10:53 | P.PNGI ---
Subjective Interval history: Tolerating PO intake, no new active symptoms. Physical Exam Vital signs: Vital Signs 03/20/18 12:00 03/20/18 12:15 03/20/18 12:36 Temperature 97.3 F L 97.5 F L Pulse Rate 50 L 49 L 52 L Respiratory Rate 18 12 12 Blood Pressure 130/60 150/65 H 152/65 H Pulse Oximetry 99 100 100 03/20/18 16:00 03/20/18 20:00 03/21/18 00:00 Temperature 97.5 F L 97.4 F L 97.7 F Pulse Rate 54 L 54 L 55 L Respiratory Rate 18 17 18 Blood Pressure 152/64 H 118/53 L 142/62 H Pulse Oximetry 99 100 95 03/21/18 08:00 Temperature 98.1 F Pulse Rate 50 L Respiratory Rate 18 Blood Pressure 156/63 H Pulse Oximetry 100 Intake & Output 03/20/18 03/21/18 03/21/18 18:59 06:59 18:59 Intake Total 580 / 580 480 / 480 Output Total 1000 / 1000 Balance 580 / 580 -520 / -520 Intake: IV 100 / 100 Rocephin Inj 2,000 MG In NS Inj 100 / 100 100 ML @ 200 mls/hr IV.SIG Q24H GER Rx#:[id number] Oral 480 / 480 480 / 480 Output: Urine 1000 / 1000 Other: # Voids 3 Date of Last Bowel Movement 03/18/18 Narrative: GENERAL: Well-developed, Obesity. SKIN: Warm and dry. Facial crusted plaques, worse at the right cheek/jaw/neck and left frontotemporal forehead. HEENT: Normocephalic. Atraumatic. thyroid gland palpable with nodular areas on bilateral lobes. CARDIOVASCULAR: Regular rate and rhythm. No murmur appreciated. RESPIRATORY: No accessory muscle use. Clear to auscultation. Breath sounds equal bilaterally. GASTROINTESTINAL: Abdomen soft, non tender. MUSCULOSKELETAL: Extremities without clubbing, cyanosis, or edema. NEUROLOGICAL: Awake and alert. no focal deficits. Results - Labs CBC & Chem 7: 03/14/18 19:31 03/20/18 03:33 Laboratory Results - last 24 hr 03/16/18 12:30 BORA Titer 1:80 H BORA Pattern Speckled H BORA Interpretation Assessment and Plan - Plan Assessment and Plan; - Large residual food in the stomach by endoscopy - Dysphagia of unknown etiology. - Large Goiter Will check KATHERINE results , diet as tolerated, frequent small non fatty meals, will follow up with you after KATHERINE results.
--- NOTE | 2018-03-21 11:05 | P.PN ---
Subjective Interval history: With burning on urination will order UA. In bed . Still complaining of problem with swallowing. Not able to eat much. No shortness of breath she is saturating well on room air. No nausea or vomiting. No diarrhea or constipation. Physical Exam Vital signs: Vital Signs 03/20/18 12:00 03/20/18 12:15 03/20/18 12:36 Temperature 97.3 F L 97.5 F L Pulse Rate 50 L 49 L 52 L Respiratory Rate 18 12 12 Blood Pressure 130/60 150/65 H 152/65 H Pulse Oximetry 99 100 100 03/20/18 16:00 03/20/18 20:00 03/21/18 00:00 Temperature 97.5 F L 97.4 F L 97.7 F Pulse Rate 54 L 54 L 55 L Respiratory Rate 18 17 18 Blood Pressure 152/64 H 118/53 L 142/62 H Pulse Oximetry 99 100 95 03/21/18 08:00 Temperature 98.1 F Pulse Rate 50 L Respiratory Rate 18 Blood Pressure 156/63 H Pulse Oximetry 100 Intake & Output 03/20/18 03/21/18 03/21/18 18:59 06:59 18:59 Intake Total 580 / 580 480 / 480 Output Total 1000 / 1000 Balance 580 / 580 -520 / -520 Intake: IV 100 / 100 Rocephin Inj 2,000 MG In NS Inj 100 / 100 100 ML @ 200 mls/hr IV.SIG Q24H GER Rx#:[id number] Oral 480 / 480 480 / 480 Output: Urine 1000 / 1000 Other: # Voids 3 Date of Last Bowel Movement 03/18/18 Narrative: GENERAL: Pleasant elderly obese, well-developed patient, in nad. SKIN: Warm and dry. Facial crusted plaques, worse at the right cheek/jaw/neck and left frontotemporal forehead. HEENT: Normocephalic. Atraumatic. Thyroid gland palpable with nodular areas on bilateral lobes. CARDIOVASCULAR: Regular rate and rhythm. No murmur appreciated. RESPIRATORY: No accessory muscle use. Clear to auscultation. Breath sounds equal bilaterally. GASTROINTESTINAL: Abdomen soft, non tender. MUSCULOSKELETAL: Extremities without clubbing, cyanosis, or edema. NEUROLOGICAL: Awake and alert. No focal deficits. Normal speech. Results - Labs CBC & Chem 7: 03/21/18 13:23 03/20/18 03:33 Laboratory Results - last 24 hr 03/16/18 12:30 BORA Titer 1:80 H BORA Pattern Speckled H BORA Interpretation Assessment and Plan - Plan 82-year-old female with a past medical history significant for CHF, COPD, depression, hypothyroidism, hypertension, hyperlipidemia and coronary artery disease presents to the emergency department for evaluation of a erythematous, blistering rash. Acute facial cellulitis: Diffuse throughout right side of the face and left frontotemporal area. Has overlying honey crusted plaques, consider impetigo? Afebrile, no leukocytosis, lactic acid 1.1. -Wound culture collected growing Staph Aureus. -Seen by ID specialist, stopped Zosyn and continued Unasyn, CT neck with diffusely and significant enlargement of thyroid gland bilaterally. innumerable nodules and calcification, mass effect on the surrounding adjacent structures. -Consulted orthopedics, seen by Dr. New, recommended antibiotics and observation, no surgical intervention at the moment -now on Ceftriaxone, Diflucan for Candidal skin rash, Barium Swallow performed by ID specialist due to Goiter and probable Mechanical obstruction, result Scattered tertiary contractions, no obvious hiatal hernia or fixed luminal narrowing. ENT recommended for Endocrinology as outpatient, awaiting for General Surgery as recommended by Doctor Abrams. BORA test Positive. CAD/CHF/HTN/HLD: chronic, stable -Continue patient's aspirin, plavix, statin, vasotec, lasix -compliant of Epigastric pain and was recommended for Barium swallow, to rule out Cardiac pathology was performed Cardiac enzymes negative and ECG no changes. COPD: chronic, Non exacerbated. -continue patient's Breo, albuterol, prednisone to 10 mg BID. Depression: chronic -Continue patient's celexa, trazodone, lyrica Hypothyroidism: chronic -Continue home meds, Dysphagia probable secondary to Goiter, discussed with Doctor Josef ENT he states do not plan to perform surgery to ask for Endocrinology -No Endocrinology in this facility -Discussed with Doctor Charli Abrams and asked for General Surgery Doctor Alexx to evaluate the patient. GERD: chronic -continue patient's PPI Obesity strongly recommended diet and exercise as outpatient. PT and OT recommended OT and PT at rehab. Constipation: bowel regimen Discussed with nurse and with Staff Assistant clear to discharge from Medicine will follow recommendations by General Surgery and ID specialist DVT Prophylaxis: Heparin Code Status: Full code. Discussed Condition With: Patient and nurse Miss Wang Discharge Planning: Once cleared by consultants Plan for GI series on Saturday 03/24 per GI Once cleared by GI , gen surgery might do thyroidectomy.
[2018-03-21] MEDS: Heparin - SQ 10,000 UNITS/ML Vial SQ SCH ×2 (13:36→22:32)
[2018-03-21 14:08] LABS: Baso % (Auto) 0.5 % (0.0-2.0); Eos % (Auto) 0.1 % (0.0-4.0); Hematocrit 41.5 % (35.0-46.0); Hemoglobin 13.5 gm/dL (11.6-15.3); Lymph # (Auto) 0.7 th/mm3 (1.0-4.8); Lymph % (Auto) 13.5 % (9.0-44.0); Mean Corpuscular HGB Conc 32.5 % (32.0-36.0); Mean Corpuscular Hemoglobin 32.3 pg (27.0-34.0); Mean Corpuscular Volume 99.5 fL (80.0-100.0); Mean Platelet Volume 9.1 fL (7.0-11.0); Mono # (Auto) 0.3 th/mm3 (0.0-0.9); Mono % (Auto) 5.8 % (0.0-8.0); Neut # (Auto) 4.4 th/mm3 (1.8-7.7); Neut % (Auto) 80.1 % (16.0-70.0); Platelet Count 196 th/mm3 (150-450); Red Blood Count 4.17 mil/mm3 (4.00-5.30); Red Cell Distribution Width 13.8 % (11.6-17.2); White Blood Count 5.5 th/mm3 (4.0-11.0)
--- NOTE | 2018-03-21 15:48 | P.PNID ---
Subjective Remarks: Patient complaining of tightness in her throat. The lesions of the face has dried up. Reports numbness and tingling of the hands and feet. Also notes dry mouth. Says that she has to drink liquids after she eats any solid food in order for her to go down. No fever. No new symptoms. Eosinophil count normalized. Very little right elbow pain. The swelling of the right elbow has improved. This is an 82-year-old black female who presented to the emergency department on 03/12/2018 with skin changes including rash on the face and swelling of the face and also pain and swelling of the right elbow. The patient states that began about 7-10 days ago when she developed a small area of itching at the anterior forehead and it then showed up on the right side of the face on the right cheek and she was scratching it, and then moved to the left side of the face at the left cheek, and also chest, her elbow also began to be painful and swollen. Patient's nephew notes that this rash began about 3 days after she was discharged from [facility]. Antibiotics: Ceftriaxone Diflucan Lines: PIV ok Past Medical History: 1. Congestive heart failure, chronic obstructive pulmonary disease. 2. Hypertension. 3. Depression. 4. Chronic pain. 5. Goiter. 6. Urinary retention. 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 Allergies/Adverse Reactions: Allergies No Known Allergies Allergy (Verified 02/17/18 12:34) Objective Vital Signs 03/20/18 16:00 03/20/18 20:00 03/21/18 00:00 Temperature 97.5 F L 97.4 F L 97.7 F Pulse Rate 54 L 54 L 55 L Respiratory Rate 18 17 18 Blood Pressure 152/64 H 118/53 L 142/62 H Pulse Oximetry 99 100 95 03/21/18 08:00 03/21/18 12:00 Temperature 98.1 F 97.5 F L Pulse Rate 50 L 47 L Respiratory Rate 18 18 Blood Pressure 156/63 H 133/58 L Pulse Oximetry 100 100 Intake & Output 03/20/18 03/21/18 03/21/18 18:59 06:59 18:59 Intake Total 580 / 580 480 / 480 Output Total 1000 / 1000 Balance 580 / 580 -520 / -520 Intake: IV 100 / 100 Rocephin Inj 2,000 MG In NS Inj 100 / 100 100 ML @ 200 mls/hr IV.SIG Q24H GER Rx#:[id number] Oral 480 / 480 480 / 480 Output: Urine 1000 / 1000 Other: # Voids 3 Date of Last Bowel Movement 03/18/18 Lab - Hematology Results 03/21/18 13:23 WBC 5.5 RBC 4.17 Hgb 13.5 Hct 41.5 MCV 99.5 MCH 32.3 MCHC 32.5 RDW 13.8 Plt Count 196 D MPV 9.1 Neut % (Auto) 80.1 H Lymph % (Auto) 13.5 [place] % (Auto) 5.8 Eos % (Auto) 0.1 Baso % (Auto) 0.5 Neut # (Auto) 4.4 Lymph # (Auto) 0.7 L [place] # (Auto) 0.3 Eos # (Auto) 0.0 Baso # (Auto) 0.0 WBC Differential . Differential Comment Auto diff final Lab - Chemistry Results 03/20/18 03:33 Sodium 135 L Potassium 5.7 H Chloride 98 Carbon Dioxide 28.3 Anion Gap 9 BUN 16 Creatinine 1.45 H Estimated GFR 42 L Random Glucose 149 H Calcium 9.0 Imaging: ITS Impressions Elbow X-Ray 03/12/18 18:07 CONCLUSION: Extensive hardware in the distal humerus and proximal ulna. No fracture either bone or metal seen. There is 2 mm lucency along the bone/metal interface of the distal humerus; no prior films to assess whether this finding is new or old.. Soft Tissue Neck CT 03/14/18 00:00 CONCLUSION: 1. Diffusely and significantly enlarged thyroid gland bilaterally. This may correspond with the palpable lump. It contains innumerable nodules and calcifications. The appearance is of very similar to the prior MRI from one year ago. The enlarged thyroid gland has mass effect on the surrounding adjacent structures. 2. No other acute finding is identified. Barium Swallow X-Ray 03/18/18 00:00 CONCLUSION: Scattered tertiary contractions. No obvious hiatal hernia or fixed luminal narrowing. Physical Exam: HEENT: Head is atraumatic. Extraocular movements are grossly intact. Pupils reactive to light. No icterus. HEENT: The face is less swollen. Pupils reactive to light. No icterus. No conjunctival erythema. Oropharynx: Moist mucosa. The patient is edentulous. No lesions. NECK: Swelling at both left and right side of the neck anteriorly. LUNGS: Clear to auscultation. Decreased breath sounds. HEART: Regular S1, S2, without murmurs, rubs or gallops. CHEST: Tenderness at the mid epigastrium. ABDOMEN: Bowel sounds present. Soft. Nontender. EXTREMITIES: No clubbing or cyanosis. The left elbow has a superficial scab at the volar aspect. Swelling resolved. The remaining extremities have no clubbing, cyanosis or edema. SKIN: Face with less flakiness. Dry lesions at the cheeks bilateral. hyperpigmented maculopapular rash at the groove of the groin and breast folds. Few scattered coin skin lesions at the back and trunk. NEUROLOGIC: No gross focal findings. PSYCHIATRIC: Calm and cooperative. Assessment and Plan - Plan Impression Facial rash, cellulitis, now crusted - improving Dermatitis. involving skin folds and face. ? unclassified connective tissue disease. BORA pending. Goiter. Neutropenia, better Eosinophilia, better Renal insufficiency Elbow infection improved. Recommendation Continue Ceftriaxone. Diflucan for possible candidal skin rash. GI evaluation in progress. Hydrocortisone cream to skin. Continue Prednisone to 10mg BID Follow BORA. Stop Carafate - latest medication. ? drug rash.
--- NOTE | 2018-03-21 18:40 | P.PN ---
Subjective Interval history: Patient still reports some difficulty swallowing pills. She is able to tolerate liquids without any difficulty. Physical Exam Vital signs: Vital Signs 03/20/18 20:00 03/21/18 00:00 03/21/18 08:00 Temperature 97.4 F L 97.7 F 98.1 F Pulse Rate 54 L 55 L 50 L Respiratory Rate 17 18 18 Blood Pressure 118/53 L 142/62 H 156/63 H Pulse Oximetry 100 95 100 03/21/18 12:00 Temperature 97.5 F L Pulse Rate 47 L Respiratory Rate 18 Blood Pressure 133/58 L Pulse Oximetry 100 Intake & Output 03/20/18 03/21/18 03/21/18 18:59 06:59 18:59 Intake Total 580 / 580 480 / 480 Output Total 1000 / 1000 Balance 580 / 580 -520 / -520 Intake: IV 100 / 100 Rocephin Inj 2,000 MG In NS Inj 100 / 100 100 ML @ 200 mls/hr IV.SIG Q24H GER Rx#:[id number] Oral 480 / 480 480 / 480 Output: Urine 1000 / 1000 Other: # Voids 3 Date of Last Bowel Movement 03/18/18 - Constitutional no acute distress - Routine HEENT Exam Head: Present: normocephalic, atraumatic, cushingoid faces - Routine Neck Exam Present: supple, thyromegaly (Large 5 cm mass firm, slightlymobile mildly tender right side of face) Results - Labs CBC & Chem 7: 03/21/18 13:23 03/20/18 03:33 Laboratory Results - last 24 hr 03/21/18 13:23 WBC 5.5 RBC 4.17 Hgb 13.5 Hct 41.5 MCV 99.5 MCH 32.3 MCHC 32.5 RDW 13.8 Plt Count 196 D MPV 9.1 Neut % (Auto) 80.1 H Lymph % (Auto) 13.5 [place] % (Auto) 5.8 Eos % (Auto) 0.1 Baso % (Auto) 0.5 Neut # (Auto) 4.4 Lymph # (Auto) 0.7 L [place] # (Auto) 0.3 Eos # (Auto) 0.0 Baso # (Auto) 0.0 WBC Differential . Differential Comment Auto diff final Assessment and Plan - Assessment (1) Goiter diffuse Code(s): E04.9 - Nontoxic goiter, unspecified Status: Chronic Plan: Continue antibiotics to resolve her facial cellulitis. Discussed with the patient her large goiter and that some of the swallowing may not be alleviated by surgery. She is still thinking about the procedure. (2) CAD (coronary artery disease) Code(s): I25.10 - Atherosclerotic heart disease of [place] coronary artery without angina pectoris Status: Chronic (3) Cellulitis, face Code(s): L03.211 - Cellulitis of face Status: Acute - Plan Discussed Condition With: Patient - Attending Attestation I attest that I had a [id number] encounter with the patient on the same day, and personally performed and documented my assessment and findings in the medical record. The following services were provided during this hospital visit: Chart data review, vital sign assessments/reviewing monitor data Review of consultation notes if present Medication orders/review and/or management Ordering and/or reviewing lab tests Ordering and/or interpreting/reviewing x-rays and/or diagnostic studies Care of the patient and discussion of the patient with the care team Documentation time To help prompt me to consider important information that might be impacting today's encounter and assessment, Information from prior notes written by myself or my colleagues may have been "brought forward/copy and pasted" into today's note.
[2018-03-21 20:50] LABS: Bilirubin,Urine Negative (Negative); Clarity,Urine Clear (Clear); Color,Urine Straw (Yellw/Straw); Glucose,Urine (UA) Negative (Negative); Leukocyte Esterase,Urine Negative (Negative); Nitrite,Urine Negative (Negative); Specific Gravity,Urine 1.004 (1.002-1.035); Squamous Epithelial Cell,Urine 1 /hpf (0-5)
[2018-03-22 07:28] LABS: Baso % (Auto) 0.6 % (0.0-2.0); Eos % (Auto) 0.1 % (0.0-4.0); Hematocrit 40.4 % (35.0-46.0); Hemoglobin 13.7 gm/dL (11.6-15.3); Lymph % (Auto) 15.7 % (9.0-44.0); Mean Corpuscular HGB Conc 33.9 % (32.0-36.0); Mean Corpuscular Hemoglobin 32.8 pg (27.0-34.0); Mean Corpuscular Volume 96.9 fL (80.0-100.0); Mean Platelet Volume 8.7 fL (7.0-11.0); Mono # (Auto) 0.7 th/mm3 (0.0-0.9); Mono % (Auto) 11.1 % (0.0-8.0); Neut # (Auto) 4.5 th/mm3 (1.8-7.7); Neut % (Auto) 72.5 % (16.0-70.0); Platelet Count 189 th/mm3 (150-450); Red Blood Count 4.16 mil/mm3 (4.00-5.30); Red Cell Distribution Width 13.6 % (11.6-17.2); White Blood Count 6.2 th/mm3 (4.0-11.0)
[2018-03-22 07:50] LABS: Calcium 8.7 mg/dL (8.5-10.1); Carbon Dioxide 24.8 meq/L (21.0-32.0); Potassium 5.6 meq/L (3.5-5.1)
--- NOTE | 2018-03-22 08:59 | P.PN ---
Subjective Interval history: Patient is complaining of constipation. Says she cannot swallow his pills and she will like to have liquid form for bowel regimen. Still with swallowing problems however she is saturating well on room air. No pain with swallowing. Complains of some abdominal pain. Abdominal pain is epigastric. Also she has some headaches on and off. No nausea or vomiting. Physical Exam Vital signs: Vital Signs 03/21/18 12:00 03/22/18 00:00 03/22/18 08:00 Temperature 97.5 F L 97.8 F 97.6 F Pulse Rate 47 L 65 48 L Respiratory Rate 18 18 19 Blood Pressure 133/58 L 129/59 L 128/54 L Pulse Oximetry 100 99 99 Intake & Output 03/21/18 03/22/18 03/22/18 18:59 06:59 18:59 Intake Total 100 / 100 480 / 480 Output Total 625 / 625 1600 / 1600 Balance -525 / -525 -1120 / -1120 Weight 81.3 kg Intake: IV 100 / 100 Rocephin Inj 2,000 MG In NS Inj 100 / 100 100 ML @ 200 mls/hr IV.SIG Q24H [facility] Rx#:[id number] Oral 480 / 480 Output: Urine 625 / 625 1600 / 1600 Other: Date of Last Bowel Movement 03/18/18 Results - Labs CBC & Chem 7: 03/22/18 06:52 03/22/18 06:52 Laboratory Results - last 24 hr 03/21/18 03/21/18 03/22/18 13:23 19:30 06:52 WBC 5.5 6.2 RBC 4.17 4.16 Hgb 13.5 13.7 Hct 41.5 40.4 MCV 99.5 96.9 MCH 32.3 32.8 MCHC 32.5 33.9 RDW 13.8 13.6 Plt Count 196 D 189 MPV 9.1 8.7 Neut % (Auto) 80.1 H 72.5 H Lymph % (Auto) 13.5 15.7 [place] % (Auto) 5.8 11.1 H Eos % (Auto) 0.1 0.1 Baso % (Auto) 0.5 0.6 Neut # (Auto) 4.4 4.5 Lymph # (Auto) 0.7 L 1.0 [place] # (Auto) 0.3 0.7 Eos # (Auto) 0.0 0.0 Baso # (Auto) 0.0 0.0 WBC Differential . . Differential Comment Auto diff final Auto diff final Sodium Potassium Chloride Carbon Dioxide Anion Gap BUN Creatinine Estimated GFR Random Glucose Calcium Urine Color Straw Urine Clarity Clear Urine pH 7.0 Ur Specific [place] 1.004 Urine Protein Negative Urine Glucose (UA) Negative Urine Ketones Negative Urine Occult Blood Negative Urine Nitrate Negative Urine Bilirubin Negative Urine Urobilinogen Less than 2 Ur Leukocyte Esterase Negative Urine RBC Less than 1 Urine WBC Less than 1 Ur Squamous Epith Cells 1 Micro UA Comment Culture not ind Ur Microscopic Review Not Reportable Urine Culture Comments Culture not ind 03/22/18 06:52 WBC RBC Hgb Hct MCV MCH MCHC RDW Plt Count MPV Neut % (Auto) Lymph % (Auto) [place] % (Auto) Eos % (Auto) Baso % (Auto) Neut # (Auto) Lymph # (Auto) [place] # (Auto) Eos # (Auto) Baso # (Auto) WBC Differential Differential Comment Sodium 129 L Potassium 5.6 H Chloride 97 L Carbon Dioxide 24.8 Anion Gap 7 BUN 26 H Creatinine 1.38 H Estimated GFR 45 L Random Glucose 170 H Calcium 8.7 Urine Color Urine Clarity Urine pH Ur Specific [place] Urine Protein Urine Glucose (UA) Urine Ketones Urine Occult Blood Urine Nitrate Urine Bilirubin Urine Urobilinogen Ur Leukocyte Esterase Urine RBC Urine WBC Ur Squamous Epith Cells Micro UA Comment Ur Microscopic Review Urine Culture Comments Assessment and Plan - Plan 82-year-old female with a past medical history significant for CHF, COPD, depression, hypothyroidism, hypertension, hyperlipidemia and coronary artery disease presents to the emergency department for evaluation of a erythematous, blistering rash. Acute facial cellulitis: Diffuse throughout right side of the face and left frontotemporal area. Has overlying honey crusted plaques, consider impetigo? Afebrile, no leukocytosis, lactic acid 1.1. -Wound culture collected growing Staph Aureus. -Seen by ID specialist, stopped Zosyn and continued Unasyn, CT neck with diffusely and significant enlargement of thyroid gland bilaterally. innumerable nodules and calcification, mass effect on the surrounding adjacent structures. -Consulted orthopedics, seen by Dr. New, recommended antibiotics and observation, no surgical intervention at the moment -now on Ceftriaxone, Diflucan for Candidal skin rash, Barium Swallow performed by ID specialist due to Goiter and probable Mechanical obstruction, result Scattered tertiary contractions, no obvious hiatal hernia or fixed luminal narrowing. ENT recommended for Endocrinology as outpatient, awaiting for General Surgery as recommended by Doctor Abrams. BORA test Positive. CAD/CHF/HTN/HLD: chronic, stable -Continue patient's aspirin, plavix, statin, vasotec, lasix -compliant of Epigastric pain and was recommended for Barium swallow, to rule out Cardiac pathology was performed Cardiac enzymes negative and ECG no changes. COPD: chronic, Non exacerbated. -continue patient's Breo, albuterol, prednisone to 10 mg BID. Depression: chronic -Continue patient's celexa, trazodone, lyrica Hypothyroidism: chronic -Continue home meds, Dysphagia probable secondary to Goiter, discussed with Doctor Josef ENT he states do not plan to perform surgery to ask for Endocrinology -No Endocrinology in this facility -Discussed with Doctor Charli Abrams and asked for General Surgery Doctor Alexx to evaluate the patient. Burning with urination , UA ordered no signs of infection. Cont hydration GERD: chronic -continue patient's PPI Obesity strongly recommended diet and exercise as outpatient. Constipation. Bowel regimen. PT and OT recommended OT and PT at rehab. Constipation: bowel regimen Discussed with nurse and with Engineering Aide clear to discharge from Medicine will follow recommendations by General Surgery and ID specialist DVT Prophylaxis: Heparin Code Status: Full code. Discussed Condition With: Patient and nurse Miss Wang Discharge Planning: Once cleared by consultants Plan for GI series on Saturday 03/24 per GI Once cleared by GI , gen surgery might do thyroidectomy.
[2018-03-22] MEDS: Nystatin/Diphenhydramine/Lidocaine Mouthwash (Adult) 120 ML Botttle SWISH-SWAL SCH ×4 (09:29→22:23)
[2018-03-22] MEDS: Furosemide 20 MG Tablet PO SCH (09:29)
[2018-03-22] MEDS: Citalopram 20 MG Tablet PO SCH (09:30)
[2018-03-22] MEDS: Senna/Docusate Sodium 8.6/50 MG Tablet PO SCH ×2 (09:30→22:24)
[2018-03-22] MEDS: predniSONE 10 MG Tablet PO SCH ×2 (09:30→22:24)
[2018-03-22] MEDS: Pregabalin 25 MG Capsule PO SCH (09:30)
[2018-03-22] MEDS: traZODone 50 MG Tablet PO SCH (09:31)
[2018-03-22] MEDS: amLODIPine 5 MG Tablet PO SCH (09:31)
[2018-03-22] MEDS: Fluconazole 100 MG Tablet PO SCH (09:31)
[2018-03-22] MEDS: Potassium Chloride 10 MEQ ER Capsule PO SCH (09:33)
[2018-03-22] MEDS: Acetaminophen 325 MG Tablet PO PRN ×2 (10:38→14:20)
[2018-03-22] MEDS: Heparin - SQ 10,000 UNITS/ML Vial SQ SCH ×2 (10:38→22:25)
--- NOTE | 2018-03-22 18:51 | P.PNGS ---
Subjective Patient reports: other (still with dysphagia) Physical Exam Vital signs: Vital Signs 03/22/18 00:00 03/22/18 08:00 03/22/18 12:00 Temperature 97.8 F 97.6 F 97.5 F L Pulse Rate 65 48 L 51 L Respiratory Rate 18 19 17 Blood Pressure 129/59 L 128/54 L 114/53 L Pulse Oximetry 99 99 97 03/22/18 16:00 03/22/18 16:30 Temperature 97.8 F Pulse Rate 50 L Respiratory Rate 17 Blood Pressure 99/45 L 115/53 L Pulse Oximetry 98 Intake & Output 03/21/18 03/22/18 03/22/18 18:59 06:59 18:59 Intake Total 100 / 100 480 / 480 100 / 100 Output Total 625 / 625 1600 / 1600 Balance -525 / -525 -1120 / -1120 100 / 100 Weight 81.3 kg Intake: IV 100 / 100 100 / 100 Rocephin Inj 2,000 MG In NS Inj 100 / 100 100 / 100 100 ML @ 200 mls/hr IV.SIG Q24H [facility] Rx#:[id number] Oral 480 / 480 Output: Urine 625 / 625 1600 / 1600 Other: Date of Last Bowel Movement 03/18/18 03/18/18 - Constitutional no acute distress - Routine HEENT Exam Comments: massive goiter, airway patent/vocalizations Assessment and Plan - Assessment (1) 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 - patient is considering surgery - not emergent, airway stable currently - will follow
[2018-03-23] MEDS: Acetaminophen 325 MG Tablet PO PRN ×3 (01:39→21:51)
[2018-03-23] MEDS: Nystatin/Diphenhydramine/Lidocaine Mouthwash (Adult) 120 ML Botttle SWISH-SWAL SCH ×4 (10:35→21:37)
[2018-03-23] MEDS: amLODIPine 5 MG Tablet PO SCH (10:36)
[2018-03-23] MEDS: Potassium Chloride 10 MEQ ER Capsule PO SCH (10:36)
[2018-03-23] MEDS: Pregabalin 25 MG Capsule PO SCH (10:36)
[2018-03-23] MEDS: Senna/Docusate Sodium 8.6/50 MG Tablet PO SCH ×2 (10:36→21:37)
[2018-03-23] MEDS: Fluconazole 100 MG Tablet PO SCH (10:36)
[2018-03-23] MEDS: Citalopram 20 MG Tablet PO SCH (10:36)
[2018-03-23] MEDS: traZODone 50 MG Tablet PO SCH (10:37)
[2018-03-23] MEDS: predniSONE 10 MG Tablet PO SCH ×2 (10:37→21:36)
[2018-03-23] MEDS: Heparin - SQ 10,000 UNITS/ML Vial SQ SCH ×2 (10:46→21:40)
--- NOTE | 2018-03-23 10:46 | P.PN ---
Subjective Interval history: In the chair Still no BM Epigastric pain Can't swallow pills No fever or chiols Satting well on room air Physical Exam Vital signs: Vital Signs 03/22/18 12:00 03/22/18 16:00 03/22/18 16:30 Temperature 97.5 F L 97.8 F Pulse Rate 51 L 50 L Respiratory Rate 17 17 Blood Pressure 114/53 L 99/45 L 115/53 L Pulse Oximetry 97 98 03/22/18 20:00 03/23/18 00:00 Temperature 98.3 F 97.9 F Pulse Rate 55 L 48 L Respiratory Rate 20 20 Blood Pressure 110/51 L 115/55 L Pulse Oximetry 96 100 Intake & Output 03/22/18 03/23/18 03/23/18 18:59 06:59 18:59 Intake Total 600 / 600 360 / 360 Output Total 800 / 800 300 / 300 Balance -200 / -200 60 / 60 Weight 82.3 kg Intake: IV 100 / 100 Rocephin Inj 2,000 MG In NS Inj 100 / 100 100 ML @ 200 mls/hr IV.SIG Q24H [facility] Rx#:[id number] Oral 500 / 500 360 / 360 Output: Urine 800 / 800 300 / 300 Other: # Voids 1 1 Date of Last Bowel Movement 03/18/18 # Bowel Movements 0 Narrative: GENERAL: Pleasant elderly obese, well-developed patient, in nad. SKIN: Warm and dry. Facial crusted plaques, worse at the right cheek/jaw/neck and left frontotemporal forehead. HEENT: Normocephalic. Atraumatic. Thyroid gland palpable with nodular areas on bilateral lobes. CARDIOVASCULAR: Regular rate and rhythm. No murmur appreciated. RESPIRATORY: No accessory muscle use. Clear to auscultation. Breath sounds equal bilaterally. GASTROINTESTINAL: Abdomen soft, non tender. MUSCULOSKELETAL: Extremities without clubbing, cyanosis, or edema. NEUROLOGICAL: Awake and alert. No focal deficits. Normal speech. Results - Labs CBC & Chem 7: 03/22/18 06:52 03/23/18 11:20 Assessment and Plan - Plan 82-year-old female with a past medical history significant for CHF, COPD, depression, hypothyroidism, hypertension, hyperlipidemia and coronary artery disease presents to the emergency department for evaluation of a erythematous, blistering rash. Acute facial cellulitis: Diffuse throughout right side of the face and left frontotemporal area. Has overlying honey crusted plaques, consider impetigo? Afebrile, no leukocytosis, lactic acid 1.1. -Wound culture collected growing Staph Aureus. -Seen by ID specialist, stopped Zosyn and continued Unasyn, CT neck with diffusely and significant enlargement of thyroid gland bilaterally. innumerable nodules and calcification, mass effect on the surrounding adjacent structures. -Consulted orthopedics, seen by Dr. New, recommended antibiotics and observation, no surgical intervention at the moment -now on Ceftriaxone, Diflucan for Candidal skin rash, Barium Swallow performed by ID specialist due to Goiter and probable Mechanical obstruction, result Scattered tertiary contractions, no obvious hiatal hernia or fixed luminal narrowing. ENT recommended for Endocrinology as outpatient, awaiting for General Surgery as recommended by Doctor Abrams. BORA test Positive. CAD/CHF/HTN/HLD: chronic, stable -Continue patient's aspirin, plavix, statin, vasotec, lasix -compliant of Epigastric pain and was recommended for Barium swallow, to rule out Cardiac pathology was performed Cardiac enzymes negative and ECG no changes. COPD: chronic, Non exacerbated. -continue patient's Breo, albuterol, prednisone to 10 mg BID. Depression: chronic -Continue patient's celexa, trazodone, lyrica Hypothyroidism: chronic -Continue home meds, Dysphagia probable secondary to Goiter, discussed with Doctor Josef MONGE he states do not plan to perform surgery to ask for Endocrinology -No Endocrinology in this facility -Discussed with Doctor Charli Abrams and asked for General Surgery Doctor Alexx to evaluate the patient. Burning with urination , UA ordered no signs of infection. Cont hydration GERD: chronic -continue patient's PPI Obesity strongly recommended diet and exercise as outpatient. Constipation. Bowel regimen. PT and OT recommended OT and PT at rehab. Constipation: bowel regimen Discussed with nurse and with [employer] Miner clear to discharge from Medicine will follow recommendations by General Surgery and ID specialist DVT Prophylaxis: Heparin Code Status: Full code. Discussed Condition With: Patient and nurse Miss Wang Discharge Planning: Once cleared by consultants Plan for GI series on Saturday 03/24 per GI Once cleared by GI , gen surgery might do thyroidectomy.
[2018-03-23 12:24] LABS: Calcium 8.5 mg/dL (8.5-10.1); Carbon Dioxide 23.2 meq/L (21.0-32.0); Potassium 5.2 meq/L (3.5-5.1)
--- NOTE | 2018-03-23 14:22 | P.PNGI ---
Physical Exam Vital signs: Vital Signs 03/22/18 16:00 03/22/18 16:30 03/22/18 20:00 Temperature 97.8 F 98.3 F Pulse Rate 50 L 55 L Respiratory Rate 17 20 Blood Pressure 99/45 L 115/53 L 110/51 L Pulse Oximetry 98 96 03/23/18 00:00 03/23/18 08:00 03/23/18 12:00 Temperature 97.9 F 98.0 F 97.9 F Pulse Rate 48 L 50 L Respiratory Rate 20 16 18 Blood Pressure 115/55 L 140/62 102/50 L Pulse Oximetry 100 93 L 100 Intake & Output 03/22/18 03/23/18 03/23/18 18:59 06:59 18:59 Intake Total 600 / 600 360 / 360 Output Total 800 / 800 300 / 300 Balance -200 / -200 60 / 60 Weight 82.3 kg Intake: IV 100 / 100 Rocephin Inj 2,000 MG In NS Inj 100 / 100 100 ML @ 200 mls/hr IV.SIG Q24H [facility] Rx#:[id number] Oral 500 / 500 360 / 360 Output: Urine 800 / 800 300 / 300 Other: # Voids 1 1 Date of Last Bowel Movement 03/18/18 # Bowel Movements 0 <Nory Echols M - Last Filed: 03/23/18 14:24> Vital signs: Vital Signs 03/23/18 00:00 03/23/18 08:00 03/23/18 12:00 Temperature 97.9 F 98.0 F 97.9 F Pulse Rate 48 L 50 L Respiratory Rate 20 16 18 Blood Pressure 115/55 L 140/62 102/50 L Pulse Oximetry 100 93 L 100 03/23/18 16:00 03/23/18 20:00 Temperature 98.1 F 97.7 F Pulse Rate 55 L 53 L Respiratory Rate 18 18 Blood Pressure 98/65 L 117/54 L Pulse Oximetry 93 L 100 Intake & Output 03/23/18 03/23/18 03/24/18 06:59 18:59 06:59 Intake Total 360 / 360 840 / 840 Output Total 300 / 300 800 / 800 Balance 60 / 60 40 / 40 Weight 82.3 kg Intake: IV 100 / 100 Rocephin Inj 2,000 MG In NS Inj 100 / 100 100 ML @ 200 mls/hr IV.SIG Q24H [facility] Rx#:[id number] Oral 360 / 360 740 / 740 Output: Urine 300 / 300 800 / 800 Other: # Voids 1 # Bowel Movements 0 <Stefan Rivera - Last Filed: 03/23/18 23:19> Results - Labs CBC & Chem 7: 03/22/18 06:52 03/23/18 11:20 Laboratory Results - last 24 hr 03/23/18 11:20 Sodium 129 L Potassium 5.2 H Chloride 97 L Carbon Dioxide 23.2 Anion Gap 9 BUN 28 H Creatinine 1.50 H Estimated GFR 40 L Random Glucose 153 H Calcium 8.5 <OnesimoNory M - Last Filed: 03/23/18 14:24> - Labs CBC & Chem 7: 03/22/18 06:52 03/23/18 11:20 Laboratory Results - last 24 hr 03/23/18 11:20 Sodium 129 L Potassium 5.2 H Chloride 97 L Carbon Dioxide 23.2 Anion Gap 9 BUN 28 H Creatinine 1.50 H Estimated GFR 40 L Random Glucose 153 H Calcium 8.5 <Stefan Rivera A - Last Filed: 03/23/18 23:19> Assessment and Plan - Plan patient is status post EGD with normal-appearing esophagus, erythematous gastritis in the gastric antrum - Large residual food in the stomach by endoscopy - Dysphagia of unknown etiology. - Large Goiter 03/23/2018 patient still complains of dysphasia and food feeling like it is not going down the esophagus. Also complains of some epigastric tenderness. Morbid obesity but able to sit up in chair and does appear to have some generalized weakness. Current hemoglobin 13.7. Patient is status post her EGD with current dysphasia, unknown etiology. Will consider having speech therapy evaluate patient's esophageal motility and toleration of her food with swallow. Encourage patient with reflux precautions taking small bites, non-greasy fatty foods, hydration when swallowing Possible gastroparesis, complicated by an elderly morbidly obese female and large residue of food in the stomach. No Reglan given secondary to possible interaction with Celexa. Plan Diet consider EES reflux precautions, small feedings with hydration, No carbonated drinks Zofran Bowel regimen Speech therapy to eval , swallow Further recommendations to follow Patient was seen per myself and Dr. Rivera, note was written on his behalf <Nory Echols - Last Filed: 03/23/18 14:24> - Attending Attestation Agree with above assessment and plan. Will follow up with you. <Stefan Rivera - Last Filed: 03/23/18 23:19>
[2018-03-24] MEDS: Heparin - SQ 10,000 UNITS/ML Vial SQ SCH ×3 (00:08→22:21)
[2018-03-24] MEDS: Acetaminophen 325 MG Tablet PO PRN ×2 (05:06→22:18)
[2018-03-24 05:42] LABS: Baso % (Auto) 0.2 % (0.0-2.0); Hematocrit 40.9 % (35.0-46.0); Hemoglobin 13.5 gm/dL (11.6-15.3); Lymph # (Auto) 0.6 th/mm3 (1.0-4.8); Lymph % (Auto) 12.6 % (9.0-44.0); Mean Corpuscular Hemoglobin 32.5 pg (27.0-34.0); Mean Corpuscular Volume 98.4 fL (80.0-100.0); Mean Platelet Volume 8.7 fL (7.0-11.0); Mono # (Auto) 0.4 th/mm3 (0.0-0.9); Mono % (Auto) 8.2 % (0.0-8.0); Neut # (Auto) 3.8 th/mm3 (1.8-7.7); Platelet Count 208 th/mm3 (150-450); Red Blood Count 4.16 mil/mm3 (4.00-5.30); Red Cell Distribution Width 13.9 % (11.6-17.2); White Blood Count 4.9 th/mm3 (4.0-11.0)
[2018-03-24 06:11] LABS: Calcium 8.5 mg/dL (8.5-10.1); Carbon Dioxide 23.7 meq/L (21.0-32.0)
--- NOTE | 2018-03-24 10:38 | P.PN ---
Subjective Interval history: Follow-up visit for facial cellulitis, and large thyroid. Patient seen and examined sitting up to the chair this morning, appears to be in no acute distress. Continues to complain of right-sided neck and facial pain. Patient also reports she continues to have trouble swallowing and requiring medications to be crushed, some nausea but no vomiting. Patient reports positive BM, some dysuria with urination, denies suprapubic pain or pressure. Physical Exam Vital signs: Vital Signs 03/23/18 12:00 03/23/18 16:00 03/23/18 20:00 Temperature 97.9 F 98.1 F 97.7 F Pulse Rate 50 L 55 L 53 L Respiratory Rate 18 18 18 Blood Pressure 102/50 L 98/65 L 117/54 L Pulse Oximetry 100 93 L 100 03/24/18 00:00 03/24/18 08:00 Temperature 97.2 F L 97.3 F L Pulse Rate 54 L 50 L Respiratory Rate 18 18 Blood Pressure 121/57 L 122/55 L Pulse Oximetry 100 100 Intake & Output 03/23/18 03/24/18 03/24/18 18:59 06:59 18:59 Intake Total 840 / 840 480 / 480 Output Total 800 / 800 1000 / 1000 Balance 40 / 40 -520 / -520 Weight 82.3 kg Intake: IV 100 / 100 Rocephin Inj 2,000 MG In NS Inj 100 / 100 100 ML @ 200 mls/hr IV.SIG Q24H [facility] Rx#:[id number] Oral 740 / 740 480 / 480 Output: Urine 800 / 800 1000 / 1000 Other: # Bowel Movements 0 Narrative: GENERAL: Pleasant elderly obese, well-developed patient, in nad. SKIN: Warm and dry. HEENT: Normocephalic. Atraumatic. Thyroid gland palpable with nodular areas on bilateral lobes. CARDIOVASCULAR: Regular rate and rhythm. No murmur appreciated. RESPIRATORY: No accessory muscle use. Clear to auscultation. Breath sounds equal bilaterally. GASTROINTESTINAL: Abdomen soft, non tender. + bowel sounds. MUSCULOSKELETAL: Extremities without clubbing, cyanosis, or edema. NEUROLOGICAL: Awake and alert. No focal deficits. Normal speech. Results - Labs CBC & Chem 7: 03/24/18 04:06 03/24/18 04:06 Laboratory Results - last 24 hr 03/23/18 03/24/1818 11:20 04:06 04:06 WBC 4.9 RBC 4.16 Hgb 13.5 Hct 40.9 MCV 98.4 MCH 32.5 MCHC 33.0 RDW 13.9 Plt Count 208 MPV 8.7 Neut % (Auto) 79.0 H Lymph % (Auto) 12.6 [place] % (Auto) 8.2 H Eos % (Auto) 0.0 Baso % (Auto) 0.2 Neut # (Auto) 3.8 Lymph # (Auto) 0.6 L [place] # (Auto) 0.4 Eos # (Auto) 0.0 Baso # (Auto) 0.0 WBC Differential . Differential Comment Auto diff final Sodium 129 L 129 L Potassium 5.2 H 6.0 H D Chloride 97 L 95 L Carbon Dioxide 23.2 23.7 Anion Gap 9 10 BUN 28 H 30 H Creatinine 1.50 H 1.50 H Estimated GFR 40 L 40 L Random Glucose 153 H 186 H Calcium 8.5 8.5 Assessment and Plan - Plan 82-year-old female with a past medical history significant for CHF, COPD, depression, hypothyroidism, hypertension, hyperlipidemia and coronary artery disease presents to the emergency department for evaluation of a erythematous, blistering rash. Acute facial cellulitis: Diffuse throughout right side of the face and left frontotemporal area. Has overlying honey crusted plaques, consider impetigo? Afebrile, no leukocytosis, lactic acid 1.1. Odynophagia -Wound culture collected growing Staph Aureus. -Seen by ID specialist, stopped Zosyn and continued Unasyn, CT neck with diffusely and significant enlargement of thyroid gland bilaterally. innumerable nodules and calcification, mass effect on the surrounding adjacent structures. -On Ceftriaxone (D/C tonight per ID), Diflucan for Candidal skin rash (several more days per ID), continue hydrocortisone scream to skin, taper prednisone (patient chronically on prednisone for COPD). - ENT recommended for Endocrinology as outpatient, ID consulted General Surgery, possibly thyroidectomy pending general surgery evaluation today - Barium Swallow showed scattered tertiary contractions, no obvious hiatal hernia or fixed luminal narrowing. -Underwent gastric emptying scan which showed delayed. GI has started Reglan. 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 -Orthopedic services consulted, seen by Dr. New, recommended conservative treatment, no surgical intervention at the moment, follow-up on outpatient basis - ID following, elbow edema improved CAD/CHF/HTN/HLD: chronic, stable -Continue patient's aspirin, plavix, statin, vasotec, lasix -compliant of Epigastric pain, rule out Cardiac pathology was performed cardiac enzymes negative and ECG no changes. COPD: chronic, Non exacerbated. -continue patient's Breo, albuterol, prednisone to 10 mg BID. Depression: chronic -Continue patient's celexa, trazodone, lyrica Hypothyroidism: chronic -Continue home meds, Dysphagia probable secondary to Goiter, previously discussed by team with Doctor Josef MONGE he states do not plan to perform surgery to ask for Endocrinology -No Endocrinology in this facility -2 evaluated today for possible thyroidectomy. Burning with urination , UA on 03/21 was negative, recheck UA for possible UTI. GERD: chronic -continue patient's PPI Obesity strongly recommended diet and exercise as outpatient. Constipation, resolved positive BM PT and OT recommended OT and PT at rehab. DVT Prophylaxis: Heparin Discussed Condition With: Patient, RN, JENNIFER Mota, and Dr. Abrams. Discharge Planning: Possible thyroidectomy, evaluation by general surgery later today.
[2018-03-24] MEDS: predniSONE 10 MG Tablet PO SCH ×2 (13:08→22:11)
[2018-03-24] MEDS: Citalopram 20 MG Tablet PO SCH (13:08)
[2018-03-24] MEDS: traZODone 50 MG Tablet PO SCH (13:08)
[2018-03-24] MEDS: Potassium Chloride 10 MEQ ER Capsule PO SCH (13:09)
[2018-03-24] MEDS: Fluconazole 100 MG Tablet PO SCH (13:09)
[2018-03-24] MEDS: Senna/Docusate Sodium 8.6/50 MG Tablet PO SCH ×2 (13:10→22:11)
[2018-03-24] MEDS: Nystatin/Diphenhydramine/Lidocaine Mouthwash (Adult) 120 ML Botttle SWISH-SWAL SCH ×4 (13:10→22:21)
[2018-03-24] MEDS: amLODIPine 5 MG Tablet PO SCH (13:10)
--- NOTE | 2018-03-24 13:30 | NM ---
EXAM DATE: 03/24/2018 1:23 PM EDT AGE/SEX: 82 years / Female INDICATIONS: Abdominal pain with nausea. CLINICAL DATA: This is the patient's initial encounter. Patient reports that signs and symptoms have been present for 2 days and indicates a pain score of 5/10. MEDICAL/SURGICAL HISTORY: Chronic obstructive pulmonary disease. Congestive heart failure. Hy pertension. Appendectomy. Rotator cuff, left. COMPARISON: No prior exams available for comparison. DOSE: 1 mCi Tc99m Sulfur Colloid Labeled Whole Egg PO MEDICATION: 5 mg Reglan IV at 96 min minutes. IMAGING TIME: 2 hr TECHNIQUE: Following the oral ingestion of radiotracer-labeled meal, dynamic sequential images in the BULGARIAN projection were acquired with simultaneous computer acquisition. The data set was decay-correcte d. FINDINGS: Lag Phase: There is 70 minutes before onset of gastric emptying. Emptying: Gastric emptying kinetics are linear. The decay-corrected, back-extrapolated half-time of emptying is greater than 90 minutes, only achieved after Reglan administration. (Normal for this lab is 45 - 90 minutes) Intervention: Reglan given at 96 minutes CONCLUSION: 1. Delayed gastric emptying Electronically signed by: Hipolito Souza MD 03/24/2018 1:29 PM EDT
--- NOTE | 2018-03-24 13:43 | P.PNGS ---
Subjective Interval history: Wants to eat lunch Reports no shortness of breath Physical Exam Vital signs: Vital Signs 03/23/18 16:00 03/23/18 20:00 03/24/18 00:00 Temperature 98.1 F 97.7 F 97.2 F L Pulse Rate 55 L 53 L 54 L Respiratory Rate 18 18 18 Blood Pressure 98/65 L 117/54 L 121/57 L Pulse Oximetry 93 L 100 100 03/24/18 08:00 Temperature 97.3 F L Pulse Rate 50 L Respiratory Rate 18 Blood Pressure 122/55 L Pulse Oximetry 100 Intake & Output 03/23/18 03/24/18 03/24/18 18:59 06:59 18:59 Intake Total 840 / 840 480 / 480 Output Total 800 / 800 1000 / 1000 Balance 40 / 40 -520 / -520 Weight 82.3 kg Intake: IV 100 / 100 Rocephin Inj 2,000 MG In NS Inj 100 / 100 100 ML @ 200 mls/hr IV.SIG Q24H [facility] Rx#:[id number] Oral 740 / 740 480 / 480 Output: Urine 800 / 800 1000 / 1000 Other: # Bowel Movements 0 Narrative: Alert and awake Large goiter --- no airway compromise Assessment and Plan - Assessment (1) 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
[2018-03-24] MEDS: Pregabalin 25 MG Capsule PO SCH (13:45)
--- NOTE | 2018-03-24 14:07 | P.PNGI ---
Subjective Interval history: Gastric emptying scan today, abnormal, delayed. Patient is sitting up in chair, able to eat small amounts of soft food but unable to eat pizza chicken that was brought to her from the outside. Still complaining of some right neck pain as well as upper abdominal pain and pressure. <OnesimoNory Haas - Last Filed: 03/24/18 15:20> Physical Exam Vital signs: Vital Signs 03/23/18 16:00 03/23/18 20:00 03/24/18 00:00 Temperature 98.1 F 97.7 F 97.2 F L Pulse Rate 55 L 53 L 54 L Respiratory Rate 18 18 18 Blood Pressure 98/65 L 117/54 L 121/57 L Pulse Oximetry 93 L 100 100 03/24/18 08:00 Temperature 97.3 F L Pulse Rate 50 L Respiratory Rate 18 Blood Pressure 122/55 L Pulse Oximetry 100 Intake & Output 03/23/18 03/24/18 03/24/18 18:59 06:59 18:59 Intake Total 840 / 840 480 / 480 Output Total 800 / 800 1000 / 1000 Balance 40 / 40 -520 / -520 Weight 82.3 kg Intake: IV 100 / 100 Rocephin Inj 2,000 MG In NS Inj 100 / 100 100 ML @ 200 mls/hr IV.SIG Q24H [facility] Rx#:[id number] Oral 740 / 740 480 / 480 Output: Urine 800 / 800 1000 / 1000 Other: # Bowel Movements 0 - Constitutional mild distress, morbidly obese - Detailed Neck Exam: Thyroids Thyroid: Present: abnormal, diffusely enlarged (Right side) - Routine Respiratory Exam Present: accessory muscle use (No obvious shortness of breath or wheezing) - Routine Abdominal Exam Present: distended (Moderate, obese, generalized abdominal pressure and pain worse after eating) <Nory Echols - Last Filed: 03/24/18 15:20> Vital signs: Vital Signs 03/23/18 20:00 03/24/18 00:00 03/24/18 08:00 Temperature 97.7 F 97.2 F L 97.3 F L Pulse Rate 53 L 54 L 50 L Respiratory Rate 18 18 18 Blood Pressure 117/54 L 121/57 L 122/55 L Pulse Oximetry 100 100 100 03/24/18 16:00 Temperature 97.5 F L Pulse Rate 53 L Respiratory Rate 20 Blood Pressure 160/96 H Pulse Oximetry 98 Intake & Output 03/23/18 03/24/18 03/24/18 18:59 06:59 18:59 Intake Total 840 / 840 480 / 480 620 / 620 Output Total 800 / 800 1000 / 1000 500 / 500 Balance 40 / 40 -520 / -520 120 / 120 Weight 82.3 kg Intake: IV 100 / 100 Rocephin Inj 2,000 MG In NS Inj 100 / 100 100 ML @ 200 mls/hr IV.SIG Q24H [facility] Rx#:[id number] Oral 740 / 740 480 / 480 620 / 620 Output: Urine 800 / 800 1000 / 1000 500 / 500 Other: # Bowel Movements 0 1 <Stefan Rivera - Last Filed: 03/24/18 18:03> Results - Labs CBC & Chem 7: 03/24/18 04:06 03/24/18 04:06 Laboratory Results - last 24 hr 03/24/18 03/24/18 04:06 04:06 WBC 4.9 RBC 4.16 Hgb 13.5 Hct 40.9 MCV 98.4 MCH 32.5 MCHC 33.0 RDW 13.9 Plt Count 208 MPV 8.7 Neut % (Auto) 79.0 H Lymph % (Auto) 12.6 [place] % (Auto) 8.2 H Eos % (Auto) 0.0 Baso % (Auto) 0.2 Neut # (Auto) 3.8 Lymph # (Auto) 0.6 L [place] # (Auto) 0.4 Eos # (Auto) 0.0 Baso # (Auto) 0.0 WBC Differential . Differential Comment Auto diff final Sodium 129 L Potassium 6.0 H D Chloride 95 L Carbon Dioxide 23.7 Anion Gap 10 BUN 30 H Creatinine 1.50 H Estimated GFR 40 L Random Glucose 186 H Calcium 8.5 - Imaging Impressions Gastric Emptying Nuclear Medicine 03/24/18 00:00 CONCLUSION: 1. Delayed gastric emptying <Nory Echols - Last Filed: 03/24/18 15:20> - Labs CBC & Chem 7: 03/24/18 04:06 03/24/18 04:06 Laboratory Results - last 24 hr 03/24/18 03/24/18 04:06 04:06 WBC 4.9 RBC 4.16 Hgb 13.5 Hct 40.9 MCV 98.4 MCH 32.5 MCHC 33.0 RDW 13.9 Plt Count 208 MPV 8.7 Neut % (Auto) 79.0 H Lymph % (Auto) 12.6 [place] % (Auto) 8.2 H Eos % (Auto) 0.0 Baso % (Auto) 0.2 Neut # (Auto) 3.8 Lymph # (Auto) 0.6 L [place] # (Auto) 0.4 Eos # (Auto) 0.0 Baso # (Auto) 0.0 WBC Differential . Differential Comment Auto diff final Sodium 129 L Potassium 6.0 H D Chloride 95 L Carbon Dioxide 23.7 Anion Gap 10 BUN 30 H Creatinine 1.50 H Estimated GFR 40 L Random Glucose 186 H Calcium 8.5 - Imaging Impressions Gastric Emptying Nuclear Medicine 03/24/18 00:00 CONCLUSION: 1. Delayed gastric emptying <Stefan Rivera - Last Filed: 03/24/18 18:03> Assessment and Plan - Plan patient is status post EGD with normal-appearing esophagus, erythematous gastritis in the gastric antrum - Large residual food in the stomach by endoscopy - Dysphagia of unknown etiology. - Large Goiter 03/23/2018 patient still complains of dysphasia and food feeling like it is not going down the esophagus. Also complains of some epigastric tenderness. Morbid obesity but able to sit up in chair and does appear to have some generalized weakness. Current hemoglobin 13.7. Patient is status post her EGD with current dysphasia, unknown etiology. Will consider having speech therapy evaluate patient's esophageal motility and toleration of her food with swallow. Encourage patient with reflux precautions taking small bites, non-greasy fatty foods, hydration when swallowing Possible gastroparesis, complicated by an elderly morbidly obese female and large residue of food in the stomach. No Reglan given secondary to possible interaction with Celexa. 03/24/2018 gastric emptying scan completed today, delayed abnormal findings greater than 90 minutes. Current hemoglobin 13.3 no obvious bleeding, patient' s chief complaint is her right-sided neck pain secondary to a large quarter and abdominal pressure and fullness in the epigastric region. Discussed with patient the findings of her gastric emptying scan gastroparesis and the need to eat small feedings and chew her food well. Will start Reglan, swallow eval pending need recommendations for any dietary changes. Plan Diet, small feedings soft foods Reglan, if ineffective consider EES reflux precautions, small feedings with hydration, No carbonated drinks Zofran Bowel regimen Speech therapy to eval , swallow, pending Supportive care Patient was seen per myself and Dr. Rivera, note was written on his behalf <Nory Echols - Last Filed: 03/24/18 15:20> - Attending Attestation Plan as above , nothing to add from GI point of view. Will sign off for now, please notify us if needed again. <Stefan Rivera - Last Filed: 03/24/18 18:03>
--- NOTE | 2018-03-24 14:40 | P.PNID ---
Subjective Remarks: Patient complaining of tightness in her throat. The lesions of the face has improved. Sitting up in chair and eating soft food slowly. Gastric emptying study abnormal. No fever. No new symptoms. Eosinophil count normalized. Very little right elbow pain. The swelling of the right elbow has improved. This is an 82-year-old black female who presented to the emergency department on 03/12/2018 with skin changes including rash on the face and swelling of the face and also pain and swelling of the right elbow. The patient states that began about 7-10 days ago when she developed a small area of itching at the anterior forehead and it then showed up on the right side of the face on the right cheek and she was scratching it, and then moved to the left side of the face at the left cheek, and also chest, her elbow also began to be painful and swollen. Patient's nephew notes that this rash began about 3 days after she was discharged from [facility]. Antibiotics: Ceftriaxone Diflucan Lines: PIV ok Past Medical History: 1. Congestive heart failure, chronic obstructive pulmonary disease. 2. Hypertension. 3. Depression. 4. Chronic pain. 5. Goiter. 6. Urinary retention. 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 Allergies/Adverse Reactions: Allergies No Known Allergies Allergy (Verified 02/17/18 12:34) Objective Vital Signs 03/23/18 16:00 03/23/18 20:00 03/24/18 00:00 Temperature 98.1 F 97.7 F 97.2 F L Pulse Rate 55 L 53 L 54 L Respiratory Rate 18 18 18 Blood Pressure 98/65 L 117/54 L 121/57 L Pulse Oximetry 93 L 100 100 03/24/18 08:00 Temperature 97.3 F L Pulse Rate 50 L Respiratory Rate 18 Blood Pressure 122/55 L Pulse Oximetry 100 Intake & Output 03/23/18 03/24/18 03/24/18 18:59 06:59 18:59 Intake Total 840 / 840 480 / 480 Output Total 800 / 800 1000 / 1000 Balance 40 / 40 -520 / -520 Weight 82.3 kg Intake: IV 100 / 100 Rocephin Inj 2,000 MG In NS Inj 100 / 100 100 ML @ 200 mls/hr IV.SIG Q24H [facility] Rx#:[id number] Oral 740 / 740 480 / 480 Output: Urine 800 / 800 1000 / 1000 Other: # Bowel Movements 0 Lab - Hematology Results 03/24/18 04:06 WBC 4.9 RBC 4.16 Hgb 13.5 Hct 40.9 MCV 98.4 MCH 32.5 MCHC 33.0 RDW 13.9 Plt Count 208 MPV 8.7 Neut % (Auto) 79.0 H Lymph % (Auto) 12.6 [place] % (Auto) 8.2 H Eos % (Auto) 0.0 Baso % (Auto) 0.2 Neut # (Auto) 3.8 Lymph # (Auto) 0.6 L [place] # (Auto) 0.4 Eos # (Auto) 0.0 Baso # (Auto) 0.0 WBC Differential . Differential Comment Auto diff final Lab - Chemistry Results 03/23/18 03/24/18 11:20 04:06 Sodium 129 L 129 L Potassium 5.2 H 6.0 H D Chloride 97 L 95 L Carbon Dioxide 23.2 23.7 Anion Gap 9 10 BUN 28 H 30 H Creatinine 1.50 H 1.50 H Estimated GFR 40 L 40 L Random Glucose 153 H 186 H Calcium 8.5 8.5 Imaging: ITS Impressions Elbow X-Ray 03/12/18 18:07 CONCLUSION: Extensive hardware in the distal humerus and proximal ulna. No fracture either bone or metal seen. There is 2 mm lucency along the bone/metal interface of the distal humerus; no prior films to assess whether this finding is new or old.. Soft Tissue Neck CT 03/14/18 00:00 CONCLUSION: 1. Diffusely and significantly enlarged thyroid gland bilaterally. This may correspond with the palpable lump. It contains innumerable nodules and calcifications. The appearance is of very similar to the prior MRI from one year ago. The enlarged thyroid gland has mass effect on the surrounding adjacent structures. 2. No other acute finding is identified. Barium Swallow X-Ray 03/18/18 00:00 CONCLUSION: Scattered tertiary contractions. No obvious hiatal hernia or fixed luminal narrowing. Gastric Emptying Nuclear Medicine 03/24/18 00:00 CONCLUSION: 1. Delayed gastric emptying Physical Exam: HEENT: Head is atraumatic. Extraocular movements are grossly intact. Pupils reactive to light. No icterus. HEENT: The face is less swollen. Pupils reactive to light. No icterus. No conjunctival erythema. Oropharynx: Moist mucosa. The patient is edentulous. No lesions. NECK: Swelling at both left and right side of the neck anteriorly. LUNGS: Clear to auscultation. Decreased breath sounds. HEART: Regular S1, S2, without murmurs, rubs or gallops. CHEST: Tenderness at the mid epigastrium. ABDOMEN: Bowel sounds present. Soft. Nontender. EXTREMITIES: No clubbing or cyanosis. The left elbow has a superficial scab at the volar aspect. Swelling resolved. The remaining extremities have no clubbing, cyanosis or edema. SKIN: Face with no flakiness. Dry lesions at the cheeks bilateral much better. hyperpigmented maculopapular rash at the groove of the groin and breast folds. Few scattered coin skin lesions at the back and trunk. NEUROLOGIC: No gross focal findings. PSYCHIATRIC: Calm and cooperative. Assessment and Plan - Plan Impression Facial rash, cellulitis improved. Dermatitis. involving skin folds and face. improved ? unclassified connective tissue disease. BORA titer elevated. lower than previous test. Goiter. ? need for surgery. Neutropenia resolved. Eosinophilia resolved. Renal insufficiency Elbow infection improved. Delayed emptying. Recommendation Stop Ceftriaxone. Give Diflucan for a few more days. Hydrocortisone cream to skin. Taper Prednisone. Avoid Carafate - ? cause of drug rash.
[2018-03-24] MEDS: Metoclopramide 10 MG Tablet PO SCH ×2 (17:21→22:10)
[2018-03-25] MEDS ORDERED: Acetaminophen/Codeine 300/30 MG Tablet PO ONE (04:30)
[2018-03-25] MEDS ORDERED: Sodium Polystyrene Sulfonate/Sorbitol Liq 15 GM/60 ML UDC PO ONE (08:00)
[2018-03-25 08:32] LABS: Calcium 8.5 mg/dL (8.5-10.1); Carbon Dioxide 26.3 meq/L (21.0-32.0); Potassium 5.7 meq/L (3.5-5.1)
[2018-03-25] MEDS: traZODone 50 MG Tablet PO SCH (09:00)
--- NOTE | 2018-03-25 09:56 | FL ---
EXAM DATE: 03/25/2018 9:54 AM EDT AGE/SEX: 82 years / Female INDICATIONS: Dysphagia. Difficulty swallowing. Patient states she has to crush pills to swallow them . CLINICAL DATA: This is the patient's subsequent encounter. Patient reports that signs and symptoms h ave been present for 1 week and indicates a pain score of 0/10. MEDICAL/SURGICAL HISTORY: . Congestive heart failure. Chronic obstructive pulmonary disease. Hy pertension. Goiter. None. COMPARISON: [facility], CT SOFT TISSUE NECK W/O CONTRAST, 03/14/2018. . FLUORO TIME: 2.0 IMAGE COUNT: 0 FINDINGS: A modified barium swallow was performed with speech pathology. Patient was given a variety of liquids to swallow. For a full detailed report, see report by the speech pathologist. CONCLUSION: Negative examination. Electronically signed by: Guzman Blake MD 03/25/2018 9:54 AM EDT
[2018-03-25] MEDS: Citalopram 20 MG Tablet PO SCH (12:00)
[2018-03-25] MEDS: amLODIPine 5 MG Tablet PO SCH (12:00)
[2018-03-25] MEDS: Heparin - SQ 10,000 UNITS/ML Vial SQ SCH ×2 (12:00→22:17)
[2018-03-25] MEDS: Senna/Docusate Sodium 8.6/50 MG Tablet PO SCH ×2 (12:00→22:14)
[2018-03-25] MEDS: Pregabalin 25 MG Capsule PO SCH (12:00)
[2018-03-25] MEDS: Fluconazole 100 MG Tablet PO SCH (12:00)
[2018-03-25] MEDS: predniSONE 10 MG Tablet PO SCH ×2 (12:00→22:14)
[2018-03-25] MEDS: Metoclopramide 10 MG Tablet PO SCH ×4 (12:00→22:14)
--- NOTE | 2018-03-25 12:05 | P.PN ---
Subjective Interval history: Follow-up visit for cellulitis, and enlarged thyroid. Patient reports some nausea and vomiting this morning following barium swallow evaluation. She also reports she had a small bowel movement yesterday. She complains of a headache this morning, denies any fevers or chills. Physical Exam Vital signs: Vital Signs 03/24/18 16:00 03/24/18 20:00 03/25/18 00:00 Temperature 97.5 F L 97.3 F L 97.8 F Pulse Rate 53 L 53 L 60 Respiratory Rate 20 17 17 Blood Pressure 160/96 H 113/57 L 110/60 Pulse Oximetry 98 98 98 03/25/18 04:00 03/25/18 08:00 Temperature 97 F L 97.3 F L Pulse Rate 54 L 50 L Respiratory Rate 17 18 Blood Pressure 123/57 L 129/60 Pulse Oximetry 100 99 Intake & Output 03/24/18 03/25/18 03/25/18 18:59 06:59 18:59 Intake Total 720 / 720 480 / 480 Output Total 500 / 500 1300 / 1300 Balance 220 / 220 -820 / -820 Weight 82.3 kg Intake: IV 100 / 100 Rocephin Inj 2,000 MG In NS Inj 100 / 100 100 ML @ 200 mls/hr IV.SIG Q24H [facility] Rx#:[id number] Oral 620 / 620 480 / 480 Output: Urine 500 / 500 1300 / 1300 Other: Date of Last Bowel Movement 03/23/18 # Bowel Movements 1 Narrative: GENERAL: Pleasant elderly obese, well-developed patient, in nad. SKIN: Warm and dry. HEENT: Normocephalic. Atraumatic. Thyroid gland palpable with nodular areas on bilateral lobes. CARDIOVASCULAR: Regular rate and rhythm. No murmur appreciated. RESPIRATORY: No accessory muscle use. Clear to auscultation. Breath sounds equal bilaterally. GASTROINTESTINAL: Abdomen soft, non tender. + bowel sounds. MUSCULOSKELETAL: Extremities without clubbing, cyanosis, or edema. NEUROLOGICAL: Awake and alert. No focal deficits. Normal speech. Results - Labs CBC & Chem 7: 03/24/18 04:06 03/25/18 05:37 Laboratory Results - last 24 hr 03/24/18 03/25/18 00:00 05:37 Sodium 131 L Potassium 5.7 H Chloride 96 L Carbon Dioxide 26.3 Anion Gap 9 BUN 36 H Creatinine 1.43 H Estimated GFR 43 L Random Glucose 174 H Calcium 8.5 Urine Color Straw Urine Clarity Clear Urine pH 6.0 Ur Specific [place] 1.005 Urine Protein Negative Urine Glucose (UA) Negative Urine Ketones Negative Urine Occult Blood Small H Urine Nitrate Negative Urine Bilirubin Negative Urine Urobilinogen Less than 2 Ur Leukocyte Esterase Negative Urine RBC Less than 1 Urine WBC Less than 1 Ur Squamous Epith Cells 1 Urine Bacteria Rare H Urine Mucus Few H Micro UA Comment Culture not ind Ur Microscopic Review Not Reportable Urine Culture Comments Culture not ind - Imaging Impressions Gastric Emptying Nuclear Medicine 03/24/18 00:00 CONCLUSION: 1. Delayed gastric emptying Videofluoroscopic Swallow 03/25/18 00:00 CONCLUSION: Negative examination. Assessment and Plan - Plan 82-year-old female with a past medical history significant for CHF, COPD, depression, hypothyroidism, hypertension, hyperlipidemia and coronary artery disease presents to the emergency department for evaluation of a erythematous, blistering rash. Acute facial cellulitis: Diffuse throughout right side of the face and left frontotemporal area. Has overlying honey crusted plaques, consider impetigo? Afebrile, no leukocytosis, lactic acid 1.1. Odynophagia -Wound culture collected growing Staph Aureus. -Seen by ID specialist, stopped Zosyn and continued Unasyn, CT neck with diffusely and significant enlargement of thyroid gland bilaterally. innumerable nodules and calcification, mass effect on the surrounding adjacent structures. -On Ceftriaxone (D/C 03/24 per ID), Diflucan for Candidal skin rash ( several more days per ID), continue hydrocortisone scream to skin, taper prednisone (patient chronically on prednisone for COPD). - ENT recommended for Endocrinology as outpatient, ID consulted General Surgery, possible thyroidectomy on hold secondary to kidney function. - Barium Swallow showed scattered tertiary contractions, no obvious hiatal hernia or fixed luminal narrowing. -Underwent gastric emptying scan which showed delayed. GI has started Reglan. - Fluoroscopic swallow eval. negative, barium swallow evaluation with mild oral phase and mild pharyngeal phase swallowing deficits. - Nausea, antiemetics, restart Tylenol with Codeine for pain. 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 -Orthopedic services consulted, seen by Dr. New, recommended conservative treatment, no surgical intervention at the moment, follow-up on outpatient basis - ID following, elbow edema improved Acute kidney injury Hyperkalemia Hyponatremia, chronic -Lasix have been on hold, potassium also on hold. Start gentle hydration with NS at 70 mL's per hour, continue monitoring renal function closely -1 dose of Kayexalate p.o. - Avoid nephrotoxins - Hold Vasotec CAD/CHF/HTN/HLD: chronic, stable -Continue patient's aspirin, plavix, statin, vasotec, lasix -compliant of Epigastric pain, rule out Cardiac pathology was performed cardiac enzymes negative and ECG no changes. COPD: chronic, Non exacerbated. -continue patient's Breo, albuterol, prednisone to 10 mg BID. Depression: chronic -Continue patient's celexa, trazodone, lyrica Hypothyroidism: chronic -Continue home meds, Dysphagia probable secondary to Goiter, previously discussed by team with Doctor Josef MONGE he states do not plan to perform surgery to ask for Endocrinology -No Endocrinology in this facility -General surgery following for possible thyroidectomy, on hold secondary to renal function. Burning with urination , UA on 03/21 was negative, UA negative. GERD: chronic -continue patient's PPI Obesity strongly recommended diet and exercise as outpatient. Constipation, resolved positive BM PT and OT recommended OT and PT at rehab. DVT Prophylaxis: Heparin Discussed Condition With: Patient, RN, JENNIFER Acosta Discharge Planning: Worsening renal function, general surgery following for possible thyroidectomy in the near future.
[2018-03-25] MEDS: Sod Chloride 0.9% Inj 1,000 ML IV.CONT SCH ×2 (13:56→22:17)
[2018-03-25] MEDS: Nystatin/Diphenhydramine/Lidocaine Mouthwash (Adult) 120 ML Botttle SWISH-SWAL SCH ×4 (14:00→22:14)
[2018-03-25] MEDS ORDERED: ACETAMINOPHEN CODEINE PO PRN (14:41)
[2018-03-26] MEDS: Acetaminophen/Codeine 300/30 MG Tablet PO PRN ×2 (00:25→09:36)
[2018-03-26 07:57] LABS: Calcium 8.3 mg/dL (8.5-10.1); Carbon Dioxide 26.5 meq/L (21.0-32.0); Potassium 5.7 meq/L (3.5-5.1)
[2018-03-26] MEDS: Pregabalin 25 MG Capsule PO SCH (09:36)
[2018-03-26] MEDS: Citalopram 20 MG Tablet PO SCH (09:36)
[2018-03-26] MEDS: predniSONE 10 MG Tablet PO SCH ×2 (09:36→21:12)
[2018-03-26] MEDS: Senna/Docusate Sodium 8.6/50 MG Tablet PO SCH ×2 (09:37→21:12)
[2018-03-26] MEDS: Fluconazole 100 MG Tablet PO SCH (09:37)
[2018-03-26] MEDS: traZODone 50 MG Tablet PO SCH (09:37)
[2018-03-26] MEDS: amLODIPine 5 MG Tablet PO SCH (09:37)
[2018-03-26] MEDS: Metoclopramide 10 MG Tablet PO SCH ×4 (09:37→21:12)
[2018-03-26] MEDS ORDERED: Sodium Polystyrene Sulfonate/Sorbitol Liq 15 GM/60 ML UDC PO ONE (10:00)
[2018-03-26] MEDS: Nystatin/Diphenhydramine/Lidocaine Mouthwash (Adult) 120 ML Botttle SWISH-SWAL SCH ×4 (10:44→21:12)
[2018-03-26] MEDS: Heparin - SQ 10,000 UNITS/ML Vial SQ SCH ×2 (11:26→22:58)
--- NOTE | 2018-03-26 11:55 | P.PN ---
Subjective Interval history: Follow-up visit for cellulitis, and enlarged thyroid. Patient seen and examined resting in bed, appears to be in no acute distress. Reports that she continues to have right-sided neck pain, states that Tylenol with Codeine does help relieve some of her pain. She denies any shortness of breath, cough, fevers or chills. She reports she had a bowel movement yesterday, still requesting her pills to be crushed. Patient denies any nausea or vomiting today. Physical Exam Vital signs: Vital Signs 03/25/18 12:00 03/25/18 16:00 03/25/18 20:00 Temperature 97.6 F 97.7 F 97.6 F Pulse Rate 68 57 L 58 L Respiratory Rate 18 18 15 Blood Pressure 143/61 H 134/58 L 127/58 L Pulse Oximetry 99 97 98 03/26/18 00:00 03/26/18 08:00 Temperature 98.0 F 98.1 F Pulse Rate 52 L 51 L Respiratory Rate 15 17 Blood Pressure 108/48 L 135/74 Pulse Oximetry 98 98 Intake & Output 03/25/18 03/26/18 03/26/18 18:59 06:59 18:59 Intake Total 1200 / 1200 1900 / 1900 Output Total 500 / 500 600 / 600 Balance 700 / 700 1300 / 1300 Weight 81.4 kg Intake: IV 1000 / 1000 NS Inj 1,000 ML @ 75 mls/hr IV. 1000 / 1000 CONT .[id number] [facility] Rx#:[id number] Oral 1200 / 1200 900 / 900 Output: Urine 500 / 500 600 / 600 Other: # Voids 3 2 Date of Last Bowel Movement 03/23/18 03/23/18 # Bowel Movements 2 Narrative: GENERAL: Pleasant elderly obese, well-developed patient, in nad. SKIN: Warm and dry. HEENT: Normocephalic. Atraumatic. Thyroid gland palpable with nodular areas on bilateral lobes. CARDIOVASCULAR: Regular rate and rhythm. No murmur appreciated. RESPIRATORY: No accessory muscle use. Clear to auscultation. Breath sounds equal bilaterally. GASTROINTESTINAL: Abdomen soft, non tender. + bowel sounds. MUSCULOSKELETAL: Extremities without clubbing, cyanosis, or edema. NEUROLOGICAL: Awake and alert. No focal deficits. Normal speech. Results - Labs CBC & Chem 7: 03/24/18 04:06 03/27/18 04:15 Laboratory Results - last 24 hr 03/26/18 04:31 Sodium 132 L Potassium 5.7 H Chloride 98 Carbon Dioxide 26.5 Anion Gap 8 BUN 28 H Creatinine 1.32 H Estimated GFR 47 L Random Glucose 176 H Calcium 8.3 L Assessment and Plan - Plan 82-year-old female with a past medical history significant for CHF, COPD, depression, hypothyroidism, hypertension, hyperlipidemia and coronary artery disease presents to the emergency department for evaluation of a erythematous, blistering rash. Acute facial cellulitis: Diffuse throughout right side of the face and left frontotemporal area. Has overlying honey crusted plaques, consider impetigo? Afebrile, no leukocytosis, lactic acid 1.1. Odynophagia -Wound culture collected growing Staph Aureus. -Seen by ID specialist, stopped Zosyn and continued Unasyn, CT neck with diffusely and significant enlargement of thyroid gland bilaterally. innumerable nodules and calcification, mass effect on the surrounding adjacent structures. -On Ceftriaxone (D/C 03/24 per ID), Diflucan for Candidal skin rash ( several more days per ID), continue hydrocortisone scream to skin, taper prednisone (patient chronically on prednisone for COPD). - ENT recommended for Endocrinology as outpatient, ID consulted General Surgery, possible thyroidectomy on hold secondary to kidney function. - Barium Swallow showed scattered tertiary contractions, no obvious hiatal hernia or fixed luminal narrowing. -Underwent gastric emptying scan which showed delayed. GI has started Reglan. - Fluoroscopic swallow eval. negative, barium swallow evaluation with mild oral phase and mild pharyngeal phase swallowing deficits. - PRN Tylenol with Codeine for pain. 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 -Orthopedic services consulted, seen by Dr. New, recommended conservative treatment, no surgical intervention at the moment, follow-up on outpatient basis - ID following, elbow edema resolved Acute kidney injury Hyperkalemia Hyponatremia, chronic -Lasix have been on hold, potassium also on hold. Continue NS at 70 mL's per hour, additional dose of Kayexalate today -check renal US - Avoid nephrotoxins - Continue to hold Vasotec CAD/CHF/HTN/HLD: chronic, stable -Continue patient's aspirin, plavix, statin, vasotec, lasix -compliant of Epigastric pain, rule out Cardiac pathology was performed cardiac enzymes negative and ECG no changes. COPD: chronic, Non exacerbated. -continue patient's Breo, albuterol, prednisone to 10 mg BID. Depression: chronic -Continue patient's celexa, trazodone, lyrica Hypothyroidism: chronic -Continue home meds, Dysphagia probable secondary to Goiter, previously discussed by team with Doctor Josef MONGE he states do not plan to perform surgery to ask for Endocrinology -No Endocrinology in this facility -General surgery following for possible thyroidectomy, on hold secondary to renal function. GERD: chronic -continue patient's PPI Obesity strongly recommended diet and exercise as outpatient. PT and OT recommended OT and PT at rehab. 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 Working on getting these normalized then she can go, would need to follow-up with general surgery as outpatient for possible thyroidectomy. Need to check with ID to find out how long she will need to be on Diflucan for.
[2018-03-26] MEDS: Sod Chloride 0.9% Inj 1,000 ML IV.CONT SCH ×2 (13:01→23:01)
--- NOTE | 2018-03-26 15:12 | P.DCO ---
- Physical Therapy Order: Evaluate and treat, Improve ambulation, Strength and gait training - Occupational Therapy Order: Evaluate and treat, Improve ADL, Gross motor coordination, Fine motor coordination - Speech Therapy Order: To improve: Swallowing - Home Health Nursing Order: Signs/symptoms of disease process - Certification I have seen patient Nava Mireles on 03/26/18. My clinical findings support the need for the requested home health care services because: Limited mobility due to disease progression I certify that my clinical findings support that this patient is homebound because: Unsteady gait/balance
--- NOTE | 2018-03-26 18:21 | US ---
EXAM DATE: 03/26/2018 6:04 PM EDT AGE/SEX: 82 years / Female INDICATIONS: Increased BUN/Creatinine. CLINICAL DATA: This is the patient's initial encounter. Patient reports that signs and symptoms have been present for 1 day and indicates a pain score of 0/10. MEDICAL/SURGICAL HISTORY: Chronic obstructive pulmonary disease. Hypertension. Anxiety. Conges tive heart failure. Chronic pain. Depression. Goiter. Urinary retention. Appendectomy. Rotator cuff repair. COMPARISON: [facility] [place], CT ABDOMEN & PELVIS W/O CONTRAST, 02/17/2018. . MEASUREMENTS: Right Kidney:__8.4 x 3.5 x 4.3 cm Left Kidney:__9.3 x 4.4 x 4.5 cm FINDINGS: Right Kidney: Increased echotexture. No mass or hydronephrosis. Left Kidney: Increased echotexture. No mass or hydronephrosis. Bladder: Within normal limits given the degree of distension. Other: None. CONCLUSION: 1. Echogenic kidneys suggesting medical renal disease. Electronically signed by: Michael Quiroga MD 03/26/2018 6:20 PM EDT
[2018-03-27] MEDS: Acetaminophen/Codeine 300/30 MG Tablet PO PRN ×2 (03:54→15:57)
[2018-03-27 06:01] LABS: Calcium 8.1 mg/dL (8.5-10.1); Potassium 4.8 meq/L (3.5-5.1)
[2018-03-27 08:19] VITALS: RESP 17
--- NOTE | 2018-03-27 08:41 | P.DS ---
Date of admission: 03/12/18 22:09 Primary care physician: Bryan Christie DO Attending physician on discharge: Luis Cabrera Anticipated date of discharge: 03/27/18 Brief History from admission: 82-year-old female with a past medical history significant for CHF, COPD, depression, hypothyroidism, hypertension, hyperlipidemia and coronary artery disease presents to the emergency department for evaluation of a erythematous, blistering rash. The patient reports that it started on her right cheek and now encompasses her face, hairline, right elbow, right chest and abdomen. She reports that the rash is painful however denies any fever/chills. She reports that she saw her PCP who gave her a pill but she cannot tell me what it was. No chest pain or shortness of breath. No abdominal pain. No nausea/vomiting/ diarrhea. No lateralizing signs/symptoms. The patient does have hardware in her right elbow from a broken arm approximately 20 years ago. X-ray of the elbow shows a 2 mm lucency along the bone/metal interface of the distal humerus. Orthopedic surgery recommends close monitoring, no need for operative intervention at this time. DS: Medications - Discharge Medications Prescriptions: amlodipine [Norvasc] 5 mg PO DAILY #30 tab fluconazole 100 mg PO DAILY #5 tab DS: Summary Hospital Course: 82-year-old female with a past medical history significant for CHF, COPD, depression, hypothyroidism, hypertension, hyperlipidemia and coronary artery disease who presented to the ED on 03/12 due to erythematous, blistering rash. CT of the neck revealed diffusely and significantly enlarged thyroid gland bilaterally. This also showed innumerable nodules and calcifications, the enlarged thyroid gland had mass-effect on the surrounding adjacent structures. Patient also complained of right elbow swelling and x-ray revealed hardware with a 2 mm lucency along the bone/metal interface of the distal humerus, no abscess noted. Patient was seen and evaluated by ENT who recommended endocrinology follow-up as outpatient. Infectious disease saw patient, she was initially started on IV Zosyn then transitioned over to Unasyn and p.o. fluconazole. Patient was eventually transitioned over to ceftriaxone with decrease and facial cellulitis and improvement. Right elbow also decreased in swelling. Gastroenterology also saw patient during her hospitalization patient underwent barium swallow which showed scattered tertiary contractions. Gastric emptying scan showed delay and patient was treated shortly with a course of Reglan. Fluoroscopic swallow evaluation was negative and barium swallow evaluation showed mild oral phase and mild pharyngeal phase swallowing deficits. Patient was also noted to have acute kidney injury and hyperkalemia for which she was treated with p.o. Kayexalate and hydrated with NS. Renal ultrasound showed echogenic kidneys suggesting medical renal disease. Renal function has improved, right neck pain has also been controlled with Tylenol with codeine. General surgery evaluated patient during her stay, not emergent and airway was stable. Discussed with patient regarding follow-up as outpatient for elective thyroidectomy, she is agreeable. Case management has set up home health for discharge. She is seen and examined sitting up in bed in no acute distress. She denies any nausea, vomiting, diarrhea breath or chest pain. She reports eating and drinking without any issues, bowel movement day before yesterday. Later in the morning she did complain of some epigastric pain and tenderness, worsening with palpation accompanied by nausea. Patient was provided with Zofran for this. - Time Spent with Patient Total time spent providing and/or coordinating discharge services: Less than 30 minutes - Quality: VTE Deep Vein Thrombosis/Pulmonary Embolism Present on Admission: No Exam Vital signs: Vital Signs 03/26/18 12:00 03/26/18 16:00 03/26/18 20:13 Temperature 97.8 F 98.2 F 97.9 F Pulse Rate 56 L 76 81 Respiratory Rate 17 17 18 Blood Pressure 123/58 L 141/67 H 134/62 Pulse Oximetry 95 95 98 03/27/18 00:04 03/27/18 08:00 Temperature 97.9 F 98.5 F Pulse Rate 54 L 54 L Respiratory Rate 18 17 Blood Pressure 146/80 H 173/74 H Pulse Oximetry 98 95 Intake & Output 03/26/18 03/27/18 03/27/18 18:59 06:59 18:59 Intake Total 1720 / 1720 1680 / 1680 Output Total 2800 / 2800 Balance 1720 / 1720 -1120 / -1120 Weight 81 kg Intake: IV 1000 / 1000 1000 / 1000 NS Inj 1,000 ML @ 75 mls/hr IV. 1000 / 1000 1000 / 1000 CONT .[id number] GER Rx#:[id number] Oral 720 / 720 680 / 680 Output: Urine 2800 / 2800 Other: # Voids 1 Date of Last Bowel Movement 03/23/18 03/23/18 # Bowel Movements 0 Narrative: GENERAL: Pleasant elderly obese, well-developed patient, in nad. SKIN: Warm and dry. HEENT: Normocephalic. Atraumatic. Thyroid gland palpable with nodular areas on bilateral lobes. CARDIOVASCULAR: Regular rate and rhythm. No murmur appreciated. RESPIRATORY: No accessory muscle use. Clear to auscultation. Breath sounds equal bilaterally. GASTROINTESTINAL: Abdomen soft, non tender. + bowel sounds. MUSCULOSKELETAL: Extremities without clubbing, cyanosis, or edema. NEUROLOGICAL: Awake and alert. No focal deficits. Normal speech. Results Procedures completed during hospitalization: none Labs on day of discharge: Labs from last 24 hours 03/27/18 04:15 Sodium 133 L Potassium 4.8 D Chloride 100 Carbon Dioxide 25.0 Anion Gap 8 BUN 21 H Creatinine 1.10 H Estimated GFR 58 L Random Glucose 178 H Calcium 8.1 L - Impressions ITS Impressions Elbow X-Ray 03/12/18 18:07 CONCLUSION: Extensive hardware in the distal humerus and proximal ulna. No fracture either bone or metal seen. There is 2 mm lucency along the bone/metal interface of the distal humerus; no prior films to assess whether this finding is new or old.. Soft Tissue Neck CT 03/14/18 00:00 CONCLUSION: 1. Diffusely and significantly enlarged thyroid gland bilaterally. This may correspond with the palpable lump. It contains innumerable nodules and calcifications. The appearance is of very similar to the prior MRI from one year ago. The enlarged thyroid gland has mass effect on the surrounding adjacent structures. 2. No other acute finding is identified. Barium Swallow X-Ray 03/18/18 00:00 CONCLUSION: Scattered tertiary contractions. No obvious hiatal hernia or fixed luminal narrowing. Gastric Emptying Nuclear Medicine 03/24/18 00:00 CONCLUSION: 1. Delayed gastric emptying Videofluoroscopic Swallow 03/25/18 00:00 CONCLUSION: Negative examination. Abdomen/Bladder Ultrasound 03/26/18 00:00 CONCLUSION: 1. Echogenic kidneys suggesting medical renal disease. Discharge Plan - Discharge Disposition Patient Disposition: W/Home Health Service - Discharge Condition Condition: Fair - Discharge Order Discharge Orders: Discharge Order (Routine); Ordered 03/27/18 Ordered By: Dannielle Martínez - Physicians Team Primary Care Provider: Bryan Christie Attending Provider: Luis Cabrera Other Providers: Orly New MD ; Charli Abrams MD ; Hardik Bahena MD ; Dallas Coffey MD ; Johnson Arcos MD
[2018-03-27] MEDS: amLODIPine 5 MG Tablet PO SCH (08:57)
[2018-03-27] MEDS: Pregabalin 25 MG Capsule PO SCH (08:57)
[2018-03-27] MEDS: Fluconazole 100 MG Tablet PO SCH (08:57)
[2018-03-27] MEDS: predniSONE 10 MG Tablet PO SCH (08:58)
[2018-03-27] MEDS: Metoclopramide 10 MG Tablet PO SCH ×2 (08:58→11:02)
[2018-03-27] MEDS: traZODone 50 MG Tablet PO SCH (08:58)
[2018-03-27] MEDS: Senna/Docusate Sodium 8.6/50 MG Tablet PO SCH (08:58)
[2018-03-27] MEDS: Citalopram 20 MG Tablet PO SCH (08:58)
[2018-03-27] MEDS: Nystatin/Diphenhydramine/Lidocaine Mouthwash (Adult) 120 ML Botttle SWISH-SWAL SCH (08:59)
[2018-03-27] MEDS: Heparin - SQ 10,000 UNITS/ML Vial SQ SCH (11:03)
[2018-03-27 14:09] VITALS: BP 128/59; PULSE 57; TEMP 98.9; O2SAT 100
== END 2018-03-27 19:15 | disposition home health service (06) ==
LOC: NEPE 16:50 → NEDA 16:50 → NEPHCDU 21:50 → N07 03-13 16:54
PROVIDERS: ADMIT Internal Medicine; ATTEND Internal Medicine